=== PATIENT | female | born 1955 | race Caucasian/White ===

== ENCOUNTER 2020-05-13 18:01 | Emergency (ER) | payer MEDICARE, MEDICAID, SELFPAY ==
[2020-05-13 19:38] VITALS: BP 178/83; PULSE 97; RESP 18; TEMP 37.2; O2SAT 97; BMI 23.0
--- NOTE | 2020-05-13 20:42 | ED_ITS ---
HPI - General Adult General Chief complaint: General Medical Stated complaint: coughing Time Seen by Provider: 05/13/20 20:33 Source: patient Mode of arrival: ambulatory Limitations: no limitations History of Present Illness HPI narrative: patient comes to emergency room complaining of 2 days of nausea, vomiting, chills and cough and diffuse body pain. Patient states she has been able to eat because she is nauseous. Related Data Previous Rx's Medication Instructions Recorded azithromycin See Rx Instructions .ROUTE 05/13/20 .COMPLEX #6 tab benzonatate [Tessalon Perles] 100 mg PO TID PRN #14 cap 05/13/20 prednisone 50 mg PO DAILY #5 tab 05/13/20 Allergies Allergy/AdvReac Type Severity Reaction Status Date / Time No Known Allergies Allergy Unverified 03/22/20 17:10 [No Known Allergies*] none Allergy Unknown Uncoded 03/05/20 00:00 Review of Systems Review of Systems: Constitutional : No Weight loss, Complaining of chills, fatigue, generalized malaise ENT/Mouth : No Hearing loss, No Ear Pain, No Nasal Congestion, No Sinus Pain, No Hoarseness, No sore throat, No Rhinorrhea, No Swallowing Difficulty Eyes: No Eye Pain, No Swelling, No Redness, No Foreign Body, No Discharge, No Vision Changes Cardiovascular : No Chest Pain, No SOB, No Dyspnea on Exertion, No Orthopnea, No Edema, No Palpitations Respiratory : patient reports productive cough, no hemoptysis, no significant shortness of breath Gastrointestinal : No Nausea, No Vomiting, No Diarrhea, No Constipation, No abdominal Pain, No Hematochezia, No Melena Genitourinary : no irregular bleeding, No Dysuria, No Urinary Frequency, No Frederick turia, No Urinary Incontinence, No Urgency, No Flank Pain, No Urinary Flow Changes, No Hesitancy Musculoskeletal : No joint pain, No Myalgias, No Joint Swelling Skin : No Skin Lesions, No rash Neuro : No Weakness, No Numbness, No Paresthesias, No Loss of Consciousness, No Dizziness, No Headache Psych : No Anxiety/Panic, No Depression, No SI/HI/AH/VH, No Social Issues, Heme/Lymph: No Bruising, No Bleeding,No Lymphadenopathy Endocrine : No Polyuria, No Polydipsia, No Temperature Intolerance [facility] Past Medical History Medical History (Updated 05/13/20 @ 23:26 by Jacqueline Craft MD) Asthma COPD (chronic obstructive pulmonary disease) HTN (hypertension) Low calcium levels Surgical History Hx laparoscopic cholecystectomy Hx of tonsillectomy Hx of tubal ligation Family History Family History (Updated 05/10/20 @ 08:54 by Carley Medina LPN) Father Diabetes Hypertension Heart disease Mother Heart disease Diabetes Arthritis Social History Social History Alcohol intake: never Smoking Status: Current some day smoker Use of substances other than those prescribed or required for medical reasons: No Advance Directives: No Advance Directives Information Provided: Yes Physical Exam Vital Signs: Vital Signs: Last Vital Signs Temp 98.9 F 05/13/20 19:38 Pulse 97 05/13/20 19:38 Resp 18 05/13/20 19:38 BP 178/83 H 05/13/20 19:38 Pulse Ox 97 05/13/20 19:38 Body Mass Index 23.0 Course Course Course Narrative: I discussed the labs with the patient, she tested negative for COVID, chest x-ray within normal limits. UA negative. Patient's white blood cell count is likely secondary to a viral infection. Sepsis is not suspected. Patient will be sent home, due to the patient's age and comorbidit ies we will treat with antibiotics. Medical Decision Making Lab Data Result diagrams: 05/13/20 20:58 05/13/20 20:58 Labs: Lab Results 05/13/20 05/13/20 05/13/20 Range/Units 20:58 20:58 20:58 WBC 15.2 H (4.8-10.8) X10*3/uL RBC 4.54 (4.20-5.50) X10*6/uL Hgb 13.9 (12.0-16.0) g/dl Hct 41.8 (37-47) % MCV 92.1 (80-98) fL MCH 30.6 (27.0-33.0) pg MCHC 33.3 (31.0-35.0) g/dl RDW 12.0 (11.0-16.0) % Plt Count 263 (160-400) X10*3/uL MPV 9.8 (9.4-12.3) fL Immature Gran % (Auto) 0.3 (0.0-0.4) % Neut % (Auto) 74.8 H (45-73) % Lymph % (Auto) 16.0 L (20-40) % [place] % (Auto) 8.1 (2-11) % Eos % (Auto) 0.6 (0-4) % Baso % (Auto) 0.2 (0-2) % Lymph # (Auto) 2.4 (1.2-4.9) X10*3/uL [place] # (Auto) 1.2 (0.1-1.2) X10*3/uL Eos # (Auto) 0.1 (0.0-0.4) X10*3/uL Baso # (Auto) 0.0 (0.0-0.2) X10*3/uL Abs Immat Gran (auto) 0.05 H (0.00-0.03) X10*3/uL Absolute Neuts (auto) 11.4 H (2.0-8.3) X10*3/uL Absolute Nucleated RBC 0.000 (0.0-0.012) X10*3/uL Nucleated RBC % (auto) 0.0 (0.0-0.2) /100WBC Sodium 141 (135-145) mmol/L Potassium 4.0 (3.3-5.1) mmol/l Chloride 102 (96-108) mmol/L Carbon Dioxide 30 H (22-29) mmol/L Anion Gap 13 (12-20) BUN 13 (9-16) mg/dL Creatinine 0.80 (0.5-1.4) mg/dL Estim Creat Clear Calc 52.2 Estimated GFR > 60 Random Glucose 93 (60-115) mg/dL Lactic Acid 1.4 (0.5-2.0) mmol/L Calcium 9.2 (8.4-10.2) mg/dL Urine Color Urine Appearance Urine pH (5.0-8.0) Ur Specific [place] (1.005-1.025) Urine Protein (NEG-TRACE) MG/DL Urine Glucose (UA) (NEG) MG/DL Urine Ketones (NEG) MG/DL Urine Blood (NEG) Urine Nitrite (NEG) Ur Leukocyte Esterase (NEG) Urine RBC (0) /HPF Urine WBC (0-4) /HPF Ur Squamous Epith Cells /LPF Urine Bacteria /LPF Coronavirus (PCR) (Negative) 05/13/20 05/13/20 Range/Units 21:48 22:36 WBC (4.8-10.8) X10*3/uL RBC (4.20-5.50) X10*6/uL Hgb (12.0-16.0) g/dl Hct (37-47) % MCV (80-98) fL MCH (27.0-33.0) pg MCHC (31.0-35.0) g/dl RDW (11.0-16.0) % Plt Count (160-400) X10*3/uL MPV (9.4-12.3) fL Immature Gran % (Auto) (0.0-0.4) % Neut % (Auto) (45-73) % Lymph % (Auto) (20-40) % [place] % (Auto) (2-11) % Eos % (Auto) (0-4) % Baso % (Auto) (0-2) % Lymph # (Auto) (1.2-4.9) X10*3/uL [place] # (Auto) (0.1-1.2) X10*3/uL Eos # (Auto) (0.0-0.4) X10*3/uL Baso # (Auto) (0.0-0.2) X10*3/uL Abs Immat Gran (auto) (0.00-0.03) X10*3/uL Absolute Neuts (auto) (2.0-8.3) X10*3/uL Absolute Nucleated RBC (0.0-0.012) X10*3/uL Nucleated RBC % (auto) (0.0-0.2) /100WBC Sodium (135-145) mmol/L Potassium (3.3-5.1) mmol/l Chloride (96-108) mmol/L Carbon Dioxide (22-29) mmol/L Anion Gap (12-20) BUN (9-16) mg/dL Creatinine (0.5-1.4) mg/dL Estim Creat Clear Calc Estimated GFR Random Glucose (60-115) mg/dL Lactic Acid (0.5-2.0) mmol/L Calcium (8.4-10.2) mg/dL Urine Color YELLOW Urine Appearance CLEAR Urine pH 7.0 (5.0-8.0) Ur Specific [place] 1.015 (1.005-1.025) Urine Protein NEG (NEG-TRACE) MG/DL Urine Glucose (UA) NEG (NEG) MG/DL Urine Ketones NEG (NEG) MG/DL Urine Blood TRACE (NEG) Urine Nitrite NEG (NEG) Ur Leukocyte Esterase TRACE H (NEG) Urine RBC 0 (0) /HPF Urine WBC 0-2 (0-4) /HPF Ur Squamous Epith Cells NONE /LPF Urine Bacteria 1+ /LPF Coronavirus (PCR) NEGATIVE (Negative) Discharge Plan Discharge Clinical Impression: Bronchitis Patient Disposition: Home, Self-Care Instructions: Acute Bronchitis (ED) Additional Instructions: Please follow-up with your primary care physician tomorrow. If you have any worsening or new symptoms, please return to the emergency room or call 911 Prescriptions: New azithromycin 250 mg tablet See Rx Instructions .ROUTE .COMPLEX Qty: 6 RF: 0 prednisone 50 mg tablet 50 mg PO DAILY Qty: 5 RF: 0 benzonatate [Tessalon Perles] 100 mg capsule 100 mg PO TID PRN (Reason: cough) Qty: 14 RF: 0
--- NOTE | 2020-05-13 20:57 | XR_ITS ---
EXAMINATION: XR CHEST CLINICAL INFORMATION: Cough COMPARISON: 08/15/2019 TECHNIQUE: Frontal view of the chest was obtained. FINDINGS: No significant abnormality is noted involving the heart, lungs, mediastinum, bony thorax or soft tissues. XR/XR chest 1V IMPRESSION: Unremarkable examination.
[2020-05-13] MEDS: 0.9 % Sodium Chloride 1,000 ML 999 ML IVCONT (21:07)
[2020-05-13 21:08] LABS: MANUAL DIFF FLAG NO
[2020-05-13 21:10] LABS: Basophils Percent Auto 0.2 % (0-2); Eosinophils Absolute Auto 0.1 X10*3/uL (0.0-0.4); Eosinophils Percent Auto 0.6 % (0-4); Hematocrit 41.8 % (37-47); Hemoglobin 13.9 g/dl (12.0-16.0); Imm Gran Abs Auto 0.05 X10*3/uL (0.00-0.03); Imm Gran Pct Auto 0.3 % (0.0-0.4); Lymphocytes Absolute Auto 2.4 X10*3/uL (1.2-4.9); Mean Corpuscular HGB Conc 33.3 g/dl (31.0-35.0); Mean Corpuscular Hemoglobin 30.6 pg (27.0-33.0); Mean Corpuscular Volume 92.1 fL (80-98); Mean Platelet Volume 9.8 fL (9.4-12.3); Monocytes Absolute Auto 1.2 X10*3/uL (0.1-1.2); Monocytes Percent Auto 8.1 % (2-11); Neutrophils Absolute Auto 11.4 X10*3/uL (2.0-8.3); Neutrophils Percent Auto 74.8 % (45-73); Platelet Count 263 X10*3/uL (160-400); Red Blood Count 4.54 X10*6/uL (4.20-5.50); White Blood Count 15.2 X10*3/uL (4.8-10.8)
[2020-05-13 21:28] LABS: Lactic Acid 1.4 mmol/L (0.5-2.0)
[2020-05-13 21:33] LABS: Anion Gap 13 (12-20); Blood Urea Nitrogen 13 mg/dL (9-16); Calcium 9.2 mg/dL (8.4-10.2); Carbon Dioxide 30 mmol/L (22-29); Chloride 102 mmol/L (96-108); Creatinine Clr Calc Pharmacy 52.2; Estimated Glomerular Filt Rate > 60; Glucose Random 93 mg/dL (60-115); Sodium 141 mmol/L (135-145)
[2020-05-13 22:42] LABS: Glucose Urine UA NEG (NEG); Leukocyte Esterase Urine TRACE (NEG); Nitrite Urine NEG (NEG); Specific Gravity - Urine 1.015 (1.005-1.025); Urine Blood TRACE (NEG); Urine Ketones NEG (NEG); Urine Protein NEG (NEG-TRACE)
[2020-05-13 22:43] LABS: Appearance Urine CLEAR; Color Urine YELLOW
[2020-05-13 22:49] LABS: Bacteria Urine 1+ /LPF; RBC Urine 0 /HPF (0); WBC Urine 0-2 /HPF (0-4)
[2020-05-13 22:58] LABS: SARS COV2 PCR INHOUSE NEGATIVE (Negative)
[2020-05-13 23:31] VITALS: BP 162/99; PULSE 103; RESP 16; TEMP 36.9; O2SAT 99
== END 2020-05-13 23:42 | disposition home or self-care (01) ==
PROVIDERS: Emergency Provider Emergency Medicine; PCP Internal Medicine
DX: J40 Bronchitis, not specified as acute or chronic (principal); R05 Cough; Z79.899 Other long term (current) drug therapy; F17.200 Nicotine dependence, unspecified, uncomplicated; Z71.6 Tobacco abuse counseling; Z20.828 Contact with and (suspected) exposure to other viral communicable diseases
CPT/HCPCS: 36415; 71045; 80048; 81001; 83605; 85025; 87040; 87086; 96360; 99284; U0003

== ENCOUNTER 2020-06-11 11:19 | Emergency (ER) | payer MEDICARE, MEDICAID, SELFPAY ==
[2020-06-11 11:40] VITALS: BP 129/79; PULSE 113; RESP 16; TEMP 36; O2SAT 95; BMI 20.7
--- NOTE | 2020-06-11 11:48 | XR_ITS ---
EXAMINATION: XR CHEST CLINICAL INFORMATION: Productive cough. COMPARISON: Chest 05/13/2020 TECHNIQUE: Frontal view of the chest was obtained. FINDINGS: The lungs are well-expanded with patchy density suspected in right lung base. Rest of lungs are clear. Heart size and pulmonary vascularity is normal. No gross bony abnormality seen. XR/XR chest 1V IMPRESSION: Patchy density right lung base likely infiltrate.
--- NOTE | 2020-06-11 12:26 | ED_ITS ---
HPI - URI/Sore Throat General Chief Complaint: Upper Respiratory Symptoms Stated Complaint: respiratory problems Time Seen by Provider: 06/11/20 11:36 Source: patient Mode of arrival: ambulatory Limitations: no limitations History of Present Illness HPI Narrative: 65-year-old female presenting to the ED with complaints of body aches, sore throat, nasal congestion, productive cough with white-colored sputum and chest tightness along with wheezing despite using her albuterol inhaler and nebulizer she reports mild symptomatic relief. Denies recent travel or sick contacts. Denies any fevers, chest pain or palpitations or any other symptom complaints or concerns at this time. Reports she was seen here approximately 1 month ago was diagnosed with bronchitis and was sent home with antibiotics and symptomatic treatment which made her symptoms resolve. Related Data Previous Rx's Medication Instructions Recorded azithromycin See Rx Instructions .ROUTE 05/13/20 .COMPLEX #6 tab benzonatate [Tessalon Perles] 100 mg PO TID PRN #14 cap 05/13/20 prednisone 50 mg PO DAILY #5 tab 05/13/20 acetaminophen [Tylenol Extra 1,000 mg PO QID PRN #10 tab 06/11/20 Strength] albuterol sulfate 0.63 mg INHALATION QID PRN #90 ml 06/11/20 albuterol sulfate 1 inh INHALATION QID PRN #8.5 g 06/11/20 doxycycline monohydrate 100 mg PO BID 10 Days #20 cap 06/11/20 ibuprofen 800 mg PO Q8H PRN #14 tab 06/11/20 prednisone 40 mg PO DAILY 5 Days #10 tab 06/11/20 Allergies Allergy/AdvReac Type Severity Reaction Status Date / Time No Known Allergies Allergy Unverified 03/22/20 17:10 [No Known Allergies*] none Allergy Unknown Uncoded 03/05/20 00:00 Review of Systems Review of Systems: Constitutional : denies med noncompliance, no history of PE or DVT, denies recent travel, No Fever, No Chills ENT/Mouth : No Hoarseness, + sore throat, + Rhinorrhea Eyes: No Redness, No Discharge, No Vision Changes Cardiovascular : No Chest Pain, No SOB, No Dyspnea on Exertion, No Edema, no pleurisy, Respiratory : +Cough/Sputum/wheezing, no stridor, no hemoptysis, Gastrointestinal : No Nausea, No Vomiting, No Diarrhea, No abdominal Pain Genitourinary : No Dysuria, No Hematuria Musculoskeletal : No joint pain, No Myalgias Extremities: no extremity swelling /pain Skin : No rash, no itching, no swelling Neuro : No Weakness, No Numbness, No Headache Psych : No anxiety, depression Heme/Lymph: No Bruising, No Bleeding Endocrine : No Polyuria, No Polydipsia Yes all other systems are reviewed and are negative [facility] Past Medical History Attestation statement: The following information was validated with the patient. Medical History Arthritis Asthma COPD (chronic obstructive pulmonary disease) HTN (hypertension) Low calcium levels Surgical History Hx laparoscopic cholecystectomy Hx of tonsillectomy Hx of tubal ligation Family History Family History Father Diabetes Hypertension Heart disease Mother Heart disease Diabetes Arthritis Social History Social History Alcohol intake: never Smoking Status: Current some day smoker Advance Directives: No Advance Directives Information Provided: No Physical Exam Vital Signs: Vital Signs: Last Vital Signs Temp 96.8 F 06/11/20 11:40 Pulse 113 H 06/11/20 11:40 Resp 16 06/11/20 11:40 BP 129/79 06/11/20 11:40 Pulse Ox 95 06/11/20 11:40 Body Mass Index 20.7 vital signs have been reviewed as normal and appeared to be correct. Blood pressure normal. Heart rate normal. Respiration rate normal. Temperature normal. Oxygen saturation normal. Appearance: Alert. Oriented X3. No acute distress. Head: Normal external exam. Normocephalic. Atraumatic. Eyes: PERRLA. EOMI. Conjunctiva and sclera normal. Eyelids normal. ENT: EAC normal. TM's Normal. Pharynx normal. Uvula midline. Moist mucous membranes. Neck: Normal inspection. Neck supple. FROM. No adenopathy.No meningeal signs. CVS: Normal heart rate and rhythm. Heart sound normal. No murmurs noted. Pulses normal throughout. Respiratory: No respiratory distress. Painless inspiration. Breath sounds lynne l. No wheezes/rales/rhonchi noted. Chest nontender. No accessory muscle usage noted or decreased air movement noted. Back: Full range of motion noted. Skin: Skin warm and dry. Normal skin color. Normal skin turgor. No rashes/lesions/lacerations noted. Extremities: No lower extremity edema. Extremities exhibit normal range of motion. Extremities nontender. Neuro: Oriented X 3. No motor deficit. No sensory deficit. Reflexes normal. Course Course Course Narrative: 65-year-old female presenting to the ED with URI symptoms with cough with wheezing and sputum production. Finished a course of a Z-Feliz last month and felt better. Reports she was not exposed to COVID although would like to be tested. Patient's oxygen saturations 95% on room air. Chest x-ray revealed patchy infiltrate right lower lobe therefore placed on doxycycline and symptomatic treatment along with instructions return if any new or worsening symptoms to self isolate for at least 10 days or until symptoms are improving. Patient understands agrees with this plan. MDM - URI/Sore Throat Medical Records Attestation: I reviewed the patient's medical records. Lab Data Labs: Lab Results 06/11/20 Range/Units 12:02 Coronavirus (PCR) NEGATIVE (Negative) Influenza Type A (PCR) NEGATIVE (Negative) Influenza Type B (PCR) NEGATIVE (Negative) RSV RNA Qual (PCR) NEGATIVE (Negative) Imaging Data Chest x-ray: Attestation: I personally reviewed and interpreted this imaging study as follows: Radiologist's impression: IMPRESSION: Patchy density right lung base likely infiltrate. Discharge Plan Discharge Clinical Impression: Pneumonia Patient Disposition: Home, Self-Care Instructions: Community Acquired Pneumonia (ED), COVID-19 (Coronavirus Disease 2019) (ED) Additional Instructions: Based on your symptoms and history we have sent a COVID-19. Although your RESULT IS PENDING at this time. RESULTS should return within 72 hours. At this time you will be contacted with either NEGATIVE OR POSITIVE results. -Please wait until we contact you for your results. At this time you will be okay for discharge. Please plan for self quarantine for up to 14 days. Do not expose yourself to others. You may not go to work. If testing does come back negative you may return to activities as long as you are no longer having any symptoms for at least 3 days. Please continue to follow cold instructions and wash your hands frequently. You may take Tylenol as directed on the bottle for pain or fever. Patient seen in the emergency department on 06/11/2020 and should be excused from work until negative test results AND until 72 hours without any symptoms AND at least 10 days have passed since symptoms first appeared or since last exposure to COVID-19 positive patient CDC Guidelines for home isolation: - Stay away from others - WEAR A MASK if you are sick AND STAY HOME - Cover your mouth and nose with a tissue when you cough or sneeze. Dispose of tissues in a lined trash can and wash your hands immediately with soap and water for at least 20 seconds. If soap and water are not available, clean hands with alcohol-based hand child development teacher that contains at least 60% alcohol. - Clean your hands often with soap and water for at least 20 seconds - Avoid touching your eyes, nose and mouth with unwashed hands - Do not share dishes, drinking glasses, cups, eating utensils, towels, or bedding with other people in your home. After using these items, wash them thor oughly with soap and water or put in the maintenance mechanic. - Clean high-touch surfaces in your isolation area ( sick room and bathroom) every day; let a caregiver clean and disinfect high-touch surfaces in other areas of the home. Clean the area or item with soap and water or another detergent if it is dirty. Then, use a household disinfectant. - Limit contact with pets and animals: If you must care for a pet, wash your hands before and after interacting with them). Prescriptions: New ibuprofen 800 mg tablet 800 mg PO Q8H PRN (Reason: pain) Qty: 14 RF: 0 prednisone 20 mg tablet 40 mg PO DAILY 5 Days Qty: 10 RF: 0 doxycycline monohydrate 100 mg capsule 100 mg PO BID 10 Days Qty: 20 RF: 0 acetaminophen [Tylenol Extra Strength] 500 mg tablet 1,000 mg PO QID PRN (Reason: fever or pain) Qty: 10 RF: 0 albuterol sulfate 90 mcg/actuation HFA aerosol inhaler 1 inh inhalation QID PRN (Reason: shortness of breath or wheezing) Qty: 8.5 RF: 0 albuterol sulfate 0.63 mg/3 mL solution for nebulization 0.63 mg inhalation QID PRN (Reason: shortness of breath or wheezing) Qty: 90 RF: 0 No Action azithromycin 250 mg tablet See Rx Instructions .ROUTE .COMPLEX Qty: 6 RF: 0 prednisone 50 mg tablet 50 mg PO DAILY Qty: 5 RF: 0 benzonatate [Tessalon Perles] 100 mg capsule 100 mg PO TID PRN (Reason: cough) Qty: 14 RF: 0 Referrals: Katya Titus MD [Primary Care Provider] - 2 days Stand Alone Forms: Work/School Release Print Language: Samoan
[2020-06-11 12:53] LABS: Influenza A PCR NEGATIVE (Negative); Influenza B PCR NEGATIVE (Negative); Resp Syncy Virus RNA Qual PCR NEGATIVE (Negative); SARS COV2 PCR INHOUSE NEGATIVE (Negative)
== END 2020-06-11 13:25 | disposition home or self-care (01) ==
PROVIDERS: Physician Assistant Medical; Emergency Provider Emergency Medicine; PCP Internal Medicine
DX: J18.9 Pneumonia, unspecified organism (principal); Z20.828 Contact with and (suspected) exposure to other viral communicable diseases; J45.909 Unspecified asthma, uncomplicated; I10 Essential (primary) hypertension; F17.200 Nicotine dependence, unspecified, uncomplicated
CPT/HCPCS: 0241U; 71045; 99283

== ENCOUNTER 2020-07-19 08:38 | Outpatient (REF) | payer MEDICARE, MEDICAID, SELFPAY ==
[2020-07-19 14:13] LABS: Albumin Level 4.5 g/dL (3.5-5.0); Calcium 9.3 mg/dL (8.4-10.2); Phosphorus 4.3 mg/dL (2.7-4.5)
[2020-07-19 14:37] LABS: Free T4 (Free Thyroxine) 1.01 ng/dL (0.71-1.85); Thyroid Stimulating Hormone 0.93 uIU/mL (0.32-4.0); Vitamin D 25-OH Total 14.2 ng/mL (>30)
[2020-07-20 13:23] LABS: Prot Elec - Albumin 4.2 g/dL (3.8-4.8); Prot Elec - Alpha1 0.3 g/dL (0.2-0.3); Prot Elec - Alpha2 0.9 g/dL (0.5-0.9); Prot Elec - Beta 1 0.4 g/dL (0.4-0.6); Prot Elec - Beta 2 0.3 g/dL (0.2-0.5); Prot Elec - Gamma 0.9 g/dL (0.8-1.7)
[2020-07-21 10:33] LABS: Calcium, Ionized 4.9 mg/dL (4.8-5.6)
[2020-07-21 10:58] LABS: Creatinine, 24Hr Urine 1.2 G/Day (1.0-2.0); Total Volume 24 Hour Urine 550 mL
[2020-07-23 19:42] LABS: Alkaline Phosphatase Bone 13.9 mcg/L (5.6-29.0)
[2020-07-23 22:03] LABS: Calcium, 24 Hr Urine 84 mg/24 h; Calcium/Creatinine Ratio 83 mg/g creat (30-275); Creatinine 24Hr Urine 1.02 g/24 h (0.50-2.15)
[2020-07-24 18:17] LABS: PTHI 51 pg/mL (14-64)
[2020-07-25 13:06] LABS: Calcium (PTHI) 10.4 mg/dL (8.6-10.4)
== END 2020-07-19 08:39 | disposition home or self-care (01) ==
LOC: CF 08:38
PROVIDERS: PCP Internal Medicine; Referring Provider Internal Medicine; Visit Provider Internal Medicine
DX: M81.0 Age-related osteoporosis without current pathological fracture (principal); E55.9 Vitamin D deficiency, unspecified
CPT/HCPCS: 36415; 82040; 82306; 82310; 82330; 82340; 82570; 83970; 84075; 84100; 84155; 84165; 84439; 84443; Q3014

== ENCOUNTER 2020-07-21 09:55 | Outpatient (REF) | payer MEDICARE, MEDICAID, SELFPAY ==
[2020-07-26 17:47] LABS: N-Telopeptide 90 (see note); NTXCreaRU 117 mg/dL (20-275)
== END 2020-07-21 09:56 | disposition home or self-care (01) ==
LOC: HO.LAB 09:55
PROVIDERS: Visit Provider Internal Medicine
DX: M81.0 Age-related osteoporosis without current pathological fracture (principal)
CPT/HCPCS: 82523

== ENCOUNTER → 2020-07-26 12:38 | Outpatient (BNVA) | payer MEDICARE, MEDICAID, SELFPAY | PROVIDERS: PCP Internal Medicine; Visit Provider Internal Medicine | DX: M81.0 Age-related osteoporosis without current pathological fracture (principal); E55.9 Vitamin D deficiency, unspecified; E21.3 Hyperparathyroidism, unspecified; R77.8 Other specified abnormalities of plasma proteins | CPT/HCPCS: Q3014 ==

== ENCOUNTER 2020-07-30 10:16 | Outpatient (REF) | payer MEDICARE, MEDICAID, SELFPAY ==
[2020-07-30 12:37] LABS: Albumin Level 4.1 g/dL (3.5-5.0); Phosphorus 4.1 mg/dL (2.7-4.5)
[2020-07-30 12:41] LABS: Vitamin D 25-OH Total 12.1 ng/mL (>30)
[2020-08-01 11:32] LABS: Calcium (PTHI) 8.9 mg/dL (8.6-10.4); PTHI 53 pg/mL (14-64)
== END 2020-07-30 10:17 | disposition home or self-care (01) ==
LOC: HO.10HDL 10:16
PROVIDERS: Visit Provider Internal Medicine
DX: E21.3 Hyperparathyroidism, unspecified (principal); E55.9 Vitamin D deficiency, unspecified
CPT/HCPCS: 36415; 82040; 82306; 82310; 83970; 84100

== ENCOUNTER 2020-07-31 12:35 | Outpatient (REF) | payer MEDICARE, MEDICAID, SELFPAY ==
[2020-07-31 14:35] LABS: Total Volume 24 Hour Urine 1050 mL
[2020-07-31 15:02] LABS: Creatinine, mg/dL 93.72
[2020-08-01 17:27] LABS: Calcium, 24 Hr Urine 111 mg/24 h; Calcium/Creatinine Ratio 108 mg/g creat (30-275); Creatinine 24Hr Urine 1.03 g/24 h (0.50-2.15)
== END 2020-07-31 12:36 | disposition home or self-care (01) ==
LOC: HO.10HDLNP 12:35
PROVIDERS: Visit Provider Internal Medicine
DX: E21.3 Hyperparathyroidism, unspecified (principal)
CPT/HCPCS: 82340; 82570

== ENCOUNTER → 2020-08-08 10:00 | Outpatient (BNV) | payer MEDICARE, OTHER, MEDICAID, SELFPAY | PROVIDERS: PCP Internal Medicine; Referring Provider Internal Medicine; Visit Provider Internal Medicine | DX: R77.8 Other specified abnormalities of plasma proteins (principal) | CPT/HCPCS: 99202; 99203; 99213; 99441 ==

== ENCOUNTER 2020-08-23 13:01 | Outpatient (REF) | payer MEDICARE, MEDICAID, SELFPAY ==
--- NOTE | ~2020-08-23 | MM_ITS ---
EXAMINATION: MM SCREENING DIGITAL BREAST TOMOSYNTHESIS, BILATERAL CLINICAL INFORMATION: Screening. Asymptomatic. The lifetime risk of breast cancer based on the Tyrer-Cuzick Model is 3%. COMPARISON: Mammography: 08/18/2019, 06/16/2018, 05/22/2017 TECHNIQUE: Digital breast tomosynthesis is performed in both the craniocaudal and mediolateral oblique views along with computer-aided detection (CAD). Synthesized 2D images are generated from the tomosynthesis. FINDINGS: The breasts are heterogeneously dense, which may obscure small masses (ACR BI-RADS breast composition Category c). There are no significant masses, abnormal calcifications, or other abnormalities. The axilla and skin contours are unremarkable. No significant changes. MM/MM tomosynthesis screening BI IMPRESSION: No mammographic evidence of malignancy. ASSESSMENT: BI-RADS 1: Negative RECOMMENDATION: Routine annual mammography screening. This patient's information was entered into a reminder system with a target due date for their next mammogram.
== END 2020-08-23 13:02 | disposition home or self-care (01) ==
LOC: HO.MAMMO 13:01
PROVIDERS: PCP Internal Medicine; Visit Provider Internal Medicine
DX: Z12.31 Encounter for screening mammogram for malignant neoplasm of breast (principal)
CPT/HCPCS: 77063; 77067

== ENCOUNTER → 2020-09-13 10:38 | Outpatient (BNVA) | payer MEDICARE, MEDICAID, SELFPAY | PROVIDERS: PCP Internal Medicine; Visit Provider Internal Medicine | DX: J44.9 Chronic obstructive pulmonary disease, unspecified (principal); F17.200 Nicotine dependence, unspecified, uncomplicated; Z71.6 Tobacco abuse counseling; Z79.51 Long term (current) use of inhaled steroids | CPT/HCPCS: 99212 ==

== ENCOUNTER → 2020-09-20 11:34 | Outpatient (BNVA) | payer MEDICARE, MEDICAID, SELFPAY | PROVIDERS: PCP Internal Medicine; Visit Provider Internal Medicine ==

== ENCOUNTER → 2020-10-11 10:26 | Outpatient (BNVA) | payer MEDICARE, MEDICAID, SELFPAY | PROVIDERS: PCP Internal Medicine; Referring Provider Internal Medicine; Visit Provider Nurse Practitioner | DX: R15.2 Fecal urgency (principal); K58.2 Mixed irritable bowel syndrome; K21.9 Gastro-esophageal reflux disease without esophagitis | CPT/HCPCS: Q3014 ==

== ENCOUNTER → 2020-10-18 13:51 | Outpatient (BNVA) | payer MEDICARE, MEDICAID, SELFPAY | PROVIDERS: PCP Internal Medicine; Visit Provider Internal Medicine | DX: Z13.89 Encounter for screening for other disorder (principal) | CPT/HCPCS: Q3014 ==

== ENCOUNTER 2020-10-19 10:10 | Outpatient (REF) | payer MEDICARE, MEDICAID, SELFPAY ==
[2020-10-19 14:35] LABS: Albumin Level 3.7 g/dL (3.5-5.0); Alkaline Phosphatase 210 U/L (39-117); Anion Gap 13 (12-20); Bilirubin Total 1.6 mg/dL (0.0-1.0); Blood Urea Nitrogen 16 mg/dL (9-16); Carbon Dioxide 29 mmol/L (22-29); Chloride 104 mmol/L (96-108); Estimated Glomerular Filt Rate 60; Glucose Random 164 mg/dL (60-115); Phosphorus 3.1 mg/dL (2.7-4.5); Potassium 3.8 mmol/L (3.3-5.1); Sodium 142 mmol/L (135-145); Total Protein 6.8 g/dL (6.5-8.0)
[2020-10-19 14:40] LABS: Vitamin D 25-OH Total 26.7 ng/mL (>30)
[2020-10-19 14:46] LABS: Alanine Aminotransferase 992 U/L (0-31); Aspartate Amino Transferase 508 U/L (5-31)
[2020-10-23 06:56] LABS: Calcium (PTHI) 9.5 mg/dL (8.6-10.4); PTHI 57 pg/mL (14-64)
== END 2020-10-19 10:11 | disposition home or self-care (01) ==
LOC: HO.10HDL 10:10
PROVIDERS: Visit Provider Internal Medicine
DX: E21.3 Hyperparathyroidism, unspecified (principal); E55.9 Vitamin D deficiency, unspecified
CPT/HCPCS: 36415; 80053; 82306; 83970; 84100

== ENCOUNTER 2020-10-23 13:00 | Outpatient (REF) | payer MEDICARE, MEDICAID, SELFPAY ==
[2020-10-23 14:58] LABS: Creatinine, mg/dL 94.04
[2020-10-23 17:24] LABS: Total Volume 24 Hour Urine 1100 mL
[2020-10-24 18:32] LABS: Calcium, 24 Hr Urine 15 mg/24 h; Calcium/Creatinine Ratio 16 mg/g creat (30-275); Creatinine 24Hr Urine 0.97 g/24 h (0.50-2.15)
== END 2020-10-23 13:01 | disposition home or self-care (01) ==
LOC: HO.10HDLNP 13:00
PROVIDERS: Visit Provider Internal Medicine
DX: E21.3 Hyperparathyroidism, unspecified (principal)
CPT/HCPCS: 82340; 82570

== ENCOUNTER 2020-10-24 10:48 | Inpatient (IN) | payer MEDICARE, MEDICAID, SELFPAY ==
--- NOTE | ~2020-10-24 | US_ITS ---
EXAMINATION: US ABDOMEN COMPLETE CLINICAL INFORMATION: Elevated LFTs. Left upper quadrant pain.. COMPARISON: CT abdomen and pelvis with contrast 10/07/2012 TECHNIQUE: Real-time imaging of the abdominal viscera. FINDINGS: PANCREAS: The visualized pancreas is normal in size and contour and echogenicity. There is no pancreatic ductal distention or retroperitoneal effusion. Pancreatic tail is obscured by bowel gas and not completely imaged. There is a probable peripancreatic lymph node between the liver and pancreatic head measuring approximately 0.7 x 1.3 x 1.5 cm. In retrospect, similar findings suggested in this area at least 1.1 cm in size on CT 2013. ABDOMINAL AORTA: The proximal mid abdominal aorta are unremarkable. Distal aorta are partially obscured by bowel gas. INFERIOR VENA CAVA: Visualized portions are normal. LIVER: The liver is normal in size and smooth in contour and uniform in echogenicity. There is no hepatic parenchymal lesion or intrahepatic ductal dilatation. There may be mild underlying hepatic steatosis. Doppler shows portal flow towards the liver. GALLBLADDER: Surgically absent. COMMON BILE DUCT: Normal in caliber measuring 0.5 cm in diameter. RIGHT KIDNEY: Normal. No hydronephrosis. No renal calculi or focal parenchymal lesions. The kidney measures 10.8 cm in maximum dimension. LEFT KIDNEY: Normal. No hydronephrosis. No renal calculi. The kidney measures 10.4 cm in maximum dimension. There is a cyst lower pole measuring 1.7 x 1.5 cm. Prior measurement 1.[address] 2013. SPLEEN: Normal. The spleen measures 10.7 cm in maximum dimension. FREE FLUID: None. US/US abdomen complete IMPRESSION: 1. Prior cholecystectomy. No ductal dilatation. 2. Liver normal in size and homogeneous. Possible mild steatosis. No focal lesion. 3. Visualized pancreas unremarkable. Spleen normal in size. No ascites.
--- NOTE | ~2020-10-24 | MR_ITS ---
EXAMINATION: MR ABDOMEN WITHOUT CONTRAST CLINICAL INFORMATION: Transaminitis. Assess for obstruction. COMPARISON: Abdominal ultrasound 10/24/2020, CT abdomen and pelvis with contrast 10/07/2012. TECHNIQUE: MR abdomen is performed without gadolinium contrast. Imaging performed in coronal and axial planes. Additional MRCP sequence also performed along with maximum intensity projection MIP images generated on the MR workstation and uploaded to PACS. FINDINGS: LUNG BASES: The visualized lung bases are unremarkable. LIVER, GALLBLADDER, AND BILIARY TREE: The liver is normal in size measuring 16.2 cm in length. The liver surface is smooth. The parenchyma is homogeneous in signal. There is no hepatic steatosis, no signal loss on out of phase imaging. No focal hepatic parenchymal lesion other than a tiny cyst inferior right lobe 0.3 cm on this noncontrast exam. There is been prior cholecystectomy. There is no intrahepatic or extrahepatic ductal dilatation. Common duct measures 5 to 6 mm in caliber. There is no stricture or intraluminal filling defect. PANCREAS: Normal in size and contour and signal. No pancreatic ductal distention or divisum. No peripancreatic inflammatory changes. Peripancreatic node noted on prior study is not seen with certainty, possibly due to the mild respiratory motion artifact. SPLEEN: Unremarkable. ADRENAL GLANDS: Unremarkable. KIDNEYS AND URETERS: The kidneys are normal in size and shape. No hydronephrosis. No perinephric stranding. There is a 1.6 cm cyst lower pole left kidney. GASTROINTESTINAL TRACT: No bowel obstruction or focal inflammatory changes. There is some signal in the subphrenic space is likely related to the respiratory motion artifact. No ascites seen on multiplanar imaging or recent ultrasound. ABDOMINAL WALL: No significant hernia is appreciated. There is borderline fat-containing umbilical hernia under 2 cm. LYMPH NODES: No lymphadenopathy. VASCULAR: Unremarkable. OSSEOUS STRUCTURES: Marrow signal normal. MR/MR MRCP IMPRESSION: 1. Prior cholecystectomy. No biliary ductal dilatation. No choledocholithiasis. 2. No pancreatic ductal distention or divisum. 3. Liver and spleen normal in size. Tiny cyst lower right hepatic lobe 0.3 cm. 4. Small cyst lower pole left kidney 1.6 cm. No hydronephrosis.
[2020-10-24 11:26] VITALS: BP 126/70; PULSE 86; RESP 18; TEMP 36.7; O2SAT 97; BMI 22.4
[2020-10-24 12:11] LABS: MANUAL DIFF FLAG NO
[2020-10-24 12:15] LABS: Basophils Percent Auto 0.5 % (0-2); Eosinophils Absolute Auto 0.2 X10*3/uL (0.0-0.4); Hematocrit 40.3 % (37-47); Hemoglobin 12.9 g/dl (12.0-16.0); Imm Gran Abs Auto 0.02 X10*3/uL (0.00-0.03); Imm Gran Pct Auto 0.3 % (0.0-0.4); Lymphocytes Absolute Auto 1.8 X10*3/uL (1.2-4.9); Mean Corpuscular Hemoglobin 30.9 pg (27.0-33.0); Mean Corpuscular Volume 96.6 fL (80-98); Monocytes Absolute Auto 0.7 X10*3/uL (0.1-1.2); Monocytes Percent Auto 10.7 % (2-11); Neutrophils Absolute Auto 3.4 X10*3/uL (2.0-8.3); Neutrophils Percent Auto 55.5 % (45-73); Platelet Count 192 X10*3/uL (160-400); Red Blood Count 4.17 X10*6/uL (4.20-5.50); Red Cell Distribution Width 12.5 % (11.0-16.0); White Blood Count 6.1 X10*3/uL (4.8-10.8)
[2020-10-24 12:38] LABS: Anion Gap 13 (12-20); Blood Urea Nitrogen 18 mg/dL (9-16); Calcium 9.2 mg/dL (8.4-10.2); Carbon Dioxide 27 mmol/L (22-29); Chloride 107 mmol/L (96-108); Creatinine Clr Calc Pharmacy 38.3; Estimated Glomerular Filt Rate 50; Glucose Random 96 mg/dL (60-115); Potassium 4.1 mmol/L (3.3-5.1); Sodium 143 mmol/L (135-145)
[2020-10-24 12:40] LABS: Alanine Aminotransferase 819 U/L (0-31); Albumin Level 3.7 g/dL (3.5-5.0); Alkaline Phosphatase 209 U/L (39-117); Aspartate Amino Transferase 373 U/L (5-31); Bilirubin Direct 1.1 mg/dL (0.0-0.5); Bilirubin Total 1.9 mg/dL (0.0-1.0); Total Protein 6.6 g/dL (6.5-8.0)
--- NOTE | 2020-10-24 12:40 | ED.RECABL ---
HPI - Recheck/Abnormal Lab/Rx General Chief Complaint: Recheck/Abnormal Lab/Rx Stated Complaint: abnormal labs Time Seen by Provider: 10/24/20 12:33 Source: patient Mode of arrival: ambulatory Limitations: no limitations History of Present Illness HPI narrative: 65-year-old female came in from her PCP office for evaluation of abnormal elevation of LFTs. Patient declined history of alcohol abuse, no recent sickness or fever or chills. Patient is only taking medication for high blood pressure do not remember the name now, declined using any herbal therapy, and definitely declined any history of alcohol abuse. Related Data Home Medications Medication Instructions Recorded Confirmed amlodipine 5 mg tablet 5 mg PO DAILY 07/19/20 10/24/20 loratadine 10 mg tablet 10 mg PO DAILY PRN 07/19/20 10/24/20 losartan 50 mg tablet 50 mg PO DAILY 07/19/20 10/24/20 montelukast 10 mg tablet 10 mg PO BEDTIME 07/19/20 10/24/20 ipratropium bromide 17 2 puff INHALATION TID 09/13/20 10/24/20 mcg/actuation HFA aerosol inhaler albuterol sulfate 2 inh INHALATION QID PRN 10/24/20 10/24/20 Previous Rx's Medication Instructions Recorded acetaminophen [Tylenol Extra 1,000 mg PO QID PRN #10 tab 06/11/20 Strength] cholecalciferol (vitamin D3) 50 50 mcg PO DAILY 30 Days #30 cap 07/30/20 mcg (2,000 unit) capsule Advair Diskus 250 mcg-50 mcg/dose 1 inh INHALATION BID 30 Days #60 09/19/20 powder for inhalation ea NS omeprazole 40 mg capsule,delayed 40 mg PO BID 30 Days #60 cap 10/19/20 release Allergies Allergy/AdvReac Type Severity Reaction Status Date / Time No Known Allergies Allergy Verified 10/24/20 11:31 [No Known Allergies*] Review of Systems Review of Systems: All other systems are reviewed and are negative Constitutional: Reports as per HPI and Reports no additional constitutional complaints Eyes: Reports as per HPI and Reports no additional eye complaints Reports system reviewed and no additional complaints, except as documented Cardiovascular: Reports as per HPI and Reports no additional cardiovascular complaints Respiratory: Reports as per HPI and Reports no additional respiratory complaints Gastrointestinal: Reports as per HPI and Reports no additional gastrointestinal complaints Genitourinary: Reports no additional female genitourinary complaints Musculoskeletal: Reports no additional musculoskeletal complaints Skin/Breast: Reports system reviewed and no additional complaints, except as docu Psychiatric: Reports no additional psychiatric complaints Endocrine: Reports no additional endocrine complaints Hematologic/Lymphatic: Reports no additional hematologic/lymphatic complaints Allergic/Immunologic: Reports no additional allergic/immunologic complaints Reports system reviewed and no additional complaints, except as documented and Reports Abnormal speech present [facility] Past Medical History Medical History Abnormal LFTs Abnormal SPEP Allergic rhinitis Arthritis Asthma COPD (chronic obstructive pulmonary disease) COPD (chronic obstructive pulmonary disease) HTN (hypertension) Hyperparathyroidism Low calcium levels Osteoporosis Smoker Vitamin D deficiency Surgical History Hx laparoscopic cholecystectomy Hx of tonsillectomy Hx of tubal ligation Family History Family History Father Diabetes Hypertension Heart disease Mother Heart disease Diabetes Arthritis Social History Social History Alcohol intake: former Smoking Status: Current every day smoker Tobacco Type: Cigarette Cigarettes Per Day: 5 Use of substances other than those prescribed or required for medical reasons: No Advance Directives: Yes Advance Directives Information Provided: Yes Advance Directives on File: No Physical Exam Vital Signs: Vital Signs: Last Vital Signs Temp 97.6 F 10/24/20 15:09 Pulse 66 10/24/20 15:09 Resp 18 10/24/20 15:09 BP 152/71 H 10/24/20 15:09 Pulse Ox 99 10/24/20 15:09 Body Mass Index 22.4 Vital signs have been reviewed as appeared to be correct. Blood pressure normal. Heart rate normal. Respiration rate normal. Temperature normal. Oxygen saturation normal. Appearance: Alert. Oriented X3. No acute distress. Head: Normal external exam. Normocephalic. Atraumatic. No Hernández signs noted. No raccoon eyes noted Eyes: PERRLA. EOMI. Conjunctiva and sclera normal. Eyelids normal. ENT: TM's Normal. Pharynx normal. Uvula midline. Moist mucous membranes. No trismus noted. No drooling noted. No muffled voice noted. Neck: Normal inspection. Neck supple. FROM. No adenopathy. Thyroid Normal. No meningeal signs. No neck mass noted. CVS: Normal heart rate and rhythm. Heart sound normal. No murmurs noted. Pulses normal throughout. Respiratory: No respiratory distress. Painless inspiration. Breath sounds normal. No wheezes/rales/rhonchi noted. Chest nontender. No accessory muscle usage noted or decreased air movement noted. Abdomen: Soft and nontender. Bowel sounds normal in all 4 quadrants. No distention noted. No organomegaly noted. No visible injury noted. Back: No CVA tenderness. Full range of motion noted. Skin: Skin warm and dry. Normal skin color. Normal skin turgor. No rashes/lesions/lacerations noted. Extremities: No lower extremity edema. Extremities exhibit normal range of motion. Extremities nontender. Neuro: Oriented X 3. No motor deficit. No sensory deficit. Reflexes normal. Course Course Course Narrative: Assessment and plan. This is a 65 years old female came in for evaluation for acute transaminitis unclear etiology. Ultrasound unremarkable for significant cause of her transaminitis. Will admit inpatient to get further workup and evaluation by GI. MDM - Recheck/Abnormal Lab/Rx Lab Data Attestation: I reviewed the patient's lab results. Result diagrams: 10/24/20 11:59 10/24/20 11:59 Labs: Lab Results 10/24/20 10/24/20 10/24/20 Range/Units 11:59 11:59 11:59 WBC 6.1 (4.8-10.8) X10*3/uL RBC 4.17 L (4.20-5.50) X10*6/uL Hgb 12.9 (12.0-16.0) g/dl Hct 40.3 (37-47) % MCV 96.6 (80-98) fL MCH 30.9 (27.0-33.0) pg MCHC 32.0 (31.0-35.0) g/dl RDW 12.5 (11.0-16.0) % Plt Count 192 (160-400) X10*3/uL MPV 11.0 (9.4-12.3) fL Immature Gran % (Auto) 0.3 (0.0-0.4) % Neut % (Auto) 55.5 (45-73) % Lymph % (Auto) 29.0 (20-40) % [place] % (Auto) 10.7 (2-11) % Eos % (Auto) 4.0 (0-4) % Baso % (Auto) 0.5 (0-2) % Lymph # (Auto) 1.8 (1.2-4.9) X10*3/uL [place] # (Auto) 0.7 (0.1-1.2) X10*3/uL Eos # (Auto) 0.2 (0.0-0.4) X10*3/uL Baso # (Auto) 0.0 (0.0-0.2) X10*3/uL Abs Immat Gran (auto) 0.02 (0.00-0.03) X10*3/uL Absolute Neuts (auto) 3.4 (2.0-8.3) X10*3/uL Absolute Nucleated RBC 0.000 (0.0-0.012) X10*3/uL Nucleated RBC % (auto) 0.0 (0.0-0.2) /100WBC Hold Blue Top SEE NOTE Sodium 143 (135-145) mmol/L Potassium 4.1 (3.3-5.1) mmol/L Chloride 107 (96-108) mmol/L Carbon Dioxide 27 (22-29) mmol/L Anion Gap 13 (12-20) BUN 18 H (9-16) mg/dL Creatinine 1.09 (0.5-1.4) mg/dL Estim Creat Clear Calc 38.3 Estimated GFR 50 Random Glucose 96 D (60-115) mg/dL Calcium 9.2 (8.4-10.2) mg/dL Total Bilirubin (0.0-1.0) mg/dL Direct Bilirubin (0.0-0.5) mg/dL AST (5-31) U/L ALT (0-31) U/L Alkaline Phosphatase (39-117) U/L Ammonia (13-55) umol/L Total Protein (6.5-8.0) g/dL Albumin (3.5-5.0) g/dL 10/24/20 10/24/20 Range/Units 11:59 14:21 WBC (4.8-10.8) X10*3/uL RBC (4.20-5.50) X10*6/uL Hgb (12.0-16.0) g/dl Hct (37-47) % MCV (80-98) fL MCH (27.0-33.0) pg MCHC (31.0-35.0) g/dl RDW (11.0-16.0) % Plt Count (160-400) X10*3/uL MPV (9.4-12.3) fL Immature Gran % (Auto) (0.0-0.4) % Neut % (Auto) (45-73) % Lymph % (Auto) (20-40) % [place] % (Auto) (2-11) % Eos % (Auto) (0-4) % Baso % (Auto) (0-2) % Lymph # (Auto) (1.2-4.9) X10*3/uL [place] # (Auto) (0.1-1.2) X10*3/uL Eos # (Auto) (0.0-0.4) X10*3/uL Baso # (Auto) (0.0-0.2) X10*3/uL Abs Immat Gran (auto) (0.00-0.03) X10*3/uL Absolute Neuts (auto) (2.0-8.3) X10*3/uL Absolute Nucleated RBC (0.0-0.012) X10*3/uL Nucleated RBC % (auto) (0.0-0.2) /100WBC Hold Blue Top Sodium (135-145) mmol/L Potassium (3.3-5.1) mmol/L Chloride (96-108) mmol/L Carbon Dioxide (22-29) mmol/L Anion Gap (12-20) BUN (9-16) mg/dL Creatinine (0.5-1.4) mg/dL Estim Creat Clear Calc Estimated GFR Random Glucose (60-115) mg/dL Calcium (8.4-10.2) mg/dL Total Bilirubin 1.9 H (0.0-1.0) mg/dL Direct Bilirubin 1.1 H (0.0-0.5) mg/dL AST 373 H (5-31) U/L ALT 819 H (0-31) U/L Alkaline Phosphatase 209 H (39-117) U/L Ammonia 42 (13-55) umol/L Total Protein 6.6 (6.5-8.0) g/dL Albumin 3.7 (3.5-5.0) g/dL Imaging Data US - abdomen: Radiologist's impression: 1. Prior cholecystectomy. No ductal dilatation. 2. Liver normal in size and homogeneous. Possible mild steatosis. No focal lesion. 3. Visualized pancreas unremarkable. Spleen normal in size. No ascites. Discharge Plan Discharge Clinical Impression: Transaminitis Patient Disposition: Admitted As Inpatient
[2020-10-24 14:46] LABS: Ammonia 42 umol/L (13-55)
[2020-10-24 15:09] VITALS: BP 152/71; PULSE 66; RESP 18; TEMP 36.4; O2SAT 99
[2020-10-24] MEDS: Dextrose 5 % and 0.9 % NaCl 1,000 ML 100 ML IVCONT (16:27)
[2020-10-24 16:40] VITALS: BP 133/78; PULSE 74; RESP 18; TEMP 36.4; O2SAT 97
[2020-10-24] MEDS: Omeprazole 40 MG CAPSULE.DR PO (16:47)
[2020-10-24 16:56] LABS: Acetaminophen LAB < 1 mcg/mL (<30)
--- NOTE | 2020-10-24 17:00 | HP_ITS ---
DATE OF SERVICE: 10/24/2020 CHIEF COMPLAINT: Elevated LFTs. HISTORY OF PRESENTING ILLNESS: This is a 65-year-old female patient with past medical history significant for asthma/COPD, history of hypertension, history of hyperparathyroidism, history of osteoporosis and current smoker, who was referred to [facility] by her claim investigator due to elevated LFTs. According to the patient, 4 to 5 days ago, she had some right upper quadrant abdominal pain that improved by itself without any associated nausea, vomiting, fever, chills, or rigors. She denies any recent history of travel. She denies any outside food. No other family member with similar symptoms. The patient denies use of Tylenol or Motrin. She denies alcohol use. In the emergency room, labs showed normal electrolytes. Her total bilirubin on October 19, was 1.6, that jumped up to 1.9 today, although her AST, ALT and alkaline phosphatase are trending down as compared to 10/19 study. Prior to that, she had a normal total bilirubin in 2019. An abdominal ultrasound obtained in the ER, revealed normal-appearing liver with possible mild steatosis. No focal lesion noticed. The patient is status post cholecystectomy. No ductal dilatation was noted. Pancreas appears unremarkable with a normal spleen. No ascites noted. At present, the patient denies any symptoms of abdominal pain. No nausea. No vomiting. She has chronic history of GERD and being followed by Gastroenterology, taking Prilosec with good relief in symptoms. PAST MEDICAL HISTORY: Significant for, 1. Abnormal SPEP study. 2. History of allergic rhinitis. 3. History of arthritis. 4. History of asthma. 5. History of COPD. 6. History of hypertension. 7. History of hypothyroidism. 8. History of low calcium levels. 9. History of osteoporosis. 10. History of vitamin D deficiency. SOCIAL HISTORY: The patient lives with boyfriend and family. She denies alcohol abuse. She denies illicit drug use. FAMILY HISTORY: The patient's father was an alcoholic. Mother had lung disease, diabetes, and heart problems. Both parents are . There is no history of liver disease other than in father who was an alcoholic. ALLERGIES: THE PATIENT HAS NO KNOWN DRUG ALLERGIES. MEDICATIONS: The patient's medications at home are Tylenol 1000 mg q.i.d. p.r.n., Advair 1 inhaler b.i.d., albuterol 2 inhaler q.i.d. as needed, amlodipine 5 mg daily, vitamin D3 50 mcg daily, ipratropium 2 puffs inhaler t.i.d., loratadine 10 mg daily as needed, losartan 50 mg daily, Singulair 10 mg at bedtime, and omeprazole 40 mg p.o. b.i.d. REVIEW OF SYSTEMS: CLOSING COORDINATOR: The patient denies headache, lightheadedness, or dizziness. CVS: No chest pain or palpitation. RESPIRATORY: No cough or sputum production. : No urinary symptoms of urgency and frequency. Rest of all other systems are reviewed and are negative. PHYSICAL EXAMINATION: GENERAL: Well developed female, sitting comfortably in bed, in no acute distress. HEENT: Pupils equal, round, and reactive to light and accommodation. Icteric sclerae. NECK: Supple. No JVD. LUNGS: Clear to auscultation bilaterally with no wheezing, no rhonchi, and no use of accessory muscles. HEART: Regular rate and rhythm. ABDOMEN: Soft and nontender. Bowel sounds are audible. No right upper quadrant tenderness to palpation. No abdominal distention. EXTREMITIES: Without clubbing, cyanosis, or edema. NEUROLOGIC: The patient's speech is clear. Good strength, bilateral upper and lower extremities. PSYCHIATRIC: Appropriate affect. LABORATORY DATA: AST 373, trending down from 508, 4 days ago; ALT 819; total bilirubin 1.9; alkaline phosphatase 209. Ammonia level of 42. Serology, we will obtain wiseman PCR. Hepatitis A, B, C serologies pending. Imaging studies, as mentioned earlier. IMPRESSION: A 65-year-old female patient, who was sent to [facility] for evaluation of elevated LFTs, is being admitted for continued monitoring, treatment and further evaluation. PROBLEM LIST: 1. Transaminitis. As per the patient, she had abdominal pain 4 to 5 days ago that has since resolved. The patient denies use of any new medication. Denies use of alcohol or illicit drug use. Question infective hepatitis, follow hepatitis serologies. The patient is on multiple medications, some of them can cause hepatitis including Norvasc and losartan. We will hold losartan for time being. As per the patient, she has been on these medications chronically and denies any new medication. We will also check a Tylenol level. We will treat the patient with IV fluid. Ultrasound suggestive of mild steatosis. We will obtain a GI evaluation for further input. retained stone or sludge in cbd is also possible will consider mrcp. 2. History of hypertension. We will continue Norvasc. Follow blood pressure closely. Losartan is on hold as above. 3. History of asthma/COPD, currently no acute exacerbation. We will continue home medication. 4. History of GERD. We will continue the patient on Prilosec 40 mg b.i.d. 5. DVT prophylaxis. The patient will be placed on compression boots. 6. History of tobacco use disorder. The patient smoked 5 cigarettes a day. Strongly recommend to abstain from smoking. MD GLADYS Ding/STAN / [id number] MTDD
[2020-10-24 17:44] LABS: COVID-19 Test Negative (Negative)
[2020-10-24 18:24] VITALS: BP 147/75; PULSE 78; RESP 16; TEMP 36.8; O2SAT 97
[2020-10-24 19:42] VITALS: BP 142/75; PULSE 70; RESP 16; TEMP 36.9; O2SAT 97
[2020-10-24] MEDS: Montelukast Sodium 10 MG TABLET PO (20:07)
[2020-10-25] VITALS (7 sets, daily range): BP systolic 120–164; BP diastolic 57–80; PULSE 61–78; RESP 15–17; TEMP 36.3–36.9; O2SAT 96–98
[2020-10-25] MEDS: Dextrose 5 % and 0.9 % NaCl 1,000 ML 100 ML IVCONT (02:36)
[2020-10-25 05:21] LABS: HBc Num1 0.21 S/CO (0.00-0.79); Hepatitis B Core Antibody Nonreactive (Nonreactive); ~HepC Num1 0.08 S/CO (0.00-0.79); ~Hepatitis B Surface Antibody NONREACTIVE (Nonreactive); ~Hepatitis C Antibody Nonreactive (Nonreactive)
[2020-10-25 05:26] LABS: HBc Num1 0.16 S/CO (0.00-0.79); Hepatitis B Core Antibody Nonreactive (Nonreactive); ~Hepatitis B Surface Antibody NONREACTIVE (Nonreactive); ~Hepatitis C Antibody Nonreactive (Nonreactive)
[2020-10-25 05:38] LABS: HBsAGNum1 0.18 S/CO (0.00-0.99); Hepatitis B Surface Antigen Negative (Negative)
[2020-10-25 05:39] LABS: HBsAGNum1 0.18 S/CO (0.00-0.99); Hepatitis B Surface Antigen Negative (Negative)
[2020-10-25] MEDS: Fluticasone/Vilanterol 100/25 BLST.W.DEV 1 PUFF INHALE (07:37)
--- NOTE | 2020-10-25 09:21 | P.CNGI_ITS ---
History of Present Illness Data of Consult Service Date: 10/25/20 Requesting physician: Tonia Davies Primary Care Provider: Katya Burton MD HPI Reason for consult: abn LFT 65-year-old female w/ hx of cholecystectomy, asthma/COPD, hypertension, hyperparathyroidism, osteoporosis and smoking who I am seeing for assessment for abn LFT. She had LFT checked by her lithoplate maker and abn LFT were noted, having been normal before so she was advised to come to the ED. She denies any sx, no abdominal pain, jaundice, dark urine. nausea, vomiting or fevers, chills. Seh does recall several days of ruq pain going into her back about 1 week ago, but pain was also in lower abdomen, this is gone now. her appetite has been good, and no weight loss, stools are normal, without blood. She denies use of herbs, OTC meds, tylenol, or sick contacts, no respiratory sx. No ABX in last 3 months specifically no augmentin. Deneis alcohol intake and no illicit drug use. An abdominal ultrasound obtained in the ER, revealed normal-appearing liver with possible mild steatosis and no CBD dialtion or stones. MRCP done and personally reviewed, without any ductal dilation or filling defects, no pancreas mass. LAbs with neg acetaminophen, Hep serologies thus far neg. Review of Systems Review of Systems: All other systems are reviewed and are negative Constitutional: Reports as per HPI and Reports no additional constitutional complaints Eyes: Reports as per HPI and Reports no additional eye complaints Reports system reviewed and no additional complaints, except as documented Cardiovascular: Reports as per HPI and Reports no additional cardiovascular complaints Respiratory: Reports as per HPI and Reports no additional respiratory complaints Gastrointestinal: Reports as per HPI and Reports no additional gastrointestinal complaints Genitourinary: Reports no additional female genitourinary complaints Musculoskeletal: Reports no additional musculoskeletal complaints Skin/Breast: Reports system reviewed and no additional complaints, except as docu Psychiatric: Reports no additional psychiatric complaints Endocrine: Reports no additional endocrine complaints Hematologic/Lymphatic: Reports no additional hematologic/lymphatic complaints Allergic/Immunologic: Reports no additional allergic/immunologic complaints Reports system reviewed and no additional complaints, except as documented and Reports Abnormal speech present PMFSH Past Medical History Medical History Abnormal LFTs Abnormal SPEP Allergic rhinitis Arthritis Asthma COPD (chronic obstructive pulmonary disease) COPD (chronic obstructive pulmonary disease) HTN (hypertension) Hyperparathyroidism Low calcium levels Osteoporosis Smoker Vitamin D deficiency Family History Family History Father Diabetes Hypertension Heart disease Mother Heart disease Diabetes Arthritis Surgical History Surgical History Hx laparoscopic cholecystectomy Hx of tonsillectomy Hx of tubal ligation Social History Social History Household Members: Family Housing: Apartment Do you presently have visiting nurse or other home services: No Alcohol intake: former Smoking Status: Current every day smoker Tobacco Type: Cigarette Packs Per Day: 0 Cigarettes Per Day: 0 Years Smoked: 19 Smoked in Last 30 Days: Yes Patient Interested in Nicotine Replacement: No Patient Given Instructions on How to Stop Smoking: Yes Date Education Initiated: 10/24/20 Second Hand Smoke Exposure: Yes Use of substances other than those prescribed or required for medical reasons: No Currently Displaying Signs/Symptoms of Drug Intoxication Withdrawal: No Have you been hit, kicked, punched, or otherwise hurt by someone within the past year? If so, by whom?: No Do you feel safe in your current relationship?: Yes Is there a partner from a previous relationship who is making you feel unsafe now?: No Are you made to feel afraid or neglected: No Advance Directives: Yes Advance Directives Information Provided: Yes Advance Directives on File: No Advance Directives Date on File: 10/24/20 Do you have thoughts of harming others: None Do you have a plan to hurt others: No Plan Recently lost weight without trying: No service: No Current occupational status: unemployed Meds Allergies Allergy/AdvReac Type Severity Reaction Status Date / Time No Known Allergies Allergy Verified 10/24/20 11:31 [No Known Allergies*] Active Medications: Current Medications Generic Name Dose Route Start Last Admin Trade Name Freq PRN Reason Stop Dose Admin Albuterol Sulfate 2 puff 10/24/20 16:12 Albuterol Sulfate 90 Mcg 8 Gm Inhaler INHALE QID PRN shortness of breath or wheezing Amlodipine Besylate 5 mg 10/25/20 09:00 Amlodipine Besylate 5 Mg Tablet PO DAILY YARA Protocol Fluticasone/Vilanterol 1 puff 10/25/20 08:00 10/25/20 07:37 Fluticasone/Vilanterol 100/25 Blst.W.Dev INHALE 1 puff RDAILY [facility] Administration Dextrose/Sodium Chloride 1,000 mls @ 100 mls/hr 10/24/20 16:15 10/25/20 02:36 D5ns IVCONT 100 mls/hr .Q10H YARA Administration Montelukast Sodium 10 mg 10/24/20 21:00 10/24/20 20:07 Montelukast Sodium 10 Mg Tablet PO 10 mg BEDTIME [facility] Administration Omeprazole 40 mg 10/24/20 16:30 10/25/20 06:37 Omeprazole 40 Mg Capsule. PO Not Given BID@0630,0350 [facility] Pharmacy Consult 1 each 10/24/20 14:45 Consult Rx Perform Med Rec MISCELLANE ONCE PRN Consult order Sodium Chloride 3 ml 10/25/20 00:00 10/24/20 23:56 0.9 % Sodium Chloride Flush 3 Ml Syringe IVFLUSH Not Given QSHIFT [facility] Tiotropium [place] 1 puff 10/25/20 08:00 10/25/20 07:37 Tiotropium [place] 18 Mcg Cap.W.Dev INHALE 1 puff RDAILY [facility] Administration Vitamin D 50 mcg 10/25/20 09:00 Cholecalciferol (Vitamin D3) 25 Mcg Tablet PO DAILY [facility] Home Medications Medication Instructions Recorded Confirmed Last Taken Type amlodipine 5 mg tablet 5 mg PO DAILY 07/19/20 10/24/20 10/24/20 History loratadine 10 mg tablet 10 mg PO DAILY PRN 07/19/20 10/24/20 Unknown History losartan 50 mg tablet 50 mg PO DAILY 07/19/20 10/24/20 10/24/20 History montelukast 10 mg tablet 10 mg PO BEDTIME 07/19/20 10/24/20 10/23/20 History ipratropium bromide 17 2 puff INHALATION TID 09/13/20 10/24/20 10/24/20 History mcg/actuation HFA aerosol inhaler albuterol sulfate 2 inh INHALATION QID PRN 10/24/20 10/24/20 10/24/20 History Physical Exam Vital Signs: Vital Signs: Last Vital Signs Temp 98.4 F 10/25/20 07:54 Pulse 75 10/25/20 07:54 Resp 15 10/25/20 07:54 BP 150/77 H 10/25/20 07:54 Pulse Ox 97 10/25/20 07:54 Body Mass Index 22.4 EXAM: GENERAL: The patient is well developed and nontoxic VITAL SIGNS:see workflow HEENT: mildly nicteric sclerae, PERRLA, EOMI. Oropharynx clear. Moist mucous membranes. Conjunctivae appear well perfused. No thyroid mass. CHEST: Chest wall is nontender. HEART: Regular rate and rhythm without murmurs. LUNGS: Clear to auscultation bilaterally. ABDOMEN: Soft, positive bowel sounds, nontender, no organomegaly.no flank tenderness SKIN: No rash, no excessive bruising, petechiae, or purpura. NEUROLOGIC: Cranial nerves II-XII intact without motor/sensory deficit. PSYCH: normal, and appropriate Results Labs CBC & Chem 7: 10/25/20 09:10 10/25/20 09:10 Labs: Short CBC 10/24/20 Range/Units 11:59 WBC 6.1 (4.8-10.8) X10*3/uL Hgb 12.9 (12.0-16.0) g/dl Hct 40.3 (37-47) % Plt Count 192 (160-400) X10*3/uL BMP 10/24/20 11:59 Sodium 143 Potassium 4.1 Chloride 107 Carbon Dioxide 27 BUN 18 H Creatinine 1.09 Calcium 9.2 Liver Function 10/24/20 Range/Units 11:59 Total Bilirubin 1.9 H (0.0-1.0) mg/dL Direct Bilirubin 1.1 H (0.0-0.5) mg/dL AST 373 H (5-31) U/L ALT 819 H (0-31) U/L Alkaline Phosphatase 209 H (39-117) U/L Albumin 3.7 (3.5-5.0) g/dL Assessment and Plan (1) Acute hepatitis: Status: Acute (2) Abnormal LFTs: Status: Acute (3) Transaminitis: Status: Acute 1/ Abn LFT, fairly asymptomatic at this time, did have vague episode of abdominal pain last week, now resolved. DDX: interstitial liver disease e.g AIH, infectious hepatitis, infiltrative liver disease, DILI (albeit per her no new meds for months). given her epsiode of opain retained stone or sludge in cbd is still possible but she is now pain free, SOD type 2 is also possible. PLAN: 1/ Since she is fairly asymptomatic she can go home and I sherice ordered further lab work which shoudl come back in time for o/p f/u. Ultimately she may need liver bx if elevations persist. 2/ If rolando has further recurrences of RUq pain then SOD type 2 is possible and ERCP with sphincterotomy may be indicated 3/ She has been advised to come back if any worsening symptoms such as increased jaundice, fever etc.
[2020-10-25 09:29] LABS: Hemoglobin 13.2 g/dl (12.0-16.0); Mean Corpuscular HGB Conc 32.2 g/dl (31.0-35.0); Mean Corpuscular Volume 96.2 fL (80-98); Mean Platelet Volume 11.3 fL (9.4-12.3); Platelet Count 193 X10*3/uL (160-400); Red Blood Count 4.26 X10*6/uL (4.20-5.50); Red Cell Distribution Width 12.3 % (11.0-16.0); White Blood Count 5.9 X10*3/uL (4.8-10.8)
[2020-10-25 09:36] LABS: INTERNATIONAL NORM RATIO 1.1 (0.9-1.1); Prothrombin Time 13.1 SEC (10.8-13.0)
[2020-10-25 10:01] LABS: Alanine Aminotransferase 826 U/L (0-31); Albumin Level 3.7 g/dL (3.5-5.0); Alkaline Phosphatase 205 U/L (39-117); Anion Gap 11 (12-20); Aspartate Amino Transferase 391 U/L (5-31); Bilirubin Direct 1.5 mg/dL (0.0-0.5); Bilirubin Total 2.5 mg/dL (0.0-1.0); Blood Urea Nitrogen 13 mg/dL (9-16); Carbon Dioxide 31 mmol/L (22-29); Chloride 106 mmol/L (96-108); Creatinine Clr Calc Pharmacy 52.2; Estimated Glomerular Filt Rate > 60; Glucose Random 83 mg/dL (60-115); Potassium 4.2 mmol/L (3.3-5.1); Sodium 144 mmol/L (135-145); Total Protein 6.9 g/dL (6.5-8.0)
[2020-10-25] MEDS: amLODIPine Besylate 5 MG TABLET PO (10:42)
[2020-10-25] MEDS: Cholecalciferol (Vitamin D3) 25 MCG TABLET 50 MCG PO (10:42)
[2020-10-25] MEDS: Omeprazole 40 MG CAPSULE.DR PO (10:42)
--- NOTE | 2020-10-25 11:14 | HO.PM.IMPN ---
Subjective Subjective Date of Service: 10/25/20 Interval History: seen and examined no complaints, feeling okay reports abdominal pain last week, but doing okay at this time ROS General - no fevers or chills Cardiovascular - no chest pain Respiratory - no shortness of breath or cough Abdominal- no abdominal pain, nausea, vomiting, diarrhea Physical Exam Vital Signs: Vital Signs: Last Vital Signs Temp 98.4 F 10/25/20 07:54 Pulse 75 10/25/20 07:54 Resp 15 10/25/20 07:54 BP 150/77 H 10/25/20 07:54 Pulse Ox 97 10/25/20 07:54 Body Mass Index 22.4 Const: Other: General - no acute distress, appears comfortable Cardiovascular - regular rate and rhythm, S1-S2 Lungs - normal respiratory effort, clear to auscultation bilaterally, no wheezing Abdomen - soft, nontender, no rebound or guarding Extremities - no edema bilaterally Neuro - awake and alert, no focal deficits Objective Data Current Medications Generic Name Dose Route Start Last Admin Trade Name Freq PRN Reason Stop Dose Admin Albuterol Sulfate 2 puff 10/24/20 16:12 Albuterol Sulfate 90 Mcg 8 Gm Inhaler INHALE QID PRN shortness of breath or wheezing Amlodipine Besylate 5 mg 10/25/20 09:00 10/25/20 10:42 Amlodipine Besylate 5 Mg Tablet PO 5 mg DAILY YARA Administration Protocol Fluticasone/Vilanterol 1 puff 10/25/20 08:00 10/25/20 07:37 Fluticasone/Vilanterol 100/25 Blst.W.Dev INHALE 1 puff RDAILY [facility]ARA Administration Dextrose/Sodium Chloride 1,000 mls @ 100 mls/hr 10/24/20 16:15 10/25/20 02:36 D5ns IVCONT 100 mls/hr .Q10H YARA Administration Montelukast Sodium 10 mg 10/24/20 21:00 10/24/20 20:07 Montelukast Sodium 10 Mg Tablet PO 10 mg BEDTIME YARA Administration Omeprazole 40 mg 10/24/20 16:30 10/25/20 10:42 Omeprazole 40 Mg Capsule.Dr PO 40 mg BID@0630,1630 YARA Administration Pharmacy Consult 1 each 10/24/20 14:45 Consult Rx Perform Med Rec MISCELLANE ONCE PRN Consult order Sodium Chloride 3 ml 10/25/20 00:00 10/25/20 10:58 0.9 % Sodium Chloride Flush 3 Ml Syringe IVFLUSH Not Given QSHIFT YARA Tiotropium [place] 1 puff 10/25/20 08:00 10/25/20 07:37 Tiotropium [place] 18 Mcg Cap.W.Dev INHALE 1 puff RDAILY YARA Administration Vitamin D 50 mcg 10/25/20 09:00 10/25/20 10:42 Cholecalciferol (Vitamin D3) 25 Mcg Tablet PO 50 mcg DAILY YARA Administration Labs CBC & Chem 7: 10/25/20 09:10 10/25/20 09:10 Assessment and Plan (1) Acute hepatitis: Status: Acute Assessment and Plan: This is a 65 yo F admitted for elevated LFTs. 1. Acute hepatitis MRCP without any obstruction ? related to meds Hepatitis panel negative (Hep A pending) GI conult today 2. HTN continue norvasc losartan on hold 3. Asthma/COPD not in flare continue baseline meds 4. GERD PPI Full Code DVT pptx, Mechanical
--- NOTE | 2020-10-25 12:21 | MHC.CM.PN ---
CM MET WITH PT WHO REPORTS SHE LIVES ALONE BUT HER SON HAS BEEN STAYING WITH HER. SHE DENIES THE USE OF ANY DME OR IN HOME SERVICES.. PT CONFIRMS HER PCP IS GERTRUDE SERRANO. SHE DOES NOT HAVE A HCP AND DID NOT WANT TO COMPLETE ONE TODAY BUT TOOK A BLANK ONE TO COMPLETE AT A LATER TIME. IMM DELIVERED CURRENT DC PLAN IS HOME WITH NO SERVICES PT WILL SELF ARRANGE TRANSPORTATION
--- NOTE | 2020-10-25 13:09 | MHC.CM.PN ---
Pt being discharged home today with no services. Family to transport
--- NOTE | 2020-10-25 13:38 | PM.DS ---
DS: Providers Provider Date of Service: 10/25/20 Date of admission: 10/24/20 16:12 Primary care physician: Katya Burton MD Consults: 10/24/20 16:23 Consult to Gastroenterology Routine Consulting Provider: Josesito Roman Reason for consultation: transaminitis Has provider been notified: No DS: Diagnosis Discharge Diagnosis (1) Acute hepatitis: Status: Acute DS: Medications Discharge Medications Home Medications: Home Medications Medication Instructions Recorded Confirmed amlodipine 5 mg tablet 5 mg PO DAILY 07/19/20 10/24/20 loratadine 10 mg tablet 10 mg PO DAILY PRN 07/19/20 10/24/20 losartan 50 mg tablet 50 mg PO DAILY 07/19/20 10/24/20 montelukast 10 mg tablet 10 mg PO BEDTIME 07/19/20 10/24/20 ipratropium bromide 17 2 puff INHALATION TID 09/13/20 10/24/20 mcg/actuation HFA aerosol inhaler albuterol sulfate 2 inh INHALATION QID PRN 10/24/20 10/24/20 Previous Rx's Medication Instructions Recorded acetaminophen [Tylenol Extra 1,000 mg PO QID PRN #10 tab 06/11/20 Strength] cholecalciferol (vitamin D3) 50 50 mcg PO DAILY 30 Days #30 cap 07/30/20 mcg (2,000 unit) capsule Advair Diskus 250 mcg-50 mcg/dose 1 inh INHALATION BID 30 Days #60 09/19/20 powder for inhalation ea NS omeprazole 40 mg capsule,delayed 40 mg PO BID 30 Days #60 cap 10/19/20 release DS: Summary Hospital Course Hospital Course: Patient was sent in by the Endocrinology Clinic for abnormal LFTs. She underwent workup for these including an MRCP which was negative for any stones. She was evaluated by Gastroenterology who ordered some further workup for her abnormal LFTs and deemed her safe for outpatient further liver workup. Patient had no abdominal pain and was tolerating a diet. Losartan was held for the possible culprit. Her hepatitis serologies are negative, with the exception of hepatitis-A which is pending. She will have her LFTs repeated next week and will be followed up in the Gastroenterology Clinic with Dr. Roman. Time Spent with Patient Time attestation: Total time spent providing and/or coordinating discharge services: Discharge coordination time: Greater than 30 minutes Physical Exam Vital Signs: Vital Signs: Last Vital Signs Temp 97.4 F 10/25/20 11:50 Pulse 78 10/25/20 11:50 Resp 17 10/25/20 11:50 BP 120/57 L 10/25/20 11:50 Pulse Ox 98 10/25/20 11:50 Body Mass Index 22.4 Const: Other: General - no acute distress, appears comfortable Cardiovascular - regular rate and rhythm, S1-S2 Lungs - normal respiratory effort, clear to auscultation bilaterally, no wheezing Abdomen - soft, nontender, no rebound or guarding Extremities - no edema bilaterally Neuro - awake and alert, no focal deficits DS: Data Data Completed and Pending Labs on day of discharge: Laboratory Results - last 24 hr 10/24/20 10/24/20 10/24/20 11:59 14:21 14:21 WBC RBC Hgb Hct MCV MCH MCHC RDW Plt Count MPV Absolute Nucleated RBC Nucleated RBC % (auto) PT INR Sodium Potassium Chloride Carbon Dioxide Anion Gap BUN Creatinine Estim Creat Clear Calc Estimated GFR Random Glucose Calcium Total Bilirubin Direct Bilirubin AST ALT Alkaline Phosphatase Ammonia Total Creatine Kinase Total Protein Albumin Acetaminophen < 1 COVID-19 ([facility]) COVID-19 Clin Com Hep Bs Antigen Negative Negative Hep Bs Antibody NONREACTIVE NONREACTIVE Hep B Core Total Ab Nonreactive Nonreactive Hepatitis C Ab (EIA) Nonreactive Nonreactive 10/24/20 10/24/20 10/25/20 14:21 17:22 09:10 WBC 5.9 RBC 4.26 Hgb 13.2 Hct 41.0 MCV 96.2 MCH 31.0 MCHC 32.2 RDW 12.3 Plt Count 193 MPV 11.3 Absolute Nucleated RBC 0.000 Nucleated RBC % (auto) 0.0 PT INR Sodium Potassium Chloride Carbon Dioxide Anion Gap BUN Creatinine Estim Creat Clear Calc Estimated GFR Random Glucose Calcium Total Bilirubin Direct Bilirubin AST ALT Alkaline Phosphatase Ammonia 42 Total Creatine Kinase Total Protein Albumin Acetaminophen COVID-19 ([facility]) Negative COVID-19 Clin Com See Note Hep Bs Antigen Hep Bs Antibody Hep B Core Total Ab Hepatitis C Ab (EIA) 10/25/20 10/25/20 09:10 09:10 WBC RBC Hgb Hct MCV MCH MCHC RDW Plt Count MPV Absolute Nucleated RBC Nucleated RBC % (auto) PT 13.1 H INR 1.1 Sodium 144 Potassium 4.2 Chloride 106 Carbon Dioxide 31 H Anion Gap 11 L BUN 13 Creatinine 0.80 Estim Creat Clear Calc 52.2 Estimated GFR > 60 Random Glucose 83 Calcium 9.0 Total Bilirubin 2.5 H Direct Bilirubin 1.5 H AST 391 H ALT 826 H Alkaline Phosphatase 205 H Ammonia Total Creatine Kinase 71 Total Protein 6.9 Albumin 3.7 Acetaminophen COVID-19 ([facility]) COVID-19 Clin Com Hep Bs Antigen Hep Bs Antibody Hep B Core Total Ab Hepatitis C Ab (EIA) Discharge Plan Discharge Patient Disposition: Home, Self-Care Discharge Diagnosis: Acute Hepatitis Referrals: Katya Titus MD [Primary Care Provider] - 1 Week Josesito Roman MD [Physician] - 1 Week (call office for appt) Discharge Medications: Continued cholecalciferol (vitamin D3) 50 mcg (2,000 unit) capsule 50 mcg PO DAILY 30 Days Qty: 30 RF: 11 fluticasone propion-salmeterol [Advair Diskus] 250-50 mcg/dose blister with device 1 inh inhalation BID 30 Days Qty: 60 RF: 3 omeprazole 40 mg capsule,delayed release(DR/EC) 40 mg PO BID 30 Days Qty: 60 RF: 2 acetaminophen [Tylenol Extra Strength] 500 mg tablet 1,000 mg PO QID PRN (Reason: fever or pain) Qty: 10 RF: 0 albuterol sulfate 90 mcg/actuation HFA aerosol inhaler 2 inh inhalation QID PRN (Reason: shortness of breath or wheezing) RF: 0 amlodipine 5 mg tablet 5 mg PO DAILY RF: 0 montelukast 10 mg tablet 10 mg PO BEDTIME RF: 0 loratadine 10 mg tablet 10 mg PO DAILY PRN (Reason: Allergic Symptoms) RF: 0 Atrovent HFA 17 mcg/actuation HFA aerosol inhaler 2 puff inhalation TID RF: 0 Held losartan 50 mg tablet 50 mg PO DAILY RF: 0 Hold Instructions: Resume on 11/08/20. hold until seen by GI doctor Discharge Orders: Discharge Order (Routine); Ordered 10/25/20 Ordered By: Luis E Demarco Diet: advance to usual diet Activity on Discharge: As tolerated Stand Alone Forms: Patient Portal Discharge page Other Ambulatory Orders: Liver Panel (Routine) Timeframe: 20201030 Facility: [facility] - Location: Laboratory Ordered By: Luis E Demarco Care Plan Goals: To stay healthy and out of the hospital. Health Concerns: Abnormal liver tests Plan of Treatment: Do not take tylenol. Hold your losartan. Repeat blood work early next week. Call GI office for follow up Assessment: 65 yo F admitted for abnormal LFTs. Evaluated by GI and plan for outpatient liver work up. Ruled out for stone with negative MRCP.
[2020-10-25 13:44] LABS: Iron 196 mcg/dL (30-160); Percent Iron Saturation 73 % (15-50); Total Iron Binding Capacity 267 mcg/dL (228-428); Unsaturated Iron Binding 71 ug/dL
[2020-10-25 14:51] LABS: Ferritin 5227 ng/mL (10-250)
[2020-10-26 05:02] LABS: Hepatitis A Antibody IgM 0.22 Index (0-0.79); ~Hepatitis A Antibody IgM Nonreactive (Nonreactive)
[2020-10-26 05:16] LABS: Cytomegalovirus Ab IgG >10.00 U/mL; Cytomegalovirus Ab IgM <30.00 AU/mL
[2020-10-26 05:42] LABS: Herpes Simplex Type 2 IgG 7.37 index
[2020-10-26 12:33] LABS: Myeloperoxidase Antibody <1.0 AI; Proteinase 3 PR3 Antibodies <1.0 AI
[2020-10-26 13:22] LABS: Transglutaminase Ab IgG 1 U/mL
[2020-10-26 13:46] LABS: Immunoglobulin G 1356 mg/dL (600-1540)
[2020-10-26 22:42] LABS: ANA Pattern 2 Nuclear, Speckled; Anti Nuclear Antibody Pattern Nuclear, Centromere; Anti Nuclear Antibody Screen POSITIVE (NEGATIVE)
[2020-10-27 14:37] LABS: Alpha 1 Anti-trypsin 201 mg/dL (83-199); Ceruloplasmin 30 mg/dL (18-53)
[2020-10-27 16:11] LABS: Copper, plasma 103 mcg/dL (70-175)
[2020-10-28 11:12] LABS: EBV Source Whole Blood
[2020-10-29 11:16] LABS: Mitochondrial Antibodies NEGATIVE (NEGATIVE)
[2020-10-29 14:07] LABS: Aldolase 18.9 U/L (<=8.1)
[2020-10-29 14:38] LABS: EBV DNA PCR DETECTED
[2020-10-30 12:27] LABS: Liver Kidney Microsomal Ab <=20.0 U (<=20.0)
[2020-10-31 10:27] LABS: Soluble Liver Ag Autoantibody <20.1 U (0.0-20.0)
[2020-11-01 22:42] LABS: Smooth Muscle Antibody 33 U (<20)
[2020-11-04 10:42] LABS: A1A Clinical Indication NG; A1A Referring Physician NG
== END 2020-10-25 15:10 | disposition home or self-care (01) | DRG 443 ==
LOC: HO.ED 14:48 → HO.EDOVER 16:23 → HO.S3 16:24
PROVIDERS: Internal Medicine Gastroenterology; Admitting Provider Hospitalist; Emergency Provider Emergency Medicine; PCP Internal Medicine; Visit Provider Family Medicine
DX: B17.9 Acute viral hepatitis, unspecified (principal); K21.9 Gastro-esophageal reflux disease without esophagitis; R74.01 Elevation of levels of liver transaminase levels; I10 Essential (primary) hypertension; J44.9 Chronic obstructive pulmonary disease, unspecified; F17.210 Nicotine dependence, cigarettes, uncomplicated; Z71.6 Tobacco abuse counseling; Z20.822 Contact with and (suspected) exposure to COVID-19; Z79.899 Other long term (current) drug therapy
CPT/HCPCS: 36415; 74181; 76700; 80048; 80076; 80143; 82085; 82103; 82104; 82140; 82340; 82390; 82525; 82550; 82570; 82728; 82784; 83516; 83520; 83540; 85025; 85027; 85610; 86021; 86038; 86039; 86255; 86256; 86376; 86644; 86645; 86695; 86696; 86704; 86706; 86709; 86803; 87340; 87635; 87798; 99285

== ENCOUNTER 2020-10-30 10:02 | Outpatient (REF) | payer MEDICARE, MEDICAID, SELFPAY ==
[2020-10-30 11:22] LABS: Alanine Aminotransferase 749 U/L (0-31); Albumin Level 3.7 g/dL (3.5-5.0); Alkaline Phosphatase 230 U/L (39-117); Aspartate Amino Transferase 355 U/L (5-31); Bilirubin Direct 1.4 mg/dL (0.0-0.5); Bilirubin Total 2.2 mg/dL (0.0-1.0); Total Protein 6.9 g/dL (6.5-8.0)
== END 2020-10-30 10:03 | disposition home or self-care (01) ==
LOC: HO.LAB 10:02
PROVIDERS: Absent Provider Internal Medicine Gastroenterology; PCP Internal Medicine; Visit Provider Family Medicine
DX: B17.9 Acute viral hepatitis, unspecified (principal)
CPT/HCPCS: 36415; 80076

== ENCOUNTER → 2020-11-02 08:48 | Outpatient (BNVA) | payer MEDICARE, MEDICAID, SELFPAY | PROVIDERS: PCP Internal Medicine; Referring Provider Internal Medicine; Visit Provider Internal Medicine Gastroenterology | DX: E83.119 Hemochromatosis, unspecified (principal); R94.5 Abnormal results of liver function studies | CPT/HCPCS: 99212 ==

== ENCOUNTER → 2020-11-21 12:46 | Outpatient (BNVA) | payer MEDICARE, MEDICAID, SELFPAY | PROVIDERS: Visit Provider Internal Medicine | DX: Z13.89 Encounter for screening for other disorder (principal) | CPT/HCPCS: Q3014 ==

== ENCOUNTER 2020-12-04 09:43 | Outpatient (REF) | payer MEDICARE, MEDICAID, SELFPAY ==
[2020-12-04 10:50] LABS: MANUAL DIFF FLAG NO
[2020-12-04 11:00] LABS: Basophils Percent Auto 0.6 % (0-2); Eosinophils Absolute Auto 0.2 X10*3/uL (0.0-0.4); Eosinophils Percent Auto 3.2 % (0-4); Hematocrit 40.6 % (37-47); Hemoglobin 13.1 g/dl (12.0-16.0); Imm Gran Abs Auto 0.01 X10*3/uL (0.00-0.03); Imm Gran Pct Auto 0.2 % (0.0-0.4); Lymphocytes Absolute Auto 1.2 X10*3/uL (1.2-4.9); Lymphocytes Percent Auto 26.6 % (20-40); Mean Corpuscular HGB Conc 32.3 g/dl (31.0-35.0); Mean Corpuscular Hemoglobin 32.7 pg (27.0-33.0); Mean Corpuscular Volume 101.2 fL (80-98); Mean Platelet Volume 11.5 fL (9.4-12.3); Monocytes Absolute Auto 0.5 X10*3/uL (0.1-1.2); Monocytes Percent Auto 10.2 % (2-11); Neutrophils Absolute Auto 2.7 X10*3/uL (2.0-8.3); Neutrophils Percent Auto 59.2 % (45-73); Platelet Count 186 X10*3/uL (160-400); Red Blood Count 4.01 X10*6/uL (4.20-5.50); Red Cell Distribution Width 13.2 % (11.0-16.0); White Blood Count 4.6 X10*3/uL (4.8-10.8)
[2020-12-04 11:03] LABS: INTERNATIONAL NORM RATIO 1.3 (0.9-1.1); Prothrombin Time 15.8 SEC (10.8-13.0)
[2020-12-04 11:21] LABS: Alanine Aminotransferase 650 U/L (0-31); Albumin Level 3.1 g/dL (3.5-5.0); Alkaline Phosphatase 245 U/L (39-117); Aspartate Amino Transferase 648 U/L (5-31); Bilirubin Total 3.7 mg/dL (0.0-1.0); Blood Urea Nitrogen 9 mg/dL (9-16); Calcium 9.2 mg/dL (8.4-10.2); Estimated Glomerular Filt Rate > 60; Glucose Random 160 mg/dL (60-115); Total Protein 6.6 g/dL (6.5-8.0)
[2020-12-04 11:42] LABS: Anion Gap 9 (12-20); Carbon Dioxide 31 mmol/L (22-29); Chloride 105 mmol/L (96-108); Potassium 3.8 mmol/L (3.3-5.1); Sodium 141 mmol/L (135-145)
[2020-12-04 11:43] LABS: Ferritin 1471 ng/mL (10-250)
[2020-12-06 18:42] LABS: Soluble Transferrin Receptor 1.03 mg/L (0.76-1.76)
== END 2020-12-04 09:44 | disposition home or self-care (01) ==
LOC: HO.LAB 09:43
PROVIDERS: PCP Internal Medicine; Visit Provider Internal Medicine Gastroenterology
DX: E83.119 Hemochromatosis, unspecified (principal); R94.5 Abnormal results of liver function studies; K75.81 Nonalcoholic steatohepatitis (NASH)
CPT/HCPCS: 36415; 80053; 81256; 82728; 84238; 85025; 85610

== ENCOUNTER → 2020-12-07 09:37 | Outpatient (BNVA) | payer MEDICARE, MEDICAID, SELFPAY | PROVIDERS: Visit Provider Internal Medicine Gastroenterology | CPT/HCPCS: Q3014 ==

== ENCOUNTER 2020-12-11 07:18 | Outpatient (REF) | payer MEDICARE, MEDICAID, SELFPAY ==
[2020-12-11 07:54] LABS: MANUAL DIFF FLAG NO
[2020-12-11 08:21] LABS: Basophils Absolute Auto 0.1 X10*3/uL (0.0-0.2); Basophils Percent Auto 0.9 % (0-2); Eosinophils Absolute Auto 0.2 X10*3/uL (0.0-0.4); Eosinophils Percent Auto 3.8 % (0-4); Hemoglobin 13.8 g/dl (12.0-16.0); Imm Gran Abs Auto 0.01 X10*3/uL (0.00-0.03); Imm Gran Pct Auto 0.2 % (0.0-0.4); Lymphocytes Percent Auto 35.5 % (20-40); Mean Corpuscular HGB Conc 32.9 g/dl (31.0-35.0); Mean Corpuscular Hemoglobin 32.9 pg (27.0-33.0); Mean Corpuscular Volume 100.2 fL (80-98); Mean Platelet Volume 11.3 fL (9.4-12.3); Monocytes Absolute Auto 0.6 X10*3/uL (0.1-1.2); Monocytes Percent Auto 10.6 % (2-11); Neutrophils Absolute Auto 2.7 X10*3/uL (2.0-8.3); Platelet Count 190 X10*3/uL (160-400); Red Blood Count 4.19 X10*6/uL (4.20-5.50); Red Cell Distribution Width 13.4 % (11.0-16.0); White Blood Count 5.5 X10*3/uL (4.8-10.8)
[2020-12-11 08:36] LABS: Anion Gap 10 (12-20); Blood Urea Nitrogen 11 mg/dL (9-16); Calcium 9.4 mg/dL (8.4-10.2); Carbon Dioxide 28 mmol/L (22-29); Chloride 106 mmol/L (96-108); Estimated Glomerular Filt Rate > 60; Glucose Random 78 mg/dL (60-115); Potassium 3.8 mmol/L (3.3-5.1); Sodium 140 mmol/L (135-145)
[2020-12-11 08:56] LABS: Alanine Aminotransferase 696 U/L (0-31); Albumin Level 3.3 g/dL (3.5-5.0); Alkaline Phosphatase 257 U/L (39-117); Anion Gap 12 (12-20); Aspartate Amino Transferase 767 U/L (5-31); Bilirubin Total 7.8 mg/dL (0.0-1.0); Blood Urea Nitrogen 11 mg/dL (9-16); Carbon Dioxide 26 mmol/L (22-29); Chloride 107 mmol/L (96-108); Estimated Glomerular Filt Rate > 60; Glucose Random 78 mg/dL (60-115); Potassium 3.9 mmol/L (3.3-5.1); Sodium 141 mmol/L (135-145); Total Protein 7.1 g/dL (6.5-8.0)
[2020-12-11 09:03] LABS: Free T4 (Free Thyroxine) 1.26 ng/dL (0.71-1.85); Thyroid Stimulating Hormone 1.45 uIU/mL (0.32-4.0)
[2020-12-11 09:04] LABS: Vitamin D 25-OH Total 20.1 ng/mL (>30)
[2020-12-11 09:11] LABS: Folate 15.2 ng/mL (> or = 4.0); Vitamin B12 1265 pg/mL (200-900)
[2020-12-11 09:35] LABS: Ferritin 2229 ng/mL (10-250)
[2020-12-11 09:40] LABS: Osmolality, Serum 300 mosm/kg (281-305)
[2020-12-12 18:31] LABS: Triiodothyronine T3 Total 117 ng/dL (76-181)
[2020-12-13 06:37] LABS: Sex Hormone Binding Globulin 110 nmol/L (14-73)
[2020-12-14 05:21] LABS: Immunoglobulin G 2361 mg/dL (600-1540)
[2020-12-14 13:27] LABS: ANA Pattern 2 Nuclear, Centromere; Anti Nuclear Antibody Pattern Nuclear, Speckled; Anti Nuclear Antibody Screen POSITIVE (NEGATIVE); Anti Nuclear Antibody Titer 1:40 titer
[2020-12-14 13:52] LABS: Vitamin B6 12.2 ng/mL (2.1-21.7)
[2020-12-14 15:57] LABS: IGF-1 (Somatomedin C) 46 ng/mL (41-279); IGF-1 Z Score (Female) -1.8 SD (-2.0 - +2.0)
[2020-12-14 17:57] LABS: Vitamin C 0.2 mg/dL (0.3-2.7)
[2020-12-14 18:21] LABS: Adrenocorticotropic Hormone 15 pg/mL (6-50)
[2020-12-15 01:16] LABS: Estradiol Ultra Sensitive 7 pg/mL
[2020-12-15 05:42] LABS: Follicle Stimulating Hormone 55.3 mIU/mL; Lutenizing Hormone 33.4 mIU/mL; Prolactin Undiluted 9.6 ng/mL
[2020-12-16 00:12] LABS: Estradiol Free 0.21 pg/mL; Estradiol, Ultrasensitive 10 pg/mL
[2020-12-16 02:36] LABS: Vitamin A 6 mcg/dL (38-98)
[2020-12-17 15:27] LABS: Vitamin B5 (Pantothenic Acid) 54 ng/mL (<275)
[2020-12-17 22:22] LABS: Smooth Muscle Antibody 45 U (<20)
[2020-12-20 08:06] LABS: Vit B3 - Nicotinic Acid <20
[2020-12-20 08:07] LABS: Nicotinamide 27
== END 2020-12-11 07:19 | disposition home or self-care (01) ==
LOC: HO.LAB 07:18
PROVIDERS: Absent Provider Internal Medicine; PCP Internal Medicine; Visit Provider Internal Medicine Gastroenterology
DX: E83.119 Hemochromatosis, unspecified (principal); R94.5 Abnormal results of liver function studies; K75.81 Nonalcoholic steatohepatitis (NASH)
CPT/HCPCS: 36415; 80048; 80053; 82024; 82180; 82306; 82533; 82607; 82670; 82681; 82728; 82746; 82784; 83001; 83002; 83930; 84146; 84207; 84270; 84305; 84439; 84443; 84480; 84590; 84591; 85025; 86038; 86039; 86255

== ENCOUNTER 2020-12-26 09:57 | Outpatient (REF) | payer MEDICARE, MEDICAID, SELFPAY ==
[2020-12-26 11:22] LABS: Iron 163 mcg/dL (30-160); Total Iron Binding Capacity < 180 mcg/dL (228-428); Unsaturated Iron Binding < 17 ug/dL
== END 2020-12-26 09:58 | disposition home or self-care (01) ==
LOC: HO.LAB 09:57
PROVIDERS: PCP Internal Medicine; Visit Provider Internal Medicine Gastroenterology
DX: R94.5 Abnormal results of liver function studies (principal)
CPT/HCPCS: 36415; 83540

== ENCOUNTER 2020-12-31 07:21 | Day surgery (SDC) | payer MEDICARE, MEDICAID, SELFPAY ==
--- NOTE | ~2020-12-31 | US_ITS ---
EXAMINATION: ULTRASOUND-GUIDED PARACENTESIS AND LIVER BIOPSY CLINICAL INFORMATION: Elevated liver function tests COMPARISON: Previous ultrasound MRCP October 2020 TECHNIQUE: Paracentesis and liver biopsy procedure and risks and benefits including bleeding and infection were discussed with the patient and informed consent was obtained. Initially, the right lower quadrant was prepped and draped in the usual sterile fashion. The soft tissues were anesthetized with 1%lidocaine plain. Using ultrasound guidance and a 5-Burkinan rapid centesis catheter, access to the ascitic fluid was obtained. 1.2 L of dark clear yellow fluid was removed; diagnostic specimen was sent. Subsequently, the right upper quadrant was prepped and draped in the usual sterile fashion. The skin and soft tissues were anesthetized with 1% lidocaine plain. Using ultrasound guidance and a coaxial system, access to the right lobe of the liver was obtained. Five 20-gauge FNA specimens were obtained. There was no complication. Patient received Versed 1 mg and fentanyl 50 mcg intravenously during the procedure. Total sedation time was 15 minutes. FINDINGS: There is a small amount of ascites. US/US paracentesis abd w/image IMPRESSION: Ultrasound-guided paracentesis and liver biopsy.
--- NOTE | ~2020-12-31 | US_ITS ---
EXAMINATION: ULTRASOUND-GUIDED PARACENTESIS AND LIVER BIOPSY CLINICAL INFORMATION: Elevated liver function tests COMPARISON: Previous ultrasound MRCP October 2020 TECHNIQUE: Paracentesis and liver biopsy procedure and risks and benefits including bleeding and infection were discussed with the patient and informed consent was obtained. Initially, the right lower quadrant was prepped and draped in the usual sterile fashion. The soft tissues were anesthetized with 1%lidocaine plain. Using ultrasound guidance and a 5-Wallisian rapid centesis catheter, access to the ascitic fluid was obtained. 1.2 L of dark clear yellow fluid was removed; diagnostic specimen was sent. Subsequently, the right upper quadrant was prepped and draped in the usual sterile fashion. The skin and soft tissues were anesthetized with 1% lidocaine plain. Using ultrasound guidance and a coaxial system, access to the right lobe of the liver was obtained. Five 20-gauge FNA specimens were obtained. There was no complication. Patient received Versed 1 mg and fentanyl 50 mcg intravenously during the procedure. Total sedation time was 15 minutes. FINDINGS: There is a small amount of ascites. US/US biopsy liver IMPRESSION: Ultrasound-guided paracentesis and liver biopsy.
[2020-12-31 07:37] VITALS: BMI 20.7
[2020-12-31 07:57] LABS: MANUAL DIFF FLAG NO
[2020-12-31 08:00] LABS: Basophils Percent Auto 0.7 % (0-2); Eosinophils Absolute Auto 0.1 X10*3/uL (0.0-0.4); Eosinophils Percent Auto 2.8 % (0-4); Hematocrit 37.8 % (37-47); Hemoglobin 12.6 g/dl (12.0-16.0); Imm Gran Abs Auto 0.01 X10*3/uL (0.00-0.03); Imm Gran Pct Auto 0.2 % (0.0-0.4); Lymphocytes Absolute Auto 1.5 X10*3/uL (1.2-4.9); Lymphocytes Percent Auto 33.6 % (20-40); Mean Corpuscular HGB Conc 33.3 g/dl (31.0-35.0); Mean Corpuscular Volume 101.9 fL (80-98); Monocytes Absolute Auto 0.6 X10*3/uL (0.1-1.2); Monocytes Percent Auto 13.6 % (2-11); Neutrophils Absolute Auto 2.1 X10*3/uL (2.0-8.3); Neutrophils Percent Auto 49.1 % (45-73); Platelet Count 154 X10*3/uL (160-400); Red Blood Count 3.71 X10*6/uL (4.20-5.50); Red Cell Distribution Width 14.3 % (11.0-16.0); White Blood Count 4.3 X10*3/uL (4.8-10.8)
[2020-12-31 08:12] LABS: INTERNATIONAL NORM RATIO 1.3 (0.9-1.1)
[2020-12-31 08:14] LABS: Partial Thromboplastin Time 37.8 SEC (24.1-38.0)
[2020-12-31] MEDS: ALPRAZolam 0.5 MG TABLET PO (09:26)
[2020-12-31 10:25] VITALS: BP 115/58; PULSE 83; RESP 18; TEMP 36.7; O2SAT 94
[2020-12-31 10:40] VITALS: BP 105/56; PULSE 81; RESP 16; O2SAT 94
--- NOTE | 2020-12-31 10:42 | HO.RADPN ---
RADIOLOGY Narrative Narrative: rlq paracentesis performed. 1.1 L drak clear yellow fluid removed. Next US guided core biopsy from right lobe of liver. No complication
[2020-12-31 10:55] VITALS: BP 106/65; PULSE 90; RESP 16; O2SAT 97
[2020-12-31 11:11] VITALS: BP 135/80; PULSE 92; RESP 16; O2SAT 97
[2020-12-31 11:29] LABS: MN% 96.2 %; PMN% 3.8 %; WBC Peritoneal Fluid 0.759 X10*3/uL
[2020-12-31 11:32] LABS: RBC Peritoneal Fluid < 0.002 X10*6/uL
[2020-12-31 11:37] VITALS: BP 125/70; PULSE 91; RESP 16; O2SAT 97
[2020-12-31 12:19] VITALS: BP 102/65; PULSE 76; RESP 17; O2SAT 95
[2020-12-31 12:32] LABS: BF Shift QC OK YES; Basophils Peritoneal Fl 0 %; Eosinophils Peritoneal Fl 0 %; Lymphocyte Peritoneal Fl 82 %; Man Diluent Bkgrd OK YES; Monocytes Peritoneal Fl 0 %; Neutrophils Peritoneal Fluid 0 %; Other Peritioneal Fl 18 %
[2021-01-01 07:21] LABS: Albumin Peritoneal Fluid 1.1; Total Protein Peritoneal Fluid 2.3
[2021-01-01 07:22] LABS: Glucose Peritoneal Fluid 86; LDH Peritoneal Fluid 72
== END 2020-12-31 12:34 | disposition home or self-care (01) ==
PROVIDERS: Internal Medicine Gastroenterology; Radiology Diagnostic Radiology; PCP Internal Medicine; Visit Provider Radiology Diagnostic Radiology
DX: R94.5 Abnormal results of liver function studies (principal); R74.01 Elevation of levels of liver transaminase levels; R79.89 Other specified abnormal findings of blood chemistry; R79.0 Abnormal level of blood mineral; R18.8 Other ascites; J44.9 Chronic obstructive pulmonary disease, unspecified; I10 Essential (primary) hypertension; M81.0 Age-related osteoporosis without current pathological fracture; F17.210 Nicotine dependence, cigarettes, uncomplicated; Z90.49 Acquired absence of other specified parts of digestive tract
CPT/HCPCS: 36415; 47000; 49083; 76942; 82042; 82945; 83540; 83615; 84157; 85025; 85610; 85730; 87070; 87073; 87205; 88307; 88313; 88342; 89051; 99152; C1729; J2250; J3010

== ENCOUNTER 2021-01-03 10:35 | Inpatient (IN) | payer MEDICARE, MEDICAID, SELFPAY ==
--- NOTE | ~2021-01-03 | US_ITS ---
EXAMINATION: ABDOMINAL DOPPLER EXAM CLINICAL INFORMATION: Recurrent ascites. Evaluate for portal vein thrombus. COMPARISON: Previous abdominal ultrasound 01/03/2021 and MRI of the abdomen October 2020 TECHNIQUE: Grayscale color and Doppler imaging of the liver vasculature FINDINGS: The extrahepatic portal vein, main and right and left portal veins are patent with appropriate hepatopedal flow. The splenic vein is patent. The main, right and left hepatic artery is patent with normal peak systolic velocity measuring 81 cm/s. The right, left and middle hepatic veins are patent with normal waveform. The IVC is patent. There is ascites. The spleen is enlarged.. US/US duplex arterial venous comp IMPRESSION: Normal abdominal Doppler exam. No evidence of portal vein thrombus.
--- NOTE | ~2021-01-03 | US_ITS ---
EXAMINATION: PARACENTESIS CLINICAL INFORMATION: Abdominal distention. Hepatitis. COMPARISON: Previous exams most recent 12/31/2020 TECHNIQUE: Procedure risks and benefits including bleeding, infection and low blood pressure were discussed with the patient and informed consent was obtained. The right lower quadrant was prepped and draped in the usual sterile fashion. The skin and soft tissues were anesthetized with 1% lidocaine plain. Using ultrasound guidance and a 5 Gren[place] rapid catheter, access to the ascitic fluid was obtained. 1.6 L of dark yellow clear fluid was removed. Specimen was sent for cell count and differential. FINDINGS: There is a moderate amount of ascites. US/US paracentesis abd w/image IMPRESSION: Ultrasound-guided paracentesis.
--- NOTE | ~2021-01-03 | US_ITS ---
EXAMINATION: US ABDOMEN LIMITED CLINICAL INFORMATION: Check for ascites. COMPARISON: Previous exam 12/31/2020 TECHNIQUE: Real-time imaging of the 4 quadrants FINDINGS: There is a moderate amount of ascites. US/US abdomen limited IMPRESSION: Moderate amount of ascites.
--- NOTE | ~2021-01-03 | XR_ITS ---
EXAMINATION: XR CHEST CLINICAL INFORMATION: Shortness of breath. Fluid overload. COMPARISON: Previous chest x-ray June 2020 TECHNIQUE: Frontal view of the chest was obtained. FINDINGS: The cardiac and mediastinal contours are normal. The lungs are clear. There is no pleural effusion or pneumothorax. Bony structures are unremarkable. XR/XR chest 1V IMPRESSION: Normal chest..
[2021-01-03 11:33] VITALS: BP 169/113; PULSE 98; RESP 20; TEMP 36.6; O2SAT 98; BMI 20.7
[2021-01-03 13:01] LABS: MANUAL DIFF FLAG NO
[2021-01-03 13:10] LABS: Basophils Percent Auto 0.2 % (0-2); Eosinophils Absolute Auto 0.1 X10*3/uL (0.0-0.4); Hematocrit 40.6 % (37-47); Hemoglobin 13.4 g/dl (12.0-16.0); Imm Gran Abs Auto 0.01 X10*3/uL (0.00-0.03); Imm Gran Pct Auto 0.2 % (0.0-0.4); Lymphocytes Absolute Auto 1.2 X10*3/uL (1.2-4.9); Lymphocytes Percent Auto 26.1 % (20-40); Mean Corpuscular Hemoglobin 34.3 pg (27.0-33.0); Mean Corpuscular Volume 103.8 fL (80-98); Mean Platelet Volume 11.3 fL (9.4-12.3); Monocytes Absolute Auto 0.4 X10*3/uL (0.1-1.2); Monocytes Percent Auto 9.6 % (2-11); Neutrophils Absolute Auto 2.8 X10*3/uL (2.0-8.3); Neutrophils Percent Auto 61.9 % (45-73); Platelet Count 148 X10*3/uL (160-400); Red Blood Count 3.91 X10*6/uL (4.20-5.50); Red Cell Distribution Width 14.2 % (11.0-16.0); White Blood Count 4.6 X10*3/uL (4.8-10.8)
[2021-01-03 13:25] LABS: Anion Gap 10 (12-20); Blood Urea Nitrogen 14 mg/dL (9-16); Calcium 8.4 mg/dL (8.4-10.2); Carbon Dioxide 27 mmol/L (22-29); Chloride 106 mmol/L (96-108); Creatinine Clr Calc Pharmacy 54.2; Estimated Glomerular Filt Rate > 60; Glucose Random 138 mg/dL (60-115); Potassium 3.9 mmol/L (3.3-5.1); Sodium 139 mmol/L (135-145)
[2021-01-03 13:31] LABS: B Type Natriuretic Peptide 26 pg/mL (<100)
[2021-01-03 15:04] LABS: Alanine Aminotransferase 334 U/L (0-31); Albumin Level 2.7 g/dL (3.5-5.0); Alkaline Phosphatase 317 U/L (39-117); Aspartate Amino Transferase 556 U/L (5-31); Bilirubin Direct 5.4 mg/dL (0.0-0.5); Bilirubin Total 7.4 mg/dL (0.0-1.0); Lipase 57 U/L (8-78); Total Protein 6.7 g/dL (6.5-8.0)
[2021-01-03 15:25] LABS: INTERNATIONAL NORM RATIO 1.3 (0.9-1.1); Prothrombin Time 15.7 SEC (10.8-13.0)
[2021-01-03 15:27] LABS: Partial Thromboplastin Time 37.9 SEC (24.1-38.0)
[2021-01-03 15:29] LABS: Ammonia 29 umol/L (13-55)
--- NOTE | 2021-01-03 16:23 | PM.GICN ---
History of Present Illness Data of Consult Service Date: 01/03/21 Requesting physician: David Cortez Primary Care Provider: Katya Burton MD HPI Reason for consult: Abn LFT, ascites 65-year-old female w/ hx of cholecystectomy, asthma/COPD, hypertension, hyperparathyroidism, osteoporosis and smoking who I am seeing for abn LFT and ascites, abdominal pain. She had liver biopsy earlier this week after refusing tohave it done for some time. At that time she was also noted to have swollen abdomen with evidence of ascites. This was tapped with no evidence of sbp. Over last few days fluid reaccumulated with abdominal distention and ankle swelling and she feels v uncomfortable with diffuse sharp pains and nausea. she has no fever or joint pains. No chest pain or SOB. She denied use of herbs, OTC meds, tylenol, or sick contacts Prior to this encounter she had been worked up by me for progressively worsening LFT, The presumptive diagnosis had been autoimmune hepatitis. Prior work up: MRCP done and personally reviewed, without any ductal dilation or filling defects, no pancreas mass. Index Labs with neg acetaminophen, Hep serologies, ferritin 5000, and iron sat 72%, auto antibodies with raised ZITA, raised SMA, neg SLA, neg ANCA< neg celiac, normal IgG level, HFE negative Before meeting her today in the ED I personally talked with the pathologist and the features are most consistent with autoimmune hepatitis, possible overlap with PBC but slides being sent to a pathologist specializing in liver disease. Iron stain was negative. Review of Systems Review of Systems: Constitutional : No Weight loss, No Fever, No Chills ENT/Mouth : No sore throat, No Rhinorrhea Eyes: No Swelling, No Redness Cardiovascular : No Chest Pain, No SOB, + Edema Respiratory : No Cough, No Sputum, No Wheezing Gastrointestinal : see HPI Genitourinary : NO Dysuria, No Urinary Frequency, No Hematuria, No Urgency Musculoskeletal : No joint pain, No Myalgias, No Joint Swelling Skin : No Skin Lesions, No rash Neuro : No Weakness, No Numbness, No Dizziness, No Headache Psych : No Anxiety/Panic, No Depression Heme/Lymph: No Bruising, No Lymphadenopathy Endocrine : No Polyuria, No Polydipsia All other systems reviewed and are negative. [facility] Past Medical History Medical History (Updated 01/03/21 @ 16:52 by Josesito Roman MD) Abnormal LFTs Abnormal SPEP Allergic rhinitis Arthritis Asthma COPD (chronic obstructive pulmonary disease) COPD (chronic obstructive pulmonary disease) HTN (hypertension) Hyperparathyroidism Low calcium levels Osteoporosis Smoker Vitamin D deficiency Family History Family History Father Hypertension Heart disease Diabetes Mother Heart disease Arthritis Diabetes Surgical History Surgical History (Updated 12/07/20 @ 09:39 by BONNIE Alarcon) H/O colonoscopy Hx laparoscopic cholecystectomy Hx of tonsillectomy Hx of tubal ligation Social History Social History Household Members: Family Housing: Apartment Do you presently have visiting nurse or other home services: No Alcohol intake: former Cigarette Packs Per Day: 0 Cigarettes Per Day: 5 Years Smoked: 19 Second Hand Smoke Exposure: Yes Advance Directives: Yes Advance Directives Information Provided: No Advance Directives on File: No Advance Directives Date on File: 10/24/20 service: No Current occupational status: unemployed Meds Allergies Allergy/AdvReac Type Severity Reaction Status Date / Time No Known Allergies Allergy Verified 12/31/20 07:55 [No Known Allergies*] Home Medications Medication Instructions Recorded Confirmed Last Taken Type amlodipine 5 mg tablet 5 mg PO DAILY 07/19/20 11/21/20 10/24/20 History loratadine 10 mg tablet 10 mg PO DAILY PRN 07/19/20 11/21/20 Unknown History montelukast 10 mg tablet 10 mg PO BEDTIME 07/19/20 11/21/20 10/23/20 History ipratropium bromide 17 2 puff INHALATION TID 09/13/20 11/21/20 10/24/20 History mcg/actuation HFA aerosol inhaler albuterol sulfate 2 inh INHALATION QID PRN 10/24/20 11/21/20 10/24/20 History Physical Exam Vital Signs: Vital Signs: Last Vital Signs Temp 97.9 F 01/03/21 11:33 Pulse 98 01/03/21 11:33 Resp 20 01/03/21 11:33 BP 169/113 H 01/03/21 11:33 Pulse Ox 98 01/03/21 11:33 Body Mass Index 20.7 EXAM: GENERAL: The patient is relaxed, jaundice noted VITAL SIGNS:see workflow HEENT: icteric sclerae, PERRLA, EOMI. Oropharynx clear. Moist mucous membranes. Conjunctivae appear well perfused. No thyroid mass. CHEST: Chest wall is nontender. HEART: Regular rate and rhythm without murmurs. LUNGS: Clear to auscultation bilaterally. ABDOMEN: Soft, distended with dullness and +shifting dullness, positive bowel sounds, nontender, no organomegaly.no flank tenderness SKIN: No rash, no excessive bruising, petechiae, or purpura. JAundiced NEUROLOGIC: Cranial nerves II-XII intact without motor/sensory deficit. Psych--normal affect Results Labs CBC & Chem 7: 01/03/21 12:40 01/03/21 12:40 Labs: Short CBC 01/03/21 Range/Units 12:40 WBC 4.6 L (4.8-10.8) X10*3/uL Hgb 13.4 (12.0-16.0) g/dl Hct 40.6 (37-47) % Plt Count 148 L (160-400) X10*3/uL BMP 01/03/21 12:40 Sodium 139 Potassium 3.9 Chloride 106 Carbon Dioxide 27 BUN 14 Creatinine 0.77 Calcium 8.4 D Liver Function 01/03/21 Range/Units 12:40 Total Bilirubin 7.4 H (0.0-1.0) mg/dL Direct Bilirubin 5.4 H (0.0-0.5) mg/dL AST 556 H (5-31) U/L ALT 334 H (0-31) U/L Alkaline Phosphatase 317 H D (39-117) U/L Albumin 2.7 L (3.5-5.0) g/dL ascitic fluid SAAG 1.6 consistent with portal hypertension and transudate, neg for SBP by cell count Assessment and Plan (1) Autoimmune hepatitis: Status: Acute (2) Ascites: Status: Acute 1/ Autoimmune hepatitis -possible overlap syndrome with PBC-personally discussed with pathology and slides being sent out to liver pathologist. AMA neg, ZITA pos and SMA pos, IGG >2000 2/ Ascites-related to 1/ above, need to exclude portal vein clot. PLAN 1/ Recommend therapeutic tap, commence lasix 20 mg and aldactone 50 mg, low salt diet 2/ Doppler to r/o portal vein thrombus 3/commence prednisone 30 mg daily with imuran 50 mg. I have ordered TPMT level. 4/ if overlap with PBC confirmed will commence ursodiol as o/p 5/ will need Vit D supplement 1000 units daily and a multivitamin 6/ alcohol avoidance, smoking cessation and NRT Procedures Date of Service Date of Service: 01/03/21
--- NOTE | 2021-01-03 16:32 | ED_ITS ---
HPI - Abdominal Pain General Chief Complaint: Abdominal Pain Stated Complaint: SWELLING ALL OVER Time Seen by Provider: 01/03/21 14:19 Source: patient History of Present Illness HPI narrative: 65-year-old female with a past medical history of arthritis, asthma, COPD, HTN, hyperparathyroid, vitamin-D deficiency, cholecystectomy, abnormal LFTs s/p liver biopsy on 12/31/20, presenting to the ED complaining of abdominal distension and discomfort with LE edema, and mild exertional SOB x few days. Admits swelling has been persistent since before paracentesis. Denies fever, chills, nausea/ vomiting, chest pain, cough Related Data Home Medications Medication Instructions Recorded Confirmed amlodipine 5 mg tablet 5 mg PO DAILY 07/19/20 11/21/20 loratadine 10 mg tablet 10 mg PO DAILY PRN 07/19/20 11/21/20 montelukast 10 mg tablet 10 mg PO BEDTIME 07/19/20 11/21/20 ipratropium bromide 17 2 puff INHALATION TID 09/13/20 11/21/20 mcg/actuation HFA aerosol inhaler albuterol sulfate 2 inh INHALATION QID PRN 10/24/20 11/21/20 Previous Rx's Medication Instructions Recorded cholecalciferol (vitamin D3) 50 50 mcg PO DAILY 30 Days #30 cap 07/30/20 mcg (2,000 unit) capsule Advair Diskus 250 mcg-50 mcg/dose 1 inh INHALATION BID 30 Days #60 09/19/20 powder for inhalation ea NS omeprazole 40 mg capsule,delayed 40 mg PO BID 30 Days #60 cap 10/19/20 release calcium citrate 250 mg PO BID 30 Days #60 tab 11/21/20 vitamin A palmitate 10,000 unit 10,000 unit PO DAILY 30 Days #30 12/17/20 capsule cap Allergies Allergy/AdvReac Type Severity Reaction Status Date / Time No Known Allergies Allergy Verified 12/31/20 07:55 [No Known Allergies*] Review of Systems Review of Systems Constitutional: No Fever, No Chills, No Fatigue, No Malaise Cardiovascular: No Chest Pain, +Edema, No Palpitations, + exertional SOB Respiratory: No Cough, No Dyspnea Gastrointestinal: No Nausea, No Vomiting, No Diarrhea, + Abdominal pain, + abd ominal distension Genitourinary: No Hematuria, No Flank Pain Musculoskeletal: No joint pain, No Myalgias Skin: No Skin Lesions, No rash Neuro: No Weakness, No Numbness, No Headache Yes all other systems are reviewed and are negative Physical Exam Vital Signs: Vital Signs: Last Vital Signs Temp 97.9 F 01/03/21 11:33 Pulse 98 01/03/21 11:33 Resp 20 01/03/21 11:33 BP 169/113 H 01/03/21 11:33 Pulse Ox 98 01/03/21 11:33 Body Mass Index 20.7 Const: Other: + jaundice General: cooperative, healthy appearing and no acute distress Orientation/consciousness: patient oriented x3 Limitations: no limitations HENMT: Head: Yes normal to inspection Ears: hearing grossly normal bilaterally General nose exam: Normal external nose present Face and sinus: Yes normal facial exam Eyes: General: appearance normal, both eyes and all related structures EOM: EOMs intact bilaterally Neck: Neck: Yes normal visual inspection and Yes no meningeal signs Resp: Effort & Inspection: normal respiratory effort Auscultation: clear to auscultation bilaterally and no wheezes Cardio: Rate: regular rate Heart sounds: S1 normal heart sound present and S2 normal heart sound present GI: Inspection: Yes normal to inspection Palpation (GI): Soft to palpation, nontender, no guarding, not rigid and Ascites present Skin: Rashes: no rashes Wounds: no wounds Neuro: General: patient oriented x3 and no meningeal signs Gait exam (Neuro): Normal gait present Extrem: Other: + bilateral lower extremity pitting edema General: Yes normal to inspection and Yes edema Course Course Course Narrative: - No leukocytosis, H/H stable, LFTs /Bilirubins acute on ch ronically elevated - Dr. Roman evaluated patient in the ED, recommended admission, ultrasound-guided paracentesis, steroid use, and Doppler to rule out venous vein thrombosis > case discussed with hospitalist and patient admitted to their service, plan to obtain Doppler after paracentesis for better visualization MDM - Abdominal Pain MDM Narrative Medical decision making narrative: 65-year-old female with a past medical history of arthritis, asthma, COPD, HTN, hyperparathyroid, vitamin-D deficiency, cholecystectomy, abnormal LFTs s/p liver biopsy on 12/31/20, presenting to the ED complaining of abdominal distension and discomfort with LE edema, and mild exertional SOB x few days. On exam hypertensive, jaundice, abdominal distension noted on exam, abdomen is soft and nontender, bilateral lower extremity edema noted. Low concern for SBP. Concern for ascites needing drainage. R/o CHF/ fluid overload. Low concern for DVT/PE plan: EKG, labs, CXR, paracentesis, consult Dr. Roman Lab Data Result diagrams: 01/03/21 12:40 01/03/21 12:40 Labs: Lab Results 01/03/21 01/03/21 01/03/21 Range/Units 12:40 12:40 12:40 WBC 4.6 L (4.8-10.8) X10*3/uL RBC 3.91 L (4.20-5.50) X10*6/uL Hgb 13.4 (12.0-16.0) g/dl Hct 40.6 (37-47) % MCV 103.8 H (80-98) fL MCH 34.3 H (27.0-33.0) pg MCHC 33.0 (31.0-35.0) g/dl RDW 14.2 (11.0-16.0) % Plt Count 148 L (160-400) X10*3/uL MPV 11.3 (9.4-12.3) fL Immature Gran % (Auto) 0.2 (0.0-0.4) % Neut % (Auto) 61.9 (45-73) % Lymph % (Auto) 26.1 (20-40) % [place] % (Auto) 9.6 (2-11) % Eos % (Auto) 2.0 (0-4) % Baso % (Auto) 0.2 (0-2) % Lymph # (Auto) 1.2 (1.2-4.9) X10*3/uL [place] # (Auto) 0.4 (0.1-1.2) X10*3/uL Eos # (Auto) 0.1 (0.0-0.4) X10*3/uL Baso # (Auto) 0.0 (0.0-0.2) X10*3/uL Abs Immat Gran (auto) 0.01 (0.00-0.03) X10*3/uL Absolute Neuts (auto) 2.8 (2.0-8.3) X10*3/uL Absolute Nucleated RBC 0.000 (0.0-0.012) X10*3/uL Nucleated RBC % (auto) 0.0 (0.0-0.2) /100WBC PT (10.8-13.0) SEC INR (0.9-1.1) APTT (24.1-38.0) SEC Sodium 139 (135-145) mmol/L Potassium 3.9 (3.3-5.1) mmol/L Chloride 106 (96-108) mmol/L Carbon Dioxide 27 (22-29) mmol/L Anion Gap 10 L (12-20) BUN 14 (9-16) mg/dL Creatinine 0.77 (0.5-1.4) mg/dL Estim Creat Clear Calc 54.2 Estimated GFR > 60 Random Glucose 138 H D (60-115) mg/dL Calcium 8.4 D (8.4-10.2) mg/dL Magnesium 2.0 (1.6-2.6) mg/dL Total Bilirubin 7.4 H (0.0-1.0) mg/dL Direct Bilirubin 5.4 H (0.0-0.5) mg/dL AST 556 H (5-31) U/L ALT 334 H (0-31) U/L Alkaline Phosphatase 317 H D (39-117) U/L Ammonia (13-55) umol/L B-Natriuretic Peptide 26 (<100) pg/mL Total Protein 6.7 (6.5-8.0) g/dL Albumin 2.7 L (3.5-5.0) g/dL Lipase 57 (8-78) U/L 01/03/21 01/03/21 Range/Units 15:12 15:12 WBC (4.8-10.8) X10*3/uL RBC (4.20-5.50) X10*6/uL Hgb (12.0-16.0) g/dl Hct (37-47) % MCV (80-98) fL MCH (27.0-33.0) pg MCHC (31.0-35.0) g/dl RDW (11.0-16.0) % Plt Count (160-400) X10*3/uL MPV (9.4-12.3) fL Immature Gran % (Auto) (0.0-0.4) % Neut % (Auto) (45-73) % Lymph % (Auto) (20-40) % [place] % (Auto) (2-11) % Eos % (Auto) (0-4) % Baso % (Auto) (0-2) % Lymph # (Auto) (1.2-4.9) X10*3/uL [place] # (Auto) (0.1-1.2) X10*3/uL Eos # (Auto) (0.0-0.4) X10*3/uL Baso # (Auto) (0.0-0.2) X10*3/uL Abs Immat Gran (auto) (0.00-0.03) X10*3/uL Absolute Neuts (auto) (2.0-8.3) X10*3/uL Absolute Nucleated RBC (0.0-0.012) X10*3/uL Nucleated RBC % (auto) (0.0-0.2) /100WBC PT 15.7 H (10.8-13.0) SEC INR 1.3 H (0.9-1.1) APTT 37.9 (24.1-38.0) SEC Sodium (135-145) mmol/L Potassium (3.3-5.1) mmol/L Chloride (96-108) mmol/L Carbon Dioxide (22-29) mmol/L Anion Gap (12-20) BUN (9-16) mg/dL Creatinine (0.5-1.4) mg/dL Estim Creat Clear Calc Estimated GFR Random Glucose (60-115) mg/dL Calcium (8.4-10.2) mg/dL Magnesium (1.6-2.6) mg/dL Total Bilirubin (0.0-1.0) mg/dL Direct Bilirubin (0.0-0.5) mg/dL AST (5-31) U/L ALT (0-31) U/L Alkaline Phosphatase (39-117) U/L Ammonia 29 (13-55) umol/L B-Natriuretic Peptide (<100) pg/mL Total Protein (6.5-8.0) g/dL Albumin (3.5-5.0) g/dL Lipase (8-78) U/L Discharge Plan Discharge Clinical Impression: Ascites, Abnormal LFTs Patient Disposition: Admitted As Inpatient Prescriptions: No Action cholecalciferol (vitamin D3) 50 mcg (2,000 unit) capsule 50 mcg PO DAILY 30 Days Qty: 30 RF: 11 fluticasone propion-salmeterol [Advair Diskus] 250-50 mcg/dose blister with device 1 inh inhalation BID 30 Days Qty: 60 RF: 3 omeprazole 40 mg capsule,delayed release(DR/EC) 40 mg PO BID 30 Days Qty: 60 RF: 2 vitamin A palmitate 10,000 unit capsule 10,000 unit PO DAILY 30 Days Qty: 30 RF: 3 albuterol sulfate 90 mcg/actuation HFA aerosol inhaler 2 inh inhalation QID PRN (Reason: shortness of breath or wheezing) RF: 0 amlodipine 5 mg tablet 5 mg PO DAILY RF: 0 montelukast 10 mg tablet 10 mg PO BEDTIME RF: 0 loratadine 10 mg tablet 10 mg PO DAILY PRN (Reason: Allergic Symptoms) RF: 0 Atrovent HFA 17 mcg/actuation HFA aerosol inhaler 2 puff inhalation QID RF: 0 calcium citrate 250 mg calcium tablet 250 mg PO BID 30 Days Qty: 60 RF: 11 PMFSH Past Medical History Attestation statement: The following information was validated with the patient. Medical History (Updated 01/03/21 @ 17:02 by NAYA Hill) Abnormal LFTs Abnormal SPEP Allergic rhinitis Arthritis Asthma COPD (chronic obstructive pulmonary disease) COPD (chronic obstructive pulmonary disease) HTN (hypertension) Hyperparathyroidism Low calcium levels Osteoporosis Smoker Vitamin D deficiency Surgical History (Updated 12/07/20 @ 09:39 by BONNIE Alarcon) H/O colonoscopy Hx laparoscopic cholecystectomy Hx of tonsillectomy Hx of tubal ligation Family History Family History Father Hypertension Heart disease Diabetes Mother Heart disease Arthritis Diabetes Social History Social History Household Members: Family Housing: Apartment Do you presently have visiting nurse or other home services: No Alcohol intake: former Cigarette Packs Per Day: 0 Cigarettes Per Day: 5 Years Smoked: 19 Second Hand Smoke Exposure: Yes Advance Directives: Yes Advance Directives Information Provided: No Advance Directives on File: No Advance Directives Date on File: 10/24/20 service: No Current occupational status: unemployed
--- NOTE | 2021-01-03 16:50 | ECG_ITS ---
Test Reason : ABDOMINAL PAIN Blood Pressure : / mmHG Vent. Rate : 089 BPM Atrial Rate : 089 BPM P-R Int : 124 ms QRS Dur : 088 ms QT Int : 390 ms P-R-T Axes : 070 061 042 degrees QTc Int : 474 ms Normal sinus rhythm Normal ECG When compared with ECG of 01-JUN-2015 12:35, QT has lengthened Referred By: Shellie Mcgregor Electronically Signed By:JACOB SEAMAN MD
--- NOTE | 2021-01-03 17:16 | PHA.MEDREC ---
Pharmacy Consult ? Medication Reconciliation Pharmacy has completed the medication reconciliation.
--- NOTE | 2021-01-03 17:21 | P.HPHOSP_ITS ---
History of Present Illness Date of Service: 01/03/21 Chief Complaint: nausea, weight loss, abdominal pain, edema a 65 years old lady with PMH COPD, HTN, hyperparathyroidism, osteoporosis among others who presented to the hospital complaining of abdominal pain increasing edema for the last 2 days. The patient has been following with GI clinic for evaluation of never abnormality. She had liver biopsy earlier this week and was noted at that point to have ascites which was tested negative for SBP on Thursday. Over the last few days she started to feel more pain and increase in of swelling in her abdomen associated with nausea and feeling fall with decreased oral intake as she lost weight over the last few months. She denies any fever, chills, joint pain, change in bowel habit or urinary symptoms. Patient was evaluated in the emergency as gastroenterology evaluated recommended admission for treatment of autoimmune hepatitis based on her blood work. Review of Systems Review of Systems: No fever, chills but reports weight loss No chest pain, palpitation No shortness of breath or coughing generalized abdominal pain and increase ascites associated with nausea No urinary symptoms No any rash or wounds PMFSH Medical History Abnormal LFTs Abnormal SPEP Allergic rhinitis Arthritis Asthma COPD (chronic obstructive pulmonary disease) COPD (chronic obstructive pulmonary disease) HTN (hypertension) Hyperparathyroidism Low calcium levels Osteoporosis Smoker Vitamin D deficiency Family History Father Hypertension Heart disease Diabetes Mother Heart disease Arthritis Diabetes Surgical History H/O colonoscopy Hx laparoscopic cholecystectomy Hx of tonsillectomy Hx of tubal ligation Social History Household Members: Family Housing: Apartment Do you presently have visiting nurse or other home services: No Alcohol intake: former Cigarette Packs Per Day: 0 Cigarettes Per Day: 5 Years Smoked: 19 Second Hand Smoke Exposure: Yes Advance Directives: Yes Advance Directives Information Provided: No Advance Directives on File: No Advance Directives Date on File: 10/24/20 service: No Current occupational status: unemployed Meds Allergies Allergy/AdvReac Type Severity Reaction Status Date / Time No Known Allergies Allergy Verified 12/31/20 07:55 [No Known Allergies*] Active Medications: Current Medications Generic Name Dose Route Start Last Admin Trade Name Chip PRN Reason Stop Dose Admin Pharmacy Consult 1 each 01/03/21 16:37 Consult Rx Perform Med Rec MISCELLANE ONCE PRN Consult order Home Medications Medication Instructions Recorded Confirmed Last Taken Type amlodipine 5 mg tablet 5 mg PO DAILY 07/19/20 01/03/21 01/02/21 History loratadine 10 mg tablet 10 mg PO DAILY PRN 07/19/20 11/21/20 Unknown History montelukast 10 mg tablet 10 mg PO BEDTIME 07/19/20 01/03/21 01/02/21 History ipratropium bromide 17 2 puff INHALATION QID 09/13/20 01/03/21 01/02/21 History mcg/actuation HFA aerosol inhaler albuterol sulfate 2 inh INHALATION QID PRN 10/24/20 01/03/21 01/02/21 History Physical Exam Vital Signs and Narrative: Vital Signs: Last Vital Signs Temp 97.9 F 01/03/21 11:33 Pulse 98 01/03/21 11:33 Resp 20 01/03/21 11:33 BP 169/113 H 01/03/21 11:33 Pulse Ox 98 01/03/21 11:33 Body Mass Index 20.7 Const: Other: Constitutional : Alert, oriented, in mild distress from pain Neck : Normal inspection, Supple Cardiovascular : RRR, S1 S2, trace bilateral lower extremity edema Respiratory : fair bilateral air entry, no crackles, wheezes or rhonchi Gastrointestinal: soft, lax, distended, significant ascites with no tenderness Skin : Warm/Dry, No rash Neurological : Alert & oriented x3, No focal deficit Results Labs CBC and Chem 7: 01/03/21 12:40 01/03/21 12:40 Labs: Laboratory Results - last 24 hr 01/03/21 01/03/21 01/03/21 12:40 12:40 12:40 MCV 103.8 H MCH 34.3 H MCHC 33.0 RDW 14.2 Plt Count 148 L MPV 11.3 Immature Gran % (Auto) 0.2 Neut % (Auto) 61.9 Lymph % (Auto) 26.1 [place] % (Auto) 9.6 Eos % (Auto) 2.0 Baso % (Auto) 0.2 Lymph # (Auto) 1.2 [place] # (Auto) 0.4 Eos # (Auto) 0.1 Baso # (Auto) 0.0 Abs Immat Gran (auto) 0.01 Absolute Neuts (auto) 2.8 Absolute Nucleated RBC 0.000 Nucleated RBC % (auto) 0.0 PT INR APTT Anion Gap 10 L Estim Creat Clear Calc 54.2 Estimated GFR > 60 Random Glucose 138 H D Calcium 8.4 D Magnesium 2.0 Total Bilirubin 7.4 H Direct Bilirubin 5.4 H AST 556 H ALT 334 H Alkaline Phosphatase 317 H D Ammonia B-Natriuretic Peptide 26 Total Protein 6.7 Albumin 2.7 L Lipase 57 01/03/21 01/03/21 15:12 15:12 MCV MCH MCHC RDW Plt Count MPV Immature Gran % (Auto) Neut % (Auto) Lymph % (Auto) [place] % (Auto) Eos % (Auto) Baso % (Auto) Lymph # (Auto) [place] # (Auto) Eos # (Auto) Baso # (Auto) Abs Immat Gran (auto) Absolute Neuts (auto) Absolute Nucleated RBC Nucleated RBC % (auto) PT 15.7 H INR 1.3 H APTT 37.9 Anion Gap Estim Creat Clear Calc Estimated GFR Random Glucose Calcium Magnesium Total Bilirubin Direct Bilirubin AST ALT Alkaline Phosphatase Ammonia 29 B-Natriuretic Peptide Total Protein Albumin Lipase Imaging Radiologist's Impressions: Impressions Chest X-Ray 01/03/21 16:41 IMPRESSION: Normal chest.. Assessment and Plan (1) Ascites: Status: Acute (2) Autoimmune hepatitis: Status: Acute (3) Transaminitis: Status: Acute a 65 years old lady with PMH COPD, HTN, hyperparathyroidism, osteoporosis among others who presented to the hospital complaining of abdominal pain increasing edema for the last 2 days. Autoimmune hepatitis concern for overlap with PBC Has AMA neg, ZITA pos and SMA pos, IGG >2000 Pending biopsy result Start treatment with prednisone and Imuran Monitor liver function and clinical response advised to avoid usage of alcohol Ascites Could be secondary to hepatitis or vein thrombosis to do a Doppler to rule out portal vein thrombosis Start Lasix and spironolactone Monitor intake and output Mild malnutrition Add Ensure to diet smoking Advised to quit smoking, to use NRT COPD Continue home inhalers Singular GERD Omeprazole DVT PPX Heparin Quality Stroke Does the patient have a stroke diagnosis?: No VTE Prior VTE?: No VTE Risk Level:: Medical - moderate - high VTE Device Contraindication: Treatment Not Indicated VTE Drug Contraindication: N/A - Med Ordered
[2021-01-03 17:42] LABS: COVID-19 Test Negative (Negative)
[2021-01-03] MEDS: Furosemide 20 MG TABLET PO (18:48)
[2021-01-03] MEDS: predniSONE 10 MG TABLET 30 MG PO (18:48)
[2021-01-03 20:00] VITALS: BP 144/83; PULSE 89; RESP 16; TEMP 36.7; O2SAT 96
[2021-01-03] MEDS: Heparin Sodium,Porcine 5,000 UNIT/ML VIAL 5000 UNIT SUBCUT (21:09)
[2021-01-03] MEDS: Omeprazole 40 MG CAPSULE.DR PO (21:09)
[2021-01-03] MEDS: Montelukast Sodium 10 MG TABLET PO (21:09)
[2021-01-03] MEDS: 0.9 % Sodium Chloride Flush 3 ML SYRINGE IVFLUSH (21:13)
[2021-01-03 23:12] VITALS: BP 134/80; PULSE 83; RESP 16; TEMP 36.5; O2SAT 96
[2021-01-04] VITALS (8 sets, daily range): BP systolic 126–153; BP diastolic 65–82; PULSE 72–101; RESP 14–18; TEMP 35.9–36.1; O2SAT 95–99; BMI 20.7
[2021-01-04 06:10] LABS: Hematocrit 36.8 % (37-47); Hemoglobin 12.3 g/dl (12.0-16.0); Mean Corpuscular HGB Conc 33.4 g/dl (31.0-35.0); Mean Corpuscular Hemoglobin 34.1 pg (27.0-33.0); Mean Corpuscular Volume 101.9 fL (80-98); Mean Platelet Volume 11.1 fL (9.4-12.3); Platelet Count 143 X10*3/uL (160-400); Red Blood Count 3.61 X10*6/uL (4.20-5.50); White Blood Count 2.7 X10*3/uL (4.8-10.8)
[2021-01-04 06:37] LABS: Anion Gap 11 (12-20); Blood Urea Nitrogen 15 mg/dL (9-16); Calcium 8.3 mg/dL (8.4-10.2); Carbon Dioxide 27 mmol/L (22-29); Chloride 106 mmol/L (96-108); Creatinine Clr Calc Pharmacy 55.7; Estimated Glomerular Filt Rate > 60; Glucose Random 128 mg/dL (60-115); Potassium 4.5 mmol/L (3.3-5.1); Sodium 139 mmol/L (135-145)
[2021-01-04 07:16] LABS: Alanine Aminotransferase 270 U/L (0-31); Albumin Level 2.4 g/dL (3.5-5.0); Alkaline Phosphatase 280 U/L (39-117); Aspartate Amino Transferase 395 U/L (5-31); Bilirubin Direct 3.7 mg/dL (0.0-0.5); Bilirubin Total 5.1 mg/dL (0.0-1.0); Total Protein 6.1 g/dL (6.5-8.0)
[2021-01-04] MEDS: Ipratropium Bromide 1 PUFF/17 MCG INHALER 2 PUFF INHALE ×2 (07:57→11:54)
[2021-01-04] MEDS: 0.9 % Sodium Chloride Flush 3 ML SYRINGE IVFLUSH (08:05)
--- NOTE | 2021-01-04 09:30 | HO.RADPN ---
RADIOLOGY Narrative Narrative: rlq paracentesis performed using 5 fr angiocath. 1.6 L dark clear yellow fluid removed. specimen sent for cell count and diff as ordered
[2021-01-04] MEDS: Lidocaine HCl 1 % MPF 5 ML VIAL SUBCUT (10:38)
[2021-01-04] MEDS: Multivitamin TABLET 1 TAB PO (10:47)
[2021-01-04] MEDS: predniSONE 10 MG TABLET 30 MG PO (10:47)
[2021-01-04] MEDS: azaTHIOprine 50 MG TABLET PO (10:47)
[2021-01-04] MEDS: Cholecalciferol (Vitamin D3) 25 MCG TABLET PO (10:48)
[2021-01-04] MEDS: Furosemide 20 MG TABLET PO (10:48)
[2021-01-04] MEDS: Spironolactone 25 MG TABLET 50 MG PO (10:48)
[2021-01-04] MEDS: Omeprazole 40 MG CAPSULE.DR PO (10:48)
[2021-01-04 10:56] LABS: MN% 88.6 %; PMN% 11.4 %; WBC Peritoneal Fluid 0.458 X10*3/uL
[2021-01-04 10:58] LABS: RBC Peritoneal Fluid < 0.002 X10*6/uL
[2021-01-04 11:09] LABS: BF Shift QC OK YES; Lymphocyte Peritoneal Fl 40 %; Monocytes Peritoneal Fl 4 %; Neutrophils Peritoneal Fluid 3 %; Other Peritioneal Fl 53 %
--- NOTE | 2021-01-04 11:13 | PM.DS ---
DS: Providers Provider Date of Service: 01/04/21 Date of admission: 01/03/21 17:21 Primary care physician: Katya Burton MD DS: Diagnosis Discharge Diagnosis (1) Ascites: Status: Acute (2) Autoimmune hepatitis: Status: Acute (3) Transaminitis: Status: Acute DS: Medications Discharge Medications Home Medications: Home Medications Medication Instructions Recorded Confirmed amlodipine 5 mg tablet 5 mg PO DAILY 07/19/20 01/03/21 loratadine 10 mg tablet 10 mg PO DAILY PRN 07/19/20 11/21/20 montelukast 10 mg tablet 10 mg PO BEDTIME 07/19/20 01/03/21 ipratropium bromide 17 2 puff INHALATION QID 09/13/20 01/03/21 mcg/actuation HFA aerosol inhaler albuterol sulfate 2 inh INHALATION QID PRN 10/24/20 01/03/21 Previous Rx's Medication Instructions Recorded cholecalciferol (vitamin D3) 50 50 mcg PO DAILY 30 Days #30 cap 07/30/20 mcg (2,000 unit) capsule Advair Diskus 250 mcg-50 mcg/dose 1 inh INHALATION BID 30 Days #60 09/19/20 powder for inhalation ea NS omeprazole 40 mg capsule,delayed 40 mg PO BID 30 Days #60 cap 10/19/20 release calcium citrate 250 mg PO BID 30 Days #60 tab 11/21/20 vitamin A palmitate 10,000 unit 10,000 unit PO DAILY 30 Days #30 12/17/20 capsule cap azathioprine 50 mg PO DAILY 30 Days #30 tab 01/04/21 furosemide 20 mg PO DAILY 30 Days #30 tab 01/04/21 multivitamin with folic acid 1 tab PO DAILY 30 Days #30 tab 01/04/21 [Tab-A-Glynn] prednisone See Taper PO DAILY #150 tab 01/04/21 spironolactone 50 mg PO DAILY 30 Days #60 tab 01/04/21 DS: Summary Hospital Course Hospital Course: admission note HPI a 65 years old lady with PMH COPD, HTN, hyperparathyroidism, osteoporosis among others who presented to the hospital complaining of abdominal pain increasing edema for the last 2 days. The patient has been following with GI clinic for evaluation of never abnormality. She had liver biopsy earlier this week and was noted at that point to have ascites which was tested negative for SBP on Thursday. Over the last few days she started to feel more pain and increase in of swelling in her abdomen associated with nausea and feeling fall with decreased oral intake as she lost weight over the last few months. She denies any fever, chills, joint pain, change in bowel habit or urinary symptoms. Patient was evaluated in the emergency as gastroenterology evaluated recommended admission for treatment of autoimmune hepatitis based on her blood work. Hospital course The patient was admitted for evaluation of worsening ascites, abdominal pain and nausea. Have findings suggestive of autoimmune hepatitis based on elevated transaminitis and previous blood work. Liver biopsy still pending but prelim report suggestive of autoimmune hepatitis. She was started on prednisone and Imuran who with good response as her symptoms improved overnight and transaminitis little better this morning. Paracentesis was done Removing 1.5 L of fluids. fluid analysis negative for any infection. She was started on spironolactone and furosemide and evaluated by Gastroenterology who Follow her in the clinic. an ultrasound was done ruling out portal vein thrombosis. To be discharged on oral medications of Imuran and prednisone tapering does on weekly basis starting at 30 mg daily. Start Lasix and spironolactone next Lyme to follow-up with GI as outpatient. Time Spent with Patient Time attestation: Total time spent providing and/or coordinating discharge services: Discharge coordination time: Greater than 30 minutes Quality: Stroke Does the patient have a stroke diagnosis?: No Physical Exam Vital Signs: Vital Signs: Last Vital Signs Temp 96.9 F 01/04/21 10:21 Pulse 90 01/04/21 11:00 Resp 18 01/04/21 11:00 BP 129/82 01/04/21 11:00 Pulse Ox 99 01/04/21 11:00 Body Mass Index 20.7 Const: Other: Constitutional : Alert, oriented, Not in distress Neck : Normal inspection, Supple Cardiovascular : RRR, S1 S2, no lower extremity edema Respiratory : fair bilateral air entry, no crackles, wheezes or rhonchi Gastrointestinal: soft, lax, mildly distended, small amount of ascites with no tenderness Skin : Warm/Dry, No rash Neurological : Alert & oriented x3, No focal deficit DS: Data Data Completed and Pending Labs on day of discharge: Laboratory Results - last 24 hr 01/03/21 01/03/21 01/03/21 12:40 12:40 12:40 WBC 4.6 L RBC 3.91 L Hgb 13.4 Hct 40.6 MCV 103.8 H MCH 34.3 H MCHC 33.0 RDW 14.2 Plt Count 148 L MPV 11.3 Immature Gran % (Auto) 0.2 Neut % (Auto) 61.9 Lymph % (Auto) 26.1 [place] % (Auto) 9.6 Eos % (Auto) 2.0 Baso % (Auto) 0.2 Lymph # (Auto) 1.2 [place] # (Auto) 0.4 Eos # (Auto) 0.1 Baso # (Auto) 0.0 Abs Immat Gran (auto) 0.01 Absolute Neuts (auto) 2.8 Absolute Nucleated RBC 0.000 Nucleated RBC % (auto) 0.0 PT INR APTT Sodium 139 Potassium 3.9 Chloride 106 Carbon Dioxide 27 Anion Gap 10 L BUN 14 Creatinine 0.77 Estim Creat Clear Calc 54.2 Estimated GFR > 60 Random Glucose 138 H D Calcium 8.4 D Magnesium 2.0 Total Bilirubin 7.4 H Direct Bilirubin 5.4 H AST 556 H ALT 334 H Alkaline Phosphatase 317 H D Ammonia B-Natriuretic Peptide 26 Total Protein 6.7 Albumin 2.7 L Lipase 57 Peritoneal WBC Peritoneal RBC Periton Neutrophils Periton Lymphocytes Peritoneal Monocytes Peritoneal Other Cells COVID-19 ([facility]) COVID-19 [place] Com 01/03/21 01/03/21 01/03/21 15:12 15:12 16:58 WBC RBC Hgb Hct MCV MCH MCHC RDW Plt Count MPV Immature Gran % (Auto) Neut % (Auto) Lymph % (Auto) [place] % (Auto) Eos % (Auto) Baso % (Auto) Lymph # (Auto) [place] # (Auto) Eos # (Auto) Baso # (Auto) Abs Immat Gran (auto) Absolute Neuts (auto) Absolute Nucleated RBC Nucleated RBC % (auto) PT 15.7 H INR 1.3 H APTT 37.9 Sodium Potassium Chloride Carbon Dioxide Anion Gap BUN Creatinine Estim Creat Clear Calc Estimated GFR Random Glucose Calcium Magnesium Total Bilirubin Direct Bilirubin AST ALT Alkaline Phosphatase Ammonia 29 B-Natriuretic Peptide Total Protein Albumin Lipase Peritoneal WBC Peritoneal RBC Periton Neutrophils Periton Lymphocytes Peritoneal Monocytes Peritoneal Other Cells COVID-19 ([facility]) Negative COVID-19 Clin Com See Note 01/04/21 01/04/21 01/04/21 05:34 05:34 05:34 WBC 2.7 L RBC 3.61 L Hgb 12.3 Hct 36.8 L MCV 101.9 H MCH 34.1 H MCHC 33.4 RDW 14.0 Plt Count 143 L MPV 11.1 Immature Gran % (Auto) Neut % (Auto) Lymph % (Auto) [place] % (Auto) Eos % (Auto) Baso % (Auto) Lymph # (Auto) [place] # (Auto) Eos # (Auto) Baso # (Auto) Abs Immat Gran (auto) Absolute Neuts (auto) Absolute Nucleated RBC 0.000 Nucleated RBC % (auto) 0.0 PT INR APTT Sodium 139 Potassium 4.5 Chloride 106 Carbon Dioxide 27 Anion Gap 11 L BUN 15 Creatinine 0.75 Estim Creat Clear Calc 55.7 Estimated GFR > 60 Random Glucose 128 H Calcium 8.3 L Magnesium Total Bilirubin 5.1 H Direct Bilirubin 3.7 H AST 395 H ALT 270 H Alkaline Phosphatase 280 H Ammonia B-Natriuretic Peptide Total Protein 6.1 L Albumin 2.4 L Lipase Peritoneal WBC Peritoneal RBC Periton Neutrophils Periton Lymphocytes Peritoneal Monocytes Peritoneal Other Cells COVID-19 ([facility]) COVID-19 [place] Com 01/04/21 09:30 WBC RBC Hgb Hct MCV MCH MCHC RDW Plt Count MPV Immature Gran % (Auto) Neut % (Auto) Lymph % (Auto) [place] % (Auto) Eos % (Auto) Baso % (Auto) Lymph # (Auto) [place] # (Auto) Eos # (Auto) Baso # (Auto) Abs Immat Gran (auto) Absolute Neuts (auto) Absolute Nucleated RBC Nucleated RBC % (auto) PT INR APTT Sodium Potassium Chloride Carbon Dioxide Anion Gap BUN Creatinine Estim Creat Clear Calc Estimated GFR Random Glucose Calcium Magnesium Total Bilirubin Direct Bilirubin AST ALT Alkaline Phosphatase Ammonia B-Natriuretic Peptide Total Protein Albumin Lipase Peritoneal WBC 0.458 Peritoneal RBC < 0.002 Periton Neutrophils 3 Periton Lymphocytes 40 Peritoneal Monocytes 4 Peritoneal Other Cells 53 COVID-19 ([facility]) COVID-19 Clin Com Discharge Plan Discharge Patient Disposition: Home, Self-Care Discharge Diagnosis: Autoimmune hepatitis Referrals: Katya Titus MD [Primary Care Provider] - 1 Week Discharge Medications: New azathioprine 50 mg Tablet 50 mg PO DAILY 30 Days Qty: 30 RF: 1 spironolactone 25 mg Tablet 50 mg PO DAILY 30 Days Qty: 60 RF: 1 furosemide 20 mg Tablet 20 mg PO DAILY 30 Days Qty: 30 RF: 1 multivitamin with folic acid [Tab-A-Glynn] 400 mcg Tablet 1 tab PO DAILY 30 Days Qty: 30 RF: 0 prednisone 5 mg tablet See Taper mg PO DAILY Qty: 150 RF: 0 Continued cholecalciferol (vitamin D3) 50 mcg (2,000 unit) capsule 50 mcg PO DAILY 30 Days Qty: 30 RF: 11 fluticasone propion-salmeterol [Advair Diskus] 250-50 mcg/dose blister with device 1 inh inhalation BID 30 Days Qty: 60 RF: 3 omeprazole 40 mg capsule,delayed release(DR/EC) 40 mg PO BID 30 Days Qty: 60 RF: 2 vitamin A palmitate 10,000 unit capsule 10,000 unit PO DAILY 30 Days Qty: 30 RF: 3 albuterol sulfate 90 mcg/actuation HFA aerosol inhaler 2 inh inhalation QID PRN (Reason: shortness of breath or wheezing) RF: 0 amlodipine 5 mg tablet 5 mg PO DAILY RF: 0 montelukast 10 mg tablet 10 mg PO BEDTIME RF: 0 loratadine 10 mg tablet 10 mg PO DAILY PRN (Reason: Allergic Symptoms) RF: 0 Atrovent HFA 17 mcg/actuation HFA aerosol inhaler 2 puff inhalation QID RF: 0 calcium citrate 250 mg calcium tablet 250 mg PO BID 30 Days Qty: 60 RF: 11 Discharge Orders: Discharge Order (Routine); Ordered 01/04/21 Ordered By: Husam Huynh Diet: advance to usual diet and low salt diet Activity on Discharge: As tolerated Stand Alone Forms: Patient Portal Discharge page Care Plan Goals: Read below Health Concerns: Read below Plan of Treatment: you were admitted to the hospital for evaluation of abdominal distension and increase edema. Found to elevated liver enzymes and fluid in your abdomen. Fluids were drained and did not show any signs of infection. You were treated with steroids, Imuran and addition of diuretics of spironolactone and Lasix. Assessment: Start spironolactone and Lasix as prescribed To do tapering dose of prednisone starting 30 mg daily for a week then decrease by 5 mg each week Monitor your weight at home Increase your protein intake To follow-up with Dr. Roman as outpatient.
--- NOTE | 2021-01-04 12:29 | MHC.CM.PN ---
NURSE OPTICAL TECHNICIAN NOTE ELECTRONIC MEDICAL RECORD REVIEWED ALONG WITH CASE DISCUSSED WITH STAFF NURSE , AND HOSPITALIST , MET WITH PATIENT SHE REPORTED SHE LIVES WITH HER DAUGHTER ,SON AND HER BOYFRIEND IN [place], EDUCATED ABOUT THE IMPORTANCE OF HAVING A HEALTH CARE PROXY DECLINED TO COMPLETE ONE ON THIS HOSPITLIZATION reported she will discuss this with her family , she is active,independent in all adls and mobility with out the use of any device,SHE DOES THE COOKING, CLEANING, LAUNDRY she has nebulizer at home BUT DOES NOT REMBER THE NAME OF THE COMPANY , SHE IS ALSO FOLLOWED BY DR RODRIGUEZ HERE AT THE [facility] FOR HER COPD PATIENT WILL BE DISCHARGED HOME WITH FAMILY TODAY WITH NO SERVICES FAMILY TO PROVIDE TRANSPORTATION PCP GERTRUDE CARRERA INSTRUCTED HER TO CALL FOR POST HOSPITAL DISCHARGE FOLLOW UP GI, PHYSICIAN FOLLOW UP PER DISCHARGE INSTRUCTIONS
== END 2021-01-04 12:30 | disposition home or self-care (01) | DRG 442 ==
LOC: HO.ED 17:02 → HO.EDOVER 17:29 → HO.S3 19:47
PROVIDERS: Internal Medicine Gastroenterology; Physician Assistant; Radiology Diagnostic Radiology; Admitting Provider Student in an Organized Health Care Education/Training Program; Emergency Provider Internal Medicine; PCP Internal Medicine; Visit Provider Student in an Organized Health Care Education/Training Program
PROC: 0W9G30Z Drainage of Peritoneal Cavity with Drainage Device, Percutaneous Approach (ICD-10-PCS; principal; 2021-01-04 09:00)
DX: K75.4 Autoimmune hepatitis (principal); R18.8 Other ascites; F17.290 Nicotine dependence, other tobacco product, uncomplicated; M81.0 Age-related osteoporosis without current pathological fracture; Z71.6 Tobacco abuse counseling; Z20.822 Contact with and (suspected) exposure to COVID-19; Z79.899 Other long term (current) drug therapy
CPT/HCPCS: 36415; 47000; 49083; 71045; 76705; 76942; 80048; 80076; 82042; 82140; 82945; 83540; 83615; 83690; 83735; 83880; 84157; 85025; 85027; 85610; 85730; 87070; 87073; 87205; 87635; 88307; 88313; 88342; 89051; 93005; 93975; 99152; 99285; C1729; J2250; J3010

== ENCOUNTER → 2021-01-17 10:40 | Outpatient (BNVA) | payer MEDICARE, MEDICAID, SELFPAY | PROVIDERS: PCP Internal Medicine; Visit Provider Internal Medicine | DX: J45.909 Unspecified asthma, uncomplicated (principal); J44.9 Chronic obstructive pulmonary disease, unspecified; R60.9 Edema, unspecified; K75.4 Autoimmune hepatitis; I10 Essential (primary) hypertension; Z79.52 Long term (current) use of systemic steroids; Z79.899 Other long term (current) drug therapy | CPT/HCPCS: 99212 ==

== ENCOUNTER 2021-02-06 10:25 | Outpatient (REF) | payer MEDICARE, MEDICAID, SELFPAY ==
[2021-02-06 11:39] LABS: MANUAL DIFF FLAG NO
[2021-02-06 11:44] LABS: Basophils Percent Auto 0.3 % (0-2); Eosinophils Absolute Auto 0.2 X10*3/uL (0.0-0.4); Eosinophils Percent Auto 2.3 % (0-4); Hematocrit 42.4 % (37-47); Hemoglobin 14.4 g/dl (12.0-16.0); Imm Gran Abs Auto 0.05 X10*3/uL (0.00-0.03); Imm Gran Pct Auto 0.6 % (0.0-0.4); Lymphocytes Absolute Auto 1.5 X10*3/uL (1.2-4.9); Lymphocytes Percent Auto 17.6 % (20-40); Mean Corpuscular Hemoglobin 35.1 pg (27.0-33.0); Mean Corpuscular Volume 103.4 fL (80-98); Mean Platelet Volume 10.5 fL (9.4-12.3); Monocytes Absolute Auto 0.7 X10*3/uL (0.1-1.2); Monocytes Percent Auto 7.6 % (2-11); Neutrophils Absolute Auto 6.2 X10*3/uL (2.0-8.3); Neutrophils Percent Auto 71.6 % (45-73); Platelet Count 175 X10*3/uL (160-400); Red Cell Distribution Width 13.5 % (11.0-16.0); White Blood Count 8.7 X10*3/uL (4.8-10.8)
[2021-02-06 11:48] LABS: INTERNATIONAL NORM RATIO 1.2 (0.9-1.1); Prothrombin Time 13.1 SEC (9.9-13.0)
[2021-02-06 12:10] LABS: Alanine Aminotransferase 37 U/L (0-31); Albumin Level 3.6 g/dL (3.5-5.0); Alkaline Phosphatase 131 U/L (39-117); Anion Gap 14 (12-20); Aspartate Amino Transferase 35 U/L (5-31); Blood Urea Nitrogen 15 mg/dL (9-16); Calcium 9.2 mg/dL (8.4-10.2); Carbon Dioxide 29 mmol/L (22-29); Chloride 100 mmol/L (96-108); Estimated Glomerular Filt Rate 59; Glucose Random 138 mg/dL (60-115); Potassium 3.9 mmol/L (3.3-5.1); Sodium 139 mmol/L (135-145); Total Protein 6.8 g/dL (6.5-8.0)
[2021-02-06 12:24] LABS: Vitamin D 25-OH Total 31.9 ng/mL (>30)
[2021-02-06 12:52] LABS: Erythrocyte Sedimentation Rate 11 MM/HR (0-20)
[2021-02-07 13:41] LABS: Immunoglobulin G 1428 mg/dL (600-1540)
[2021-02-08 17:51] LABS: Calcium (PTHI) 9.2 mg/dL (8.6-10.4); PTHI 51 pg/mL (14-64)
== END 2021-02-06 10:26 | disposition home or self-care (01) ==
LOC: HO.LAB 10:25
PROVIDERS: Absent Provider Internal Medicine; PCP Internal Medicine; Visit Provider Internal Medicine Gastroenterology
DX: B17.9 Acute viral hepatitis, unspecified (principal); M81.0 Age-related osteoporosis without current pathological fracture; K52.839 Microscopic colitis, unspecified; E55.9 Vitamin D deficiency, unspecified
CPT/HCPCS: 36415; 80053; 82306; 82784; 83970; 84100; 85025; 85610; 85652; 86140

== ENCOUNTER → 2021-02-20 10:45 | Outpatient (BNVA) | payer MEDICARE, MEDICAID, SELFPAY | PROVIDERS: PCP Internal Medicine; Visit Provider Internal Medicine | CPT/HCPCS: Q3014 ==

== ENCOUNTER 2021-02-27 12:29 | Outpatient (REF) | payer MEDICARE, MEDICAID, SELFPAY ==
[2021-02-27 13:19] LABS: MANUAL DIFF FLAG NO
[2021-02-27 13:24] LABS: Basophils Percent Auto 0.6 % (0-2); Eosinophils Absolute Auto 0.2 X10*3/uL (0.0-0.4); Eosinophils Percent Auto 2.3 % (0-4); Hematocrit 40.4 % (37-47); Hemoglobin 13.8 g/dl (12.0-16.0); Imm Gran Abs Auto 0.04 X10*3/uL (0.00-0.03); Imm Gran Pct Auto 0.6 % (0.0-0.4); Lymphocytes Absolute Auto 1.5 X10*3/uL (1.2-4.9); Lymphocytes Percent Auto 23.1 % (20-40); Mean Corpuscular HGB Conc 34.2 g/dl (31.0-35.0); Mean Corpuscular Hemoglobin 34.8 pg (27.0-33.0); Mean Platelet Volume 10.6 fL (9.4-12.3); Monocytes Absolute Auto 0.7 X10*3/uL (0.1-1.2); Neutrophils Absolute Auto 4.2 X10*3/uL (2.0-8.3); Neutrophils Percent Auto 63.4 % (45-73); Platelet Count 234 X10*3/uL (160-400); Red Blood Count 3.96 X10*6/uL (4.20-5.50); Red Cell Distribution Width 12.7 % (11.0-16.0); White Blood Count 6.6 X10*3/uL (4.8-10.8)
[2021-02-27 13:32] LABS: INTERNATIONAL NORM RATIO 1.2 (0.9-1.1); Prothrombin Time 14.1 SEC (9.9-13.0)
[2021-02-27 14:06] LABS: Alanine Aminotransferase 43 U/L (0-31); Albumin Level 3.6 g/dL (3.5-5.0); Alkaline Phosphatase 143 U/L (39-117); Anion Gap 14 (12-20); Aspartate Amino Transferase 65 U/L (5-31); Bilirubin Total 1.2 mg/dL (0.0-1.0); Blood Urea Nitrogen 9 mg/dL (9-16); Calcium 9.1 mg/dL (8.4-10.2); Carbon Dioxide 25 mmol/L (22-29); Chloride 107 mmol/L (96-108); Estimated Glomerular Filt Rate > 60; Glucose Random 91 mg/dL (60-115); Potassium 4.8 mmol/L (3.3-5.1); Sodium 141 mmol/L (135-145)
[2021-02-28 08:18] LABS: Lipase 40 U/L (8-78)
[2021-02-28 13:46] LABS: Immunoglobulin G 1435 mg/dL (600-1540)
== END 2021-02-27 12:30 | disposition home or self-care (01) ==
LOC: HO.LAB 12:29
PROVIDERS: Internal Medicine Gastroenterology; PCP Internal Medicine; Visit Provider Internal Medicine Gastroenterology
DX: B17.9 Acute viral hepatitis, unspecified (principal); K75.81 Nonalcoholic steatohepatitis (NASH); K52.839 Microscopic colitis, unspecified; R10.9 Unspecified abdominal pain
CPT/HCPCS: 36415; 80053; 82784; 83690; 85025; 85610

== ENCOUNTER 2021-04-01 13:07 | Outpatient (REF) | payer MEDICARE, MEDICAID, SELFPAY ==
[2021-04-01 15:44] LABS: MANUAL DIFF FLAG NO
[2021-04-01 15:59] LABS: Basophils Percent Auto 0.8 % (0-2); Eosinophils Absolute Auto 0.3 X10*3/uL (0.0-0.4); Eosinophils Percent Auto 4.8 % (0-4); Hematocrit 42.5 % (37-47); Hemoglobin 13.9 g/dl (12.0-16.0); Imm Gran Abs Auto 0.01 X10*3/uL (0.00-0.03); Imm Gran Pct Auto 0.2 % (0.0-0.4); Lymphocytes Absolute Auto 1.5 X10*3/uL (1.2-4.9); Lymphocytes Percent Auto 28.4 % (20-40); Mean Corpuscular HGB Conc 32.7 g/dl (31.0-35.0); Mean Corpuscular Hemoglobin 33.1 pg (27.0-33.0); Mean Corpuscular Volume 101.2 fL (80-98); Monocytes Absolute Auto 0.6 X10*3/uL (0.1-1.2); Monocytes Percent Auto 10.5 % (2-11); Neutrophils Absolute Auto 2.9 X10*3/uL (2.0-8.3); Neutrophils Percent Auto 55.3 % (45-73); Platelet Count 158 X10*3/uL (160-400); Red Cell Distribution Width 11.8 % (11.0-16.0); White Blood Count 5.2 X10*3/uL (4.8-10.8)
[2021-04-01 16:13] LABS: Alanine Aminotransferase 46 U/L (0-31); Albumin Level 3.8 g/dL (3.5-5.0); Alkaline Phosphatase 122 U/L (39-117); Anion Gap 12 (12-20); Aspartate Amino Transferase 50 U/L (5-31); Blood Urea Nitrogen 9 mg/dL (9-16); Calcium 9.5 mg/dL (8.4-10.2); Carbon Dioxide 27 mmol/L (22-29); Chloride 106 mmol/L (96-108); Estimated Glomerular Filt Rate > 60; Glucose Random 63 mg/dL (60-115); Potassium 3.9 mmol/L (3.3-5.1); Sodium 141 mmol/L (135-145); Total Protein 7.2 g/dL (6.5-8.0)
[2021-04-01 16:24] LABS: INTERNATIONAL NORM RATIO 1.1 (0.9-1.1); Prothrombin Time 12.6 SEC (9.9-13.0)
[2021-04-05 20:01] LABS: Vitamin A 21 mcg/dL (38-98)
== END 2021-04-01 13:08 | disposition home or self-care (01) ==
LOC: HO.LAB 13:07
PROVIDERS: PCP Internal Medicine; Visit Provider Internal Medicine Gastroenterology
DX: B17.9 Acute viral hepatitis, unspecified (principal); R94.5 Abnormal results of liver function studies; K75.81 Nonalcoholic steatohepatitis (NASH)
CPT/HCPCS: 36415; 80053; 84590; 85025; 85610

== ENCOUNTER → 2021-04-02 10:06 | Outpatient (BNVA) | payer MEDICARE, MEDICAID, SELFPAY | PROVIDERS: PCP Internal Medicine; Referring Provider Internal Medicine; Visit Provider Internal Medicine Gastroenterology | DX: B17.9 Acute viral hepatitis, unspecified (principal) | CPT/HCPCS: Q3014 ==

== ENCOUNTER 2021-05-20 08:54 | Day surgery (SDC) | payer MEDICARE, MEDICAID, SELFPAY ==
[2021-05-14 09:31] VITALS: BMI 20.2
--- NOTE | 2021-05-20 09:07 | P.HPSUR_ITS ---
Pre-Procedural Eval Section A Date of Service: 05/20/21 Section B Chief Complaint: acute hepatitis Details of Present Illness: variceal screening Relevant Family History (Specify if Yes): No Relevant Social History: Tobacco Use Present Medications: see Short Stay Collaborative assessment Medical History: Significant History (autoimmune hepatitis, COPD, GERD, IBS, osteoporosis, Vit D deficiency, ) History of Previous Operations: Relevant previous surgery/procedure and date(s) (cholecystectomy) Allergies: Allergies Allergy/AdvReac Type Severity Reaction Status Date / Time No Known Allergies Allergy Verified 04/02/21 10:17 [No Known Allergies*] Review of Systems Sugical H&P ROS: Negative: Constitution, Cardiovascular, Respiratory, Neurological, Psychiatric, Hem-Onc, Allergic/Immunologic, Gastrointestinal, Genitourinary, Musculoskeletal, Integumentary, Endocrine and Eyes/Ears/Nose/Throat Exam Surgical H&P Exam: Normal: HEENT, Normal: Heart, Normal: Lungs, Normal: Extremi ties, Normal: Abdomen, Normal: Skin and Normal: Neurological Plan Diagnosis/Plan: Unchanged I have reviewed the history and physical and performed a pertinent physical examination on my patient. No changes have occurred unless specified.
[2021-05-20 09:44] VITALS: BP 155/84; PULSE 80; RESP 20; TEMP 36.4; O2SAT 98
[2021-05-20] MEDS: Lactated Ringers 1,000 ML 50 ML IVCONT (09:53)
--- NOTE | 2021-05-20 10:00 | HO.ANESPROP2 ---
[facility] Active Problems Active Problems: All Active Problems (Updated 05/14/21 @ 09:26 by Olga Schneider RN) GERD (gastroesophageal reflux disease) (Acute) Irritable bowel syndrome with both constipation and diarrhea (Acute) Fecal urgency (Acute) Acute hepatitis (Acute) Hemochromatosis (Acute) Abdominal pain (Acute) Smoker (Acute) Allergic rhinitis (Acute) COPD (chronic obstructive pulmonary disease) (Acute) Hyperparathyroidism (Acute) Abnormal SPEP (Chronic) Vitamin D deficiency (Acute) Osteoporosis (Acute) Past Medical History Medical History Abnormal LFTs Abnormal SPEP Allergic rhinitis Arthritis Asthma Autoimmune hepatitis COPD (chronic obstructive pulmonary disease) HTN (hypertension) Hyperparathyroidism Low calcium levels Osteoporosis Smoker Transaminitis Vitamin D deficiency Family History Family History Father Diabetes Heart disease Hypertension Mother Diabetes Arthritis Heart disease Paternal Uncle Cancer Sister Lung cancer Family history of problems with anesthesia: No Surgical History Surgical History H/O colonoscopy History of ERCP History of liver biopsy Hx laparoscopic cholecystectomy Hx of tonsillectomy Hx of tubal ligation History of Problems with Anesthesia: No Social History Social History Household Members: Family Housing: Apartment Do you presently have visiting nurse or other home services: No Alcohol intake: former Patient Tobacco Use Status: Current everyday Tobacco user Tobacco use type: Cigarette Cigarette Packs Per Day: 0 Cigarettes Per Day: 3 Years Smoked: 47 Second Hand Smoke Exposure: Yes Advance Directives: Yes Advance Directives Information Provided: Yes Advance Directives on File: Yes Advance Directives Date on File: 10/24/20 service: No Current occupational status: unemployed Meds Allergies Allergy/AdvReac Type Severity Reaction Status Date / Time No Known Allergies Allergy Verified 05/20/21 09:44 [No Known Allergies*] Active Medications: Current Medications Lactated Ringer's (Lr) 1,000 mls @ 50 mls/hr IVCONT .Q20H YARA Last Admin: 05/20/21 09:53 Dose: 50 mls/hr Documented by: Home Medications Medication Instructions Recorded Confirmed Last Taken Type amlodipine 5 mg tablet 5 mg PO DAILY 07/19/20 05/14/21 05/20/21 08:00 History loratadine 10 mg tablet 10 mg PO DAILY PRN 07/19/20 05/14/21 Unknown History montelukast 10 mg tablet 10 mg PO BEDTIME 07/19/20 05/14/21 01/02/21 History ipratropium bromide 17 2 puff INHALATION QID 09/13/20 05/14/21 05/20/21 08:00 History mcg/actuation HFA aerosol inhaler (Atrovent HFA) albuterol sulfate 90 mcg/actuation 2 inh INHALATION QID PRN 10/24/20 05/14/21 05/20/21 08:00 History aerosol inhaler spironolactone 50 mg tablet 50 mg PO DAILY tab 02/20/21 05/14/21 Unknown History (Aldactone) Exam Exam Date and Time: May 20, 2021 1000 Height,Weight and Vital Signs: Height 5 ft 1 in Weight 48.534 kg Last Vital Signs Temp 97.6 F 05/20/21 09:44 Pulse 80 05/20/21 09:44 Resp 20 05/20/21 09:44 BP 155/84 H 05/20/21 09:44 Pulse Ox 98 05/20/21 09:44 Airway Mallampati Class: I TM Dist: >3cm Neck ROM: Full Denture: Upper and Lower Heart: rrr Lungs: cta Assessment and Plan Assessment Anesthesia Assessment: Anesthesia Plan Discussed and Chart Reviewed Final Anesthetic Review Family History of Problems with Anesthesia: No History of Problems with Anesthesia: No NPO: Yes (Suo water with med) ASA Class: III Final Preanesthetic Review: No Changes in Pt Med Stat, Meds/Allgs Chart Reviewed and Consent Obtained/Reviewed Patient Risk: Intermediate Procedure Risk: Intermediate Anesthetic Plan Anesthetic Plan: MAC: Disposition: Standard PACU
--- NOTE | 2021-05-20 10:00 | PM.OP ---
Brief Operative Note Date of Service: 05/20/21 Pre-op diagnosis: variceal screening Post-op diagnosis: same Procedure: see op note Surgeon: Josesito Roman MD Anesthesia: MAC Was an Special Education Bus Driver used for this Procedure?: No Estimated blood loss (mL): 0 Condition: stable Disposition: PACU
--- NOTE | 2021-05-20 10:00 | W.PM.OPN ---
Operative Note Operative Note Date of Service: 05/20/21 Narrative: Procedure Description: EGD FLEXIBLE TRANSORAL UPPER GASTROINTESTINAL ENDOSCOPY UPPER ENDOSCOPY Consent: Indications for the procedure and potential complications of bleeding, perforation, reaction to medications and missed diagnosis were discussed with the patient and informed consent was obtained. Instrument: Olympus GIF H 190 J mid size upper endoscope Monitoring: Vital signs and clinical assessment, continuous EKG monitoring, Pulse oximetry, Carbon Dioxide monitoring and blood pressure monitoring were done throughout the procedure. Procedure: The patient was placed in the left lateral decubitis position and pre-procedure medications were administered and a bite block was placed. The endoscope was inserted into the mouth and advanced under direct vision to the third part of duodenum. A careful inspection was made as the upper endoscope was withdrawn including a retroflexed examination of the proximal stomach; Findings and interventions are described below. Findings: Larynx:normal Esophagus: GE junction at 38 cm, diaphragm hiatus at 38 cm, mild esophagitis with x 2 grade I small varices without any high risk features Stomach: Patchy gastric erythema. Grade 2 flap valve on retroflexed examination of the cardia. LES was lax. There was a polpy in the fundus removed with forceps measured about 8-10 mm, slightly lipemic appearing and irregular. Duodenum: Normal bulb and descending duodenum, Intervention: Biopsies as noted above Impression/Findings: esophagitis mild gastritis esophageal varices polyp-stomach PLAN: repeat EGD for variceal screening in 1 yr or earlier if indicated await bx results for polyp
[2021-05-20 10:37] VITALS: BP 92/56; PULSE 73; RESP 16; TEMP 36.1; O2SAT 99
[2021-05-20 10:54] VITALS: BP 113/76; PULSE 77; RESP 16; TEMP 36.1; O2SAT 96
== END 2021-05-20 11:55 | disposition home or self-care (01) ==
PROVIDERS: PCP Internal Medicine; Visit Provider Internal Medicine Gastroenterology
PROC: 0DJ08ZZ Inspection of Upper Intestinal Tract, Via Natural or Artificial Opening Endoscopic (ICD-10-PCS; CPT 43235; principal; 2021-05-20 10:20)
DX: B17.9 Acute viral hepatitis, unspecified (principal); K20.80 Other esophagitis without bleeding; I85.00 Esophageal varices without bleeding; K29.60 Other gastritis without bleeding; K31.7 Polyp of stomach and duodenum; K75.4 Autoimmune hepatitis; K44.9 Diaphragmatic hernia without obstruction or gangrene; I10 Essential (primary) hypertension; E21.3 Hyperparathyroidism, unspecified; M81.0 Age-related osteoporosis without current pathological fracture; J44.9 Chronic obstructive pulmonary disease, unspecified; Z79.51 Long term (current) use of inhaled steroids; F17.210 Nicotine dependence, cigarettes, uncomplicated; Z79.899 Other long term (current) drug therapy; Z90.49 Acquired absence of other specified parts of digestive tract; E55.9 Vitamin D deficiency, unspecified; R74.01 Elevation of levels of liver transaminase levels
CPT/HCPCS: 43239; 88305; 88342

== ENCOUNTER 2021-06-10 10:19 | Outpatient (REF) | payer MEDICARE, MEDICAID, SELFPAY ==
[2021-06-10 10:35] LABS: MANUAL DIFF FLAG NO
[2021-06-10 10:55] LABS: Basophils Percent Auto 0.3 % (0-2); Eosinophils Absolute Auto 0.1 X10*3/uL (0.0-0.4); Eosinophils Percent Auto 2.2 % (0-4); Hematocrit 39.9 % (37.0-47.0); Hemoglobin 13.1 g/dl (12.0-16.0); Imm Gran Abs Auto 0.01 X10*3/uL (0.00-0.03); Imm Gran Pct Auto 0.3 % (0.0-0.4); Lymphocytes Absolute Auto 1.3 X10*3/uL (1.2-4.9); Lymphocytes Percent Auto 36.1 % (20-40); Mean Corpuscular HGB Conc 32.8 g/dl (31.0-35.0); Mean Corpuscular Hemoglobin 32.7 pg (27.0-33.0); Mean Corpuscular Volume 99.5 fL (80.0-98.0); Mean Platelet Volume 10.1 fL (9.4-12.3); Monocytes Absolute Auto 0.4 X10*3/uL (0.1-1.2); Monocytes Percent Auto 10.5 % (2-11); Neutrophils Absolute Auto 1.8 x10*3/uL (2.0-8.3); Neutrophils Percent Auto 50.6 % (45-73); Platelet Count 132 X10*3/uL (160-400); Red Blood Count 4.01 X10*6/uL (4.20-5.50); Red Cell Distribution Width 12.6 % (11.0-16.0); White Blood Count 3.6 X10*3/uL (4.8-10.8)
[2021-06-10 11:13] LABS: INTERNATIONAL NORM RATIO 1.1 (0.9-1.1); Prothrombin Time 12.2 SEC (9.9-13.0)
[2021-06-10 11:26] LABS: Alanine Aminotransferase 31 U/L (0-31); Albumin Level 3.7 g/dL (3.5-5.0); Alkaline Phosphatase 117 U/L (39-117); Anion Gap 10 (12-20); Aspartate Amino Transferase 33 U/L (5-31); Bilirubin Total 1.1 mg/dL (0.0-1.0); Blood Urea Nitrogen 12 mg/dL (9-16); Calcium 9.4 mg/dL (8.4-10.2); Carbon Dioxide 31 mmol/L (22-29); Chloride 106 mmol/L (96-108); Estimated Glomerular Filt Rate > 60; Glucose Random 120 mg/dL (60-115); Potassium 4.1 mmol/L (3.3-5.1); Sodium 143 mmol/L (135-145); Total Protein 6.9 g/dL (6.5-8.0)
[2021-06-15 18:26] LABS: 6-MMPN 780 (<5700); 6-TGN 300 (235-400)
== END 2021-06-10 10:20 | disposition home or self-care (01) ==
LOC: HO.LAB 10:19
PROVIDERS: Visit Provider Internal Medicine Gastroenterology
DX: B17.9 Acute viral hepatitis, unspecified (principal); K75.81 Nonalcoholic steatohepatitis (NASH)
CPT/HCPCS: 36415; 80053; 80299; 85025; 85610

== ENCOUNTER → 2021-06-11 08:43 | Outpatient (BNVA) | payer MEDICARE, MEDICAID, SELFPAY | PROVIDERS: PCP Internal Medicine; Referring Provider Internal Medicine; Visit Provider Internal Medicine Gastroenterology | DX: K75.4 Autoimmune hepatitis (principal) | CPT/HCPCS: 99212 ==

== ENCOUNTER 2021-07-04 10:07 | Outpatient (REF) | payer MEDICARE, MEDICAID, SELFPAY ==
--- NOTE | ~2021-07-04 | US_ITS ---
EXAMINATION: US ABDOMEN LIMITED WITH LIVER ELASTOGRAPHY CLINICAL INFORMATION: Autoimmune hepatitis. COMPARISON: Abdominal ultrasound dated 01/03/2021. Abdominal MRI dated 10/25/2020. TECHNIQUE: Real-time imaging of the abdominal viscera. Noninvasive ultrasound liver fibrosis assessment is performed using Avery ElastPQ point quantification shear wave elastography (pSWE) with a C5-2 MHz transducer. Multiple elastography samples are obtained. FINDINGS: PANCREAS: Visualized portions unremarkable. LIVER: Mildly heterogeneous with nodular contour but no focal abnormality. Possible focal fatty sparing in the caudate lobe and left lobe. Question of lymph node adjacent to the pancreatic head measuring up to 2.9 cm. The right lobe measures 13.6 cm in length. The left lobe measures 11.1 cm in length. Portal flow is hepatopedal. Shear wave liver elastography median stiffness is 2.29 m/s (reference: normal median stiffness is 1.3 m/s or less). IQR/median stiffness to assess sampling precision is 0.06 (reference: good quality data set is IQR/median stiffness of 0.15 or less). GALLBLADDER: Status post cholecystectomy. COMMON BILE DUCT: 0.5 cm. Unremarkable. RIGHT KIDNEY: 9.6 cm. Unremarkable. FREE FLUID: None. US/US abdomen joaquin w elastography IMPRESSION: 1. Hepatic cirrhosis without focal abnormality. Focal fatty sparing in the caudate lobe versus enlarged raul hepatis lymph node with similar appearance. No significant pancreatic abnormality was seen on the previous MRI. 2. Liver elastography: cACLD rule them. REFERENCE: Society of Radiologists in Ultrasound Liver Stiffness Thresholds (2020): LIVER STIFFNESS THRESHOLDS: *Liver Stiffness equal or less than 1.3 m/s: High probability of being normal. *Liver Stiffness less than 1.7 m/s: In the absence of other known clinical signs, rules out compensated advanced chronic liver disease. *Liver Stiffness 1.7-2.1 m/s: Suggestive of compensated advanced chronic liver disease but need further test for confirmation. *Liver Stiffness over 2.1 m/s: Rules in compensated advanced chronic liver disease. *Liver Stiffness over 2.4 m/s: Suggestive of clinically significant portal hypertension. QUALITY OF DATA SET: *IQR/Median value equal or less than 0.15 implies a quality data set. *IQR/Median value over 0.15 implies a poor quality data set. SIGNIFICANT CHANGE FROM PRIOR EXAM: Significant change if liver stiffness measurement is 10% or greater from prior exam. OTHER CONSIDERATIONS: The stage of liver fibrosis may be overestimated in the setting of acute hepatitis, liver inflammation, elevated liver function tests, hepatic vascular congestion, obstructive cholestasis, non-fasting state, and infiltrative diseases such as amyloidosis and lymphoma. In some patients with NAFLD, the liver stiffness thresholds for compensated advanced chronic liver disease may be lower. In causes other than viral hepatitis and NAFLD, liver stiffness thresholds are not well established.
== END 2021-07-04 10:08 | disposition home or self-care (01) ==
LOC: HO.US 10:07
PROVIDERS: PCP Internal Medicine; Visit Provider Internal Medicine Gastroenterology
DX: K75.4 Autoimmune hepatitis (principal)
CPT/HCPCS: 76705; 76981

== ENCOUNTER 2021-08-27 13:04 | Outpatient (REF) | payer MEDICARE, MEDICAID, SELFPAY ==
[2021-08-27 14:13] LABS: Albumin Level 4.1 g/dL (3.5-5.0); Calcium 10.2 mg/dL (8.4-10.2); Phosphorus 4.2 mg/dL (2.7-4.5)
[2021-08-27 14:40] LABS: Vitamin D 25-OH Total 36.6 ng/mL (>30)
[2021-08-28 13:01] LABS: Calcium (PTHI) 9.9 mg/dL (8.6-10.4); PTHI 35 pg/mL (14-64)
== END 2021-08-27 13:05 | disposition home or self-care (01) ==
LOC: HO.LAB 13:04
PROVIDERS: Visit Provider Internal Medicine
DX: M81.0 Age-related osteoporosis without current pathological fracture (principal); E55.9 Vitamin D deficiency, unspecified
CPT/HCPCS: 36415; 82040; 82306; 82310; 83970; 84100

== ENCOUNTER → 2021-08-28 14:13 | Outpatient (BNVA) | payer MEDICARE, MEDICAID, SELFPAY | PROVIDERS: PCP Internal Medicine; Visit Provider Internal Medicine | DX: M81.0 Age-related osteoporosis without current pathological fracture (principal); E55.9 Vitamin D deficiency, unspecified; E21.3 Hyperparathyroidism, unspecified; R77.8 Other specified abnormalities of plasma proteins | CPT/HCPCS: 99212 ==

== ENCOUNTER 2021-09-02 10:24 | Outpatient (REF) | payer MEDICARE, MEDICAID, SELFPAY ==
--- NOTE | ~2021-09-02 | MM_ITS ---
EXAMINATION: MM SCREENING DIGITAL BREAST TOMOSYNTHESIS, BILATERAL CLINICAL INFORMATION: Screening. Asymptomatic. The lifetime risk of breast cancer based on the Tyrer-Cuzick Model is 3%. COMPARISON: Mammography: 08/23/2020, 08/18/2019, 06/16/2018 TECHNIQUE: Digital breast tomosynthesis is performed in both the craniocaudal and mediolateral oblique views along with computer-aided detection (CAD). Synthesized 2D images are generated from the tomosynthesis. FINDINGS: The breasts are heterogeneously dense, which may obscure small masses (ACR BI-RADS breast composition Category c). Parenchymal pattern is similar to prior exams and there is no developing density or interval mass or architectural abnormality. There are some scattered calcifications in each breast. Right breast calcifications are stable. The axilla and skin contours are unremarkable. There are questionable increased punctate calcifications anterior to mid 3:00 left breast. Patient will be recalled for additional imaging to further characterize with magnification views. MM/MM tomosynthesis screening BI IMPRESSION: 1. Left: Question of increased punctate calcifications anterior to mid 3:00. 2. Right: No mammographic evidence of malignancy. ASSESSMENT: BI-RADS 0: Incomplete - Need Additional Imaging Evaluation RECOMMENDATION: 1. Additional views of the left breast (magnification CC, magnification ML). 2. Radiology department staff will contact the patient for additional imaging. This patient's information was entered into a reminder system with a target due date for their next mammogram.
== END 2021-09-02 10:25 | disposition home or self-care (01) ==
LOC: HO.MAMMO 10:24
PROVIDERS: Visit Provider Internal Medicine
DX: Z12.31 Encounter for screening mammogram for malignant neoplasm of breast (principal)
CPT/HCPCS: 77063; 77067

== ENCOUNTER 2021-09-10 08:50 | Outpatient (REF) | payer MEDICARE, MEDICAID, SELFPAY ==
--- NOTE | ~2021-09-10 | MM_ITS ---
EXAMINATION: MM DIAGNOSTIC DIGITAL BREAST TOMOSYNTHESIS, LEFT CLINICAL INFORMATION: Recall from screening for question of increased punctate calcifications 3:00 left breast. COMPARISON: Mammography: 09/02/2021, 08/23/2020, 08/18/2019 TECHNIQUE: Digital breast tomosynthesis is performed. 2D images are generated from the tomosynthesis. The following views are obtained: Magnification CC, magnification ML FINDINGS: The breasts are heterogeneously dense, which may obscure small masses (ACR BI-RADS breast composition Category c). Additional magnification views show scattered punctate and coarse calcifications similar to prior studies. There are no appreciable increased calcifications. No significant changes. Results are discussed with the patient at time of visit. MM/MM tomosynthesis added views L IMPRESSION: No significant changes from prior studies. No increased calcifications. ASSESSMENT: BI-RADS 2: Benign RECOMMENDATION: Routine annual mammography screening. This patient's information was entered into a reminder system with a target due date for their next mammogram.
== END 2021-09-10 08:51 | disposition home or self-care (01) ==
LOC: HO.MAMMO 08:50
PROVIDERS: Visit Provider Internal Medicine
DX: R92.1 Mammographic calcification found on diagnostic imaging of breast (principal)
CPT/HCPCS: 77061; 77065

== ENCOUNTER 2021-09-24 09:16 | Outpatient (REF) | payer MEDICARE, MEDICAID, SELFPAY ==
--- NOTE | ~2021-09-24 | MM_ITS ---
EXAMINATION: BONE DENSITOMETRY CLINICAL INDICATION: Age-related osteoporosis without current pathological fracture. COMPARISON: Previous BD dated 08/18/2019 and baseline BD dated 12/27/2010. This is the patient's baseline examination for the left forearm radius 33%. TECHNIQUE: Using a REHAPP DXA System (software version: 13.1) manufactured by [employer], dual-energy x-ray absorptiometry was performed of the lumbar spine, left hip, and left forearm radius 33%. The images are of good technical quality. Summary results are attached. FINDINGS: AP SPINE L1-L4: Current: BMD 1.078 g/cm2, Z-score 1.2, T-score -0.9, normal, 3.1% decrease from previous, 8.8% decrease from baseline (<5% change is not significant). Prior: BMD 1.112 g/cm2. Baseline: BMD 1.182 g/cm2. LEFT FEMUR, NECK: Current: BMD 0.606 g/cm2, Z-score -1.2, T-score -3.1, osteoporosis. Prior: BMD 0.666 g/cm2. Baseline: BMD 0.832 g/cm2. LEFT FEMUR, TOTAL: Current: BMD 0.670 g/cm2, Z-score -1.0, T-score -2.7, osteoporosis, 11.7% decrease from previous, 26.9% decrease from baseline (<5% change is not significant). Prior: BMD 0.759 g/cm2. Baseline: BMD 0.917 g/cm2. LEFT FOREARM RADIUS 33%: BMD 0.601 g/cm2, Z-score -1.6, T-score -3.1, osteoporosis. IDENTIFIED RISK FACTORS: Rheumatoid arthritis, osteoporosis, tobacco use (current smoker), recurrent falls, low calcium intake. Early menopause, secondary osteoporosis. HISTORY OF FRACTURE: None listed. MEDICATIONS: Calcium supplements or multivitamin, vitamin D. MM/XR DEXA appendicular skeleton IMPRESSION: 1. DIAGNOSIS: Osteoporosis based on the lowest T-score value of -3.1 in the femoral neck and forearm radius 33% applying World Health Organization criteria. 2. 10-YEAR FRACTURE RISK PREDICTION, FRAX: Major osteoporotic fracture (clinical spine, forearm, hip or shoulder) 15.3%. Hip fracture 7.8%. 3. Treatment Recommendations: NOF guidelines recommend consideration for treatment in postmenopausal women and men age 50 and older presenting with the following: -A hip or vertebral (clinical or morphometric) fracture. -T-score less than or equal to -2.5 at the femoral neck or spine after appropriate evaluation to exclude secondary causes. -Low bone mass at the hip or spine and a 10-year fracture probability by FRAX of greater than or equal to 3% for hip fracture or greater than or equal to 20% for major osteoporotic fracture based on the [place] adapted WHO algorithm. 4. Other Recommendations: All treatment decisions require clinical judgment and consideration of individual patient factors, including patient preferences, comorbidities, previous drug use, risk factors not captured in the FRAX model (e.g. frailty, falls, vitamin D deficiency, increased bone turnover, interval significant decline in bone density) and possible under or overestimation of fracture risk by FRAX. Additional medical evaluation for secondary cause of low bone mineral density may be appropriate. FUTURE SCAN RECOMMENDATION: People with diagnosed cases of osteoporosis or at high risk for fracture should have regular bone mineral density tests. For patients eligible for Medicare, routine testing is allowed once every 2 years. The testing frequency can be increased to one year for patients who have rapidly progressing disease, those who are receiving or discontinuing medical therapy to restore bone mass, or have additional risk factors.
== END 2021-09-24 09:17 | disposition home or self-care (01) ==
LOC: HO.MAMMO 09:16
PROVIDERS: Visit Provider Internal Medicine
DX: M81.0 Age-related osteoporosis without current pathological fracture (principal); F17.200 Nicotine dependence, unspecified, uncomplicated; Z78.0 Asymptomatic menopausal state
CPT/HCPCS: 77081

== ENCOUNTER → 2021-10-02 10:32 | Outpatient (BNVA) | payer MEDICARE, MEDICAID, SELFPAY | PROVIDERS: PCP Internal Medicine; Visit Provider Internal Medicine | DX: M81.0 Age-related osteoporosis without current pathological fracture (principal); E55.9 Vitamin D deficiency, unspecified; E21.3 Hyperparathyroidism, unspecified; R77.8 Other specified abnormalities of plasma proteins | CPT/HCPCS: 99212 ==

== ENCOUNTER → 2021-10-24 08:49 | Outpatient (BNVA) | payer MEDICARE, MEDICAID, SELFPAY | PROVIDERS: PCP Internal Medicine; Visit Provider Internal Medicine Endocrinology, Diabetes & Metabolism | DX: M81.0 Age-related osteoporosis without current pathological fracture (principal) | CPT/HCPCS: 96372 ==

== ENCOUNTER → 2021-12-06 10:51 | Outpatient (BNVA) | payer MEDICARE, MEDICAID, SELFPAY | PROVIDERS: PCP Internal Medicine; Referring Provider Internal Medicine; Visit Provider Internal Medicine Gastroenterology | DX: K75.4 Autoimmune hepatitis (principal) | CPT/HCPCS: 99212 ==

== ENCOUNTER → 2021-12-13 11:03 | Outpatient (BNVA) | payer MEDICARE, MEDICAID, SELFPAY | PROVIDERS: PCP Internal Medicine; Referring Provider Internal Medicine Gastroenterology; Visit Provider Surgery | DX: K75.4 Autoimmune hepatitis (principal); M79.89 Other specified soft tissue disorders; M25.512 Pain in left shoulder; E83.119 Hemochromatosis, unspecified; J44.9 Chronic obstructive pulmonary disease, unspecified; R77.8 Other specified abnormalities of plasma proteins; F17.210 Nicotine dependence, cigarettes, uncomplicated; Z79.899 Other long term (current) drug therapy | CPT/HCPCS: 99202 ==

== ENCOUNTER 2022-01-20 14:29 | Outpatient (REF) | payer MEDICARE, MEDICAID, SELFPAY ==
--- NOTE | ~2022-01-20 | XR_ITS ---
EXAMINATION: XR SHOULDER, RIGHT XR SHOULDER, LEFT CLINICAL INFORMATION: Pain. COMPARISON: None TECHNIQUE: 3 views of each shoulder. FINDINGS: LEFT SHOULDER: There is no evidence of acute fracture or dislocation of the left shoulder. There is minimal spurring at the glenohumeral joint without joint space narrowing. No evidence of calcific tendinitis. No significant acromioclavicular joint degenerative changes seen. No widening of the coracoclavicular space is seen. RIGHT SHOULDER: There is no evidence of acute fracture or dislocation of the right shoulder. Glenohumeral joint appears unremarkable. No significant acromioclavicular joint degenerative change. No widening of the coracoclavicular space is seen. XR/XR shoulder LT min 2V IMPRESSION: No significant bony abnormality of the right or left shoulder.
--- NOTE | ~2022-01-20 | XR_ITS ---
EXAMINATION: XR SHOULDER, RIGHT XR SHOULDER, LEFT CLINICAL INFORMATION: Pain. COMPARISON: None TECHNIQUE: 3 views of each shoulder. FINDINGS: LEFT SHOULDER: There is no evidence of acute fracture or dislocation of the left shoulder. There is minimal spurring at the glenohumeral joint without joint space narrowing. No evidence of calcific tendinitis. No significant acromioclavicular joint degenerative changes seen. No widening of the coracoclavicular space is seen. RIGHT SHOULDER: There is no evidence of acute fracture or dislocation of the right shoulder. Glenohumeral joint appears unremarkable. No significant acromioclavicular joint degenerative change. No widening of the coracoclavicular space is seen. XR/XR shoulder RT min 2V IMPRESSION: No significant bony abnormality of the right or left shoulder.
== END 2022-01-20 14:30 | disposition home or self-care (01) ==
LOC: HO.HOSX 14:29
PROVIDERS: Visit Provider Physician Assistant
DX: M75.101 Unspecified rotator cuff tear or rupture of right shoulder, not specified as traumatic (principal); M75.102 Unspecified rotator cuff tear or rupture of left shoulder, not specified as traumatic
CPT/HCPCS: 73030; 99202

== ENCOUNTER 2022-03-04 08:52 | Outpatient (REF) | payer MEDICARE, MEDICAID, SELFPAY ==
--- NOTE | ~2022-03-04 | US_ITS ---
EXAMINATION: US ABDOMEN LIMITED WITH LIVER ELASTOGRAPHY CLINICAL INFORMATION: Autoimmune hepatitis COMPARISON: Previous ultrasound most recent June TECHNIQUE: Real-time imaging of the abdominal viscera. Noninvasive ultrasound liver fibrosis assessment is performed using [employer] Elast[employer] point quantification shear wave elastography (2D-SWE) with a C5-2 MHz transducer. Multiple elastography samples are obtained. FINDINGS: PANCREAS: Not well visualized due to bowel gas. There is a lymph node adjacent to the head of the pancreas/periportal region and measures 3.2 x 1.5 x 1.9 cm. This is slightly increased from 1.5 x 2.9 x 1.2 cm on previous exam. LIVER: Normal. The liver demonstrates normal size, contour and echogenicity. No focal lesion or intrahepatic biliary duct dilatation. The right lobe measures 13.6 cm in length. The left lobe measures 11.3 cm in length. Portal flow is normal/hepatopedal Shear wave liver elastography median stiffness is 1.27 m/s (reference: normal median stiffness is 1.3 m/s or less). IQR/median stiffness to assess sampling precision is 0.06 (reference: good quality data set is IQR/median stiffness of 0.15 or less). GALLBLADDER: Post cholecystectomy. COMMON BILE DUCT: Normal in caliber measuring 0.6 cm in diameter. RIGHT KIDNEY: Linear echogenic density in the lower pole more suggestive of a vascular reflector than a stone. No hydronephrosis. No focal parenchymal lesions. The kidney measures 11.5 cm in maximum dimension. FREE FLUID: None. US/US abdomen joaquin w elastography IMPRESSION: 1. Impression: Normal-appearing liver. Prominent lymph node in the periportal region/head of the pancreas slightly increased from previous exam. 2. Liver elastography: Adequate liver sampling. High probability of being normal. REFERENCE: Society of Radiologists in Ultrasound Liver Stiffness Thresholds (2020): LIVER STIFFNESS THRESHOLDS: *Liver Stiffness equal or less than 1.3 m/s: High probability of being normal. *Liver Stiffness less than 1.7 m/s: In the absence of other known clinical signs, rules out compensated advanced chronic liver disease. *Liver Stiffness 1.7-2.1 m/s: Suggestive of compensated advanced chronic liver disease but need further test for confirmation. *Liver Stiffness over 2.1 m/s: Rules in compensated advanced chronic liver disease. *Liver Stiffness over 2.4 m/s: Suggestive of clinically significant portal hypertension. QUALITY OF DATA SET: *IQR/Median value equal or less than 0.15 implies a quality data set. *IQR/Median value over 0.15 implies a poor quality data set. SIGNIFICANT CHANGE FROM PRIOR EXAM: Significant change if liver stiffness measurement is 10% or greater from prior exam. OTHER CONSIDERATIONS: The stage of liver fibrosis may be overestimated in the setting of acute hepatitis, liver inflammation, elevated liver function tests, hepatic vascular congestion, obstructive cholestasis, non-fasting state, and infiltrative diseases such as amyloidosis and lymphoma. In some patients with NAFLD, the liver stiffness thresholds for compensated advanced chronic liver disease may be lower. In causes other than viral hepatitis and NAFLD, liver stiffness thresholds are not well established.
== END 2022-03-04 08:53 | disposition home or self-care (01) ==
LOC: HO.US 08:52
PROVIDERS: Visit Provider Internal Medicine Gastroenterology
DX: K75.4 Autoimmune hepatitis (principal)
CPT/HCPCS: 76705; 76981

== ENCOUNTER 2022-04-25 11:44 | Outpatient (REF) | payer MEDICARE, MEDICAID, SELFPAY ==
[2022-04-25 13:56] LABS: Alanine Aminotransferase 42 U/L (0-31); Albumin Level 4.3 g/dL (3.5-5.0); Alkaline Phosphatase 92 U/L (39-117); Anion Gap 14 (12-20); Aspartate Amino Transferase 28 U/L (5-31); Bilirubin Total 0.7 mg/dL (0.0-1.0); Blood Urea Nitrogen 17 mg/dL (9-16); Calcium 9.6 mg/dL (8.4-10.2); Carbon Dioxide 29 mmol/L (22-29); Chloride 104 mmol/L (96-108); Estimated Glomerular Filt Rate > 60; Glucose Random 65 mg/dL (60-115); Phosphorus 3.6 mg/dL (2.7-4.5); Potassium 4.2 mmol/L (3.3-5.1); Sodium 143 mmol/L (135-145); Total Protein 7.5 g/dL (6.5-8.0)
[2022-04-25 14:16] LABS: Vitamin D 25-OH Total 36.3 ng/mL (>30)
[2022-04-27 13:07] LABS: Calcium (PTHI) 9.6 mg/dL (8.6-10.4); PTHI 74 pg/mL (16-77)
[2022-05-01 06:04] LABS: N-Telopeptide 37 (see note); NTXCreaRU 156 mg/dL (20-275)
== END 2022-04-25 11:45 | disposition home or self-care (01) ==
LOC: HO.10HDL 11:44
PROVIDERS: Visit Provider Internal Medicine
DX: E55.9 Vitamin D deficiency, unspecified (principal); M81.0 Age-related osteoporosis without current pathological fracture
CPT/HCPCS: 36415; 80053; 82306; 82523; 83970; 84100

== ENCOUNTER → 2022-04-28 10:24 | Outpatient (BNVA) | payer MEDICARE, MEDICAID, SELFPAY | PROVIDERS: PCP Internal Medicine; Visit Provider Internal Medicine | DX: M81.0 Age-related osteoporosis without current pathological fracture (principal); E55.9 Vitamin D deficiency, unspecified; E21.3 Hyperparathyroidism, unspecified; R77.8 Other specified abnormalities of plasma proteins | CPT/HCPCS: 96372; 99212 ==

== ENCOUNTER 2022-06-01 20:53 | Emergency (ER) | payer MEDICARE, MEDICAID, SELFPAY ==
--- NOTE | ~2022-06-01 | XR_ITS ---
EXAMINATION: XR CHEST CLINICAL INFORMATION: Cough, flu positive COMPARISON: 01/03/2021 TECHNIQUE: 2 views of the chest were obtained. FINDINGS: Lungs are clear. No focal consolidation or mass. Normal pulmonary vascularity. No pleural effusion or pneumothorax. Normal heart size. Regional skeleton intact. XR/XR chest 2V IMPRESSION: No acute pulmonary disease.
[2022-06-01 21:42] VITALS: BP 119/73; PULSE 105; RESP 20; TEMP 37.6; O2SAT 93; BMI 23.4
[2022-06-01 22:43] LABS: Influenza A PCR POSITIVE (Negative); Influenza B PCR NEGATIVE (Negative); Resp Syncy Virus RNA Qual PCR NEGATIVE (Negative); SARS COV2 PCR INHOUSE NEGATIVE (Negative)
--- NOTE | 2022-06-01 23:16 | ED_ITS ---
HPI - Fever General Chief Complaint: Fever Stated Complaint: Cough/Fever/Headache Time Seen by Provider: 06/01/22 23:15 Source: patient Mode of arrival: ambulatory Limitations: no limitations History of Present Illness HPI Narrative: 67-year-old female presents with 2 days of fatigue, fever, coughing, diarrhea, and back and rib pain. MD elicited complaint: fever and malaise Onset (ago): day(s) (2) Relieving factors: nothing Associated symptoms: chills, myalgias, headache, nasal congestion, cough, nausea , diarrhea and back/flank pain Treatments prior to arrival fever: none Related Data Home Medications Medication Instructions Recorded Confirmed amlodipine 5 mg tablet 5 mg PO DAILY 07/19/20 04/28/22 loratadine 10 mg tablet 10 mg PO DAILY PRN Allergic 07/19/20 04/28/22 Symptoms montelukast 10 mg tablet 10 mg PO BEDTIME 07/19/20 04/28/22 ipratropium bromide 17 2 puff inhalation QID 09/13/20 04/28/22 mcg/actuation HFA aerosol inhaler (Atrovent HFA) albuterol sulfate 90 mcg/actuation 2 inh inhalation QID PRN shortness 10/24/20 04/28/22 aerosol inhaler of breath or wheezing multivitamin with folic acid 400 1 tab PO DAILY 06/11/21 04/28/22 mcg tablet (Daily-Glynn (with folic acid)) Previous Rx's Medication Instructions Recorded calcium citrate 250 mg PO BID 30 days #60 tabs 11/21/20 furosemide 20 mg tablet 20 mg PO DAILY 30 days #30 tabs 01/04/21 Advair Diskus 250 mcg-50 mcg/dose 1 ea PO BID #60 ea 01/08/21 powder for inhalation (fluticasone propion-salmeterol) capsaicin 0.1 % topical cream 1 appl topical BID #60 grams 06/11/21 cholecalciferol (vitamin D3) 50 50 mcg PO DAILY 30 days #30 caps 09/16/21 mcg (2,000 unit) capsule omeprazole 40 mg capsule,delayed 40 mg PO BID 30 days #60 caps 09/25/21 release denosumab 60 mg/mL subcutaneous 60 mg subcut [id number] 1 day #1 mL 10/03/21 syringe (Prolia) vitamin A 10,000 unit capsule 1 cap PO DAILY #30 caps 03/06/22 spironolactone 50 mg tablet 100 mg PO DAILY #180 tabs 03/07/22 mercaptopurine 50 mg tablet 50 mg PO DAILY #90 tabs 04/11/22 Allergies Allergy/AdvReac Type Severity Reaction Status Date / Time Iodinated Contrast Media Allergy Mild Unknown Verified 04/28/22 10:33 Review of Systems Review of Systems: Constitutional: positive Fever, positive Chills, positive fatigue, positive Malaise ENT/Mouth: positive sore throat, positive runny nose Eyes: No Discharge Cardiovascular: No Chest Pain, No SOB Respiratory: Positive Cough, No Sputum, No Wheezing, No Smoke Exposure, No Dyspnea Gastrointestinal: Positive Nausea, No Vomiting, positive Diarrhea Genitourinary: no irregular bleeding, No Dysuria, No Urinary Frequency, No Hematuria, No Urinary Incontinence, No Urgency, No Flank Pain, Musculoskeletal: positive Myalgia Skin: No rash Neuro: Positive Headache Yes all other systems are reviewed and are negative PMFSH Past Medical History Attestation statement: The following information was validated with the patient. Source: old records reviewed Medical History Abnormal LFTs Abnormal SPEP Allergic rhinitis Arthritis Asthma Autoimmune hepatitis COPD (chronic obstructive pulmonary disease) HTN (hypertension) Hyperparathyroidism Low calcium levels Osteoporosis Smoker Transaminitis Vitamin D deficiency Surgical History H/O colonoscopy History of ERCP History of esophagogastroduodenoscopy (EGD) History of liver biopsy Hx laparoscopic cholecystectomy Hx of tonsillectomy Hx of tubal ligation Family History Family History Father Diabetes Heart disease Hypertension Mother Diabetes Arthritis Heart disease Paternal Uncle Cancer Sister Lung cancer Social History Social History Household Members: Family Housing: Apartment Do you presently have visiting nurse or other home services: No Alcohol intake: former Patient Tobacco Use Status: Current everyday Tobacco user Tobacco use type: Cigarette Cigarette Packs Per Day: 0 Cigarettes Per Day: 3 Years Smoked: 47 Second Hand Smoke Exposure: Yes Advance Directives: Yes Advance Directives on File: Yes Advance Directives Date on File: 10/24/20 service: No Current occupational status: unemployed Physical Exam Vital Signs: Vital Signs: Last Vital Signs Temp 99.7 F 06/01/22 21:42 Pulse 105 H 06/01/22 21:42 Resp 20 06/01/22 21:42 BP 119/73 06/01/22 21:42 Pulse Ox 93 06/01/22 21:42 O2 Del Method 06/01/22 21:42 BMI result Body Mass Index 23.4 Appearance: Alert. Oriented X3. No acute distress. Eyes: Pupils equal, round and reactive to light. ENT: Pharynx normal. Neck: Normal inspection. Neck supple. CVS: Tachycardic heart rate and rhythm. Pulses normal. Respiratory: No respiratory distress. Breath sounds normal. Abdomen: Soft and nontender. Skin: Skin warm and dry. Normal skin color. Normal skin turgor. Extremities: No lower extremity edema. Gait well-balanced well coordinated. Neuro: No motor deficit. No sensory deficit. Cranial nerves 2-12 intact. Course Course Course Narrative: 67-year-old female presents with upper respiratory symptoms and intermittent fevers. Patient tested positive for influenza A while in the emergency department waiting room. Patient is mildly tachycardic at 105, with a temperature of 99.7 degrees. Patient states that she did not take any medications to help alleviate her symptoms. I did order Tylenol. She is complaining of chest wall pain that worsens when she is coughing. Patient does have reproducible chest pain to palpation. Lung sounds are clear to auscultation all lobes. Will order chest x-ray. Chest x-ray negative for acute findings requiring emergent intervention. I did discuss in detail supportive measures with this patient. patient agrees to discharge home. She does understand the symptoms worsen she should return for further evaluation. Medications Administered Discontinued Medications Generic Name Dose Route Start Last Admin Trade Name Freq PRN Reason Stop Dose Admin Acetaminophen 650 mg 06/01/22 23:15 06/02/22 00:03 Acetaminophen 325 Mg Tablet PO 06/01/22 23:16 650 mg ONCE ONE Administration MDM - Fever Differential Diagnosis Differential diagnosis: Likely viral infection and influenza Medical Records Attestation: I reviewed the patient's medical records. Lab Data Attestation: I reviewed the patient's lab results. Labs: Lab Results 06/01/22 Range/Units 21:53 Influenza Type A (PCR) POSITIVE A (Negative) Influenza Type B (PCR) NEGATIVE (Negative) RSV RNA Qual (PCR) NEGATIVE (Negative) SARS-CoV-2 RNA (RT-PCR) NEGATIVE (Negative) Imaging Data Chest x-ray: Attestation: I personally reviewed and interpreted this imaging study as follows: Radiologist's impression: EXAMINATION: XR CHEST CLINICAL INFORMATION: Cough, flu positive COMPARISON: 01/03/2021 TECHNIQUE: 2 views of the chest were obtained. FINDINGS: Lungs are clear. No focal consolidation or mass. Normal pulmonary vascularity. No pleural effusion or pneumothorax.? Normal heart size. Regional skeleton intact. XR/XR chest 2V IMPRESSION: No acute pulmonary disease. Discharge Plan Discharge Clinical Impression: Influenza Patient Disposition: Home, Self-Care Instructions: Influenza (ED) Additional Instructions: You were evaluated for fevers, cough, diarrhea, rib pain and fatigue. You tested positive for influenza A. Drink plenty of fluids. Alternate Tylenol 650 mg every 6 hours as needed and Motrin 600 mg every 6 hours as needed for pain and fever management. Her last dose of Tylenol was given at midnight, your next dose of Tylenol is at 06:00. Consider taking Motrin at 03:00, so you can have pain and fever management every 3 hours. Write down what time you take these medications to prevent accidental overdose. Your chest x-ray was negative for acute findings. If symptoms worsen please return to the emergency department for immediate evaluation. Thank you for choosing this emergency department for evaluation. Please follow-up with primary care physician as needed. Return to the emergency department for any new, concerning, or worsening symptoms. Prescriptions: No Action fluticasone propion-salmeterol [Advair Diskus] 250-50 mcg/dose blister with device 1 ea PO BID Qty: 60 3RF cholecalciferol (vitamin D3) 50 mcg (2,000 unit) capsule 50 mcg PO DAILY 30 Days Qty: 30 11RF omeprazole 40 mg capsule,delayed release(DR/EC) 40 mg PO BID 30 Days Qty: 60 3RF Prolia 60 mg/mL syringe 60 mg subcut [id number] 1 Days Qty: 1 2RF vitamin A 10,000 unit capsule 1 cap PO DAILY Qty: 30 0RF spironolactone 50 mg tablet 100 mg PO DAILY Qty: 180 0RF mercaptopurine 50 mg tablet 50 mg PO DAILY Qty: 90 0RF furosemide 20 mg Tablet 20 mg PO DAILY 30 Days Qty: 30 1RF Protocol: Hold for SBP< HOLD for SBP < : 90 albuterol sulfate 90 mcg/actuation HFA aerosol inhaler 2 inh inhalation QID PRN (Reason: shortness of breath or wheezing) amlodipine 5 mg tablet 5 mg PO DAILY montelukast 10 mg tablet 10 mg PO BEDTIME loratadine 10 mg tablet 10 mg PO DAILY PRN (Reason: Allergic Symptoms) Atrovent HFA 17 mcg/actuation HFA aerosol inhaler 2 puff inhalation QID calcium citrate 250 mg calcium tablet 250 mg PO BID 30 Days Qty: 60 11RF multivitamin with folic acid [Daily-Glynn (with folic acid)] 400 mcg tablet 1 tab PO DAILY capsaicin 0.1 % cream 1 appl topical BID Qty: 60 1RF Rx Instructions: do not wash area for at least 30 min after application Interventions: ED Discharge Assessment Last Done: 06/02/22 00:12 Discharge Date/Time: 06/02/22 00:13
[2022-06-02] MEDS: Acetaminophen 325 MG TABLET 650 MG PO (00:03)
== END 2022-06-02 00:13 | disposition home or self-care (01) ==
PROVIDERS: Emergency Provider Emergency Medicine Emergency Medical Services; PCP Internal Medicine
DX: R50.9 Fever, unspecified (principal); M54.50 Low back pain, unspecified; M79.10 Myalgia, unspecified site; R51.9 Headache, unspecified; Z20.822 Contact with and (suspected) exposure to COVID-19
CPT/HCPCS: 0241U; 71046; 99283

== ENCOUNTER → 2022-06-23 08:49 | Outpatient (BNVA) | payer MEDICARE, MEDICAID, SELFPAY | PROVIDERS: PCP Internal Medicine; Visit Provider Internal Medicine Gastroenterology | DX: K75.4 Autoimmune hepatitis (principal) | CPT/HCPCS: 99212 ==

== ENCOUNTER 2022-07-04 10:51 | Outpatient (REF) | payer MEDICARE, MEDICAID, SELFPAY ==
--- NOTE | ~2022-07-04 | MR_ITS ---
EXAMINATION: MRI ABDOMEN WITH AND WITHOUT CONTRAST CLINICAL INFORMATION: K74.60 - Unspecified cirrhosis of liver COMPARISON: Prior studies including the 10/25/2020 MRI TECHNIQUE: Multiple routine MRI sequences through the abdomen were obtained on a high-field 1.5Tesla MRI. Pre-and postcontrast images with 5.5 mL of Gadavist intravenous contrast were obtained. This included a dynamic contrast-enhanced technique. FINDINGS: Lung bases: The visualized lung bases are unremarkable. Liver: Liver demonstrates slight heterogeneous signal. Mild underlying fibrotic change suspected. I do not appreciate any suspicious hepatic lesions. Specifically no arterial phase enhancing lesion nor suspicious washout of contrast on later phases. No biliary ductal dilatation. No significant fatty infiltration. Gallbladder: Surgically absent Pancreas: Pancreas is homogeneous in signal. No pancreatic ductal dilatation or obstruction. No peripancreatic inflammatory changes or fluid. Spleen: Unremarkable Adrenals: Unremarkable Kidneys: Kidneys are normal in size, shape, and signal. Tiny T2 bright cysts in the left kidney. No suspicious renal mass lesion seen. No hydronephrosis or perinephric edema. Other: No bulky retroperitoneal or mesenteric adenopathy MR/MR abdomen wo/w con IMPRESSION: Mild underlying fibrotic changes to the liver suspected. I do not appreciate any suspicious hepatic lesions however.
== END 2022-07-04 10:52 | disposition home or self-care (01) ==
LOC: HO.MRI 10:51
PROVIDERS: Visit Provider Internal Medicine Gastroenterology
DX: K74.60 Unspecified cirrhosis of liver (principal)
CPT/HCPCS: 74183; A9585

== ENCOUNTER 2022-09-19 10:53 | Outpatient (REF) | payer OTHER, SELFPAY ==
--- NOTE | ~2022-09-19 | MM_ITS ---
EXAMINATION: MM SCREENING DIGITAL BREAST TOMOSYNTHESIS, BILATERAL CLINICAL INFORMATION: Screening. Asymptomatic. The lifetime risk of breast cancer based on the Tyrer-Cuzick Model is 3%. COMPARISON: Mammography: 09/10/2021, 09/02/2021, 08/23/2020, 08/18/2019 TECHNIQUE: Digital breast tomosynthesis is performed in both the craniocaudal and mediolateral oblique views along with computer-aided detection (CAD). Synthesized 2D images are generated from the tomosynthesis. FINDINGS: The breasts are heterogeneously dense, which may obscure small masses (ACR BI-RADS breast composition Category c). There are no significant masses, abnormal calcifications, or other abnormalities. There are scattered bilateral calcifications similar to prior exam. No developing density or architectural abnormality. The axilla and skin contours are unremarkable. No significant changes. MM/MM tomosynthesis screening BI IMPRESSION: No mammographic evidence of malignancy. ASSESSMENT: BI-RADS 2: Benign RECOMMENDATION: Routine annual mammography screening. This patient's information was entered into a reminder system with a target due date for their next mammogram.
== END 2022-09-19 10:54 | disposition home or self-care (01) ==
LOC: HO.MAMMO 10:53
PROVIDERS: PCP Internal Medicine; Visit Provider Internal Medicine
DX: Z12.31 Encounter for screening mammogram for malignant neoplasm of breast (principal)
CPT/HCPCS: 77063; 77067

== ENCOUNTER → 2022-10-06 08:56 | Outpatient (BNVA) | payer OTHER, SELFPAY | PROVIDERS: PCP Internal Medicine; Visit Provider Internal Medicine Gastroenterology | DX: K75.4 Autoimmune hepatitis (principal) | CPT/HCPCS: 99212 ==

== ENCOUNTER 2022-10-17 13:09 | Outpatient (REF) | payer OTHER, SELFPAY ==
[2022-10-17 13:32] LABS: MANUAL DIFF FLAG NO
[2022-10-17 13:54] LABS: Basophils Percent Auto 0.3 % (0-2); Eosinophils Absolute Auto 0.1 X10*3/uL (0.0-0.4); Eosinophils Percent Auto 2.1 % (0-4); Hematocrit 39.4 % (37.0-47.0); Hemoglobin 13.4 g/dl (12.0-16.0); Imm Gran Abs Auto 0.02 X10*3/uL (0.00-0.03); Imm Gran Pct Auto 0.3 % (0.0-0.4); Lymphocytes Percent Auto 32.1 % (20-40); Mean Corpuscular Hemoglobin 31.9 pg (27.0-33.0); Mean Corpuscular Volume 93.8 fL (80.0-98.0); Mean Platelet Volume 10.2 fL (9.4-12.3); Monocytes Absolute Auto 0.6 X10*3/uL (0.1-1.2); Monocytes Percent Auto 8.9 % (2-11); Neutrophils Absolute Auto 3.5 x10*3/uL (2.0-8.3); Neutrophils Percent Auto 56.3 % (45-73); Platelet Count 166 X10*3/uL (160-400); Red Cell Distribution Width 12.7 % (11.0-16.0); White Blood Count 6.2 X10*3/uL (4.8-10.8)
[2022-10-17 14:36] LABS: Alanine Aminotransferase 28 U/L (0-31); Albumin Level 4.2 g/dL (3.5-5.0); Alkaline Phosphatase 92 U/L (39-117); Anion Gap 11 (12-20); Aspartate Amino Transferase 21 U/L (5-31); Bilirubin Total 0.8 mg/dL (0.0-1.0); Blood Urea Nitrogen 14 mg/dL (9-16); C Reactive Protein 0.34 mg/dL (< or = 0.50); Calcium 9.4 mg/dL (8.4-10.2); Carbon Dioxide 28 mmol/L (22-29); Chloride 107 mmol/L (96-108); Estimated Glomerular Filt Rate > 60; Glucose Random 95 mg/dL (60-115); Sodium 142 mmol/L (135-145); Total Protein 7.2 g/dL (6.5-8.0)
[2022-10-17 15:05] LABS: Ferritin 441 ng/mL (10-250); Folate 16.6 ng/mL (> or = 4.0); Vitamin B12 413 pg/mL (200-900); Vitamin D 25-OH Total 28.6 ng/mL (>30)
[2022-10-20 12:43] LABS: Immunoglobulin G 1477 mg/dL (600-1540)
[2022-10-21 15:18] LABS: Zinc 69 mcg/dL (60-130)
[2022-10-23 17:23] LABS: Vitamin C 0.5 mg/dL (0.3-2.7)
[2022-10-23 19:58] LABS: Vitamin A 43 mcg/dL (38-98)
[2022-10-23 23:48] LABS: Nicotinamide <20 ng/mL; Vit B3 - Nicotinic Acid <20 ng/mL; Vitamin B5 (Pantothenic Acid) <40 ng/mL (<275)
[2022-10-24 17:08] LABS: Vitamin B1 8 nmol/L (8-30)
[2022-10-25 16:04] LABS: Vitamin B6 <2.0 ng/mL (2.1-21.7)
[2022-10-29 13:54] LABS: Vitamin K1 1170 pg/mL (130-1500)
== END 2022-10-17 13:10 | disposition home or self-care (01) ==
LOC: HO.LAB 13:09
PROVIDERS: Visit Provider Internal Medicine Gastroenterology
DX: K75.4 Autoimmune hepatitis (principal); K75.81 Nonalcoholic steatohepatitis (NASH); K52.839 Microscopic colitis, unspecified
CPT/HCPCS: 36415; 80053; 82180; 82306; 82607; 82728; 82746; 82784; 84207; 84425; 84446; 84590; 84591; 84597; 84630; 85025; 85610; 86140

== ENCOUNTER 2022-10-23 11:14 | Outpatient (REF) | payer OTHER, SELFPAY ==
[2022-10-23 14:02] LABS: Alanine Aminotransferase 25 U/L (0-31); Alkaline Phosphatase 92 U/L (39-117); Anion Gap 15 (12-20); Aspartate Amino Transferase 20 U/L (5-31); Bilirubin Total 0.6 mg/dL (0.0-1.0); Blood Urea Nitrogen 19 mg/dL (9-16); Calcium 9.3 mg/dL (8.4-10.2); Carbon Dioxide 26 mmol/L (22-29); Chloride 106 mmol/L (96-108); Estimated Glomerular Filt Rate > 60; Glucose Random 96 mg/dL (60-115); Phosphorus 3.6 mg/dL (2.7-4.5); Potassium 3.7 mmol/L (3.3-5.1); Sodium 143 mmol/L (135-145); Total Protein 6.8 g/dL (6.5-8.0)
[2022-10-23 14:18] LABS: Vitamin D 25-OH Total 35.1 ng/mL (>30)
[2022-10-27 15:29] LABS: Calcium (PTHI) 9.4 mg/dL (8.6-10.4); PTHI 28 pg/mL (16-77)
[2022-11-02 14:09] LABS: N-Telopeptide 33 (see note); NTXCreaRU 152 mg/dL (20-275)
== END 2022-10-23 11:15 | disposition home or self-care (01) ==
LOC: HO.10HDL 11:14
PROVIDERS: Visit Provider Internal Medicine
DX: M81.0 Age-related osteoporosis without current pathological fracture (principal); E55.9 Vitamin D deficiency, unspecified
CPT/HCPCS: 36415; 80053; 82306; 82523; 83970; 84100

== ENCOUNTER → 2022-10-29 13:29 | Outpatient (BNVA) | payer OTHER, SELFPAY | PROVIDERS: PCP Internal Medicine; Visit Provider Internal Medicine | DX: M81.0 Age-related osteoporosis without current pathological fracture (principal); E55.9 Vitamin D deficiency, unspecified; E21.3 Hyperparathyroidism, unspecified; R77.8 Other specified abnormalities of plasma proteins | CPT/HCPCS: 96372; 99212 ==

== ENCOUNTER 2022-12-28 09:37 | Emergency (ER) | payer OTHER, SELFPAY ==
--- NOTE | ~2022-12-28 | XR_ITS ---
EXAMINATION: XR CHEST CLINICAL INFORMATION: Cough. COMPARISON: Most recent chest radiograph dated 06/01/2022. TECHNIQUE: Frontal view of the chest was obtained. FINDINGS: The lungs are clear. The cardiomediastinal silhouette is normal in size. There is no pleural effusion or pneumothorax. No acute osseous abnormality. XR/XR chest 1V IMPRESSION: No acute cardiopulmonary findings.
[2022-12-28 09:46] VITALS: BP 135/64; PULSE 97; RESP 16; TEMP 36.7; O2SAT 97; BMI 22.5
--- NOTE | 2022-12-28 10:39 | ECG_ITS ---
Test Reason : CP Blood Pressure : / mmHG Vent. Rate : 078 BPM Atrial Rate : 078 BPM P-R Int : 142 ms QRS Dur : 088 ms QT Int : 378 ms P-R-T Axes : 073 059 063 degrees QTc Int : 430 ms Normal sinus rhythm Normal ECG When compared with ECG of 03-JAN-2021 17:03, No significant change was found Referred By: David Cortez Electronically Signed By:BABAR GUZMAN
--- NOTE | 2022-12-28 10:44 | ED.URI ---
HPI - URI/Sore Throat General Chief Complaint: Upper Respiratory Symptoms Stated Complaint: cough Time Seen by Provider: 12/28/22 10:29 Source: patient Mode of arrival: ambulatory Limitations: no limitations History of Present Illness HPI Narrative: 67-year-old female came in for evaluation of coughing for 3 days. Patient with current history of smoking and COPD/asthma came in for the past 3 days been having dry cough with chest tightness and wheezing. No sick contacts, no recent travel, no fever, no chills. Related Data Home Medications Medication Instructions Recorded Confirmed amlodipine 5 mg tablet 5 mg PO DAILY 07/19/20 10/29/22 loratadine 10 mg tablet 10 mg PO DAILY PRN Allergic 07/19/20 10/29/22 Symptoms montelukast 10 mg tablet 10 mg PO BEDTIME 07/19/20 10/29/22 ipratropium bromide 17 2 puff inhalation QID 09/13/20 10/29/22 mcg/actuation HFA aerosol inhaler (Atrovent HFA) albuterol sulfate 90 mcg/actuation 2 inh inhalation QID PRN shortness 10/24/20 10/29/22 aerosol inhaler of breath or wheezing multivitamin with folic acid 400 1 tab PO DAILY 06/11/21 10/29/22 mcg tablet (Daily-Glynn (with folic acid)) Previous Rx's Medication Instructions Recorded calcium citrate 250 mg PO BID 30 days #60 tabs 11/21/20 furosemide 20 mg tablet 20 mg PO DAILY 30 days #30 tabs 01/04/21 Advair Diskus 250 mcg-50 mcg/dose 1 ea PO BID #60 ea 01/08/21 powder for inhalation (fluticasone propion-salmeterol) capsaicin 0.1 % topical cream 1 appl topical BID #60 grams 06/11/21 cholecalciferol (vitamin D3) 50 50 mcg PO DAILY 30 days #30 caps 09/16/21 mcg (2,000 unit) capsule omeprazole 40 mg capsule,delayed 40 mg PO BID 30 days #60 caps 09/25/21 release vitamin A 3,000 mcg (10,000 unit) 1 cap PO DAILY #30 caps 03/06/22 capsule mercaptopurine 50 mg tablet 50 mg PO DAILY #90 tabs 09/11/22 denosumab 60 mg/mL subcutaneous 60 mg subcut [id number] 1 day #1 mL 10/15/22 syringe (Prolia) pyridoxine (vitamin B6) 100 mg 100 mg PO BID #60 tabs 10/29/22 tablet spironolactone 50 mg tablet 100 mg PO DAILY #180 tabs 12/12/22 albuterol sulfate 90 mcg/actuation 1 inh inhalation QID PRN shortness 12/28/22 aerosol inhaler of breath or wheezing #8.5 grams azithromycin 250 mg tablet See Rx Instructions PO .COMPLEX #6 12/28/22 (Zithromax Z-Feliz) tabs prednisone 20 mg tablet 20 mg PO BID #10 tabs 12/28/22 Allergies Allergy/AdvReac Type Severity Reaction Status Date / Time No Known Allergies Allergy Verified 10/29/22 13:42 Review of Systems Review of Systems: All other systems are reviewed and are negative Constitutional: Reports as per HPI and Reports no additional constitutional complaints Eyes: Reports as per HPI and Reports no additional eye complaints Reports system reviewed and no additional complaints, except as documented Cardiovascular: Reports as per HPI and Reports no additional cardiovascular complaints Respiratory: Reports as per HPI and Reports no additional respiratory complaints Gastrointestinal: Reports as per HPI and Reports no additional gastrointestinal complaints Genitourinary: Reports no additional female genitourinary complaints Musculoskeletal: Reports no additional musculoskeletal complaints Skin/Breast: Reports system reviewed and no additional complaints, except as docu Psychiatric: Reports no additional psychiatric complaints Endocrine: Reports no additional endocrine complaints Hematologic/Lymphatic: Reports no additional hematologic/lymphatic complaints Allergic/Immunologic: Reports no additional allergic/immunologic complaints Reports system reviewed and no additional complaints, except as documented and Reports Abnormal speech present FOR[facility] Past Medical History Medical History Abnormal LFTs Abnormal SPEP Allergic rhinitis Arthritis Asthma Autoimmune hepatitis COPD (chronic obstructive pulmonary disease) HTN (hypertension) Hyperparathyroidism Low calcium levels Osteoporosis Smoker Transaminitis Vitamin D deficiency Surgical History H/O colonoscopy History of ERCP History of esophagogastroduodenoscopy (EGD) History of liver biopsy Hx laparoscopic cholecystectomy Hx of tonsillectomy Hx of tubal ligation Family History Family History Father Diabetes Heart disease Hypertension Mother Diabetes Arthritis Heart disease Paternal Uncle Cancer Sister Lung cancer Social History Social History Household Members: Family Housing: Apartment Do you presently have visiting nurse or other home services: No Alcohol intake: former Patient Tobacco Use Status: Current everyday Tobacco user Tobacco use type: Cigarette Cigarette Packs Per Day: 0 Cigarettes Per Day: 3 Years Smoked: 47 Second Hand Smoke Exposure: Yes Advance Directives: Yes Advance Directives on File: Yes Advance Directives Date on File: 10/24/20 service: No Current occupational status: unemployed Physical Exam Vital Signs: Vital Signs: Last Vital Signs Temp 98.0 F 12/28/22 09:46 Pulse 97 12/28/22 09:46 Resp 16 12/28/22 09:46 BP 135/64 12/28/22 09:46 Pulse Ox 97 12/28/22 09:46 O2 Del Method Room Air 12/28/22 09:46 BMI result Body Mass Index 22.5 Vital signs have been reviewed as appeared to be correct. Blood pressure normal. Heart rate normal. Respiration rate normal. Temperature normal. Oxygen saturation normal. Appearance: Alert. Oriented X3. No acute distress. Head: Normal external exam. Normocephalic. Atraumatic. No Hernández signs noted. No raccoon eyes noted Eyes: PERRLA. EOMI. Conjunctiva and sclera normal. Eyelids normal. ENT: TM's Normal. Pharynx normal. Uvula midline. Moist mucous membranes. No trismus noted. No drooling noted. No muffled voice noted. Neck: Normal inspection. Neck supple. FROM. No adenopathy. Thyroid Normal. No meningeal signs. No neck mass noted. CVS: Normal heart rate and rhythm. Heart sound normal. No murmurs noted. Pulses normal throughout. Respiratory: No respiratory distress. Painless inspiration. Breath sounds normal. Mild diffuse expiratory wheezing with prolonged expiration, Chest nontender. No accessory muscle usage noted or decreased air movement noted. Abdomen: Soft and nontender. Bowel sounds normal in all 4 quadrants. No distention noted. No organomegaly noted. No visible injury noted. Back: No CVA tenderness. Full range of motion noted. Skin: Skin warm and dry. Normal skin color. Normal skin turgor. No rashes/lesions/lacerations noted. Extremities: No lower extremity edema. Extremities exhibit normal range of motion. Extremities nontender. Neuro: Oriented X 3. Cranial nerve exam: II-XII are grossly intact No motor deficit. No sensory deficit. Reflexes normal. Course Course Course Narrative: Coughing for 3 days acute bronchitis Start the patient on Z-Feliz, prednisone, albuterol. Medical Decision Making Differential Diagnosis Differential Diagnoses: The differential diagnosis associated with the presentation includes (ACS, CHF, asthma, COPD, pneumonia, electrolyte abnormalities, severe anemia.) Admission/Observation Consideration of admission/observation: Escalation of care including admission/observation considered Lab Data MDM Lab Attestation statement: I reviewed the patient's lab results. Independent Interpretation I performed an independent interpretation of an: Plain X-Ray (Chest: No acute intra thoracic pathology.) Radiology Impression Discussion of test interpretation with radiology: I have reviewed the radiologist's reading. Discharge Plan Discharge Clinical Impression: Bronchitis Patient Disposition: Home, Self-Care Instructions: Acute Bronchitis (ED) Prescriptions: New albuterol sulfate 90 mcg/actuation HFA aerosol inhaler 1 inh inhalation QID PRN (Reason: shortness of breath or wheezing) Qty: 8.5 0RF prednisone 20 mg tablet 20 mg PO BID Qty: 10 0RF azithromycin [Zithromax Z-Feliz] 250 mg tablet See Rx Instructions .ROUTE .COMPLEX Qty: 6 0RF Rx Instructions: For 250 mg dose pack: take 500 mg today (day 1), then 250 mg for 4 days (days 2-5) No Action fluticasone propion-salmeterol [Advair Diskus] 250-50 mcg/dose blister with device 1 ea PO BID Qty: 60 3RF cholecalciferol (vitamin D3) 50 mcg (2,000 unit) capsule 50 mcg PO DAILY 30 Days Qty: 30 11RF omeprazole 40 mg capsule,delayed release(DR/EC) 40 mg PO BID 30 Days Qty: 60 3RF vitamin A 10,000 unit capsule 1 cap PO DAILY Qty: 30 0RF mercaptopurine 50 mg tablet 50 mg PO DAILY Qty: 90 0RF pyridoxine (vitamin B6) 100 mg tablet 100 mg PO BID Qty: 60 2RF spironolactone 50 mg tablet 100 mg PO DAILY Qty: 180 0RF furosemide 20 mg Tablet 20 mg PO DAILY 30 Days Qty: 30 1RF Protocol: Hold for SBP< HOLD for SBP < : 90 albuterol sulfate 90 mcg/actuation HFA aerosol inhaler 2 inh inhalation QID PRN (Reason: shortness of breath or wheezing) amlodipine 5 mg tablet 5 mg PO DAILY montelukast 10 mg tablet 10 mg PO BEDTIME loratadine 10 mg tablet 10 mg PO DAILY PRN (Reason: Allergic Symptoms) Atrovent HFA 17 mcg/actuation HFA aerosol inhaler 2 puff inhalation QID calcium citrate 250 mg calcium tablet 250 mg PO BID 30 Days Qty: 60 11RF Prolia 60 mg/mL syringe 60 mg subcut [id number] 1 Days Qty: 1 2RF multivitamin with folic acid [Daily-Glynn (with folic acid)] 400 mcg tablet 1 tab PO DAILY capsaicin 0.1 % cream 1 appl topical BID Qty: 60 1RF Rx Instructions: do not wash area for at least 30 min after application Referrals: Katya Titus MD [Primary Care Provider] -
[2022-12-28] MEDS: Albuterol/Iprat 2.5/0.5MG 3 ML AMPUL.NEB INHALE (10:57)
[2022-12-28] MEDS: Albuterol Sulfate (0.083%) 2.5 MG/3 ML VIAL.NEB 5 MG INHALE (10:57)
[2022-12-28 11:01] VITALS: PULSE 78; RESP 16; O2SAT 97
[2022-12-28 11:01] LABS: Influenza A PCR NEGATIVE (Negative); Influenza B PCR NEGATIVE (Negative); Resp Syncy Virus RNA Qual PCR NEGATIVE (Negative); SARS COV2 PCR INHOUSE NEGATIVE (Negative)
[2022-12-28 11:13] VITALS: BP 144/78; PULSE 79; RESP 20; O2SAT 97
[2022-12-28 11:16] LABS: MANUAL DIFF FLAG NO
[2022-12-28 11:18] LABS: Basophils Percent Auto 0.5 % (0-2); Eosinophils Absolute Auto 0.1 X10*3/uL (0.0-0.4); Eosinophils Percent Auto 2.6 % (0-4); Hematocrit 38.5 % (37.0-47.0); Hemoglobin 13.2 g/dl (12.0-16.0); Imm Gran Abs Auto 0.01 X10*3/uL (0.00-0.03); Imm Gran Pct Auto 0.2 % (0.0-0.4); Lymphocytes Absolute Auto 1.5 X10*3/uL (1.2-4.9); Mean Corpuscular HGB Conc 34.3 g/dl (31.0-35.0); Mean Corpuscular Hemoglobin 32.4 pg (27.0-33.0); Mean Corpuscular Volume 94.4 fL (80.0-98.0); Mean Platelet Volume 9.9 fL (9.4-12.3); Monocytes Absolute Auto 0.5 X10*3/uL (0.1-1.2); Monocytes Percent Auto 12.6 % (2-11); Neutrophils Absolute Auto 2.1 x10*3/uL (2.0-8.3); Neutrophils Percent Auto 48.1 % (45-73); Platelet Count 144 X10*3/uL (160-400); Red Blood Count 4.08 X10*6/uL (4.20-5.50); White Blood Count 4.3 X10*3/uL (4.8-10.8)
[2022-12-28] MEDS: predniSONE 20 MG TABLET 40 MG PO (11:21)
[2022-12-28 11:30] LABS: Anion Gap 14 (12-20); Blood Urea Nitrogen 12 mg/dL (9-16); Calcium 9.4 mg/dL (8.4-10.2); Carbon Dioxide 23 mmol/L (22-29); Chloride 109 mmol/L (96-108); Creatinine Clr Calc Pharmacy 51.4; Estimated Glomerular Filt Rate > 60; Glucose Random 95 mg/dL (60-115); Lipase 23 U/L (8-78); Sodium 142 mmol/L (135-145)
[2022-12-28 11:40] LABS: Troponin-I High Sensitivity < 2.7 ng/L (<3.5-17.0)
== END 2022-12-28 13:51 | disposition home or self-care (01) ==
PROVIDERS: Emergency Provider Emergency Medicine; PCP Internal Medicine
DX: J40 Bronchitis, not specified as acute or chronic (principal); R05.9 Cough, unspecified; R07.89 Other chest pain; F17.210 Nicotine dependence, cigarettes, uncomplicated; Z20.822 Contact with and (suspected) exposure to COVID-19; Z20.828 Contact with and (suspected) exposure to other viral communicable diseases; Z79.899 Other long term (current) drug therapy; Z71.6 Tobacco abuse counseling
CPT/HCPCS: 0241U; 36415; 71045; 80048; 83690; 84484; 85025; 93005; 94640; 99284; 99285

== ENCOUNTER 2023-02-23 08:42 | Outpatient (AMB) | payer OTHER, MEDICAID, SELFPAY ==
--- NOTE | 2023-02-23 08:57 | MHC.OFFVIS ---
Intake Vital Signs 02/23/23 08:58 Height 5 ft 1 in Weight 119 lb 0.794 oz BMI 22.5 BP 147/87 H Blood Pressure Location Rt brachial Position Sitting Pulse 85 Intake Visit Reasons: 4 month follow up Intake Note: Vandana presents in the office as a 4 month follow up. 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 She denied any sx, no abdominal pain, jaundice, dark urine. nausea, vomiting or fevers, chills. She did recall several days of ruq pain going into her back, but pain was also in lower abdomen, which had gone. her appetite has been good, and no weight loss, stools are normal, without blood. She denied use of herbs, OTC meds, tylenol, or sick contacts, no respiratory sx. No ABX in last 3 months specifically no augmentin. Deneis alcohol intake and no illicit drug use. An abdominal ultrasound obtained in the ER, revealed normal-appearing liver with possible mild steatosis and no CBD dialtion or stones. MRCP done and personally reviewed, without any ductal dilation or filling defects, no pancreas mass. LAbs with neg acetaminophen, Hep serologies, ferritin 5000, and iron sat 72%, auto antibodies with raised ZITA, raised SMA, neg SLA, neg ANCA< neg celiac, normal IgG level Rept LABS: ferritin: 1471 TB: 3.7 AST- 648 ALT: 650 Alk p: 245 HFE gene status--negative TPMT--nml activity she eventually agreed to a liver bx: 12/24 Revealed Marked portal and lobular chronic inflammation with eosinophils and plasma cells., stage 3 fibrosis, no sign iron deposition She developed ascites and required ascitic tap with SAAG >1.1, no SBP doppler was neg for PVT she was put on aldactone, lasix and imuran 50 mg with steroid taper the imuran made her feel nauseated so changed to 6 MP LABS: 03/26 Hgb: 14 MCV: 101 pls 158 Na 141 creat 0.6 bili 1 AST 50 ALT 46 alk phos 122 alb 3.8 Rept labs 05/2021: bili- 1.1 ALT 31 AST 33 alk phos 117 Labs: 04/2022 LFT nml apart from mild ALT elevation LFT 10/2022-- LFT nml OTHER DATA: EGD: 05/2021----small varices, hyperplastic polyp removed fundus US 06/2021--cirrhosis, no mass lesions US: 02/2022- normal appearing liver, prominetn LN head of pancreas area. MRI 06/26-- no abn liver lesions, no pancreas lesions INTERIM: appetite is good, no abdominal pain weight is stable no more ascites denies nausea or vomiting no constipation or diarrhea no melena or rectal bleeding still compliant with 6MP still smoking 7 cig/day, no alcohol use EXAM: GENERAL: The patient is well developed and nontoxic. VITAL SIGNS:see workflow HEENT: Nonicteric sclerae, PERRLA, EOMI. Oropharynx clear. Moist mucous membranes. Conjunctivae appear well perfused. No thyroid mass. CHEST: Chest wall is nontender. HEART: Regular rate and rhythm without murmurs. LUNGS: Clear to auscultation bilaterally. ABDOMEN: Soft, positive bowel sounds, nontender,? pos hepatomegaly .no flank tenderness SKIN: No rash, no excessive bruising, petechiae, or purpura. NEUROLOGIC: Cranial nerves II-XII intact without motor/sensory deficit. psych--nml affect A/P: 1/ Abn LFT with elevated iron markers, pos ZITA and SMA--most consistent with type 1 Autoimmune hepatitis, ascites now resolved with diuretics and immune suppression, LFt have been good 2/ Gastric polyp, hyperplastic 3/ epigastric pain and fullness, satiety--resolved PLAN: 1/ cont with 6 MP--recheck labs next visit 2/ q 6 months imaging for HCC, repeat now 3/ EGD for variceal surveillance in 1 yr --due now 4/ cont with MV and supplements 5/ transplant--not needed right now, improved 6/ with chronic 6 MP will need regular mammograms, pap, skin exam and colonoscopy per schedule 7/ can recommence diuretics if ascites re accumulate but no evidence of active disease at this time ?? ? [facility] Medical History Abnormal LFTs Abnormal SPEP Allergic rhinitis Arthritis Asthma Autoimmune hepatitis COPD (chronic obstructive pulmonary disease) HTN (hypertension) Hyperparathyroidism Low calcium levels Osteoporosis Smoker Transaminitis Vitamin D deficiency Surgical History H/O colonoscopy History of ERCP History of esophagogastroduodenoscopy (EGD) History of liver biopsy Hx laparoscopic cholecystectomy Hx of tonsillectomy Hx of tubal ligation Family History Father Diabetes Heart disease Hypertension Mother Diabetes Arthritis Heart disease Paternal Uncle Cancer Sister Lung cancer Social History Household Members: Family Housing: Apartment Do you presently have visiting nurse or other home services: No Alcohol intake: former Patient Tobacco Use Status: Current everyday Tobacco user Tobacco use type: Cigarette Cigarette Packs Per Day: 0 Cigarettes Per Day: 3 Years Smoked: 47 Second Hand Smoke Exposure: Yes Advance Directives Date on File: 10/24/20 service: No Current occupational status: unemployed Physical Exam Vital Signs: Last Vital Signs Pulse 85 02/23/23 08:58 BP 147/87 H 02/23/23 08:58 BMI result Body Mass Index 22.5 Assessment & Plan Assessment & Plan (1) Autoimmune hepatitis: Code(s): K75.4 - Autoimmune hepatitis Orders: Orders US abdomen joaquin w elastography Today K74.60 - Unspecified cirrhosis of liver, K75.81 - Nonalcoholic steatohepatitis (ROSARIO) Coding Level of Care Code Est Pt Level 4 (01191) Diagnoses Autoimmune hepatitis K75.4
[2023-02-23 08:58] VITALS: BP 147/87; PULSE 85; BMI 22.5
== END 2023-02-23 09:13 | disposition home or self-care (01) ==
PROVIDERS: PCP Internal Medicine; Visit Provider Internal Medicine Gastroenterology
DX: K75.4 Autoimmune hepatitis (principal)
CPT/HCPCS: 99214

== ENCOUNTER → 2023-02-23 08:42 | Outpatient (BNVA) | payer OTHER, MEDICAID, SELFPAY | PROVIDERS: PCP Internal Medicine; Visit Provider Internal Medicine Gastroenterology | DX: K75.4 Autoimmune hepatitis (principal); K75.81 Nonalcoholic steatohepatitis (NASH); K74.60 Unspecified cirrhosis of liver; Z90.49 Acquired absence of other specified parts of digestive tract; Z98.890 Other specified postprocedural states | CPT/HCPCS: 99212 ==

== ENCOUNTER 2023-03-20 09:21 | Outpatient (REF) | payer OTHER, SELFPAY ==
--- NOTE | ~2023-03-20 | US_ITS ---
EXAMINATION: US ABDOMEN LIMITED WITH LIVER ELASTOGRAPHY CLINICAL INFORMATION: ROSARIO. COMPARISON: MRI abdomen .2 TECHNIQUE: Real-time imaging of the abdominal viscera. Noninvasive ultrasound liver fibrosis assessment is performed using Avery ElastPQ point quantification shear wave elastography (2D-SWE) with a C5-2 MHz transducer. Multiple elastography samples are obtained. FINDINGS: PANCREAS: There is a hypoechoic mass adjacent to the pancreatic head measuring 2.3 x 1.4 x 2.1 cm consistent with a lymph node which has been seen in the past and is unchanged. The visualized pancreatic head and body are normal in appearance. The remainder of the pancreas is obscured from visualization by the overlying bowel gas. LIVER: Liver echogenicity is increased. No focal liver mass is seen. No bile duct dilatation. The right lobe measures 12.5 cm in length. The left lobe measures 12.2 cm in length. Portal flow is hepatopedal. Shear wave liver elastography median stiffness is 2.23 m/s (reference; normal median stiffness is 1.3 m/s or less). On the 03/04/2022 study, this value was 1.27 m/s, although it has been significantly higher prior to that time. IQR/median stiffness to assess sampling precision is 0.12 (reference; good quality data set is IQR/median stiffness of 0.15 or less). GALLBLADDER: Normal. The gallbladder is physiologically distended without evidence of stones, sludge, polyps, wall thickening or pericholecystic fluid. COMMON BILE DUCT: Normal in caliber measuring 0.7 cm in diameter. RIGHT KIDNEY: Normal. No hydronephrosis. No renal calculi or focal parenchymal lesions. The kidney measures 10.3 cm in maximum dimension. FREE FLUID: None. US/US abdomen joaquin w elastography IMPRESSION: Liver is echogenic consistent with hepatic steatosis. Measurements are consistent with compensated advanced chronic liver disease. When compared with the most recent prior exam, there is a statistically significant increase in liver stiffness (increase at least 10%). REFERENCE: Society of Radiologists in Ultrasound Liver Stiffness Thresholds (2019): LIVER STIFFNESS THRESHOLDS: *Liver Stiffness equal or less than 1.3 m/s: High probability of being normal. *Liver Stiffness less than 1.7 m/s: In the absence of other known clinical signs, rules out compensated advanced chronic liver disease. *Liver Stiffness 1.7-2.1 m/s: Suggestive of compensated advanced chronic liver disease but need further test for confirmation. *Liver Stiffness over 2.1 m/s: Rules in compensated advanced chronic liver disease. *Liver Stiffness over 2.4 m/s: Suggestive of clinically significant portal hypertension. QUALITY OF DATA SET: *IQR/Median value equal or less than 0.15 implies a quality data set. *IQR/Median value over 0.15 implies a poor quality data set. SIGNIFICANT CHANGE FROM PRIOR EXAM: Significant change if liver stiffness measurement is 10% or greater from prior exam. OTHER CONSIDERATIONS: The stage of liver fibrosis may be overestimated in the setting of acute hepatitis, liver inflammation, elevated liver function tests, hepatic vascular congestion, obstructive cholestasis, non-fasting state, and infiltrative diseases such as amyloidosis and lymphoma. In some patients with NAFLD, the liver stiffness thresholds for compensated advanced chronic liver disease may be lower. In causes other than viral hepatitis and NAFLD, liver stiffness thresholds are not well established.
== END 2023-03-20 09:22 | disposition home or self-care (01) ==
LOC: HO.US 09:21
PROVIDERS: PCP Internal Medicine; Visit Provider Internal Medicine Gastroenterology
DX: K75.81 Nonalcoholic steatohepatitis (NASH) (principal); K74.60 Unspecified cirrhosis of liver
CPT/HCPCS: 76705; 76981

== ENCOUNTER 2023-04-29 19:17 | Emergency (ER) | payer OTHER, SELFPAY ==
--- NOTE | ~2023-04-29 | XR_ITS ---
EXAMINATION: XR CHEST CLINICAL INFORMATION: Cough COMPARISON: Chest radiograph from 12/28/2022 TECHNIQUE: 2 views of the chest were obtained. FINDINGS: Slight bronchial prominence which can be seen in setting of infectious/inflammatory etiology. No pneumothorax. Trachea is midline. Cardiac mediastinal silhouette is not enlarged. Aorta demonstrates atherosclerotic calcifications. No large pleural effusion. Osseous structures are intact. Soft tissues are unremarkable. XR/XR chest 2V IMPRESSION: Slight bronchial prominence which can be seen in setting of infectious/inflammatory etiology.
[2023-04-29 19:34] VITALS: BP 180/112; PULSE 93; RESP 18; TEMP 36.9; O2SAT 96; BMI 23.4
[2023-04-29 22:05] LABS: COVID-19 Test Negative (Negative); IDNOW Serial# BCCEAD1C
[2023-04-29 22:07] LABS: IDNOW Serial# 08D9AD1C; Influenza A Negative (Negative); Influenza B2 Negative (Negative)
[2023-04-29 23:44] VITALS: BP 188/112; PULSE 98; RESP 21; O2SAT 96
--- NOTE | 2023-04-29 23:48 | ED.URI ---
HPI - URI/Sore Throat General Chief Complaint: Upper Respiratory Symptoms Stated Complaint: coughing, asthma Time Seen by Provider: 04/29/23 23:10 Source: patient Mode of arrival: ambulatory Limitations: no limitations History of Present Illness HPI Narrative: 68-year-old female with a history of asthma presents to the ER with complaints of 2 days of sore throat, coughing, sneezing, wheezing, body aches. Patient denies shortness of breath or chest pain or fever. No leg swelling or leg pain. Using albuterol at home with continued symptoms Related Data Home Medications Medication Instructions Recorded Confirmed loratadine 10 mg tablet 10 mg PO DAILY PRN Allergic 07/19/20 01/20/23 Symptoms montelukast 10 mg tablet 10 mg PO BEDTIME 07/19/20 01/20/23 ipratropium bromide 17 2 puff inhalation QID 09/13/20 01/20/23 mcg/actuation HFA aerosol inhaler (Atrovent HFA) multivitamin with folic acid 400 1 tab PO DAILY 06/11/21 01/20/23 mcg tablet (Daily-Glynn (with folic acid)) amlodipine 10 mg tablet 0 mg PO 02/23/23 nicotine 7 mg/24 hr daily 1 patch transdermal DAILY 02/23/23 transdermal patch Previous Rx's Medication Instructions Recorded calcium citrate 250 mg PO BID 30 days #60 tabs 11/21/20 furosemide 20 mg tablet 20 mg PO DAILY 30 days #30 tabs 01/04/21 Advair Diskus 250 mcg-50 mcg/dose 1 ea PO BID #60 ea 01/08/21 powder for inhalation (fluticasone propion-salmeterol) capsaicin 0.1 % topical cream 1 appl topical BID #60 grams 06/11/21 cholecalciferol (vitamin D3) 50 50 mcg PO DAILY 30 days #30 caps 09/16/21 mcg (2,000 unit) capsule omeprazole 40 mg capsule,delayed 40 mg PO BID 30 days #60 caps 09/25/21 release vitamin A 3,000 mcg (10,000 unit) 1 cap PO DAILY #30 caps 03/06/22 capsule mercaptopurine 50 mg tablet 50 mg PO DAILY #90 tabs 09/11/22 denosumab 60 mg/mL subcutaneous 60 mg subcut [id number] 1 day #1 mL 04/12/23 syringe (Prolia) spironolactone 50 mg tablet 100 mg (2 x 50 mg) PO DAILY #180 12/12/22 tabs albuterol sulfate 2.5 mg/3 mL 2.5 mg (3 mL) inhalation Q4-6H PRN 12/28/22 (0.083 %) solution for nebulization shortness of breath or wheezing #90 mL albuterol sulfate 90 mcg/actuation 1 inh inhalation QID PRN shortness 12/28/22 aerosol inhaler of breath or wheezing #8.5 grams prednisone 20 mg tablet 20 mg PO BID #10 tabs 12/28/22 pyridoxine (vitamin B6) 100 mg 100 mg PO BID #60 tabs 03/24/23 tablet albuterol sulfate 2.5 mg/0.5 mL 5 mg inhalation Q6H PRN 04/30/23 solution for nebulization bronchospasm #30 ea benzonatate 200 mg capsule 200 mg PO TID PRN cough #20 caps 04/30/23 prednisone 20 mg tablet 40 mg (2 x 20 mg) PO DAILY #8 tabs 04/30/23 Allergies Allergy/AdvReac Type Severity Reaction Status Date / Time No Known Allergies Allergy Verified 04/29/23 19:34 Review of Systems Review of Systems: Yes all other systems are reviewed and are negative Constitutional: Constitutional: Reports no additional constitutional complaints, Reports body ache(s), Denies chills, Denies fever(s), Denies headache(s) and Denies weakness Eyes: Eyes: Reports no additional eye complaints and Denies change in vision ENT: Reports system reviewed and no additional complaints, except as documented, Denies dizziness, Denies headache(s), Denies nasal congestion, Denies nasal discharge, Denies neck pain and Reports sore throat Cardiovascular: Cardiovascular: Reports no additional cardiovascular complaints, Denies chest pain, Denies leg edema and Denies dyspnea Respiratory: Respiratory: Reports no additional respiratory complaints, Reports cough, Denies dyspnea and Reports wheezing Gastrointestinal: Gastrointestinal: Reports no additional gastrointestinal complaints, Denies abdominal pain, Denies diarrhea, Denies nausea and Denies vomiting Genitourinary: Genitourinary: Reports no additional female genitourinary complaints and Denies urinary incontinence Musculoskeletal: Musculoskeletal: Reports no additional musculoskeletal complaints, Denies back pain, Denies arthralgias, Denies joint swelling, Denies neck pain, Denies numbness and Denies tingling Integumentary/Breasts: Skin/Breast: Reports system reviewed and no additional complaints, except as docu and Denies rash Neurologic: Reports system reviewed and no additional complaints, except as documented, Denies Abnormal speech present, Denies dizziness, Denies headache(s), Denies numbness, Denies tingling and Denies weakness Allergic/Immunologic: Allergic/Immunologic: Reports wheezing PMFSH Past Medical History Attestation statement: The following information was validated with the patient. Source: old records reviewed and nursing notes reviewed Medical History Autoimmune hepatitis Transaminitis Abnormal LFTs Smoker Allergic rhinitis COPD (chronic obstructive pulmonary disease) Hyperparathyroidism Abnormal SPEP Vitamin D deficiency Osteoporosis Arthritis Low calcium levels HTN (hypertension) Asthma Surgical History History of esophagogastroduodenoscopy (EGD) History of liver biopsy History of ERCP H/O colonoscopy Hx laparoscopic cholecystectomy Hx of tubal ligation Hx of tonsillectomy Family History Family History Father Diabetes Heart disease Hypertension Mother Diabetes Arthritis Heart disease Paternal Uncle Cancer Sister Lung cancer Social History Social History Household Members: Family Housing: Apartment Do you presently have visiting nurse or other home services: No Alcohol intake: former Patient Tobacco Use Status: Current everyday Tobacco user Tobacco use type: Cigarette Cigarette Packs Per Day: 0 Cigarettes Per Day: 3 Years Smoked: 47 Second Hand Smoke Exposure: Yes Advance Directives: Yes Advance Directives on File: Yes Advance Directives Date on File: 10/24/20 service: No Current occupational status: unemployed Physical Exam Vital Signs: Vital Signs: Last Vital Signs Temp 98.5 F 04/29/23 19:34 Pulse 96 04/29/23 23:58 Resp 16 04/29/23 23:58 BP 188/112 H 04/29/23 23:44 Pulse Ox 96 04/29/23 23:44 O2 Del Method Room Air 04/29/23 23:44 BMI result Body Mass Index 23.4 Const: General: cooperative, healthy appearing, comfortable and no acute distress Orientation/consciousness: patient oriented x3 Limitations: no limitations HEENT: Head: Yes normal to inspection Ears: hearing grossly normal bilaterally and TM's normal bilaterally General nose exam: Normal external nose present Face and sinus: Yes normal facial exam Mouth: Normal oral and palatal mucosa present Throat: Yes posterior oropharynx normal, Yes tonsils normal and Yes uvula midline Eyes: General: appearance normal, both eyes and all related structures Pupils: Equal, round and reactive pupils present Neck: Neck: Yes normal visual inspection, Yes full ROM, Yes no lymphadenopathy and Yes no meningeal signs Chest: Chest palpation & inspection: normal inspection of the chest Resp: Effort & Inspection: normal respiratory effort Auscultation: wheezes Cardio: Rate: regular rate Rhythm: regular rhythm Peripheral pulses: Peripheral pulses 2+ throughout GI: Inspection: Yes normal to inspection Palpation (GI): Soft to palpation and nontender Auscultation: normal bowel sounds Back/Spine/Pelvis: Thoracic/Lumbar Spine: thoracic and lumbar spine normal to inspection Skin: General skin exam: no rashes or lesions noted Neuro: General: patient oriented x3, no meningeal signs, no focal motor deficits and normal sensation to monofilament Cranial nerves: Yes Equal, round and reactive pupils present Cognition (Neuro): normal cognition Speech: No Abnormal speech present Gait exam (Neuro): Normal gait present Motor exam (neuro): 5/5 motor strength present throughout Extrem: General: Yes normal to inspection, Yes no pedal edema and Yes no calf tenderness Course Course Course Narrative: Patient feeling improved after receiving a DuoNeb. Plan for discharge home with prednisone course and cough suppressant. Reviewed worrisome signs and symptoms of when to return to the emergency room. Comfortable plan for discharge home Medications Administered Discontinued Medications Generic Name Dose Route Start Last Admin Trade Name Freq PRN Reason Stop Dose Admin Albuterol/Ipratropium 3 ml 04/29/23 23:46 04/29/23 23:57 Albuterol/Iprat 2.5/0.5mg 3 Ml Ampul.Neb INHALE 04/29/23 23:47 3 ml ONCE ONE Administration Benzonatate 200 mg 04/29/23 23:46 04/30/23 00:28 Benzonatate 100 Mg Capsule PO 04/29/23 23:47 200 mg ONCE ONE Administration Prednisone 60 mg 04/29/23 23:46 04/30/23 00:28 Prednisone 20 Mg Tablet PO 04/29/23 23:47 60 mg ONCE ONE Administration Medical Decision Making Medical Decision Making [facility] Narrative: 68-year-old female with a history of asthma presents to the ER with complaints of 2 days of sore throat, coughing, sneezing, wheezing, body aches. Patient denies shortness of breath or chest pain or fever. No leg swelling or leg pain. Using albuterol at home with continued symptoms Mild wheezing on exam. Saturations are stable. Patient is hypertensive but asymptomatic. Patient has history of hypertension. She tells me that her primary care doctor has been trying to get better control over recently has been adjusting her medications. Will review viral testing and chest x-ray from triage Will give DuoNeb, prednisone, cough suppressant Differential Diagnosis Differential Diagnoses: The differential diagnosis associated with the presentation includes Viral syndrome, asthma exacerbation Low concern for PE with no risk factors, no hypoxia, no tachypnea, no clinical findings concerning for DVT low concern for pneumonia Admission/Observation Consideration of admission/observation: Escalation of care including admission/observation considered No hypoxia, not requiring supplemental oxygen necessitating admission Lab Data [facility] Lab Attestation statement: I reviewed the patient's lab results. Viral testing negative Labs: Lab Results 04/29/23 Range/Units 21:44 COVID-19 (GARRICK) Negative (Negative) COVID-19 Clin Com See Note Influenza Type A (MARISA) Negative (Negative) Influenza Type B (MARISA) Negative (Negative) Influenza A & B Note See Note Independent Interpretation I performed an independent interpretation of an: Plain X-Ray Interpretation: I independently reviewed the x-ray and agree with Radiology report Radiology Impression Discussion of test interpretation with radiology: I have reviewed the radiologist's reading. Radiologist Impression: [address] [address] XRay Report Signed Patient: Vandana Hull MR#: [id number] : 1955 Acct:[id number] Age/Sex: 68 / F ADM Date: 04/29/23 Loc: .ED Attending Dr: Ordering Physician: Generic ED Physician Date of Service: 04/29/23 Procedure(s): XR chest 2V Accession Number(s): [id number] cc: Katya Titus MD; Generic ED Physician~ EXAMINATION: XR CHEST CLINICAL INFORMATION: Cough COMPARISON: Chest radiograph from 12/28/2022 TECHNIQUE: 2 views of the chest were obtained. FINDINGS: Slight bronchial prominence which can be seen in setting of infectious/inflammatory etiology. No pneumothorax. Trachea is midline. Cardiac mediastinal silhouette is not enlarged. Aorta demonstrates atherosclerotic calcifications. No large pleural effusion. Osseous structures are intact. Soft tissues are unremarkable. XR/XR chest 2V IMPRESSION: Slight bronchial prominence which can be seen in setting of infectious/inflammatory etiology. Discharge Plan Discharge Clinical Impression: Upper respiratory infection Patient Disposition: Home, Self-Care Instructions: Upper Respiratory Infection (ED) Additional Instructions: Chest x-ray shows no acute finding Viral testing is negative Start your prednisone tomorrow Return for any worsening symptom Prescriptions: New albuterol sulfate 2.5 mg/0.5 mL solution for nebulization 5 mg inhalation Q6H PRN (Reason: bronchospasm) Qty: 30 0RF prednisone 20 mg tablet 40 mg PO DAILY Qty: 8 0RF benzonatate 200 mg capsule 200 mg PO TID PRN (Reason: cough) Qty: 20 0RF No Action fluticasone propion-salmeterol [Advair Diskus] 250-50 mcg/dose blister with device 1 ea PO BID Qty: 60 3RF cholecalciferol (vitamin D3) 50 mcg (2,000 unit) capsule 50 mcg PO DAILY 30 Days Qty: 30 11RF omeprazole 40 mg capsule,delayed release(DR/EC) 40 mg PO BID 30 Days Qty: 60 3RF vitamin A 10,000 unit capsule 1 cap PO DAILY Qty: 30 0RF mercaptopurine 50 mg tablet 50 mg PO DAILY Qty: 90 0RF spironolactone 50 mg tablet 100 mg PO DAILY Qty: 180 0RF pyridoxine (vitamin B6) 100 mg tablet 100 mg PO BID Qty: 60 2RF furosemide 20 mg Tablet 20 mg PO DAILY 30 Days Qty: 30 1RF Protocol: Hold for SBP< HOLD for SBP < : 90 albuterol sulfate 90 mcg/actuation HFA aerosol inhaler 1 inh inhalation QID PRN (Reason: shortness of breath or wheezing) Qty: 8.5 0RF prednisone 20 mg tablet 20 mg PO BID Qty: 10 0RF albuterol sulfate 2.5 mg /3 mL (0.083 %) solution for nebulization 2.5 mg inhalation Q4-6H PRN (Reason: shortness of breath or wheezing) Qty: 90 0RF montelukast 10 mg tablet 10 mg PO BEDTIME loratadine 10 mg tablet 10 mg PO DAILY PRN (Reason: Allergic Symptoms) Atrovent HFA 17 mcg/actuation HFA aerosol inhaler 2 puff inhalation QID calcium citrate 250 mg calcium tablet 250 mg PO BID 30 Days Qty: 60 11RF Prolia 60 mg/mL syringe 60 mg subcut [id number] 1 Days Qty: 1 2RF multivitamin with folic acid [Daily-Glynn (with folic acid)] 400 mcg tablet 1 tab PO DAILY capsaicin 0.1 % cream 1 appl topical BID Qty: 60 1RF Rx Instructions: do not wash area for at least 30 min after application nicotine 7 mg/24 hr patch 24 hour 1 patch transdermal DAILY amlodipine 10 mg tablet 0 mg PO
[2023-04-29] MEDS: Albuterol/Iprat 2.5/0.5MG 3 ML AMPUL.NEB INHALE (23:57)
[2023-04-29 23:58] VITALS: PULSE 96; RESP 16; O2SAT 96
[2023-04-30] MEDS: Benzonatate 100 MG CAPSULE 200 MG PO (00:28)
[2023-04-30] MEDS: predniSONE 20 MG TABLET 60 MG PO (00:28)
== END 2023-04-30 00:54 | disposition home or self-care (01) ==
PROVIDERS: Emergency Provider Internal Medicine; PCP Internal Medicine
DX: J06.9 Acute upper respiratory infection, unspecified (principal); I10 Essential (primary) hypertension; J45.909 Unspecified asthma, uncomplicated; F17.210 Nicotine dependence, cigarettes, uncomplicated; Z11.52 Encounter for screening for COVID-19
CPT/HCPCS: 71046; 87502; 87635; 94640; 99283; 99284

== ENCOUNTER 2023-05-20 19:17 | Emergency (ER) | payer OTHER, SELFPAY ==
--- NOTE | ~2023-05-20 | XR_ITS ---
EXAMINATION: XR CHEST 2 VIEWS CLINICAL INFORMATION: Cough. COMPARISON: Prior chest radiographs, most recently 04/29/2023. TECHNIQUE: Frontal and lateral views of the chest were obtained. FINDINGS: The heart, great vessels, pulmonary vasculature and mediastinum are normal. The lungs show no focal infiltrate, effusion or pneumothorax. At the medial right base on the frontal view, a 1.3 cm nodule is questioned, versus overlap of bronchovascular structures. There is no acute osseous abnormality. XR/XR chest 2V IMPRESSION: 1. Question 1.3 cm right base nodule versus overlap shadows of bronchovascular structures. Recommend further evaluation with apical lordotic and oblique chest radiographs. Should the density persist, CT evaluation may be considered. 2. No focal infiltrate or congestive heart failure is seen.
--- NOTE | 2023-05-20 19:19 | ED.SOB ---
HPI - SOB/Dyspnea General Chief Complaint: Dyspnea Stated Complaint: asthma Time Seen by Provider: 05/20/23 19:30 Source: patient, RN notes reviewed and old records reviewed Mode of arrival: ambulatory History of Present Illness HPI Narrative: 68-year-old female with past medical history of asthma, autoimmune hepatitis, GERD, IBS, hemochromatosis, COPD, hyperparathyroid, presenting to the ED complaining of dry cough, SOB, chest discomfort with coughing x4 days. Admits recently saw PCP & was diagnosed with bronchitis, finished course of Azithromycin and Prednisone with relief however then symptoms recurred. +sick contact. Denies fever, chills, pedal edema MD elicited complaint: shortness of breath, cough and asthma attack Related Data Home Medications Medication Instructions Recorded Confirmed loratadine 10 mg tablet 10 mg PO DAILY PRN Allergic 07/19/20 01/20/23 Symptoms montelukast 10 mg tablet 10 mg PO BEDTIME 07/19/20 01/20/23 ipratropium bromide 17 2 puff inhalation QID 09/13/20 01/20/23 mcg/actuation HFA aerosol inhaler (Atrovent HFA) multivitamin with folic acid 400 1 tab PO DAILY 06/11/21 01/20/23 mcg tablet (Daily-Glynn (with folic acid)) amlodipine 10 mg tablet 0 mg PO 02/23/23 nicotine 7 mg/24 hr daily 1 patch transdermal DAILY 02/23/23 transdermal patch Previous Rx's Medication Instructions Recorded calcium citrate 250 mg PO BID 30 days #60 tabs 11/21/20 furosemide 20 mg tablet 20 mg PO DAILY 30 days #30 tabs 01/04/21 Advair Diskus 250 mcg-50 mcg/dose 1 ea PO BID #60 ea 01/08/21 powder for inhalation (fluticasone propion-salmeterol) capsaicin 0.1 % topical cream 1 appl topical BID #60 grams 06/11/21 cholecalciferol (vitamin D3) 50 50 mcg PO DAILY 30 days #30 caps 09/16/21 mcg (2,000 unit) capsule omeprazole 40 mg capsule,delayed 40 mg PO BID 30 days #60 caps 09/25/21 release vitamin A 3,000 mcg (10,000 unit) 1 cap PO DAILY #30 caps 03/06/22 capsule mercaptopurine 50 mg tablet 50 mg PO DAILY #90 tabs 09/11/22 spironolactone 50 mg tablet 100 mg (2 x 50 mg) PO DAILY #180 12/12/22 tabs albuterol sulfate 2.5 mg/3 mL 2.5 mg (3 mL) inhalation Q4-6H PRN 12/28/22 (0.083 %) solution for nebulization shortness of breath or wheezing #90 mL albuterol sulfate 90 mcg/actuation 1 inh inhalation QID PRN shortness 12/28/22 aerosol inhaler of breath or wheezing #8.5 grams prednisone 20 mg tablet 20 mg PO BID #10 tabs 12/28/22 pyridoxine (vitamin B6) 100 mg 100 mg PO BID #60 tabs 03/24/23 tablet albuterol sulfate 2.5 mg/0.5 mL 5 mg inhalation Q6H PRN 04/30/23 solution for nebulization bronchospasm #30 ea benzonatate 200 mg capsule 200 mg PO TID PRN cough #20 caps 04/30/23 prednisone 20 mg tablet 40 mg (2 x 20 mg) PO DAILY #8 tabs 04/30/23 denosumab 60 mg/mL subcutaneous 60 mg subcut [id number] 1 day #1 mL 05/06/23 syringe (Prolia) albuterol sulfate 2.5 mg/0.5 mL 5 mg inhalation Q4H PRN shortness 05/20/23 solution for nebulization of breath or wheezing #30 ea albuterol sulfate 90 mcg/actuation 2 puff inhalation Q4-6H PRN 05/20/23 aerosol inhaler shortness of breath or wheezing #6.7 grams benzonatate 100 mg capsule 100 mg PO TID PRN cough #14 caps 05/20/23 prednisone 20 mg tablet 40 mg (2 x 20 mg) PO DAILY 5 days 05/20/23 #10 tabs Allergies Allergy/AdvReac Type Severity Reaction Status Date / Time No Known Allergies Allergy Verified 05/20/23 19:22 Review of Systems Review of Systems: Constitutional: No Fever, No Chills ENT/Mouth: No Ear Pain, No Nasal Congestion, No sore throat, No Rhinorrhea, No Swallowing Difficulty Cardiovascular: + Chest Pain w/cough, + SOB Respiratory: + Cough, No Sputum, No Wheezing Gastrointestinal: No Nausea, No Vomiting, No Diarrhea, No Constipation, No Abdominal pain Musculoskeletal: No joint pain, No Myalgias, No Joint Swelling Skin: No Skin Lesions, No rash Neuro: No Weakness, No Numbness, No Paresthesias Yes all other systems are reviewed and are negative Constitutional: Constitutional: Reports as per [facility] Past Medical History Attestation statement: The following information was validated with the patient. Source: old records reviewed Medical History Autoimmune hepatitis Transaminitis Abnormal LFTs Smoker Allergic rhinitis COPD (chronic obstructive pulmonary disease) Hyperparathyroidism Abnormal SPEP Vitamin D deficiency Osteoporosis Arthritis Low calcium levels HTN (hypertension) Asthma Surgical History History of esophagogastroduodenoscopy (EGD) History of liver biopsy History of ERCP H/O colonoscopy Hx laparoscopic cholecystectomy Hx of tubal ligation Hx of tonsillectomy Family History Family History Father Diabetes Heart disease Hypertension Mother Diabetes Arthritis Heart disease Paternal Uncle Cancer Sister Lung cancer Social History Social History Household Members: Family Housing: Apartment Do you presently have visiting nurse or other home services: No Alcohol intake: former Patient Tobacco Use Status: Current everyday Tobacco user Tobacco use type: Cigarette Cigarette Packs Per Day: 0 Cigarettes Per Day: 3 Years Smoked: 47 Second Hand Smoke Exposure: Yes Advance Directives: No Advance Directives Date on File: 10/24/20 service: No Current occupational status: unemployed Physical Exam Vital Signs: Vital Signs: Last Vital Signs Temp 99 F 05/20/23 19:20 Pulse 83 05/20/23 20:45 Resp 18 05/20/23 20:45 BP 164/88 H 05/20/23 19:20 Pulse Ox 98 05/20/23 20:20 O2 Del Method Room Air 05/20/23 20:20 BMI result Body Mass Index 22.9 Const: General: cooperative, healthy appearing, no acute distress and alert Orientation/consciousness: patient oriented x3 Limitations: no limitations HEENT: Head: Yes normal to inspection and Yes atraumatic Ears: hearing grossly normal bilaterally, external ears normal and TM's normal bilaterally General nose exam: Normal external nose present Face and sinus: Yes normal facial exam Mouth: Normal oral and palatal mucosa present Throat: Yes posterior oropharynx normal, Yes tonsils normal and Yes uvula midline Eyes: General: appearance normal, both eyes and all related structures EOM: EOMs intact bilaterally Neck: Neck: Yes normal visual inspection and Yes no meningeal signs Resp: Effort & Inspection: normal respiratory effort and no respiratory distress Auscultation: clear to auscultation bilaterally, no crackles and no wheezes Cardio: Rate: regular rate and tachycardic Heart sounds: S1 normal heart sound present and S2 normal heart sound present GI: Inspection: Yes normal to inspection Palpation (GI): Soft to palpation, nontender, no guarding and not rigid Skin: Rashes: no rashes Wounds: no wounds Neuro: General: patient oriented x3, tone normal and no meningeal signs Cranial nerves: Yes CN's II-XII intact bilaterally Gait exam (Neuro): Normal gait present Extrem: General: Yes normal to inspection, Yes no pedal edema and Yes no calf tenderness Course Course Course Narrative: -1949--patient maintain saturation of 95-96% on room air with ambulation -COVID negative -2058-- VS normalized. ED care transferred to [facility] pending CXR and anticipated d/c Medications Administered Discontinued Medications Generic Name Dose Route Start Last Admin Trade Name Freq PRN Reason Stop Dose Admin Albuterol/Ipratropium 3 ml 05/20/23 19:22 05/20/23 20:43 Albuterol/Iprat 2.5/0.5mg 3 Ml Ampul.Neb INHALE 05/20/23 19:23 3 ml ONCE ONE Administration Prednisone 40 mg 05/20/23 19:51 05/20/23 20:06 Prednisone 20 Mg Tablet PO 05/20/23 19:52 40 mg ONCE ONE Administration Medical Decision Making Medical Decision Making [facility] Narrative: 68-year-old female with past medical history of asthma, autoimmune hepatitis, GERD, IBS, hemochromatosis, COPD, hyperparathyroid, presenting to the ED complaining of dry cough, SOB, chest discomfort with coughing x4 days. On exam tachypneic, tachycardic likely from albuterol use PTS, satting 94% on room air, afebrile, no respiratory distress, talking in complete sentences, lungs CTA, no pedal edema. Concern for asthma/COPD exacerbation vs viral syndrome vs bronchitis vs pneumonia. Lower suspicion for ACS/PE or CHF. Low suspicion for severe sepsis at this time as likely viral etiology. Plan: COVID/influenza testing, CXR, DuoNeb, ambulate with pulse ox Please refer to course for remaining clinical decision making, interpretation of labs/imaging results, and discussions with consultants and/or family members. Differential Diagnosis Differential Diagnoses: The differential diagnosis associated with the presentation includes As above Admission/Observation Consideration of admission/observation: Escalation of care including admission/observation considered Lab Data MDM Lab Attestation statement: I reviewed the patient's lab results. Labs: Lab Results 05/20/23 Range/Units 19:39 COVID-19 (GARRICK) Negative (Negative) COVID-19 Clin Com See Note Influenza Type A (MARISA) Negative (Negative) Influenza Type B (MARISA) Negative (Negative) Influenza A & B Note See Note Independent Interpretation I performed an independent interpretation of an: Plain X-Ray Radiology Impression Discussion of test interpretation with radiology: I have reviewed the radiologist's reading. External Record Review External record reviewed: Inpatient record, Office record, Outpatient record, Prior outpatient labs, Prior outpatient radiology, Primary care record and Outside ED record Tests considered The following testing was considered but not selected: As above Prescription Management I considered prescription management with: Antibiotic Chronic Conditions Patient?s care impacted by: Hypertension and Other (Asthma/COPD) Discharge Plan Discharge Clinical Impression: Asthma with COPD with exacerbation Patient Disposition: Home, Self-Care Instructions: Asthma (DC), COPD (Chronic Obstructive Pulmonary Disease) (DC) Additional Instructions: You tested negative for COVID and flu Your x-rays unremarkable Prednisone as a steroid please take as prescribed Shantal Cooper are for cough, take as needed Continue to use your inhalers in the machine at home Follow up with her doctor If symptoms persist or worsen return to the ED Prescriptions: New prednisone 20 mg tablet 40 mg PO DAILY 5 Days Qty: 10 0RF benzonatate 100 mg capsule 100 mg PO TID PRN (Reason: cough) Qty: 14 0RF albuterol sulfate 90 mcg/actuation HFA aerosol inhaler 2 puff inhalation Q4-6H PRN (Reason: shortness of breath or wheezing) Qty: 6.7 0RF albuterol sulfate 2.5 mg/0.5 mL solution for nebulization 5 mg inhalation Q4H PRN (Reason: shortness of breath or wheezing) Qty: 30 0RF No Action fluticasone propion-salmeterol [Advair Diskus] 250-50 mcg/dose blister with device 1 ea PO BID Qty: 60 3RF cholecalciferol (vitamin D3) 50 mcg (2,000 unit) capsule 50 mcg PO DAILY 30 Days Qty: 30 11RF omeprazole 40 mg capsule,delayed release(DR/EC) 40 mg PO BID 30 Days Qty: 60 3RF vitamin A 10,000 unit capsule 1 cap PO DAILY Qty: 30 0RF mercaptopurine 50 mg tablet 50 mg PO DAILY Qty: 90 0RF spironolactone 50 mg tablet 100 mg PO DAILY Qty: 180 0RF pyridoxine (vitamin B6) 100 mg tablet 100 mg PO BID Qty: 60 2RF Prolia 60 mg/mL syringe 60 mg subcut [id number] 1 Days Qty: 1 2RF furosemide 20 mg Tablet 20 mg PO DAILY 30 Days Qty: 30 1RF Protocol: Hold for SBP< HOLD for SBP < : 90 albuterol sulfate 90 mcg/actuation HFA aerosol inhaler 1 inh inhalation QID PRN (Reason: shortness of breath or wheezing) Qty: 8.5 0RF prednisone 20 mg tablet 20 mg PO BID Qty: 10 0RF albuterol sulfate 2.5 mg /3 mL (0.083 %) solution for nebulization 2.5 mg inhalation Q4-6H PRN (Reason: shortness of breath or wheezing) Qty: 90 0RF albuterol sulfate 2.5 mg/0.5 mL solution for nebulization 5 mg inhalation Q6H PRN (Reason: bronchospasm) Qty: 30 0RF prednisone 20 mg tablet 40 mg PO DAILY Qty: 8 0RF benzonatate 200 mg capsule 200 mg PO TID PRN (Reason: cough) Qty: 20 0RF montelukast 10 mg tablet 10 mg PO BEDTIME loratadine 10 mg tablet 10 mg PO DAILY PRN (Reason: Allergic Symptoms) Atrovent HFA 17 mcg/actuation HFA aerosol inhaler 2 puff inhalation QID calcium citrate 250 mg calcium tablet 250 mg PO BID 30 Days Qty: 60 11RF multivitamin with folic acid [Daily-Glynn (with folic acid)] 400 mcg tablet 1 tab PO DAILY capsaicin 0.1 % cream 1 appl topical BID Qty: 60 1RF Rx Instructions: do not wash area for at least 30 min after application nicotine 7 mg/24 hr patch 24 hour 1 patch transdermal DAILY amlodipine 10 mg tablet 0 mg PO Referrals: Katya Titus MD [Primary Care Provider] - 3 days
[2023-05-20 19:20] VITALS: BP 164/88; PULSE 114; RESP 24; TEMP 37.2; O2SAT 94; BMI 22.9
--- NOTE | 2023-05-20 19:47 | PC.NURSE ---
nasal swabs obtained and sent to lab. ambulatory o2 remains 95-96% on RA. lung sounds cta. pt reports dry cough x 20 days; finished round of abx and prednisone sx slightly improved however dry cough persists.
[2023-05-20 19:59] LABS: COVID-19 Test Negative (Negative); IDNOW Serial# 08D9AD1C
[2023-05-20] MEDS: predniSONE 20 MG TABLET 40 MG PO (20:06)
[2023-05-20 20:16] LABS: IDNOW Serial# BCCEAD1C; Influenza A Negative (Negative); Influenza B2 Negative (Negative)
[2023-05-20 20:20] VITALS: PULSE 95; O2SAT 98
--- NOTE | 2023-05-20 20:20 | PC.NURSE ---
pt medicated per sep. resp called for neb tx.
[2023-05-20] MEDS: Albuterol/Iprat 2.5/0.5MG 3 ML AMPUL.NEB INHALE (20:43)
[2023-05-20 20:45] VITALS: PULSE 83; RESP 18; O2SAT 95
[2023-05-20 21:03] VITALS: BP 146/76; PULSE 89; RESP 20; O2SAT 97
== END 2023-05-20 21:44 | disposition home or self-care (01) ==
PROVIDERS: Physician Assistant; Emergency Provider Internal Medicine; PCP Internal Medicine
DX: J45.901 Unspecified asthma with (acute) exacerbation (principal); R06.02 Shortness of breath; R07.89 Other chest pain; R05.9 Cough, unspecified; F17.210 Nicotine dependence, cigarettes, uncomplicated; Z11.52 Encounter for screening for COVID-19; Z20.822 Contact with and (suspected) exposure to COVID-19; Z71.6 Tobacco abuse counseling; Z79.899 Other long term (current) drug therapy
CPT/HCPCS: 71046; 87502; 87635; 94640; 99284

== ENCOUNTER 2023-06-01 10:59 | Outpatient (AMB) | payer OTHER, SELFPAY ==
--- NOTE | 2023-06-01 11:47 | AM.OFFVISNUR ---
Intake Intake Visit Reasons: Prolia Allergies No Known Allergies Allergy (Verified 05/20/23 19:22) Office Meds Prolia 60 mg/mL subcutaneous syringe Performing Provider: Joao Guillermo MD Performing Location: [facility] Endocrinology Administered by: Kori Marcelo LPN on 06/01/23 11:47 Dose Route Admin Location Dispensed Lot Number Expiration Date NDC Dupligraph Operator 60 mg subcut Right Arm 1 mL [id number] 09/02/22 AMGEN Coding Assessment & Plan Assessment & Plan Orders: Orders AMB Denosumab Injection Patient Supplied Today M81.0 - Age-related osteoporosis without current pathological fracture
== END 2023-06-01 13:34 | disposition home or self-care (01) ==
LOC: HO.ENCR 10:59
PROVIDERS: PCP Internal Medicine; Visit Provider Internal Medicine Endocrinology, Diabetes & Metabolism
DX: M81.0 Age-related osteoporosis without current pathological fracture (principal)

== ENCOUNTER → 2023-06-01 10:59 | Outpatient (BNVA) | payer OTHER, SELFPAY | PROVIDERS: PCP Internal Medicine; Visit Provider Internal Medicine Endocrinology, Diabetes & Metabolism | DX: M81.0 Age-related osteoporosis without current pathological fracture (principal); Z79.620 Long term (current) use of immunosuppressive biologic | CPT/HCPCS: 96372; J0897 ==

== ENCOUNTER 2023-06-11 09:30 | Outpatient (REF) | payer OTHER, SELFPAY ==
[2023-06-11 09:58] LABS: MANUAL DIFF FLAG NO
[2023-06-11 10:30] LABS: Basophils Percent Auto 0.8 % (0-2); Eosinophils Absolute Auto 0.1 X10*3/uL (0.0-0.4); Eosinophils Percent Auto 1.8 % (0-4); Hematocrit 39.6 % (37.0-47.0); Hemoglobin 13.2 g/dl (12.0-16.0); Imm Gran Abs Auto 0.02 X10*3/uL (0.00-0.03); Imm Gran Pct Auto 0.5 % (0.0-0.4); Lymphocytes Percent Auto 25.2 % (20-40); Mean Corpuscular HGB Conc 33.3 g/dl (31.0-35.0); Mean Corpuscular Hemoglobin 32.6 pg (27.0-33.0); Mean Corpuscular Volume 97.8 fL (80.0-98.0); Mean Platelet Volume 9.9 fL (9.4-12.3); Monocytes Absolute Auto 0.4 X10*3/uL (0.1-1.2); Monocytes Percent Auto 9.4 % (2-11); Neutrophils Absolute Auto 2.4 x10*3/uL (2.0-8.3); Neutrophils Percent Auto 62.3 % (45-73); Platelet Count 180 X10*3/uL (160-400); Red Blood Count 4.05 X10*6/uL (4.20-5.50); Red Cell Distribution Width 13.4 % (11.0-16.0); White Blood Count 3.9 X10*3/uL (4.8-10.8)
[2023-06-11 10:51] LABS: Alanine Aminotransferase 24 U/L (0-31); Albumin Level 4.1 g/dL (3.5-5.0); Alkaline Phosphatase 90 U/L (39-117); Anion Gap 12 (12-20); Aspartate Amino Transferase 20 U/L (5-31); Bilirubin Total 0.6 mg/dL (0.0-1.0); Blood Urea Nitrogen 12 mg/dL (9-16); Calcium 9.7 mg/dL (8.4-10.2); Carbon Dioxide 30 mmol/L (22-29); Chloride 105 mmol/L (96-108); Estimated Glomerular Filt Rate > 60; Glucose Random 110 mg/dL (60-115); Potassium 3.9 mmol/L (3.3-5.1); Sodium 143 mmol/L (135-145); Total Protein 7.2 g/dL (6.5-8.0)
== END 2023-06-11 09:31 | disposition home or self-care (01) ==
LOC: HO.LAB 09:30
PROVIDERS: Absent Provider Internal Medicine Endocrinology, Diabetes & Metabolism; PCP Internal Medicine; Visit Provider Internal Medicine Gastroenterology
DX: K75.4 Autoimmune hepatitis (principal); K75.81 Nonalcoholic steatohepatitis (NASH)
CPT/HCPCS: 36415; 80053; 85025; 85610

== ENCOUNTER 2023-06-15 09:25 | Outpatient (AMB) | payer OTHER, SELFPAY ==
[2023-06-15 09:26] VITALS: BP 175/79; PULSE 86; BMI 21.7
--- NOTE | 2023-06-15 09:26 | A.OFFVIS_ITS ---
Intake Vital Signs 06/15/23 09:26 Height 5 ft 1 in Weight 114 lb 10.246 oz BMI 21.7 BP 175/79 H Blood Pressure Location Lt brachial Position Sitting Pulse 86 Intake Visit Reasons: 4 month follow up Intake Note: Vandana presents in the office as a 4 month follow up. CC: Sometimes she gets some pains in her stomach but she states she tried to ignore it but when she eats a lot she gets a ball feeling in her stomach. She lost 5lbs and has been since April with bronchitis and RSV. 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 She denied any sx, no abdominal pain, jaundice, dark urine. nausea, vomiting or fevers, chills. She did recall several days of ruq pain going into her back, but pain was also in lower abdomen, which had gone. her appetite has been good, and no weight loss, stools are normal, without blood. She denied use of herbs, OTC meds, tylenol, or sick contacts, no respiratory sx. No ABX in last 3 months specifically no augmentin. Deneis alcohol intake and no illicit drug use. An abdominal ultrasound obtained in the ER, revealed normal-appearing liver with possible mild steatosis and no CBD dialtion or stones. MRCP done and personally reviewed, without any ductal dilation or filling defects, no pancreas mass. LAbs with neg acetaminophen, Hep serologies, ferritin 5000, and iron sat 72%, auto antibodies with raised ZITA, raised SMA, neg SLA, neg ANCA< neg celiac, normal IgG level Rept LABS: ferritin: 1471 TB: 3.7 AST- 648 ALT: 650 Alk p: 245 HFE gene status--negative TPMT--nml activity she eventually agreed to a liver bx: 12/24 Revealed Marked portal and lobular chronic inflammation with eosinophils and plasma cells., stage 3 fibrosis, no sign iron deposition She developed ascites and required ascitic tap with SAAG >1.1, no SBP doppler was neg for PVT she was put on aldactone, lasix and imuran 50 mg with steroid taper the imuran made her feel nauseated so changed to 6 MP LABS: 03/26 Hgb: 14 MCV: 101 pls 158 Na 141 creat 0.6 bili 1 AST 50 ALT 46 alk phos 122 alb 3.8 Rept labs 05/2021: bili- 1.1 ALT 31 AST 33 alk phos 117 Labs: 04/2022 LFT nml apart from mild ALT elevation LFT 10/2022-- LFT nml LFT; 06/27-- nml, INR 1.0 OTHER DATA: EGD: 05/2021----small varices, hyperplastic polyp removed fundus US 06/2021--cirrhosis, no mass lesions US: 02/2022- normal appearing liver, prominetn LN head of pancreas area. MRI 06/26-- no abn liver lesions, no pancreas lesions US 03/2023--likely cirrhosis, stabel LN near pancreas INTERIM: appetite is good, no abdominal pain weight is stable no ascites, no memory issues denies nausea or vomiting no constipation or diarrhea no melena or rectal bleeding still compliant with 6MP no alcohol use EXAM: GENERAL: The patient is well developed and nontoxic. VITAL SIGNS:see workflow HEENT: Nonicteric sclerae, PERRLA, EOMI. Oropharynx clear. Moist mucous membranes. Conjunctivae appear well perfused. No thyroid mass. CHEST: Chest wall is nontender. HEART: Regular rate and rhythm without murmurs. LUNGS: Clear to auscultation bilaterally. ABDOMEN: Soft, positive bowel sounds, nontender,? pos hepatomegaly .no flank tenderness SKIN: No rash, no excessive bruising, petechiae, or purpura. NEUROLOGIC: Cranial nerves II-XII intact without motor/sensory deficit. psych--nml affect A/P: 1/ Abn LFT with elevated iron markers, p os ZITA and SMA--most consistent with type 1 Autoimmune hepatitis, ascites now resolved with diuretics and immune suppression, LFt have been normal 2/ Gastric polyp, hyperplastic 3/ epigastric pain and fullness, satiety --resolved PLAN: 1/ cont with 6 MP--recheck labs next vis it 2/ q 6 months imaging for HCC, repeat ap prox 08/2023 --get MRI 3/ EGD for variceal surveillance in 1 yr --due now, will add colonoscopy due to prior polyps 2018--suprep 4/ cont with MV and supplements 5/ transplant--not needed right now, imp roved 6/ with chronic 6 MP will need regular m ammograms, pap, skin exam and colonoscopy per schedule ?? ? PFSH Medical History Autoimmune hepatitis Transaminitis Abnormal LFTs Smoker Allergic rhinitis COPD (chronic obstructive pulmonary disease) Hyperparathyroidism Abnormal SPEP Vitamin D deficiency Osteoporosis Arthritis Low calcium levels HTN (hypertension) Asthma Surgical History History of esophagogastroduodenoscopy (EGD) History of liver biopsy History of ERCP H/O colonoscopy Hx laparoscopic cholecystectomy Hx of tubal ligation Hx of tonsillectomy Family History Father Diabetes Heart disease Hypertension Mother Diabetes Arthritis Heart disease Paternal Uncle Cancer Sister Lung cancer Social History Household Members: Family Housing: Apartment Do you presently have visiting nurse or other home services: No Alcohol intake: former Patient Tobacco Use Status: Current everyday Tobacco user Tobacco use type: Cigarette Cigarette Packs Per Day: 0 Cigarettes Per Day: 3 Years Smoked: 47 Second Hand Smoke Exposure: Yes Advance Directives Date on File: 10/24/20 service: No Current occupational status: unemployed Physical Exam Vital Signs: Last Vital Signs Pulse 86 06/15/23 09:26 BP 175/79 H 06/15/23 09:26 BMI result Body Mass Index 21.7 Assessment & Plan Assessment & Plan (1) Autoimmune hepatitis: Code(s): K75.4 - Autoimmune hepatitis Plan: PLAN: 1/ cont with 6 MP--recheck labs next visit 2/ q 6 months imaging for HCC, repeat approx 08/2023 --get MRI 3/ EGD for variceal surveillance in 1 yr --due now, will add colonoscopy due to prior polyps 2018--suprep 4/ cont with MV and supplements 5/ transplant--not needed right now, improved 6/ with chronic 6 MP will need regular mammograms, pap, skin exam and colonoscopy per schedule Orders: Orders MR abdomen wo/w con Today K75.4 - Autoimmune hepatitis Medications: New sodium,potassium,mag sulfates 17.5-3.13-1.6 gram (Suprep Bowel Prep Kit) DILUTE; drink 1/2 at 6-8 pm and half at 11 PM- 1AM 354 mL 0RF Coding Level of Care Code Est Pt Level 4 (21341) Diagnoses Autoimmune hepatitis K75.4
== END 2023-06-15 09:58 | disposition home or self-care (01) ==
LOC: HO.HGI 09:25
PROVIDERS: PCP Internal Medicine; Visit Provider Internal Medicine Gastroenterology
DX: K75.4 Autoimmune hepatitis (principal)
CPT/HCPCS: 99214

== ENCOUNTER → 2023-06-15 09:25 | Outpatient (BNVA) | payer OTHER, SELFPAY | PROVIDERS: PCP Internal Medicine; Visit Provider Internal Medicine Gastroenterology | DX: K75.4 Autoimmune hepatitis (principal) | CPT/HCPCS: 99212 ==

== ENCOUNTER 2023-06-25 09:52 | Outpatient (REF) | payer OTHER, SELFPAY ==
[2023-06-25 12:41] LABS: Anion Gap 12 (12-20); Blood Urea Nitrogen 12 mg/dL (9-16); Calcium 9.3 mg/dL (8.4-10.2); Carbon Dioxide 29 mmol/L (22-29); Chloride 107 mmol/L (96-108); Estimated Glomerular Filt Rate > 60; Glucose Random 99 mg/dL (60-115); Potassium 3.7 mmol/L (3.3-5.1); Sodium 144 mmol/L (135-145)
== END 2023-06-25 09:53 | disposition home or self-care (01) ==
LOC: HO.LAB 09:52
PROVIDERS: PCP Internal Medicine; Visit Provider Internal Medicine Endocrinology, Diabetes & Metabolism
DX: M81.0 Age-related osteoporosis without current pathological fracture (principal); J44.9 Chronic obstructive pulmonary disease, unspecified; J30.9 Allergic rhinitis, unspecified; R91.1 Solitary pulmonary nodule; F17.210 Nicotine dependence, cigarettes, uncomplicated; Z79.899 Other long term (current) drug therapy
CPT/HCPCS: 36415; 80048; 82040; 94010; 99212

== ENCOUNTER 2023-06-25 09:52 | Outpatient (AMB) | payer OTHER, SELFPAY ==
[2023-06-25 10:06] VITALS: BP 130/68; PULSE 85; O2SAT 96; BMI 22.5
--- NOTE | 2023-06-25 10:06 | MHC.OFFVIS ---
Intake Vital Signs 06/25/23 10:06 Height 5 ft 1 in Weight 119 lb BMI 22.5 BP 130/68 Blood Pressure Location Rt brachial Position Sitting Pulse 85 Pulse Source Pulse Oximeter Pulse Oximetry (%) 96 Oxygen Delivery Method Room Air Intake Visit Reasons: copd Intake Note: pt is here for over due follow up, she was very sick In April with RSV, and than bronchitis. This lasted weeks and than told asthma/copd from ER. Today feeling better, but we need to be back on board for these issues. Melter Operator Required: No Allergies No Known Allergies Allergy (Verified 06/25/23 10:16) Medication List - Last Reconciled 06/25/23 by Mic Cohen MD Advair Diskus 250-50 mcg/dose (fluticasone propion-salmeterol) 1 ea PO BID NS albuterol sulfate 90 mcg/actuation 2 puffs inhalation Q4-6H PRN albuterol sulfate 5 mg inhalation Q4H PRN amlodipine 0 mg PO calcium citrate 250 mg PO BID 30 days capsaicin 0.1% 1 appl topical BID cholecalciferol (vitamin D3) 50 mcg PO DAILY denosumab (Prolia) 60 mg subcut [id number] 1 day fluticasone propionate 50 mcg/actuation (Flonase Allergy Relief) 2 sprays intranasal DAILY PRN ipratropium bromide 17 mcg/actuation (Atrovent HFA) 2 puffs inhalation QID loratadine 10 mg PO DAILY PRN mercaptopurine 50 mg PO DAILY montelukast 10 mg PO BEDTIME multivitamin with folic acid 400 mcg (Daily-Glynn (with folic acid)) 1 tab PO DAILY nicotine 1 patch transdermal DAILY omeprazole 40 mg PO BID 30 days pyridoxine (vitamin B6) 100 mg PO BID sodium,potassium,mag sulfates 17.5-3.13-1.6 gram (Suprep Bowel Prep Kit) DILUTE; drink 1/2 at 6-8 pm and half at 11 PM- 1AM Do you need a note to return to daycare/school/sports/work: No HPI copd HPI Details This 68 years old female is a known case of chronic obstructive pulmonary disease, due to long-time smoking. She was last seen by me in 2020, since then has been followed up by her PCP. During the past few months she has been seen a few time in the emergency room with acute respiratory infections. Test for COVID was negative. She is still smoking about 3 cigarettes a day. She is using AdvairGreer, montelukast, albuterol HFA p.r.n.. She has mild intermittent nasal congestion for which she uses Flonase as well as loratadine. Today she presents with complaint of only occasional cough, she gets short of breath on walking up [place] or climbing 1 flight of stairs. As noted above she has cut down her smoking to 3 cigarettes a day. [facility] Medical History (Updated 06/25/23 @ 10:40 by Mic Cohen MD) Pulmonary nodule 1 cm or greater in diameter Autoimmune hepatitis Transaminitis Abnormal LFTs Smoker Allergic rhinitis COPD (chronic obstructive pulmonary disease) Hyperparathyroidism Abnormal SPEP Vitamin D deficiency Osteoporosis Arthritis Low calcium levels HTN (hypertension) Asthma Surgical History History of esophagogastroduodenoscopy (EGD) History of liver biopsy History of ERCP H/O colonoscopy Hx laparoscopic cholecystectomy Hx of tubal ligation Hx of tonsillectomy Family History Father Diabetes Heart disease Hypertension Mother Diabetes Arthritis Heart disease Paternal Uncle Cancer Sister Lung cancer Social History Household Members: Family Housing: Apartment Do you presently have visiting nurse or other home services: No Alcohol intake: former Patient Tobacco Use Status: Current everyday Tobacco user Tobacco use type: Cigarette Cigarette Packs Per Day: 0 Cigarettes Per Day: 3 Years Smoked: 47 Second Hand Smoke Exposure: Yes Advance Directives Date on File: 10/24/20 service: No Current occupational status: unemployed Review of Systems Const All systems reviewed & are unremarkable except as noted in HPI and below Reports fatigue ENT Reports nasal congestion (CONTROLLED) Card Denies chest pain, Denies irregular heart rhythm and Reports dyspnea on exertion Resp Reports as per HPI and Reports dyspnea on exertion GI Reports other (FLUID BUILDUP IN THE BELLY/ASCITES) Musc Reports no additional complaints Neuro Reports no additional complaints Psych Reports no additional complaints Endo Reports fatigue Physical Exam Vital Signs: Last Vital Signs Pulse 85 06/25/23 10:06 BP 130/68 06/25/23 10:06 Pulse Ox 96 06/25/23 10:06 Oxygen Delivery Method Room Air 06/25/23 10:06 BMI result Body Mass Index 22.5 Const General: comfortable, no acute distress, alert and awake Orientation/consciousness: patient oriented x3 HEENT Head: Yes normal to inspection General nose exam: No nasal polyps present and No nasal discharge present Face and sinus: Yes sinuses nontender Mouth: oropharynx normal Throat: Yes posterior oropharynx normal Eyes General: appearance normal, both eyes and all related structures Neck Neck: Yes normal visual inspection, Yes no lymphadenopathy, Yes trachea midline and Yes no JVD Thyroid: Thyroid normal Chest Chest palpation & inspection: normal inspection of the chest, normal palpation of entire chest wall and no tenderness Resp Other: Percussion note hyper-resonant, breath sounds are quite distant with prolonged expiratory phase. No wheezes rhonchi or crepitations are heard . Auscultation: no crackles and no wheezes Cardio Palpation: normal PMI Rate: regular rate Rhythm: regular rhythm Heart sounds: no gallops and no murmurs GI Palpation (GI): Soft to palpation, nontender, No hepatosplenomegaly present, no masses and Other GI palpation findings present (ABDOMEN IS PROTUBERANT, AND THERE SEEMS TO BE MODERATE AMOUNT OF ASCITES.) Auscultation: normal bowel sounds Back/Spine/Pelvis Thoracic/Lumbar Spine: thoracic and lumbar spine normal to inspection Skin General skin exam: no rashes or lesions noted Neuro General: patient oriented x3 and no focal motor deficits Cranial nerves: Yes CN's II-XII intact bilaterally Extrem General: Yes normal to inspection, Yes no calf tenderness and Yes edema (MARKED AMOUNT OF PITTING EDEMA OF BOTH LOWER EXTREMITIES IS NOTED.) Psych Appearance: grossly normal Speech and movement: Normal speech and movement present Office Procedures Spirometry Testing Spirometry Comments: Spirometry done in the office, Dr. Cohen has the results results scanned to her chart. 44001- Spirometry Results Reviewed Results Reviewed: SPIROMETRY FVC= 74 % FEV1= 58 % FEV1/FVC= 61 FEF 25-75 = 31 % C/W MODERATELY SEVERE OBSTRUCTIVE AIRWAY DISORDER. CHEST XRAY 05/20/23 1. Question 1.3 cm right base nodule versus overlap shadows of bronchovascular structures. Recommend further evaluation with apical lordotic and oblique chest radiographs. Should the density persist, CT evaluation may be considered. 2. No focal infiltrate or congestive heart failure is seen. Assessment & Plan Assessment & Plan (1) Smoker: Comment: LONG-TIME SMOKER, NOW DOWN TO 3 CIGARETTES A DAY. Code(s): F17.200 - Nicotine dependence, unspecified, uncomplicated Plan: COUNSELED TO QUIT COMPLETELY (2) Allergic rhinitis: Comment: SHE HAS CHRONIC MILD NASAL CONGESTION WHICH SHE REMAINS CONTROLLED. Code(s): J30.9 - Allergic rhinitis, unspecified Plan: ADVISED TO CONTINUE MONTELUKAST 10 MG DAILY LORATADINE 10 MG P.O. P.R.N. (3) COPD (chronic obstructive pulmonary disease): Comment: COPD MODERATELY SEVERE REMAINS STABLE. Code(s): J44.9 - Chronic obstructive pulmonary disease, unspecified Plan: ADVISED TO CONTINUE HER REGULAR MEDS FOLLOWS: WIXELA 250-50 1 INHALATION B.I.D., ATROVENT HFA 2 PUFFS T.I.D. PROAIR 2 PUFFS Q 6 HOURS P.R.N. SCRIPTS ARE RENEWED. (4) Pulmonary nodule 1 cm or greater in diameter: Comment: SHE IS A LIFETIME SMOKER. X-RAY CHEST IN MAY, SHOWS 1.3 CM NODULAR DENSITY RIGHT BASE Code(s): R91.1 - Solitary pulmonary nodule Plan: CT SCAN OF THE CHEST IS ORDERED Orders: Orders CT chest wo IV con Today F17.200 - Nicotine dependence, unspecified, uncomplicated, J44.9 - Chronic obstructive pulmonary disease, unspecified, R91.1 - Solitary pulmonary nodule AMB Spirometry Testing Today J44.9 - Chronic obstructive pulmonary disease, unspecified Medications: New fluticasone propion-salmeterol 250-50 mcg/dose (Wixela Inhub) 1 inh inhalation BID 30 days 60 ea 5RF COPD ipratropium bromide 17 mcg/actuation (Atrovent HFA) 2 puffs inhalation TID 30 days 12.9 grams 5RF COPD albuterol sulfate 90 mcg/actuation 2 puffs inhalation Q4-6H 30 days PRN 8.5 grams 5RF shortness of breath or wheezing Changed From fluticasone propionate 50 mcg/actuation (Flonase Allergy Relief) administer into each nostril 2 sprays intranasal DAILY 16 grams 0RF To fluticasone propionate 50 mcg/actuation (Flonase Allergy Relief) administer into each nostril 2 sprays intranasal DAILY PRN Coding Level of Care Code Est Pt Level 4 (64754) Diagnoses Smoker F17.200 Allergic rhinitis J30.9 COPD (chronic obstructive pulmonary disease) J44.9 Pulmonary nodule 1 cm or greater in diameter R91.1 CPT Codes Spirometry - CPT: 55919- Spirometry ([id number])
== END 2023-06-25 10:36 | disposition home or self-care (01) ==
PROVIDERS: PCP Internal Medicine; Visit Provider Internal Medicine
DX: F17.200 Nicotine dependence, unspecified, uncomplicated (principal); J30.9 Allergic rhinitis, unspecified; J44.9 Chronic obstructive pulmonary disease, unspecified; R91.1 Solitary pulmonary nodule
CPT/HCPCS: 94010; 99214

== ENCOUNTER 2023-07-20 11:18 | Outpatient (AMB) | payer OTHER, SELFPAY ==
--- NOTE | 2023-07-20 11:19 | A.OFFVIS_ITS ---
Intake Vital Signs 07/20/23 11:20 Height 5 ft 1 in Weight 120 lb 13.013 oz BMI 22.8 BP 120/62 Blood Pressure Location Rt brachial Position Sitting Pulse 80 Pulse Source Pulse Oximeter Intake Visit Reasons: F/U Osteoporosis with Prolia-confirmed Intake Note: Patient present today for Osteoporosis follow up visit. Last seen 10/29/[address] Daily. Sas Programmer Analyst Required: No Accompanied by: Self / Same As Patient Allergies No Known Allergies Allergy (Verified 07/20/23 11:27) Medication List - Last Reconciled 07/20/23 by Joao Guillermo MD Advair Diskus 250-50 mcg/dose (fluticasone propion-salmeterol) 1 ea PO BID NS albuterol sulfate 90 mcg/actuation 2 puffs inhalation Q4-6H PRN albuterol sulfate 5 mg inhalation Q4H PRN albuterol sulfate 90 mcg/actuation 2 puffs inhalation Q4-6H PRN 30 days amlodipine 0 mg PO calcium citrate 250 mg PO BID 30 days capsaicin 0.1% 1 appl topical BID cholecalciferol (vitamin D3) 50 mcg PO DAILY denosumab (Prolia) 60 mg subcut [id number] 1 day fluticasone propion-salmeterol 250-50 mcg/dose (Wixela Inhub) 1 inh inhalation BID 30 days fluticasone propionate 50 mcg/actuation (Flonase Allergy Relief) 2 sprays intranasal DAILY PRN ipratropium bromide 17 mcg/actuation (Atrovent HFA) 2 puffs inhalation QID ipratropium bromide 17 mcg/actuation (Atrovent HFA) 2 puffs inhalation TID 30 days loratadine 10 mg PO DAILY PRN mercaptopurine 50 mg PO DAILY montelukast 10 mg PO BEDTIME multivitamin with folic acid 400 mcg (Daily-Glynn (with folic acid)) 1 tab PO DAILY nicotine 1 patch transdermal DAILY omeprazole 40 mg PO BID 30 days pyridoxine (vitamin B6) 100 mg PO BID sodium,potassium,mag sulfates 17.5-3.13-1.6 gram (Suprep Bowel Prep Kit) DILUTE; drink 1/2 at 6-8 pm and half at 11 PM- 1AM HPI HPI Comments History of Present Illness Details 68 YO Female with PMHx COPD and Osteoporosis is seen in F/U for Osteoporosis. The patient last saw Dr. Daily on 10/29/2022 Of note, Patient is a very poor historian. She is not aware of much of her health history. First diagnosed with Osteoporosis in Aug 2019 with her first DEXA. She has never been treated in the past. After her initial visit we completed a full biochemical assessment for secondary causes of Osteoporosis. This revealed a possible M spike on her SPEP, and she was referred to Heme-Onc for this and per their records there was no concern for multiple myeloma. This also revealed low Vitamin D, elevated Calcium of 10.4, with an inappropriately normal PTH of 51. She repeated her labs which confirmed hypovitaminosis D, and Calcium WNL. Labs repeated again and were again WNL. She was started on high dose Vitamin D, now with Vitamin D is now WNL. 24 hour urine calcium reveals very low c alcium levels. She was started on Prolia and has received 2 doses thus far 10/24/2021 and 04/28/2022. She has tolerated these well. Has 0 servings of dietary calcium per day. Takes Calcium Citrate 250 mg PO BID. Did take Vitamin D 50,000 IU once a week for a few months, but this was stopped for unknown reasons. She has long standing hypovitaminosis D. She was evaluated for celiac disease in the past and this was negative. She remains on Vitamin D 2000 IU daily, and did complete a course of high dose supplementation. Uses Omeprazole daily. She does have COPD and uses short Prednisone courses approximately 2-5 times per year. Denies ever using antiepileptic or anticoagulant medication. Does no exercise. Fracture history: Denies Height loss: Denies. 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 Menses were regular. . She did not breastfeed. Menopause was age 44. She did not use HRT. Denies history of Kidney stones: Mother with a history of Osteoporosis. UTD on dental cleanings and sees dentist every 6 months. No planned upcoming dental work or extractions. DXA: 09/24/2021 FINDINGS: AP SPINE L1-L4: Current: BMD 1.078 g/cm2, Z-score 1.2, T-score -0.9, normal, 3.1% decrease from previous, 8.8% decrease from baseline (<5% change is not significant). Prior: BMD 1.112 g/cm2. Baseline: BMD 1.182 g/cm2. LEFT FEMUR, NECK: Current: BMD 0.606 g/cm2, Z-score -1.2, T-score -3.1, osteoporosis. Prior: BMD 0.666 g/cm2. Baseline: BMD 0.832 g/cm2. LEFT FEMUR, TOTAL: Current: BMD 0.670 g/cm2, Z-score -1.0, T-score -2.7, osteoporosis, 11.7% decrease from previous, 26.9% decr ease from baseline (<5% change is not significant). Prior: BMD 0.759 g/cm2. Baseline: BMD 0.917 g/cm2. Labs: Laboratory Tests 10/23/22 10/23/22 11:22 11:22 Sodium 143 Potassium 3.7 Creatinine 0.85 Estimated GFR > 60 25-OH Vitamin D To rigo 35.1 PTH Intact 28 Calcium (PTH Intac t) 9.4 received last Prolia dose in May 2023. No back pain or hip pain since last visit [facility] Medical History (Updated 06/25/23 @ 10:40 by Mic Cohen MD) Pulmonary nodule 1 cm or greater in diameter Autoimmune hepatitis Transaminitis Abnormal LFTs Smoker Allergic rhinitis COPD (chronic obstructive pulmonary disease) Hyperparathyroidism Abnormal SPEP Vitamin D deficiency Osteoporosis Arthritis Low calcium levels HTN (hypertension) Asthma Surgical History History of esophagogastroduodenoscopy (EGD) History of liver biopsy History of ERCP H/O colonoscopy Hx laparoscopic cholecystectomy Hx of tubal ligation Hx of tonsillectomy Family History Father Diabetes Heart disease Hypertension Mother Diabetes Arthritis Heart disease Paternal Uncle Cancer Sister Lung cancer Social History Household Members: Family Housing: Apartment Do you presently have visiting nurse or other home services: No Alcohol intake: former Patient Tobacco Use Status: Current everyday Tobacco user Tobacco use type: Cigarette Cigarette Packs Per Day: 0 Cigarettes Per Day: 3 Years Smoked: 47 Second Hand Smoke Exposure: Yes Advance Directives Date on File: 10/24/20 service: No Current occupational status: unemployed Physical Exam Vital Signs: Last Vital Signs Pulse 80 07/20/23 11:20 BP 120/62 07/20/23 11:20 BMI result Body Mass Index 22.8 Assessment & Plan Assessment & Plan (1) Osteoporosis: Code(s): M81.0 - Age-related osteoporosis without current pathological fracture Qualifiers: Osteoporosis type: unspecified Presence of current pathological fracture: unspecified Qualified Code(s): M81.0 - Age-related osteoporosis without current pathological fracture Plan: This is a 68-year-old female with a history of osteoporosis with negative secondary workup was currently receiving Prolia 4th dose received May 2023. Will repeat DEXA in 2 months and depending upon above may consider Prolia or transition to oral or intravenous bisphosphonate depending upon above Orders: Orders XR DEXA axial skeleton 3 Months M81.0 - Age-related osteoporosis without current pathological fracture Coding Level of Care Code Est Pt Level 3 (12629) Diagnoses Osteoporosis, unspecified osteoporosis type, unspecified pathological fracture presence M81.0 Osteoporosis type: unspecified Presence of current pathological fracture: unspecified
[2023-07-20 11:20] VITALS: BP 120/62; PULSE 80; BMI 22.8
== END 2023-07-20 11:46 | disposition home or self-care (01) ==
PROVIDERS: PCP Internal Medicine; Visit Provider Internal Medicine Endocrinology, Diabetes & Metabolism
DX: M81.0 Age-related osteoporosis without current pathological fracture (principal)
CPT/HCPCS: 99213

== ENCOUNTER → 2023-07-20 11:18 | Outpatient (BNVA) | payer OTHER, SELFPAY | PROVIDERS: Visit Provider Internal Medicine Endocrinology, Diabetes & Metabolism | DX: M81.0 Age-related osteoporosis without current pathological fracture (principal) | CPT/HCPCS: 99212 ==

== ENCOUNTER 2023-07-24 13:40 | Outpatient (REF) | payer OTHER, SELFPAY ==
--- NOTE | ~2023-07-24 | CT_ITS ---
EXAMINATION: CT CHEST WITHOUT CONTRAST CLINICAL INFORMATION: Nicotine dependence COMPARISON: None TECHNIQUE: Multidetector volumetric CT imaging of the chest was done. Axial MIP volume rendering provided. Sagittal and coronal reformatted images were obtained. This CT examination was performed using dose optimization techniques as appropriate, variously including the following: *Automated exposure control *Adjustment of mA and/or kV according to patient size (this includes techniques or standardized protocols for targeted exams where dose is matched to indication/reason for exam; i.e. extremities or head) *Use of iterative reconstruction technique DLP: 88 mGy-cm FINDINGS: TELECOMMUNICATIONS LINESWORKER: Unremarkable LUNGS: The lungs are clear with no evidence of inflammation or nodules. Central airways are patent MEDIASTINUM: Thyroid gland is unremarkable. There is no mediastinal or hilar lymphadenopathy seen. Aorta is not dilated. There is no pericardial effusion. CORONARY ARTERY CALCIFICATION: None visualized on this study. PLEURA: There is no pleural effusion. No pleural mass or thickening. AXILLA: No lymphadenopathy. UPPER ABDOMEN: Unremarkable. OSSEOUS STRUCTURES: Unremarkable. CT/CT chest wo IV con IMPRESSION: Unremarkable examination. Continued annual screening based on patient's history. Fleischner guidelines were followed.
== END 2023-07-24 13:41 | disposition home or self-care (01) ==
LOC: HO.CT 13:40
PROVIDERS: PCP Internal Medicine; Visit Provider Internal Medicine
DX: F17.200 Nicotine dependence, unspecified, uncomplicated (principal); J44.9 Chronic obstructive pulmonary disease, unspecified; R91.1 Solitary pulmonary nodule
CPT/HCPCS: 71250

== ENCOUNTER 2023-08-07 10:39 | Outpatient (REF) | payer OTHER, SELFPAY ==
[2023-08-07 12:56] LABS: HBS Num1 0.08 mIU/mL (0-7.99); HBc Num1 0.14 S/CO (0.00-0.79); HBsAGNum1 0.39 S/CO (0.00-0.99); Hepatitis A Antibody IgM 0.13 Index (0-0.79); Hepatitis B Core Antibody Nonreactive (Nonreactive); Hepatitis B Surface Antigen Negative (Negative); ~HepC Num1 0.09 S/CO (0.00-0.79); ~Hepatitis A Antibody IgM Nonreactive (Nonreactive); ~Hepatitis B Surface Antibody NONREACTIVE (Nonreactive); ~Hepatitis C Antibody Nonreactive (Nonreactive)
== END 2023-08-07 10:40 | disposition home or self-care (01) ==
LOC: HO.HHCL 10:39
PROVIDERS: Visit Provider Internal Medicine
DX: E83.119 Hemochromatosis, unspecified (principal); K75.4 Autoimmune hepatitis
CPT/HCPCS: 36415; 86704; 86706; 86709; 86803; 87340

== ENCOUNTER 2023-08-10 09:37 | Outpatient (REF) | payer OTHER, SELFPAY ==
--- NOTE | ~2023-08-10 | MR_ITS ---
EXAMINATION: MR ABDOMEN WITHOUT AND WITH CONTRAST CLINICAL INFORMATION: HCC screening COMPARISON: MR abdomen 07/04/2022 TECHNIQUE: MRI of the abdomen before and after the IV administration of 5.5 mL of Gadavist was obtained using routine sequences. FINDINGS: LUNG BASES: The visualized lung bases are unremarkable. KIDNEYS AND URETERS: Bosniak 1 left renal cysts, no imaging follow-up recommended. GALLBLADDER: Status post cholecystectomy. LIVER AND BILIARY TREE: Nodular hepatic contour compatible with cirrhosis. Loss of signal on opposed phase imaging compatible with hepatic steatosis. No suspicious liver lesion. No intra or extrahepatic biliary duct dilatation. PANCREAS: Unremarkable SPLEEN: Accessory splenule incidentally noted. ADRENAL GLANDS: Unremarkable GASTROINTESTINAL TRACT: Unremarkable. LYMPH NODES: No lymphadenopathy. VASCULAR: Portal vein is patent. Atherosclerosis of the abdominal aorta. ABDOMINAL WALL: Symmetric bilateral gynecomastia. OSSEOUS STRUCTURES: Unremarkable. MR/MR abdomen wo/w con IMPRESSION: 1. Cirrhotic and steatotic liver. No suspicious liver lesion. 2. Symmetric bilateral gynecomastia.
[2023-08-10] MEDS: gadobutroL 7.5 ML VIAL IVPUSH (10:21)
== END 2023-08-10 09:38 | disposition home or self-care (01) ==
LOC: HO.MRI 09:37
PROVIDERS: PCP Internal Medicine; Visit Provider Internal Medicine Gastroenterology
DX: K75.4 Autoimmune hepatitis (principal)
CPT/HCPCS: 74183; A9585

== ENCOUNTER 2023-09-17 09:38 | Outpatient (AMB) | payer OTHER, SELFPAY ==
[2023-09-17 09:45] VITALS: BP 135/71; PULSE 99; BMI 22.9
--- NOTE | 2023-09-17 09:45 | MHC.OFFVIS ---
Intake Vital Signs 09/17/23 09:45 Height 5 ft 1 in Weight 121 lb BMI 22.9 BP 135/71 Blood Pressure Location Rt brachial Position Sitting Pulse 99 Intake Visit Reasons: mass left arm Intake Note: This patient referred by PCP Dr. Mena for assessment of mass on the left arm. Present for yrs. Patient c/o; enlarging, itch, gets in the way when drawing blood. 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: No Accompanied by: Self / Same As Patient Allergies No Known Allergies Allergy (Verified 09/17/23 09:47) Medication List - Last Reconciled 09/17/23 by Ángel Molina MD Advair Diskus 250-50 mcg/dose (fluticasone propion-salmeterol) 1 ea PO BID NS albuterol sulfate 5 mg inhalation Q4H PRN albuterol sulfate 90 mcg/actuation 2 puffs inhalation Q4-6H PRN 30 days amlodipine 10 mg PO DAILY calcium citrate 250 mg PO BID 30 days capsaicin 0.1% 1 appl topical BID cholecalciferol (vitamin D3) 50 mcg PO DAILY denosumab (Prolia) 60 mg subcut [id number] 1 day fluticasone propion-salmeterol 250-50 mcg/dose (Wixela Inhub) 1 inh inhalation BID 30 days fluticasone propionate 50 mcg/actuation (Flonase Allergy Relief) 2 sprays intranasal DAILY PRN ipratropium bromide 17 mcg/actuation (Atrovent HFA) 2 puffs inhalation TID 30 days loratadine 10 mg PO DAILY PRN mercaptopurine 50 mg PO DAILY montelukast 10 mg PO BEDTIME multivitamin with folic acid 400 mcg (Daily-Glynn (with folic acid)) 1 tab PO DAILY omeprazole 40 mg PO BID 30 days pyridoxine (vitamin B6) 100 mg PO BID sodium,potassium,mag sulfates 17.5-3.13-1.6 gram (Suprep Bowel Prep Kit) DILUTE; drink 1/2 at 6-8 pm and half at 11 PM- 1AM HPI mass left arm HPI Details 68-year-old female here for a mass on her left arm. She says she is she has had this for about 20 years now. She says that this has been increasing in size. She denies any pain but describes discomfort especially in view of the large size. She denies any skin changes. She denies any problems with range of motion of her fingers or her wrist. She denies any previous trauma to the area. [facility] Medical History (Updated 09/17/23 @ 10:20 by Ángel Molina MD) Lipoma of left forearm Pulmonary nodule 1 cm or greater in diameter Autoimmune hepatitis Transaminitis Abnormal LFTs Smoker Allergic rhinitis COPD (chronic obstructive pulmonary disease) Hyperparathyroidism Abnormal SPEP Vitamin D deficiency Osteoporosis Arthritis Low calcium levels HTN (hypertension) Asthma Surgical History History of esophagogastroduodenoscopy (EGD) History of liver biopsy History of ERCP H/O colonoscopy Hx laparoscopic cholecystectomy Hx of tubal ligation Hx of tonsillectomy Family History Father Diabetes Heart disease Hypertension Mother Diabetes Arthritis Heart disease Paternal Uncle Cancer Sister Lung cancer Social History Household Members: Family Housing: Apartment Do you presently have visiting nurse or other home services: No Alcohol intake: former Patient Tobacco Use Status: Current everyday Tobacco user Tobacco use type: Cigarette Cigarette Packs Per Day: 0 Cigarettes Per Day: 3 Years Smoked: 47 Second Hand Smoke Exposure: Yes Advance Directives Date on File: 10/24/20 service: No Current occupational status: unemployed Review of Systems Const Denies chills and Denies fever(s) Card Denies chest pain, Denies dyspnea and Denies dyspnea on exertion Resp Denies cough, Denies dyspnea and Denies dyspnea on exertion GI Denies hematochezia and Denies change in bowel habits Denies hematuria Musc Denies back pain and Denies limited range of motion Neuro Denies focal weakness and Denies convulsions Psych Denies depression and Denies mood swings Physical Exam Vital Signs: Last Vital Signs Pulse 99 09/17/23 09:45 BP 135/71 09/17/23 09:45 BMI result Body Mass Index 22.9 Const General: comfortable and no acute distress Orientation/consciousness: patient oriented x3 Neck Neck: Yes no lymphadenopathy Resp Auscultation: clear to auscultation bilaterally Cardio Rhythm: regular rhythm GI Palpation (GI): Soft to palpation, nontender and no guarding Neuro General: patient oriented x3 Extrem Other: Large lipoma on the left forearm, on the volar aspect, about 7 cm in diameter, seems well-defined, soft Assessment & Plan Assessment & Plan (1) Lipoma of left forearm: Code(s): D17.22 - Benign lipomatous neoplasm of skin and subcutaneous tissue of left arm Plan: She has a very large lipoma on the left forearm. She wants this removed. I explained the technique of excision which will be done under anesthesia in view of the large size of the lipoma. I explained the risks including but not limited to bleeding, infections, postop pain, injury to muscle or tendons, as well as the benefits and alternatives. She understands and wants to proceed. Coding Level of Care Code New Pt Level 3 (20407) Diagnoses Lipoma of left forearm D17.22
== END 2023-09-17 10:21 | disposition home or self-care (01) ==
PROVIDERS: PCP Internal Medicine; Visit Provider Surgery
DX: D17.22 Benign lipomatous neoplasm of skin and subcutaneous tissue of left arm (principal)
CPT/HCPCS: 99203

== ENCOUNTER → 2023-09-17 09:38 | Outpatient (BNVA) | payer OTHER, SELFPAY | PROVIDERS: PCP Internal Medicine; Visit Provider Surgery | DX: D17.22 Benign lipomatous neoplasm of skin and subcutaneous tissue of left arm (principal); Z79.899 Other long term (current) drug therapy | CPT/HCPCS: 99202 ==

== ENCOUNTER 2023-09-25 10:57 | Outpatient (REF) | payer OTHER, SELFPAY ==
--- NOTE | ~2023-09-25 | MM_ITS ---
EXAMINATION: MM SCREENING DIGITAL BREAST TOMOSYNTHESIS, BILATERAL CLINICAL INFORMATION: Screening. Asymptomatic. COMPARISON: Mammography: This study is compared with prior exams dating back to 2019. TECHNIQUE: Digital breast tomosynthesis is performed in both the craniocaudal and mediolateral oblique views along with computer-aided detection (CAD). Synthesized 2D images are generated from the tomosynthesis. FINDINGS: The breasts are heterogeneously dense, which may obscure small masses (ACR BI-RADS breast composition Category c). There are no significant masses, abnormal calcifications, or other abnormalities. There are unchanged, bilateral, benign calcifications and bilateral areas of well-circumscribed, benign nodularity of the left breast consistent with cyst formation. MM/MM tomosynthesis screening BI IMPRESSION: No mammographic evidence of malignancy. ASSESSMENT: BI-RADS BI-RADS 2 - Benign Findings RECOMMENDATION: Routine annual mammography screening. 1 year F/U This examination should not preclude the clinical evaluation of a suspicious palpable abnormality. This patient's information was entered into a reminder system with a target due date for their next mammogram.
== END 2023-09-25 10:58 | disposition home or self-care (01) ==
LOC: HO.MAMMO 10:57
PROVIDERS: PCP Internal Medicine; Visit Provider Internal Medicine
DX: Z12.31 Encounter for screening mammogram for malignant neoplasm of breast (principal)
CPT/HCPCS: 77063; 77067

== ENCOUNTER → 2023-09-25 11:15 | Outpatient (BNV) | payer OTHER, SELFPAY | PROVIDERS: PCP Internal Medicine; Visit Provider Radiology Diagnostic Radiology | DX: Z12.31 Encounter for screening mammogram for malignant neoplasm of breast (principal) | CPT/HCPCS: 77063; 77067 ==

== ENCOUNTER 2023-09-30 10:52 | Outpatient (AMB) | payer OTHER, SELFPAY ==
--- NOTE | 2023-09-30 11:23 | MHC.OFFVIS ---
Intake Vital Signs 09/30/23 11:24 Height 5 ft 1 in Weight 122 lb 5.705 oz BMI 23.1 BP 122/68 Blood Pressure Location Lt brachial Position Sitting Pulse 90 Pulse Source Pulse Oximeter Pulse Oximetry (%) 98 Oxygen Delivery Method Room Air Intake Visit Reasons: copd Intake Note: pt is here for follow and states she is feeling good and breathing is well. Airplane Tube Builder Required: No Allergies No Known Allergies Allergy (Verified 09/30/23 11:41) Medication List - Last Reconciled 09/30/23 by Mic Cohen MD albuterol sulfate 5 mg inhalation Q4H PRN albuterol sulfate 90 mcg/actuation 2 puffs inhalation Q4-6H PRN 30 days amlodipine 10 mg PO DAILY calcium citrate 250 mg PO BID 30 days capsaicin 0.1% 1 appl topical BID cholecalciferol (vitamin D3) 50 mcg PO DAILY denosumab (Prolia) 60 mg subcut [id number] 1 day fluticasone propion-salmeterol 250-50 mcg/dose (Wixela Inhub) 1 inh inhalation BID 30 days fluticasone propionate 50 mcg/actuation (Flonase Allergy Relief) 2 sprays intranasal DAILY PRN ipratropium bromide 17 mcg/actuation (Atrovent HFA) 2 puffs inhalation TID 30 days loratadine 10 mg PO DAILY PRN mercaptopurine 50 mg PO DAILY montelukast 10 mg PO BEDTIME multivitamin with folic acid 400 mcg (Daily-Glynn (with folic acid)) 1 tab PO DAILY omeprazole 40 mg PO BID 30 days pyridoxine (vitamin B6) 100 mg PO BID sodium,potassium,mag sulfates 17.5-3.13-1.6 gram (Suprep Bowel Prep Kit) DILUTE; drink 1/2 at 6-8 pm and half at 11 PM- 1AM Do you need a note to return to daycare/school/sports/work: No HPI copd HPI Details THIS 68 YEARS OLD FEMALE IS HERE FOR HER FOLLOW-UP FOR COPD. CLAIMS TO BE DOING VERY WELL AND HAS NO COUGH OR WHEEZING. SHE IS USING HER INHALER WIXELA TWICE A DAY AND ALBUTEROL ONLY NEEDED. HER SMOKING IS DOWN TO 2-3 CIGARETTES A DAY. COUGH IS MUCH LESS. AND SHE HAS NO SIGNIFICANT SHORTNESS OF BREATH. [facility] Medical History Lipoma of left forearm Pulmonary nodule 1 cm or greater in diameter Autoimmune hepatitis Transaminitis Abnormal LFTs Smoker Allergic rhinitis COPD (chronic obstructive pulmonary disease) Hyperparathyroidism Abnormal SPEP Vitamin D deficiency Osteoporosis Arthritis Low calcium levels HTN (hypertension) Asthma Surgical History History of esophagogastroduodenoscopy (EGD) History of liver biopsy History of ERCP H/O colonoscopy Hx laparoscopic cholecystectomy Hx of tubal ligation Hx of tonsillectomy Family History Father Diabetes Heart disease Hypertension Mother Diabetes Arthritis Heart disease Paternal Uncle Cancer Sister Lung cancer Social History Household Members: Family Housing: Apartment Do you presently have visiting nurse or other home services: No Alcohol intake: former Patient Tobacco Use Status: Current everyday Tobacco user Tobacco use type: Cigarette Cigarette Packs Per Day: 0 Cigarettes Per Day: 3 Years Smoked: 47 Second Hand Smoke Exposure: Yes Advance Directives Date on File: 10/24/20 service: No Current occupational status: unemployed Review of Systems Const All systems reviewed & are unremarkable except as noted in HPI and below Reports fatigue ENT Reports nasal congestion (CONTROLLED) Card Denies chest pain, Denies irregular heart rhythm and Reports dyspnea on exertion Resp Reports as per HPI and Reports dyspnea on exertion GI Reports other (FLUID BUILDUP IN THE BELLY/ASCITES) Musc Reports no additional complaints Neuro Reports no additional complaints Psych Reports no additional complaints Endo Reports fatigue Physical Exam Vital Signs: Last Vital Signs Pulse 90 09/30/23 11:24 BP 122/68 09/30/23 11:24 Pulse Ox 98 09/30/23 11:24 Oxygen Delivery Method Room Air 09/30/23 11:24 BMI result Body Mass Index 23.1 Const General: comfortable, no acute distress, alert and awake Orientation/consciousness: patient oriented x3 HEENT Head: Yes normal to inspection General nose exam: No nasal polyps present and No nasal discharge present Face and sinus: Yes sinuses nontender Mouth: oropharynx normal Throat: Yes posterior oropharynx normal Eyes General: appearance normal, both eyes and all related structures Neck Neck: Yes normal visual inspection, Yes no lymphadenopathy, Yes trachea midline and Yes no JVD Thyroid: Thyroid normal Chest Chest palpation & inspection: normal inspection of the chest, normal palpation of entire chest wall and no tenderness Resp Other: Percussion note hyper-resonant, breath sounds are quite distant with prolonged expiratory phase. No wheezes rhonchi or crepitations are heard . Auscultation: no crackles and no wheezes Cardio Palpation: normal PMI Rate: regular rate Rhythm: regular rhythm Heart sounds: no gallops and no murmurs GI Palpation (GI): Soft to palpation, nontender, No hepatosplenomegaly present, no masses and Other GI palpation findings present (ABDOMEN IS PROTUBERANT, AND THERE SEEMS TO BE MODERATE AMOUNT OF ASCITES.) Auscultation: normal bowel sounds Back/Spine/Pelvis Thoracic/Lumbar Spine: thoracic and lumbar spine normal to inspection Skin General skin exam: no rashes or lesions noted Neuro General: patient oriented x3 and no focal motor deficits Cranial nerves: Yes CN's II-XII intact bilaterally Extrem General: Yes normal to inspection, Yes no calf tenderness and Yes edema (MARKED AMOUNT OF PITTING EDEMA OF BOTH LOWER EXTREMITIES IS NOTED.) Psych Appearance: grossly normal Speech and movement: Normal speech and movement present Results Reviewed Results Reviewed: CT SCAN OF THE CHEST WITH CONTRAST WAS UNREMARKABLE AND THERE WAS NO NODULE OR MASS DETECTED. Assessment & Plan Assessment & Plan (1) COPD (chronic obstructive pulmonary disease): Comment: COPD MODERATELY SEVERE REMAINS STABLE AND WELL CONTROLLED . Code(s): J44.9 - Chronic obstructive pulmonary disease, unspecified Plan: WIXELA 250-51 INHALATION B.I.D. ALBUTEROL HFA 2 PUFFS Q 4-6 HOURS P.R.N. (2) Allergic rhinitis: Comment: SHE HAS CHRONIC MILD NASAL CONGESTION WHICH SHE REMAINS CONTROLLED. Code(s): J30.9 - Allergic rhinitis, unspecified Plan: FLONASE-50 2 SPRAY EACH NOSTRIL DAILY (3) Smoker: Comment: LONG-TIME SMOKER, NOW DOWN TO 3 CIGARETTES A DAY. Code(s): F17.200 - Nicotine dependence, unspecified, uncomplicated Plan: ENCOURAGED TO QUIT COMPLETELY (4) Pulmonary nodule 1 cm or greater in diameter: Comment: SHE IS A LIFETIME SMOKER. X-RAY CHEST IN MAY, SHOWED 1.3 CM NODULAR DENSITY RIGHT BASE CURRENT CT SCAN WITH CONTRAST, IS UNREMARKABLE NOT SHOWING ANY NODULES OR MASS. Code(s): R91.1 - Solitary pulmonary nodule Plan: BECAUSE SHE IS A SMOKER SO SHE SHOULD PARTICIPATE IN ANNUAL LOW-DOSE CT SCAN PROGRAM. Coding Level of Care Code Est Pt Level 3 (01188) Diagnoses COPD (chronic obstructive pulmonary disease) J44.9 Allergic rhinitis J30.9 Smoker F17.200 Pulmonary nodule 1 cm or greater in diameter R91.1
[2023-09-30 11:24] VITALS: BP 122/68; PULSE 90; O2SAT 98; BMI 23.1
== END 2023-09-30 11:46 | disposition home or self-care (01) ==
PROVIDERS: PCP Internal Medicine; Visit Provider Internal Medicine
DX: J44.9 Chronic obstructive pulmonary disease, unspecified (principal); J30.9 Allergic rhinitis, unspecified; F17.200 Nicotine dependence, unspecified, uncomplicated; R91.1 Solitary pulmonary nodule
CPT/HCPCS: 99213

== ENCOUNTER → 2023-09-30 10:52 | Outpatient (BNVA) | payer OTHER, SELFPAY | PROVIDERS: PCP Internal Medicine; Visit Provider Internal Medicine | DX: J44.9 Chronic obstructive pulmonary disease, unspecified (principal); J30.9 Allergic rhinitis, unspecified; R91.1 Solitary pulmonary nodule; F17.210 Nicotine dependence, cigarettes, uncomplicated | CPT/HCPCS: 99212 ==

== ENCOUNTER 2023-10-07 09:49 | Outpatient (REF) | payer OTHER, SELFPAY ==
--- NOTE | ~2023-10-07 | MM_ITS ---
EXAMINATION: BONE DENSITOMETRY CLINICAL INDICATION: Osteoporosis. COMPARISON: Previous BD dated 09/24/2021 and baseline BD dated 12/27/2010. TECHNIQUE: Using a [employer] DXA System (software version: 13.1) manufactured by [employer], dual-energy x-ray absorptiometry was performed of the lumbar spine, left hip, and left forearm radius 33%. The images are of good technical quality. Summary results are attached. FINDINGS: LEFT FEMUR, NECK: Current: BMD 0.727 g/cm2, Z-score -0.4, T-score -2.2, osteopenia. Prior: BMD 0.606 g/cm2. Baseline: BMD 0.832 g/cm2. LEFT FEMUR, TOTAL: Current: BMD 0.832 g/cm2, Z-score 0.3, T-score -1.4, osteopenia, 24.2% increase from previous, 9.3% decrease from baseline (<5% change is not significant). Prior: BMD 0.670 g/cm2. Baseline: BMD 0.917 g/cm2. AP SPINE L1-L4: Current: BMD 1.106 g/cm2, Z-score 1.4, T-score -0.6, normal, 2.6% increase from previous, 6.4% decrease from baseline (<5% change is not significant). Prior: BMD 1.078 g/cm2. Baseline: BMD 1.182 g/cm2. LEFT FOREARM RADIUS 33%: BMD 0.655 g/cm2, Z-score -0.8, T-score -2.5, osteoporosis, 9.0% increase from baseline (<5% change is not significant). Baseline 09/24/2021: BMD 0.601 g/cm2. IDENTIFIED RISK FACTORS: Early menopause, tobacco use (current smoker), low calcium intake, recurrent falls, rheumatoid arthritis, osteoporosis, secondary osteoporosis. HISTORY OF FRACTURE: None listed. MEDICATIONS: Calcium, vitamin D, Prolia. MM/XR DEXA appendicular skeleton IMPRESSION: 1. DIAGNOSIS: Osteoporosis based on the lowest T-score value of -2.5 in the forearm radius 33% applying World Health Organization criteria. 2. 10-YEAR FRACTURE RISK PREDICTION, FRAX: According to the guidelines, FRAX calculation should only be performed on patients in the osteopenia bone density category. Therefore, FRAX was not performed on this patient. 3. Treatment Recommendations: NOF guidelines recommend consideration for treatment in postmenopausal women and men age 50 and older presenting with the following: -A hip or vertebral (clinical or morphometric) fracture. -T-score less than or equal to -2.5 at the femoral neck or spine after appropriate evaluation to exclude secondary causes. -Low bone mass at the hip or spine and a 10-year fracture probability by FRAX of greater than or equal to 3% for hip fracture or greater than or equal to 20% for major osteoporotic fracture based on the [place] adapted WHO algorithm. 4. Other Recommendations: All treatment decisions require clinical judgment and consideration of individual patient factors, including patient preferences, comorbidities, previous drug use, risk factors not captured in the FRAX model (e.g. frailty, falls, vitamin D deficiency, increased bone turnover, interval significant decline in bone density) and possible under or overestimation of fracture risk by FRAX. Additional medical evaluation for secondary cause of low bone mineral density may be appropriate. FUTURE SCAN RECOMMENDATION: People with diagnosed cases of osteoporosis or at high risk for fracture should have regular bone mineral density tests. For patients eligible for Medicare, routine testing is allowed once every 2 years. The testing frequency can be increased to one year for patients who have rapidly progressing disease, those who are receiving or discontinuing medical therapy to restore bone mass, or have additional risk factors.
== END 2023-10-07 09:50 | disposition home or self-care (01) ==
LOC: HO.MAMMO 09:49
PROVIDERS: PCP Internal Medicine; Visit Provider Internal Medicine Endocrinology, Diabetes & Metabolism
DX: Z13.820 Encounter for screening for osteoporosis (principal); M81.0 Age-related osteoporosis without current pathological fracture; Z78.0 Asymptomatic menopausal state
CPT/HCPCS: 77081

== ENCOUNTER 2023-10-26 09:19 | Outpatient (AMB) | payer OTHER, SELFPAY ==
--- NOTE | 2023-10-26 09:40 | A.OFFVIS_ITS ---
Vital Signs 10/26/23 09:41 Height 5 ft Weight 122 lb 7.342 oz BMI 23.9 BP 196/92 H Blood Pressure Location Lt brachial Position Sitting Pulse 99 Intake Visit Reasons: 4 month follow Intake Note: Vandana presents in the office as a 4 month follow up CC: she wants to know if the medication that you gave her - is there a side effect that she loses her hair? 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 She denied any sx, no abdominal pain, jaundice, dark urine. nausea, vomiting or fevers, chills. She did recall several days of ruq pain going into her back, but pain was also in lower abdomen, which had gone. her appetite has been good, and no weight loss, stools are normal, without blood. She denied use of herbs, OTC meds, tylenol, or sick contacts, no respiratory sx. No ABX in last 3 months specifically no augmentin. Deneis alcohol intake and no illicit drug use. An abdominal ultrasound obtained in the ER, revealed normal-appearing liver with possible mild steatosis and no CBD dialtion or stones. MRCP done and personally reviewed, without any ductal dilation or filling defects, no pancreas mass. LAbs with neg acetaminophen, Hep serologies, ferritin 5000, and iron sat 72%, auto antibodies with raised ZITA, raised SMA, neg SLA, neg ANCA< neg celiac, normal IgG level Rept LABS: ferritin: 1471 TB: 3.7 AST- 648 ALT: 650 Alk p: 245 HFE gene status--negative TPMT--nml activity she eventually agreed to a liver bx: 12/24 Revealed Marked portal and lobular chronic inflammation with eosinophils and plasma cells., stage 3 fibrosis, no sign iron deposition She developed ascites and required ascitic tap with SAAG >1.1, no SBP doppler was neg for PVT she was put on aldactone, lasix and imuran 50 mg with steroid taper the imuran made her feel nauseated so changed to 6 MP LABS: 03/26 Hgb: 14 MCV: 101 pls 158 Na 141 creat 0.6 bili 1 AST 50 ALT 46 alk phos 122 alb 3.8 Rept labs 05/2021: bili- 1.1 ALT 31 AST 33 alk phos 117 Labs: 04/2022 LFT nml apart from mild ALT elevation LFT 10/2022-- LFT nml LFT; 06/27-- nml, INR 1.0 OTHER DATA: EGD: 05/2021----small varices, hyperplastic polyp removed fundus US 06/2021--cirrhosis, no mass lesions US: 02/2022- normal appearing liver, prominetn LN head of pancreas area. MRI 06/26-- no abn liver lesions, no pancreas lesions US 03/2023--likely cirrhosis, stable LN near pancreas MRI 08/29: cirrhosis --no liver lesion INTERIM: She feels well she has noted more hair loss recently she is waiting for lipoma removal appetite is good, no abdominal pain weight is stable no ascites, no memory issues denies nausea or vomiting no constipation or diarrhea no melena or rectal bleeding still compliant with 6MP no alcohol use EXAM: GENERAL: The patient is well developed and nontoxic. VITAL SIGNS:see workflow HEENT: Nonicteric sclerae, PERRLA, EOMI. Oropharynx clear. Moist mucous membranes. Conjunctivae appear well perfused. No thyroid mass. CHEST: Chest wall is nontender. HEART: Regular rate and rhythm without murmurs. LUNGS: Clear to auscultation bilaterally. ABDOMEN: Soft, positive bowel sounds, nontender,? pos hepatomegaly .no flank tenderness SKIN: No rash, no excessive bruising, petechiae, or purpura. NEUROLOGIC: Cranial nerves II-XII intact without motor/sensory deficit. psych--nml affect A/P: 1/ Abn LFT with elevated iron markers, pos ZITA and SMA--most consistent with type 1 Autoimmune hepatitis, ascites now resolved with diuretics and immune suppression, LFt have been normal 2/ Gastric polyp, hyperplastic 3/ epigastric pain and fullness, satiety--resolved PLAN: 1/ cont with 6 MP--recheck labs 2/ q 6 months imaging for HCC, repeat next visit 3/ EGD for variceal surveillance in 1 yr --due now, will add colonoscopy due to prior polyps 2018--suprep 4/ cont with MV and supplements 5/ transplant--not needed right now, improved 6/ with chronic 6 MP will need regular mammograms, pap, skin exam and colonoscopy per schedule 7/ check nutrient levels due to c/o alopecia as well as TSH PFSH Medical History Lipoma of left forearm Pulmonary nodule 1 cm or greater in diameter Autoimmune hepatitis Transaminitis Abnormal LFTs Smoker Allergic rhinitis COPD (chronic obstructive pulmonary disease) Hyperparathyroidism Abnormal SPEP Vitamin D deficiency Osteoporosis Arthritis Low calcium levels HTN (hypertension) Asthma Surgical History History of esophagogastroduodenoscopy (EGD) History of liver biopsy History of ERCP H/O colonoscopy Hx laparoscopic cholecystectomy Hx of tubal ligation Hx of tonsillectomy Family History Father Diabetes Heart disease Hypertension Mother Diabetes Arthritis Heart disease Paternal Uncle Cancer Sister Lung cancer Social History Household Members: Family Housing: Apartment Do you presently have visiting nurse or other home services: No Alcohol intake: former Patient Tobacco Use Status: Current everyday Tobacco user Tobacco use type: Cigarette Cigarette Packs Per Day: 0 Cigarettes Per Day: 3 Years Smoked: 47 Second Hand Smoke Exposure: Yes Advance Directives Date on File: 10/24/20 service: No Current occupational status: unemployed Physical Exam Vital Signs: Last Vital Signs Pulse 99 10/26/23 09:41 BP 196/92 H 10/26/23 09:41 BMI result Body Mass Index 23.9 Assessment & Plan Assessment & Plan (1) Autoimmune hepatitis: Code(s): K75.4 - Autoimmune hepatitis Category: Medical Plan: see above (2) Malnutrition: Code(s): E46 - Unspecified protein-calorie malnutrition Category: Medical Plan: see above Orders: Orders Vitamin A Today E46 - Unspecified protein-calorie malnutrition, K75.4 - Autoimmune hepatitis Vitamin B3 (Niacin) Today E46 - Unspecified protein-calorie malnutrition, K75.4 - Autoimmune hepatitis Vitamin C Today E46 - Unspecified protein-calorie malnutrition, K75.4 - Autoimmune hepatitis Zinc Today E46 - Unspecified protein-calorie malnutrition, K75.4 - Autoimmune hepatitis Ferritin Today E46 - Unspecified protein-calorie malnutrition, K75.4 - Autoimmune hepatitis IRON PROFILE Today E46 - Unspecified protein-calorie malnutrition, K75.4 - Autoimmune hepatitis Complete Blood Count Auto Diff Today E46 - Unspecified protein-calorie ma lnutrition, K75.4 - Autoimmune hepatitis Comprehensive Met. Panel Today E46 - Unspecified protein-calorie malnutrition, K75.4 - Autoimmune hepatitis, K75.81 - Nonalcoholic steatohepatitis (ROSARIO) Vitamin B1 Today E46 - Unspecified protein-calorie malnutrition, K75.4 - Autoimmune hepatitis Vitamin B12 and Folate Today E46 - Unspecified protein-calorie malnutrition, K75.4 - Autoimmune hepatitis Vitamin B5 (Pantothenic Acid) Today E46 - Unspecified protein-calorie malnutrition, K75.4 - Autoimmune hepatitis Vitamin B6 Today E46 - Unspecified protein-calorie malnutrition, K75.4 - Autoimmune hepatitis Vitamin D 25-OH Total Today E46 - Unspecified protein-calorie malnutrition, K75.4 - Autoimmune hepatitis Vitamin E Today E46 - Unspecified protein-calorie malnutrition, K75.4 - Autoimmune hepatitis TSH reflex Free T4 Today E46 - Unspecified protein-calorie malnutrition, K75.4 - Autoimmune hepatitis
[2023-10-26 09:41] VITALS: BP 196/92; PULSE 99; BMI 23.9
== END 2023-10-26 10:00 | disposition home or self-care (01) ==
PROVIDERS: PCP Internal Medicine; Visit Provider Internal Medicine Gastroenterology
DX: K75.4 Autoimmune hepatitis (principal); E46 Unspecified protein-calorie malnutrition
CPT/HCPCS: 99214

== ENCOUNTER → 2023-10-26 09:19 | Outpatient (BNVA) | payer OTHER, SELFPAY | PROVIDERS: PCP Internal Medicine; Visit Provider Internal Medicine Gastroenterology | DX: K75.4 Autoimmune hepatitis (principal); E46 Unspecified protein-calorie malnutrition | CPT/HCPCS: 99212 ==

== ENCOUNTER 2023-11-03 05:56 | Day surgery (SDC) | payer OTHER, SELFPAY ==
[2023-10-30 13:17] VITALS: BMI 22.9
--- NOTE | 2023-10-30 14:51 | HO.ANESPROP2 ---
HPI - Anesthesia Eval Consult details Narrative: 68yo F for Excision Large Lipoma Left arm PMFSH Active Problems Active Problems: All Active Problems Malnutrition (Acute) Lipoma of left forearm (Acute) Pulmonary nodule 1 cm or greater in diameter (Acute) Painful arc syndrome of right shoulder (Acute) Painful arc syndrome of left shoulder (Acute) Autoimmune hepatitis (Acute) Left arm swelling (Acute) Shoulder pain, left (Acute) Type 1 autoimmune hepatitis (Acute) GERD (gastroesophageal reflux disease) (Acute) Irritable bowel syndrome with both constipation and diarrhea (Acute) Fecal urgency (Acute) Acute hepatitis (Acute) Hemochromatosis (Acute) Abdominal pain (Acute) Smoker (Acute) Allergic rhinitis (Acute) COPD (chronic obstructive pulmonary disease) (Acute) Hyperparathyroidism (Acute) Abnormal SPEP (Chronic) Vitamin D deficiency (Acute) Osteoporosis (Acute) Past Medical History Medical History Lipoma of left forearm Pulmonary nodule 1 cm or greater in diameter Autoimmune hepatitis Transaminitis Abnormal LFTs Smoker Allergic rhinitis COPD (chronic obstructive pulmonary disease) Hyperparathyroidism Abnormal SPEP Vitamin D deficiency Osteoporosis Arthritis Low calcium levels HTN (hypertension) Asthma Family History Family History Father Diabetes Heart disease Hypertension Mother Diabetes Arthritis Heart disease Paternal Uncle Cancer Sister Lung cancer Family history of problems with anesthesia: No Surgical History Surgical History History of esophagogastroduodenoscopy (EGD) History of liver biopsy History of ERCP H/O colonoscopy Hx laparoscopic cholecystectomy Hx of tubal ligation Hx of tonsillectomy History of Problems with Anesthesia: No Social History Social History Household Members: Family Housing: Apartment Do you presently have visiting nurse or other home services: No Alcohol intake: former Patient Tobacco Use Status: Current everyday Tobacco user Tobacco use type: Cigarette Cigarette Packs Per Day: 0 Cigarettes Per Day: 3 Years Smoked: 47 Second Hand Smoke Exposure: Yes Advance Directives Date on File: 10/24/20 service: No Current occupational status: unemployed Meds Allergies Allergy/AdvReac Type Severity Reaction Status Date / Time No Known Allergies Allergy Verified 11/03/23 06:32 Home Medications ?Medication ?Instructions ?Recorded ?Confirmed ?Last Taken ?Type loratadine 10 mg tablet 10 mg PO DAILY PRN Allergic 07/19/20 11/03/23 Unknown History Symptoms montelukast 10 mg tablet 10 mg PO BEDTIME 07/19/20 11/03/23 01/02/21 History multivitamin with folic acid 400 1 tab PO DAILY 06/11/21 11/03/23 Unknown History mcg tablet (Daily-Glynn (with folic acid)) amlodipine 10 mg tablet 10 mg PO DAILY 02/23/23 11/03/23 Unknown History fluticasone propionate 50 2 spray intranasal DAILY PRN 06/25/23 11/03/23 Unknown History mcg/actuation nasal Allergy Symptoms spray,suspension (Flonase Allergy Relief) Exam Height,Weight and Vital Signs: Height 5 ft 1 in Weight 54.885 kg Pertinent Lab Results Pertinent Lab Results: Laboratory Tests 06/11/23 06/25/23 07/28/23 09:54 10:52 10:21 WBC 5.5 Hgb 14.2 Hct 42.3 Plt Count 176 PT 12.0 INR 1.0 Sodium 144 Potassium 3.7 Chloride 107 Carbon Dioxide 29 BUN 12 Creatinine 0.81 Total Bilirubin 0.6 AST 20 ALT 24 Alkaline Phosphatase 90 Total Protein 7.2 Albumin 4.0 Narrative Narrative: EKG 12/2022 Vent. Rate : 078 BPM Atrial Rate : 078 BPM P-R Int : 142 ms QRS Dur : 088 ms QT Int : 378 ms P-R-T Axes : 073 059 063 degrees QTc Int : 430 ms Normal sinus rhythm Normal ECG When compared with ECG of 03-JAN-2021 17:03, No significant change was found Assessment and Plan Assessment Anesthesia Assessment: Chart Reviewed Final Anesthetic Review Family History of Problems with Anesthesia: No History of Problems with Anesthesia: No
[2023-11-03 06:13] VITALS: BMI 23.0
[2023-11-03] MEDS: Lactated Ringers 1,000 ML 100 ML IVCONT (06:26)
[2023-11-03 06:31] VITALS: BP 139/79; PULSE 88; RESP 18; TEMP 36.7; O2SAT 97
[2023-11-03] MEDS: Albuterol Sulfate (0.083%) 2.5 MG/3 ML VIAL.NEB INHALE (06:37)
--- NOTE | 2023-11-03 07:12 | HO.ANESPROP2 ---
[facility] Active Problems Active Problems: All Active Problems Malnutrition (Acute) Lipoma of left forearm (Acute) Pulmonary nodule 1 cm or greater in diameter (Acute) Painful arc syndrome of right shoulder (Acute) Painful arc syndrome of left shoulder (Acute) Autoimmune hepatitis (Acute) Left arm swelling (Acute) Shoulder pain, left (Acute) Type 1 autoimmune hepatitis (Acute) GERD (gastroesophageal reflux disease) (Acute) Irritable bowel syndrome with both constipation and diarrhea (Acute) Fecal urgency (Acute) Acute hepatitis (Acute) Hemochromatosis (Acute) Abdominal pain (Acute) Smoker (Acute) Allergic rhinitis (Acute) COPD (chronic obstructive pulmonary disease) (Acute) Hyperparathyroidism (Acute) Abnormal SPEP (Chronic) Vitamin D deficiency (Acute) Osteoporosis (Acute) Past Medical History Medical History Lipoma of left forearm Pulmonary nodule 1 cm or greater in diameter Autoimmune hepatitis Transaminitis Abnormal LFTs Smoker Allergic rhinitis COPD (chronic obstructive pulmonary disease) Hyperparathyroidism Abnormal SPEP Vitamin D deficiency Osteoporosis Arthritis Low calcium levels HTN (hypertension) Asthma Functional capacity: independent ambulation Patient : No Family History Family History Father Diabetes Heart disease Hypertension Mother Diabetes Arthritis Heart disease Paternal Uncle Cancer Sister Lung cancer Family history of problems with anesthesia: No Surgical History Surgical History History of esophagogastroduodenoscopy (EGD) History of liver biopsy History of ERCP H/O colonoscopy Hx laparoscopic cholecystectomy Hx of tubal ligation Hx of tonsillectomy History of Problems with Anesthesia: No Social History Social History Household Members: Family Housing: Apartment Do you presently have visiting nurse or other home services: No Alcohol intake: former Patient Tobacco Use Status: Current everyday Tobacco user Tobacco use type: Cigarette Cigarette Packs Per Day: 0 Cigarettes Per Day: 3 Years Smoked: 47 Smoked in Last 30 Days: Yes Patient Interested in Nicotine Replacement: No Second Hand Smoke Exposure: Yes Are you DNR?: No Advance Directives: No Advance Directives Information Provided: Yes Advance Directives Date on File: 10/24/20 Nutrition Risks: No Nutritional Risk service: No Current occupational status: unemployed Meds Allergies Allergy/AdvReac Type Severity Reaction Status Date / Time No Known Allergies Allergy Verified 11/03/23 06:32 Active Medications: Current Medications Albuterol Sulfate (Albuterol Sulfate (0.083%) 2.5 Mg/3 Ml Vial.Neb) 2.5 mg INHALE ONCE PRN PRN Reason: Shortness of Breath/Wheezing Last Admin: 11/03/23 06:37 Dose: 2.5 mg Lactated Ringer's (Lr) 1,000 mls @ 100 mls/hr IVCONT .Q10H YARA Last Admin: 11/03/23 06:26 Dose: 100 mls/hr Home Medications ?Medication ?Instructions ?Recorded ?Confirmed ?Last Taken ?Type loratadine 10 mg tablet 10 mg PO DAILY PRN Allergic 07/19/20 11/03/23 Unknown History Symptoms montelukast 10 mg tablet 10 mg PO BEDTIME 07/19/20 11/03/23 01/02/21 History multivitamin with folic acid 400 1 tab PO DAILY 06/11/21 11/03/23 Unknown History mcg tablet (Daily-Glynn (with folic acid)) amlodipine 10 mg tablet 10 mg PO DAILY 02/23/23 11/03/23 Unknown History fluticasone propionate 50 2 spray intranasal DAILY PRN 06/25/23 11/03/23 Unknown History mcg/actuation nasal Allergy Symptoms spray,suspension (Flonase Allergy Relief) Exam Height,Weight and Vital Signs: Height 5 ft 1 in Weight 55.338 kg Last Vital Signs Temp 98.1 F 11/03/23 06:31 Pulse 88 11/03/23 06:31 Resp 18 11/03/23 06:31 BP 139/79 11/03/23 06:31 Pulse Ox 97 11/03/23 06:31 O2 Del Method Room Air 11/03/23 06:31 Airway Mallampati Class: II TM Dist: >3cm Neck ROM: Full Denture: Upper and Lower Heart: RRR Lungs: CTA Assessment and Plan Assessment Anesthesia Assessment: Anesthesia Plan Discussed and Smoking Cess. Discussed Final Anesthetic Review Family History of Problems with Anesthesia: No History of Problems with Anesthesia: No ASA Class: III Final Preanesthetic Review: Meds/Allgs Chart Reviewed, Consent Obtained/Reviewed and Anes Risks/Benef Reviewed Patient Risk: Intermediate Procedure Risk: Low Anesthetic Plan Anesthetic Plan: GA Disposition: Standard PACU
--- NOTE | 2023-11-03 07:20 | P.HPSUR_ITS ---
Pre-Procedural Eval Section A - 24 Hr Update-Section A only Date of Service: 11/03/23 Section B - Complete if H&P > 30 days Chief Complaint: Benign lipomatous neoplasm of skin and subcutaneou Details of Present Illness: has large lipoma on the left forearm Relevant Social History: None Present Medications: see Short Stay Collaborative assessment Medical History: Significant History (autoimmune hepatitis, GERD, IBSCOPD, hemochromatosis, hyperparathyroidism) Allergies: Allergies Allergy/AdvReac Type Severity Reaction Status Date / Time No Known Allergies Allergy Verified 11/03/23 06:32 Review of Systems Sugical H&P ROS: Negative: Constitution, Cardiovascular, Respiratory, Neur ological, Psychiatric, Hem-Onc, Allergic/Immunologic, Gastrointestinal, Genitourinary, Musculoskeletal, Integumentary, Endocrine and Eyes/Ears/Nose/Throat Exam Surgical H&P Exam: Normal: HEENT, Normal: Heart, Normal: Lungs, Normal: Extremities, Normal: Abdomen, Normal: Skin and Normal: Neurological Exam Comment: large lipoma left forearm, welldefined Plan Diagnosis/Plan: Unchanged I have reviewed the history and physical and performed a pertinent physical examination on my patient. No changes have occurred unless specified. Time Spent With Patient Time: Total time managing care of this patient today ____ minutes.
--- NOTE | 2023-11-03 07:58 | W.PM.OPN ---
Operative Note Operative Note Date of Service: 11/03/23 Narrative: Preop diagnosis: Large lipoma, left forearm Postop diagnosis: Large, left forearm, submuscular in location Procedure: Excision of large lipoma, submuscular, 8 x 7 cm in size Surgeon: Ángel Molina MD assistant case manager: NAYA Lassiter The patient is a 68 year female with a large lipoma of the left forearm. She wanted to proceed with excision. She understood the technique of the planned procedure as well as the risks, benefits, and alternatives She was about to the operating room. She was placed supine with the left arm abducted under general anesthesia via laryngeal mask airway. The area of the left forearm with the lipomas prepped and draped. Lidocaine 1% was used for local anesthesia. I made an incision on the skin transversely overlying the lipoma using a blade 15. This was carried down through the full-thickness of the skin and subcutaneous fat. We had to open up the fascia as the lipoma felt to be under the muscle. We did muscle-splitting until I was able to visualize the large lipoma. We dissected this off of the surrounding muscle fibers as well as posteriorly using sharp dissection with the electrocautery as well as blunt dissection with the fingers until was able to deliver this. This measured 8 x 7 cm, and about 2 cm thick I irrigated the area of excision. I closed the fascia with interrupted Polysorb 3-0 sutures. Skin closure was achieved with simple interrupted nylon 3-0 sutures. The area was infiltrated with Marcaine 0.5% for postop LILLIE. Dressings were applied. The procedure was completed The patient tolerated the procedure well. There were no immediate complications. Initial and final counts of sponges and instruments were correct. Estimated blood loss was about 5 cc The patient was extubated without difficulty and transferred to the recovery room with stable vital signs.
[2023-11-03 08:12] VITALS: BP 145/77; PULSE 85; RESP 16; TEMP 36.4; O2SAT 97
[2023-11-03 08:17] VITALS: BP 131/77; PULSE 80; RESP 16; O2SAT 94
[2023-11-03 08:22] VITALS: BP 140/78; PULSE 79; RESP 17; O2SAT 93
[2023-11-03 08:27] VITALS: BP 137/78; PULSE 80; RESP 17; O2SAT 94
[2023-11-03 08:50] VITALS: BP 133/74; PULSE 70; RESP 18; TEMP 36.7; O2SAT 95
--- NOTE | 2023-11-03 10:57 | HO.POSTANES ---
Post Anesthesia Evaluation Post Anesthesia Evaluation Date of Service: 11/03/23 Vital Signs: Vital Signs Temp Pulse Resp BP Pulse Ox O2 Del Method 11/03/23 08:50 98.0 F 70 18 133/74 95 Room Air 11/03/23 08:27 80 17 137/78 94 Room Air 11/03/23 08:22 79 17 140/78 H 93 Room Air 11/03/23 08:17 80 16 131/77 94 Room Air 11/03/23 08:12 97.6 F 85 16 145/77 H 97 Room Air 11/03/23 06:31 98.1 F 88 18 139/79 97 Room Air Anesthesia: General LMA Mental Status: Awake Pain Control: Satisfactory Nausea/Vomiting: None Hydration: Adequate Anesthesia-Related Issues: No Anes. Related Issues
== END 2023-11-03 09:30 | disposition home or self-care (01) ==
PROVIDERS: Pathology Cytopathology; PCP Internal Medicine; Visit Provider Surgery
PROC: (CPT 25073; principal; 2023-11-03 07:30)
DX: D17.22 Benign lipomatous neoplasm of skin and subcutaneous tissue of left arm (principal); I10 Essential (primary) hypertension; J44.9 Chronic obstructive pulmonary disease, unspecified; R91.1 Solitary pulmonary nodule; K75.4 Autoimmune hepatitis; Z79.51 Long term (current) use of inhaled steroids; Z79.899 Other long term (current) drug therapy; Z98.890 Other specified postprocedural states; F17.210 Nicotine dependence, cigarettes, uncomplicated; Z56.0 Unemployment, unspecified
CPT/HCPCS: 25073; 88304; 88377; J0690; J1100; J2250; J2405; J2704; J2795; J3010

== ENCOUNTER → 2023-11-03 05:56 | Outpatient (BNV) | payer OTHER, SELFPAY | PROVIDERS: PCP Internal Medicine; Visit Provider Surgery | DX: D17.22 Benign lipomatous neoplasm of skin and subcutaneous tissue of left arm (principal) | CPT/HCPCS: 25073 ==

== ENCOUNTER 2023-11-16 10:07 | Outpatient (REF) | payer OTHER, SELFPAY ==
[2023-11-16 11:24] LABS: MANUAL DIFF FLAG NO
[2023-11-16 11:48] LABS: Basophils Percent Auto 0.5 % (0-2); Eosinophils Absolute Auto 0.1 X10*3/uL (0.0-0.4); Eosinophils Percent Auto 1.6 % (0-4); Hematocrit 41.6 % (37.0-47.0); Hemoglobin 14.1 g/dl (12.0-16.0); Imm Gran Abs Auto 0.01 X10*3/uL (0.00-0.03); Imm Gran Pct Auto 0.2 % (0.0-0.4); Lymphocytes Absolute Auto 1.4 X10*3/uL (1.2-4.9); Lymphocytes Percent Auto 24.5 % (20-40); Mean Corpuscular HGB Conc 33.9 g/dl (31.0-35.0); Mean Corpuscular Hemoglobin 31.9 pg (27.0-33.0); Mean Corpuscular Volume 94.1 fL (80.0-98.0); Mean Platelet Volume 10.1 fL (9.4-12.3); Monocytes Absolute Auto 0.5 X10*3/uL (0.1-1.2); Monocytes Percent Auto 8.9 % (2-11); Neutrophils Absolute Auto 3.5 x10*3/uL (2.0-8.3); Neutrophils Percent Auto 64.3 % (45-73); Platelet Count 190 X10*3/uL (160-400); Red Blood Count 4.42 X10*6/uL (4.20-5.50); Red Cell Distribution Width 12.6 % (11.0-16.0); White Blood Count 5.5 X10*3/uL (4.8-10.8)
[2023-11-16 12:28] LABS: Alanine Aminotransferase 19 U/L (0-31); Albumin Level 4.3 g/dL (3.5-5.0); Alkaline Phosphatase 86 U/L (39-117); Anion Gap 14 (12-20); Aspartate Amino Transferase 17 U/L (5-31); Bilirubin Total 0.5 mg/dL (0.0-1.0); Blood Urea Nitrogen 17 mg/dL (9-16); Calcium 10.1 mg/dL (8.4-10.2); Carbon Dioxide 28 mmol/L (22-29); Chloride 107 mmol/L (96-108); Estimated Glomerular Filt Rate > 60; Glucose Random 88 mg/dL (60-115); Iron 96 mcg/dL (30-160); Percent Iron Saturation 34 % (15-50); Potassium 3.9 mmol/L (3.3-5.1); Sodium 145 mmol/L (135-145); Total Iron Binding Capacity 286 mcg/dL (228-428); Total Protein 7.9 g/dL (6.5-8.0); Unsaturated Iron Binding 190 ug/dL
[2023-11-16 12:51] LABS: Ferritin 324 ng/mL (10-250); TSH reflex Free T4 1.01 uIU/mL (0.32-4.0)
[2023-11-16 13:05] LABS: Folate 9.9 ng/mL (> or = 4.0); Vitamin B12 377 pg/mL (200-900)
[2023-11-19 05:59] LABS: Zinc 62 mcg/dL (60-130)
[2023-11-19 16:53] LABS: Vitamin A 45 mcg/dL (38-98)
[2023-11-19 17:13] LABS: Alpha-Tocopherol 10.2 mg/L (5.7-19.9); Beta-Gamma Tocopherol 1.6 mg/L (<=4.3)
[2023-11-20 14:34] LABS: Vitamin C 0.1 mg/dL (0.3-2.7)
[2023-11-20 14:34] LABS: Vitamin B1 14 nmol/L (8-30)
[2023-11-22 15:13] LABS: Vitamin B6 4.3 ng/mL (2.1-21.7)
[2023-11-22 21:23] LABS: Nicotinamide 23 ng/mL; Vit B3 - Nicotinic Acid <20 ng/mL
[2023-11-22 21:38] LABS: Vitamin B5 (Pantothenic Acid) <40 ng/mL (<275)
== END 2023-11-16 10:08 | disposition home or self-care (01) ==
LOC: HO.LAB 10:07
PROVIDERS: Absent Provider Internal Medicine Gastroenterology; PCP Internal Medicine; Referring Provider Internal Medicine Endocrinology, Diabetes & Metabolism; Visit Provider Surgery
DX: K75.4 Autoimmune hepatitis (principal); E46 Unspecified protein-calorie malnutrition; M81.0 Age-related osteoporosis without current pathological fracture; M75.81 Other shoulder lesions, right shoulder
CPT/HCPCS: 36415; 80053; 82180; 82306; 82607; 82728; 82746; 83540; 84207; 84425; 84443; 84446; 84590; 84591; 84630; 85025; 99212

== ENCOUNTER 2023-11-16 10:07 | Outpatient (AMB) | payer OTHER, SELFPAY ==
--- NOTE | 2023-11-16 10:24 | A.OFFVIS_ITS ---
Vital Signs 11/16/23 10:32 Weight 123 lb BP 181/96 H Blood Pressure Location Rt brachial Position Sitting Pulse 103 H Intake Visit Reasons: S/P excision Large lipoma left arm Intake Note: This patient presents for a post-op assessment status post excision large lipoma, sub muscular. Pt c/o; reports numbness and tingling in her arm. Surgery date: 11/03/2023 Customer Account Administrator Required: Yes Customer Account Administrator Language: Weather Forcaster Name: Stu Accompanied by: Self / Same As Patient Allergies No Known Allergies Allergy (Verified 11/16/23 10:33) HPI HPI S/P excision Large lipoma left arm: Details: She underwent excision of a submuscular lipoma on the left forearm last 11/03/2023. This was done under anesthesia She describes some pain and tingling and numbness around the area. Otherwise she says she is doing well. [facility] Medical History Lipoma of left forearm Pulmonary nodule 1 cm or greater in diameter Autoimmune hepatitis Transaminitis Abnormal LFTs Smoker Allergic rhinitis COPD (chronic obstructive pulmonary disease) Hyperparathyroidism Abnormal SPEP Vitamin D deficiency Osteoporosis Arthritis Low calcium levels HTN (hypertension) Asthma Surgical History Status post excision of lipoma (~11/03/23) History of esophagogastroduodenoscopy (EGD) History of liver biopsy History of ERCP H/O colonoscopy Hx laparoscopic cholecystectomy Hx of tubal ligation Hx of tonsillectomy Family History Father Diabetes Heart disease Hypertension Mother Diabetes Arthritis Heart disease Paternal Uncle Cancer Sister Lung cancer Social History Household Members: Family Housing: Apartment Do you presently have visiting nurse or other home services: No Alcohol intake: former Patient Tobacco Use Status: Current everyday Tobacco user Tobacco use type: Cigarette Cigarette Packs Per Day: 0 Cigarettes Per Day: 3 Years Smoked: 47 Second Hand Smoke Exposure: Yes Advance Directives Date on File: 10/24/20 service: No Current occupational status: unemployed Review of Systems Const Denies chills and Denies fever(s) Card Denies chest pain, Denies dyspnea and Denies dyspnea on exertion Resp Denies cough, Denies dyspnea and Denies dyspnea on exertion GI Denies hematochezia and Denies change in bowel habits Denies hematuria Musc Denies back pain and Denies limited range of motion Neuro Denies focal weakness and Denies convulsions Psych Denies depression and Denies mood swings Physical Exam Vital Signs: Last Vital Signs Pulse 103 H 11/16/23 10:32 BP 181/96 H 11/16/23 10:32 Const General: comfortable and no acute distress Extrem Other: Excision site well healed, not infected, sutures intact, Assessment & Plan Assessment & Plan (1) Lipoma of left forearm: Code(s): D17.22 - Benign lipomatous neoplasm of skin and subcutaneous tissue of left arm Category: Medical Plan: Status post excision. The path report confirms a lipoma. I removed her sutures. I reinforced the incision with Steri-Strips She can follow up on a p.r.n. basis. Coding Level of Care Code Global (72564) Diagnoses Lipoma of left forearm D17.22
[2023-11-16 10:32] VITALS: BP 181/96; PULSE 103
== END 2023-11-16 10:52 | disposition home or self-care (01) ==
PROVIDERS: PCP Internal Medicine; Visit Provider Surgery
DX: D17.22 Benign lipomatous neoplasm of skin and subcutaneous tissue of left arm (principal)
CPT/HCPCS: 99024

== ENCOUNTER 2023-11-18 11:16 | Outpatient (AMB) | payer OTHER, SELFPAY ==
[2023-11-18 11:17] VITALS: BP 146/72; PULSE 90
--- NOTE | 2023-11-18 11:17 | A.OFFVIS_ITS ---
Vital Signs 11/18/23 11:17 Height 5 ft 1 in BP 146/72 H Blood Pressure Location Rt brachial Position Sitting Pulse 90 Pulse Source Pulse Oximeter Intake Visit Reasons: F/U Osteoporosis-CONFIRMED Intake Note: Patient present today for Osteoporosis follow up visit. Saw Cleaner Required: No Accompanied by: Self / Same As Patient Allergies No Known Allergies Allergy (Verified 11/18/23 11:20) Medication List - Last Reconciled 11/18/23 by Joao Guillermo MD albuterol sulfate 5 mg inhalation Q4H PRN albuterol sulfate 90 mcg/actuation 2 puffs inhalation Q4-6H PRN 30 days amlodipine 10 mg PO DAILY calcium citrate 250 mg PO BID 30 days capsaicin 0.1% 1 appl topical BID cholecalciferol (vitamin D3) 50 mcg PO DAILY denosumab (Prolia) 60 mg subcut [id number] 1 day fluticasone propion-salmeterol 250-50 mcg/dose (Wixela Inhub) 1 inh inhalation BID 30 days fluticasone propionate 50 mcg/actuation (Flonase Allergy Relief) 2 sprays intran fabio DAILY PRN ibuprofen 400 mg PO TID PRN ipratropium bromide 17 mcg/actuation (Atrovent HFA) 2 puffs inhalation TID 30 days loratadine 10 mg PO DAILY PRN mercaptopurine 50 mg PO DAILY montelukast 10 mg PO BEDTIME multivitamin with folic acid 400 mcg (Daily-Glynn (with folic acid)) 1 tab PO DAILY omeprazole 40 mg PO BID 30 days pyridoxine (vitamin B6) 100 mg PO BID sodium,potassium,mag sulfates 17.5-3.13-1.6 gram (Suprep Bowel Prep Kit) DILUTE; drink 1/2 at 6-8 pm and half at 11 PM- 1AM tramadol 50 mg PO Q6H PRN HPI Comments Details: 68 YO Female with PMHx COPD and Osteoporosis is seen in F/U for Osteoporosis. The patient last saw Dr. Daily on 10/29/2022 Of note, Patient is a very poor historian. She is not aware of much of her health history. First diagnosed with Osteoporosis in Aug 2019 with her first DEXA. She has never been treated in the past. After her initial visit we completed a full biochemical assessment for secondary causes of Osteoporosis. This revealed a possible M spike on her SPEP, and she was referred to Heme-Onc for this and per their records there was no concern for multiple myeloma. This also revealed low Vitamin D, elevated Calcium of 10.4, with an inappropriately normal PTH of 51. She repeated her labs which confirmed hypovitaminosis D, and Calcium WNL. Labs repeated again and were again WNL. She was started on high dose Vitamin D, now with Vitamin D is now WNL. 24 hour urine calcium reveals very low calcium levels. She was started on Prolia and has received 2 doses thus far 10/24/2021 and 04/28/2022. She has tolerated these well. Has 0 servings of dietary calcium per day. Takes Calcium Citrate 250 mg PO BID. Did take Vitamin D 50,000 IU once a week for a few months, but this was stopped for unknown reasons. She has long standing hypovitaminosis D. She was evaluated for celiac disease in the past and this was negative. She remains on Vitamin D 2000 IU daily, and did complete a course of high dose supplementation. Uses Omeprazole daily. She does have COPD and uses short Prednisone courses approximately 2-5 times per year. Denies ever using antiepileptic or anticoagulant medication. Does no exercise. Fracture history: Denies Height loss: Denies. 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 Menses were regular. . She did not breastfeed. Menopause was age 44. She did not use HRT. Denies history of Kidney stones: Mother with a history of Osteoporosis. UTD on dental cleanings and sees dentist every 6 months. No planned upcoming dental work or extractions. DXA: 09/24/2021 FINDINGS: AP SPINE L1-L4: Current: BMD 1.078 g/cm2, Z-score 1.2, T-score -0.9, normal, 3.1% decrease from previous, 8.8% decrease from baseline (<5% change is not significant). Prior: BMD 1.112 g/cm2. Baseline: BMD 1.182 g/cm2. LEFT FEMUR, NECK: Current: BMD 0.606 g/cm2, Z-score -1.2, T-score -3.1, osteoporosis. Prior: BMD 0.666 g/cm2. Baseline: BMD 0.832 g/cm2. LEFT FEMUR, TOTAL: Current: BMD 0.670 g/cm2, Z-score -1.0, T-score -2.7, osteoporosis, 11.7% decrease from previous, 26.9% decrease from baseline (<5% change is not significant). Prior: BMD 0.759 g/cm2. Baseline: BMD 0.917 g/cm2. Labs: Laboratory Tests 10/23/22 10/23/22 11:22 11:22 Sodium 143 Potassium 3.7 Creatinine 0.85 Estimated GFR > 60 25-OH Vitamin D Total 35.1 PTH Intact 28 Calcium (PTH Intact) 9.4 received last Prolia dose in May 2023. No back pain or hip pain since last visit [facility] Medical History Lipoma of left forearm Pulmonary nodule 1 cm or greater in diameter Autoimmune hepatitis Transaminitis Abnormal LFTs Smoker Allergic rhinitis COPD (chronic obstructive pulmonary disease) Hyperparathyroidism Abnormal SPEP Vitamin D deficiency Osteoporosis Arthritis Low calcium levels HTN (hypertension) Asthma Surgical History Status post excision of lipoma (~11/03/23) History of esophagogastroduodenoscopy (EGD) History of liver biopsy History of ERCP H/O colonoscopy Hx laparoscopic cholecystectomy Hx of tubal ligation Hx of tonsillectomy Family History Father Diabetes Heart disease Hypertension Mother Diabetes Arthritis Heart disease Paternal Uncle Cancer Sister Lung cancer Social History Household Members: Family Housing: Apartment Do you presently have visiting nurse or other home services: No Alcohol intake: former Patient Tobacco Use Status: Current everyday Tobacco user Tobacco use type: Cigarette Cigarette Packs Per Day: 0 Cigarettes Per Day: 3 Years Smoked: 47 Second Hand Smoke Exposure: Yes Advance Directives Date on File: 10/24/20 service: No Current occupational status: unemployed Assessment & Plan Assessment & Plan (1) Osteoporosis: Code(s): M81.0 - Age-related osteoporosis without current pathological fracture Category: Medical Qualifiers: Osteoporosis type: unspecified Presence of current pathological fracture: unspecified Qualified Code(s): M81.0 - Age-related osteoporosis without current pathological fracture Plan: This is a 68-year-old female with a history of osteoporosis with negative secondary workup was currently receiving Prolia 4th dose received May 2023. Last DEXA showed improvements in the hip and spine into the osteopenic range Will talk to patient either to receive another injection of Prolia will transition to oral or intravenous bisphosphonate. She will receive another injection Prolia today we turned about 5 months' time to make decision about whether to transition to oral or intravenous bisphosphonate Coding Level of Care Code Est Pt Level 3 (52371) Diagnoses Osteoporosis, unspecified osteoporosis type, unspecified pathological fracture presence M81.0 Osteoporosis type: unspecified Presence of current pathological fracture: unspecified
== END 2023-11-18 11:35 | disposition home or self-care (01) ==
PROVIDERS: PCP Internal Medicine; Visit Provider Internal Medicine Endocrinology, Diabetes & Metabolism
DX: M81.0 Age-related osteoporosis without current pathological fracture (principal)
CPT/HCPCS: 99213

== ENCOUNTER → 2023-11-18 11:16 | Outpatient (BNVA) | payer OTHER, SELFPAY | PROVIDERS: PCP Internal Medicine; Visit Provider Internal Medicine Endocrinology, Diabetes & Metabolism | DX: M81.0 Age-related osteoporosis without current pathological fracture (principal) | CPT/HCPCS: 96372; 99212; J0897 ==

== ENCOUNTER 2024-04-19 10:20 | Outpatient (AMB) | payer OTHER, SELFPAY ==
--- NOTE | 2024-04-19 10:22 | A.OFFVIS_ITS ---
Vital Signs 04/19/24 10:24 Height 5 ft 1 in Weight 122 lb 5.705 oz BMI 23.1 BP 134/70 Blood Pressure Location Rt brachial Position Sitting Pulse 86 Pulse Source Pulse Oximeter Intake Visit Reasons: Osteoporosis-conf Intake Note: Patient present today for osteoporosis follow up visit. Egg Setter Required: No Accompanied by: Self / Same As Patient Allergies No Known Allergies Allergy (Verified 04/19/24 10:28) Medication List - Last Reconciled 04/19/24 by Joao Guillermo MD albuterol sulfate 5 mg inhalation Q4H PRN albuterol sulfate 90 mcg/actuation 2 puffs inhalation Q4-6H PRN 30 days amlodipine 10 mg PO DAILY ascorbic acid (vitamin C) 1 g PO DAILY calcium citrate 250 mg PO BID 30 days capsaicin 0.1% 1 appl topical BID cholecalciferol (vitamin D3) 50 mcg PO DAILY denosumab (Prolia) 60 mg subcut [id number] 1 day fluticasone propion-salmeterol 250-50 mcg/dose (Wixela Inhub) 1 ea PO BID fluticasone propionate 50 mcg/actuation (Flonase Allergy Relief) 2 sprays intranasal DAILY PRN ibuprofen 400 mg PO TID PRN ipratropium bromide 17 mcg/actuation (Atrovent HFA) 2 puffs inhalation TID 30 days loratadine 10 mg PO DAILY PRN mercaptopurine 50 mg PO DAILY montelukast 10 mg PO BEDTIME multivitamin with folic acid 400 mcg (Daily-Glynn (with folic acid)) 1 tab PO DAILY omeprazole 40 mg PO BID pyridoxine (vitamin B6) 100 mg PO BID sodium,potassium,mag sulfates 17.5-3.13-1.6 gram (Suprep Bowel Prep Kit) DILUTE; drink 1/2 at 6-8 pm and half at 11 PM- 1AM tramadol 50 mg PO Q6H PRN HPI Comments Details: 69 YO Female with PMHx COPD and Osteoporosis is seen in F/U for Osteoporosis. Of note, Patient is a very poor historian. She is not aware of much of her health history. First diagnosed with Osteoporosis in Aug 2019 with her first DEXA. She has never been treated in the past. After her initial visit we completed a full biochemical assessment for secondary causes of Osteoporosis. This revealed a possible M spike on her SPEP, and she was referred to Heme-Onc for this and per their records there was no concern for multiple myeloma. This also revealed low Vitamin D, elevated Calcium of 10.4, with an inappropriately normal PTH of 51. She repeated her labs which confirmed hypovitaminosis D, and Calcium WNL. Labs repeated again and were again WNL. She was started on high dose Vitamin D, now with Vitamin D is now WNL. 24 hour urine calcium reveals very low calcium levels. She was started on Prolia and has received 2 doses thus far 10/24/2021 and 04/28/2022. She has tolerated these well. Has 0 servings of dietary calcium per day. Takes Calcium Citrate 250 mg PO BID. Did take Vitamin D 50,000 IU once a week for a few months, but this was stopped for unknown reasons. She has long standing hypovitaminosis D. She was evaluated for celiac disease in the past and this was negative. She remains on Vitamin D 2000 IU daily, and did complete a course of high dose supplementation. Uses Omeprazole daily. She does have COPD and uses short Prednisone courses approximately 2-5 times per year. Denies ever using antiepileptic or anticoagulant medication. Does no exercise. Fracture history: Denies Height loss: Denies. MEDICAL RECORD ASSISTANT history: Menarche at age 11. Menses were regular. . She did not breastfeed. Menopause was age 44. She did not use HRT. Denies history of Kidney stones: Mother with a history of Osteoporosis. UTD on dental cleanings and sees dentist every 6 months. No planned upcoming dental work or extractions. DXA: 09/24/2021 FINDINGS: AP SPINE L1-L4: Current: BMD 1.078 g/cm2, Z-score 1.2, T-score -0.9, normal, 3.1% decrease from previous, 8.8% decrease from baseline (<5% change is not significant). Prior: BMD 1.112 g/cm2. Baseline: BMD 1.182 g/cm2. LEFT FEMUR, NECK: Current: BMD 0.606 g/cm2, Z-score -1.2, T-score -3.1, osteoporosis. Prior: BMD 0.666 g/cm2. Baseline: BMD 0.832 g/cm2. LEFT FEMUR, TOTAL: Current: BMD 0.670 g/cm2, Z-score -1.0, T-score -2.7, osteoporosis, 11.7% decrease from previous, 26.9% decrease from baseline (<5% change is not significant). Prior: BMD 0.759 g/cm2. Baseline: BMD 0.917 g/cm2. Labs: Laboratory Tests 10/23/22 10/23/22 11:22 11:22 Sodium 143 Potassium 3.7 Creatinine 0.85 Estimated GFR > 60 25-OH Vitamin D Total 35.1 PTH Intact 28 Calcium (PTH Intact) 9.4 received last Prolia dose in November 2023. No back pain or hip pain since last visit [facility] Medical History Lipoma of left forearm Pulmonary nodule 1 cm or greater in diameter Autoimmune hepatitis Transaminitis Abnormal LFTs Smoker Allergic rhinitis COPD (chronic obstructive pulmonary disease) Hyperparathyroidism Abnormal SPEP Vitamin D deficiency Osteoporosis Arthritis Low calcium levels HTN (hypertension) Asthma Surgical History (Updated 03/08/24 @ 14:12 by Olga Schneider RN) Status post excision of lipoma (~11/03/23) History of esophagogastroduodenoscopy (EGD) History of liver biopsy History of ERCP H/O colonoscopy Hx laparoscopic cholecystectomy Hx of tubal ligation Hx of tonsillectomy Family History Father Diabetes Heart disease Hypertension Mother Diabetes Arthritis Heart disease Paternal Uncle Cancer Sister Lung cancer Social History Household Members: Family Housing: Apartment Do you presently have visiting nurse or other home services: No Alcohol intake: former Patient Tobacco Use Status: Current everyday Tobacco user Tobacco use type: Cigarette Cigarette Packs Per Day: 0 Cigarettes Per Day: 3 Years Smoked: 47 Second Hand Smoke Exposure: Yes Advance Directives Date on File: 10/24/20 service: No Current occupational status: unemployed Physical Exam Vital Signs: Last Vital Signs Pulse 86 04/19/24 10:24 BP 134/70 04/19/24 10:24 BMI result Body Mass Index 23.1 Assessment & Plan Assessment & Plan (1) Osteoporosis: Code(s): M81.0 - Age-related osteoporosis without current pathological fracture Category: Medical Qualifiers: Osteoporosis type: unspecified Presence of current pathological fracture: unspecified Qualified Code(s): M81.0 - Age-related osteoporosis without current pathological fracture Plan: This is a 68-year-old female with a history of osteoporosis with negative secondary workup was currently receiving Prolia 4th dose received May 2023. Last DEXA showed improvements in the hip and spine into the osteopenic range. She is due for another Prolia injection 05/2024 Will talk to patient about transition to oral or intravenous bisphosphonate. Patient's systolic the alendronate next month when the Prolia injections due. Went over administration of alendronate as well as side effects of alendronate with patient which include but are not limited to atypical femur fracture the hip and avascular necrosis of a drawer Orders: Orders Collagen Crosslinks NTX 4 Months M81.0 - Age-related osteoporosis without current pathological fracture Medications: New alendronate 70 mg PO QWEEK 5 tabs 5RF Refilled calcium citrate 250 mg PO BID 30 days 60 tabs 11RF M81.0 - Age-related osteoporosis without current pathological fracture Discontinued denosumab (Prolia) Discontinued Reason: Doctor's Order 60 mg subcut [id number] 1 day 1 mL 2RF Coding Level of Care Code Est Pt Level 3 (92990) Diagnoses Osteoporosis, unspecified osteoporosis type, unspecified pathological fracture presence M81.0 Osteoporosis type: unspecified Presence of current pathological fracture: unspecified
[2024-04-19 10:24] VITALS: BP 134/70; PULSE 86; BMI 23.1
== END 2024-04-19 10:41 | disposition home or self-care (01) ==
PROVIDERS: PCP Internal Medicine; Visit Provider Internal Medicine Endocrinology, Diabetes & Metabolism
DX: M81.0 Age-related osteoporosis without current pathological fracture (principal)
CPT/HCPCS: 99213

== ENCOUNTER → 2024-04-19 10:20 | Outpatient (BNVA) | payer OTHER, SELFPAY | PROVIDERS: PCP Internal Medicine; Visit Provider Internal Medicine Endocrinology, Diabetes & Metabolism | DX: M81.0 Age-related osteoporosis without current pathological fracture (principal); Z79.620 Long term (current) use of immunosuppressive biologic | CPT/HCPCS: 99212 ==

== ENCOUNTER 2024-05-07 09:19 | Emergency (ER) | payer OTHER, SELFPAY ==
--- NOTE | ~2024-05-07 | XR_ITS ---
EXAMINATION: XR CHEST CLINICAL INFORMATION: SOB COMPARISON: Chest CT on 05/20/23 TECHNIQUE: Frontal view of the chest was obtained. FINDINGS: No significant abnormality is noted involving the heart, lungs, mediastinum, bony thorax or soft tissues. XR/XR chest 1V IMPRESSION: Unremarkable examination. Electronically signed by: Kathryn Mcmillan MD 05/07/2024 11:39 AM EDT RP
[2024-05-07 09:24] VITALS: BP 136/97; PULSE 106; RESP 22; TEMP 36.6; O2SAT 96; BMI 23.0
--- NOTE | 2024-05-07 10:46 | ECG_ITS ---
Test Reason : SOB Blood Pressure : / mmHG Vent. Rate : 081 BPM Atrial Rate : 081 BPM P-R Int : 130 ms QRS Dur : 080 ms QT Int : 368 ms P-R-T Axes : 075 059 051 degrees QTc Int : 427 ms Normal sinus rhythm Normal ECG When compared with ECG of 28-DEC-2022 10:48, No significant change was found Referred By: Robbie Saavedra Electronically Signed By:BABAR GUZMAN
--- NOTE | 2024-05-07 10:48 | ED.SOB ---
HPI - SOB/Dyspnea General Chief Complaint: Dyspnea Stated Complaint: cough, asthma Time Seen by Provider: 05/07/24 10:41 Source: patient Mode of arrival: ambulatory Limitations: no limitations History of Present Illness ED Provider: Radha MARTIN HPI Narrative: 69 year old female hx of asthma, autoimmune hepatitis, GERD, IBS, hemochromatosis, COPD, hyperparathyroid, presents with a week of productive cough with white sputum she reports shortness of breath at rest and with exertion. She reports she has a history of asthma and COPD and she has been using her inhalers more frequently. She denies recent sick contacts, chest pain, nausea, vomiting, abdominal pain, fevers, chills, headache, vision changes, dizziness and weakness Related Data Home Medications ?Medication ?Instructions ?Recorded ?Confirmed loratadine 10 mg tablet 10 mg PO DAILY PRN Allergic 07/19/20 03/08/24 Symptoms montelukast 10 mg tablet 10 mg PO BEDTIME 07/19/20 03/08/24 multivitamin with folic acid 400 1 tab PO DAILY 06/11/21 03/08/24 mcg tablet (Daily-Glynn (with folic acid)) amlodipine 10 mg tablet 10 mg PO DAILY 02/23/23 03/08/24 fluticasone propionate 50 2 spray intranasal DAILY PRN 06/25/23 03/08/24 mcg/actuation nasal Allergy Symptoms spray,suspension (Flonase Allergy Relief) Previous Rx's ?Medication ?Instructions ?Recorded albuterol sulfate 2.5 mg/0.5 mL 5 mg inhalation Q4H PRN shortness 05/20/23 solution for nebulization of breath or wheezing #30 ea capsaicin 0.1 % topical cream 1 appl topical BID #60 grams 06/15/23 sodium,potassium,mag sulfates 17.5 See Rx Instructions PO .COMPLEX 06/15/23 gram-3.13 gram-1.6 gram oral soln #354 mL (Suprep Bowel Prep Kit) ipratropium bromide 17 2 puff inhalation TID COPD 30 days 06/25/23 mcg/actuation HFA aerosol inhaler #12.9 grams (Atrovent HFA) ibuprofen 400 mg tablet 400 mg PO TID PRN pain (scale 11/03/23 score 1-3) #15 tabs tramadol 50 mg tablet 50 mg PO Q6H PRN pain #6 tabs 04/30/24 ascorbic acid (vitamin C) 1,000 mg 1 g PO DAILY #90 caps 11/20/23 capsule cholecalciferol (vitamin D3) 50 50 mcg PO DAILY #30 caps 12/21/23 mcg (2,000 unit) capsule mercaptopurine 50 mg tablet 50 mg PO DAILY #90 tabs 04/09/24 albuterol sulfate 90 mcg/actuation 2 puff inhalation Q4-6H PRN 04/11/24 aerosol inhaler shortness of breath or wheezing 30 days #8.5 grams alendronate 70 mg tablet 70 mg PO QWEEK #5 tabs 04/19/24 calcium citrate 250 mg PO BID 30 days #60 tabs 04/19/24 fluticasone 250 mcg-salmeterol 50 1 ea PO BID #60 ea 04/19/24 mcg/dose blistr powdr for inhalation (Wixela Inhub) omeprazole 40 mg capsule,delayed 40 mg PO BID #60 caps 04/19/24 release pyridoxine (vitamin B6) 100 mg 100 mg PO BID #60 tabs 04/19/24 tablet albuterol sulfate 90 mcg/actuation 2 inh inhalation Q4-6H PRN 05/07/24 breath activated powder inhaler shortness of breath or wheezing #1 ea doxycycline hyclate 100 mg capsule 100 mg PO BID 10 days #20 caps 05/07/24 prednisone 20 mg tablet 40 mg (2 x 20 mg) PO DAILY 5 days 05/07/24 #10 tabs Allergies Allergy/AdvReac Type Severity Reaction Status Date / Time No Known Allergies Allergy Verified 05/07/24 09:28 Review of Systems Review of Systems: Yes all other systems are reviewed and are negative [facility] Past Medical History Attestation statement: The following information was validated with the patient. Source: old records reviewed and nursing notes reviewed Medical History Lipoma of left forearm Pulmonary nodule 1 cm or greater in diameter Autoimmune hepatitis Transaminitis Abnormal LFTs Smoker Allergic rhinitis COPD (chronic obstructive pulmonary disease) Hyperparathyroidism Abnormal SPEP Vitamin D deficiency Osteoporosis Arthritis Low calcium levels HTN (hypertension) Asthma Surgical History Status post excision of lipoma (~11/03/23) History of esophagogastroduodenoscopy (EGD) History of liver biopsy History of ERCP H/O colonoscopy Hx laparoscopic cholecystectomy Hx of tubal ligation Hx of tonsillectomy Family History Family History Father Diabetes Heart disease Hypertension Mother Diabetes Arthritis Heart disease Paternal Uncle Cancer Sister Lung cancer Social History Social History Household Members: Family Housing: Apartment Do you presently have visiting nurse or other home services: No Alcohol intake: never Patient Tobacco Use Status: Current everyday Tobacco user Tobacco use type: Cigarette Cigarette Packs Per Day: 0 Cigarettes Per Day: 3 Years Smoked: 47 Smoked in Last 30 Days: Yes Second Hand Smoke Exposure: Yes Use of substances other than those prescribed or required for medical reasons: No Advance Directives: No Advance Directives Information Provided: Yes Advance Directives Date on File: 10/24/20 service: No Current occupational status: unemployed Physical Exam Vital Signs: Vital Signs: Last Vital Signs Temp 98 F 05/07/24 09:24 Pulse 106 H 05/07/24 10:53 Resp 22 H 05/07/24 10:53 BP 136/97 H 05/07/24 09:24 Pulse Ox 96 05/07/24 09:24 O2 Del Method Room Air 05/07/24 09:24 BMI result Body Mass Index 23.0 vss Appearance: Alert.? Oriented X3.? No acute distress.? Head: Normocephalic, atraumatic, no step-offs or deformities Eyes: Pupils equal, round and reactive to light.? CVS: Normal heart rate and rhythm.? Pulses normal.? Respiratory: No respiratory distress.? Breath sounds + mild expiratory wheezing b/l.? Abdomen: Soft and nontender.? Skin: Skin warm and dry.? Normal skin color.? Normal skin turgor.? Extremities: No lower extremity edema.? No calf ttp. 5/5 strength to bilateral upper and lower extremities Back: No midline tenderness, no C-spine tenderness, full range of motion, no CVA tenderness bilaterally Neuro: Oriented X 3.? No motor deficit.? No sensory deficit. CN 2-12 intact Course Reevaluation(s) Reevaluation #1: CBC unremarkable. Chemistry no acute findings needing intervention. Negative troponin, EKG nonischemic. D-dimer negative . Chest x-ray pending. As long as this is normal patient to be discharged home with doxycycline and prednisone as well as albuterol Time: 11:42 Reevaluation #2: X-ray no acute findings Educated patient on diagnosis and treatment plan, answered all question, patient verbalizes understanding. At this time patient will be discharged home, advised to return with new or worsening symptoms. Educated on worrisome signs and symptoms and when to return. At this time I feel comfortable discharge home. Time: 11:45 Medications Administered Generic Name Dose Route Start Last Admin Trade Name Freq PRN Reason Stop Dose Admin Magnesium Sulfate 2 gm in 50 mls @ 25 mls/hr 05/07/24 10:55 05/07/24 11:03 Magnesium Sulfate/H2o IV 05/07/24 12:54 25 mls/hr ONCE ONE Administration Discontinued Medications Generic Name Dose Route Start Last Admin Trade Name Freq PRN Reason Stop Dose Admin Albuterol Sulfate 2.5 mg/ 0 mg 05/07/24 10:53 05/07/24 10:56 Albuterol/Ipratropium 3 ml INHALE 05/07/24 10:54 1 dose ONCE ONE Administration Methylprednisolone Sodium Succinate 125 mg 05/07/24 10:47 05/07/24 11:00 Methylprednisolone Sod Succ 125 Mg/2 Ml Vial IVPUSH 05/07/24 10:48 125 mg ONCE ONE Administration Medical Decision Making Medical Decision Making [facility] Narrative: 1050 69 yo f presents with productive cough, shortness breath times a week. Physical exam mild expiratory wheezing bilaterally. History and physical exam concerning for viral illness versus bronchitis versus pneumonia. Unlikely ACS, PE, dissection, acute respiratory distress, COPD exacerbation Plan labs, imaging, viral testing. Differential Diagnosis Differential Diagnoses: The differential diagnosis associated with the presentation includes (History and physical exam concerning for viral illness versus bronchitis versus pneumonia. Unlikely ACS, PE, dissection, acute respiratory distress, COPD exacerbation) Admission/Observation Consideration of admission/observation: Escalation of care including admission/observation considered Lab Data [facility] Lab Attestation statement: I reviewed the patient's lab results. 05/07/24 11:09 05/07/24 11:10 Labs: Lab Results 05/07/24 05/07/24 Range/Units 11:09 11:10 WBC 5.8 (4.8-10.8) X10*3/uL RBC 4.08 L (4.20-5.50) X10*6/uL Hgb 13.0 (12.0-16.0) g/dl Hct 37.4 (37.0-47.0) % MCV 91.7 (80.0-98.0) fL MCH 31.9 (27.0-33.0) pg MCHC 34.8 (31.0-35.0) g/dl RDW 12.8 (11.0-16.0) % Plt Count 201 (160-400) X10*3/uL MPV 9.8 (9.4-12.3) fL Immature Gran % (Auto) 0.2 (0.0-0.4) % Neut % (Auto) 62.4 (45-73) % Lymph % (Auto) 24.8 (20-40) % Pierce % (Auto) 10.5 (2-11) % Eos % (Auto) 1.6 (0-4) % Baso % (Auto) 0.5 (0-2) % Lymph # (Auto) 1.4 (1.2-4.9) X10*3/uL Pierce # (Auto) 0.6 (0.1-1.2) X10*3/uL Eos # (Auto) 0.1 (0.0-0.4) X10*3/uL Baso # (Auto) 0.0 (0.0-0.2) X10*3/uL Abs Immat Gran (auto) 0.01 (0.00-0.03) X10*3/uL Absolute Neuts (auto) 3.6 (2.0-8.3) x10*3/uL Absolute Nucleated RBC 0.000 (0.0-0.012) X10*3/uL Nucleated RBC % (auto) 0.0 (0.0-0.2) /100WBC D-Dimer High Sensitivty 206 NG/ML Sodium 143 (135-145) mmol/L Potassium 3.4 (3.3-5.1) mmol/L Chloride 106 (96-108) mmol/L Carbon Dioxide 26 (22-29) mmol/L Anion Gap 14 (12-20) BUN 11 (9-16) mg/dL Creatinine 0.67 (0.5-1.4) mg/dL Estim Creat Clear Calc 58.9 Estimated GFR > 60 Random Glucose 100 (60-115) mg/dL Calcium 10.2 (8.4-10.2) mg/dL Magnesium 1.9 (1.6-2.6) mg/dL Total Bilirubin 0.6 (0.0-1.0) mg/dL AST 24 (5-31) U/L ALT 25 (0-31) U/L Alkaline Phosphatase 73 (39-117) U/L Troponin I High Sens < 2.7 (<3.5-17.0) ng/L Total Protein 7.5 (6.5-8.0) g/dL Albumin 4.2 (3.5-5.0) g/dL COVID-19 ([facility]ICK) Negative (Negative) COVID-19 Clin Com See Note ABG Data Attestation ABG: I personally reviewed and interpreted this ABG as follows: Independent Interpretation I performed an independent interpretation of an: EKG (Vent. Rate : 081 BPM Atrial Rate : 081 BPM P-R Int : 130 ms QRS Dur : 080 ms QT Int : 368 ms P-R-T Axes : 075 059 051 degrees QTc Int : 427 ms Normal sinus rhythm Normal ECG When compared with ECG of 28-DEC-2022 10:48, No significant change was found ) and Plain X-Ray (XR/XR chest 1V IMPRESSION: Unremarkable examination. ) Radiology Impression Discussion of test interpretation with radiology: I have reviewed the radiologist's reading. External Record Review External record reviewed: Inpatient record, Office record, Outpatient record, Prior outpatient labs, Prior outpatient radiology, Primary care record and Outside ED record Prescription Management I considered prescription management with: Antibiotic Chronic Conditions Patient?s care impacted by: Other (see hpi ) Critical Care Time Critical Care Time Critical Care Time: Yes Total Critical Care Time: 35 Attestation: I attest to this time spent taking care of the patient, obtaining history, physical, reviewing labs, imaging, treatment of patients condition +/- specialist/hospitalist consult Discharge Plan Discharge Clinical Impression: Bronchitis, COPD (chronic obstructive pulmonary disease), Asthma with exacerbation Patient Disposition: Home, Self-Care Instructions: Acute Bronchitis (ED), COPD (Chronic Obstructive Pulmonary Disease) (DC), Asthma (ED) Additional Instructions: Take your medications as prescribed. If you were prescribed antibiotics today, it is important that you take your medication to their entirety, do not skip any doses, do not finish them early. Follow-up with your primary care provider this week. Return to the emergency department with new or worsening symptoms. Such as fevers, chills, chest pain, shortness of breath, nausea, vomiting, dizziness, headache, vision changes, lethargy In case of emergency call 911 Prescriptions: New doxycycline hyclate 100 mg capsule 100 mg PO BID 10 Days Qty: 20 0RF prednisone 20 mg tablet 40 mg PO DAILY 5 Days Qty: 10 0RF albuterol sulfate 90 mcg/actuation aerosol powdr breath activated 2 inh inhalation Q4-6H PRN (Reason: shortness of breath or wheezing) Qty: 1 0RF No Action capsaicin 0.1 % cream 1 appl topical BID Qty: 60 1RF Rx Instructions: do not wash area for at least 30 min after application ascorbic acid (vitamin C) 1,000 mg capsule 1 g PO DAILY Qty: 90 1RF cholecalciferol (vitamin D3) 50 mcg (2,000 unit) capsule 50 mcg PO DAILY Qty: 30 4RF mercaptopurine 50 mg tablet 50 mg PO DAILY Qty: 90 1RF albuterol sulfate 90 mcg/actuation HFA aerosol inhaler 2 puff inhalation Q4-6H PRN (Reason: shortness of breath or wheezing) 30 Days Qty: 8.5 5RF pyridoxine (vitamin B6) 100 mg tablet 100 mg PO BID Qty: 60 0RF omeprazole 40 mg capsule,delayed release(DR/EC) 40 mg PO BID Qty: 60 0RF fluticasone propion-salmeterol [Wixela Inhub] 250-50 mcg/dose blister with device 1 ea PO BID Qty: 60 0RF ibuprofen 400 mg tablet 400 mg PO TID PRN (Reason: pain (scale score 1-3)) Qty: 15 0RF tramadol 50 mg tablet 50 mg PO Q6H PRN (Reason: pain) Qty: 6 0RF albuterol sulfate 2.5 mg/0.5 mL solution for nebulization 5 mg inhalation Q4H PRN (Reason: shortness of breath or wheezing) Qty: 30 0RF montelukast 10 mg tablet 10 mg PO BEDTIME loratadine 10 mg tablet 10 mg PO DAILY PRN (Reason: Allergic Symptoms) multivitamin with folic acid [Daily-Glynn (with folic acid)] 400 mcg tablet 1 tab PO DAILY amlodipine 10 mg tablet 10 mg PO DAILY fluticasone propionate [Flonase Allergy Relief] 50 mcg/actuation spray,suspension 2 spray intranasal DAILY PRN (Reason: Allergy Symptoms) Rx Instructions: administer into each nostril Atrovent HFA 17 mcg/actuation HFA aerosol inhaler 2 puff inhalation TID 30 Days Qty: 12.9 5RF sodium,potassium,mag sulfates [Suprep Bowel Prep Kit] 17.5-3.13-1.6 gram recon soln See Rx Instructions PO .COMPLEX Qty: 354 0RF Rx Instructions: DILUTE; drink 1/2 at 6-8 pm and half at 11 PM- 1AM alendronate 70 mg tablet 70 mg PO QWEEK Qty: 5 5RF calcium citrate 250 mg calcium tablet 250 mg PO BID 30 Days Qty: 60 11RF Referrals: Katya Titus MD [Primary Care Provider] - 2 days Print Language: Upper Sorbian
[2024-05-07 10:53] VITALS: PULSE 106; RESP 22; O2SAT 97
[2024-05-07] MEDS: Albuterol Sulfate 2.5 MG, Albuterol/Iprat 2.5/0.5MG 3 ML 3 ML INHALE (10:56)
[2024-05-07] MEDS: methylPREDNISolone Sod Succ 125 MG/2 ML VIAL IVPUSH (11:00)
[2024-05-07] MEDS: Magnesium Sulfate/H2O 2 GM/50 ML PIGGYBACK IV (11:03)
[2024-05-07 11:13] LABS: MANUAL DIFF FLAG NO
[2024-05-07 11:15] LABS: Basophils Percent Auto 0.5 % (0-2); Eosinophils Absolute Auto 0.1 X10*3/uL (0.0-0.4); Eosinophils Percent Auto 1.6 % (0-4); Hematocrit 37.4 % (37.0-47.0); Imm Gran Abs Auto 0.01 X10*3/uL (0.00-0.03); Imm Gran Pct Auto 0.2 % (0.0-0.4); Lymphocytes Absolute Auto 1.4 X10*3/uL (1.2-4.9); Lymphocytes Percent Auto 24.8 % (20-40); Mean Corpuscular HGB Conc 34.8 g/dl (31.0-35.0); Mean Corpuscular Hemoglobin 31.9 pg (27.0-33.0); Mean Corpuscular Volume 91.7 fL (80.0-98.0); Mean Platelet Volume 9.8 fL (9.4-12.3); Monocytes Absolute Auto 0.6 X10*3/uL (0.1-1.2); Monocytes Percent Auto 10.5 % (2-11); Neutrophils Absolute Auto 3.6 x10*3/uL (2.0-8.3); Neutrophils Percent Auto 62.4 % (45-73); Platelet Count 201 X10*3/uL (160-400); Red Blood Count 4.08 X10*6/uL (4.20-5.50); Red Cell Distribution Width 12.8 % (11.0-16.0); White Blood Count 5.8 X10*3/uL (4.8-10.8)
[2024-05-07 11:27] LABS: COVID-19 Test Negative (Negative); IDNOW Serial# 58CA691E
[2024-05-07 11:31] LABS: Alanine Aminotransferase 25 U/L (0-31); Albumin Level 4.2 g/dL (3.5-5.0); Alkaline Phosphatase 73 U/L (39-117); Anion Gap 14 (12-20); Aspartate Amino Transferase 24 U/L (5-31); Bilirubin Total 0.6 mg/dL (0.0-1.0); Blood Urea Nitrogen 11 mg/dL (9-16); Calcium 10.2 mg/dL (8.4-10.2); Carbon Dioxide 26 mmol/L (22-29); Chloride 106 mmol/L (96-108); Creatinine Clr Calc Pharmacy 58.9; Estimated Glomerular Filt Rate > 60; Glucose Random 100 mg/dL (60-115); Magnesium 1.9 mg/dL (1.6-2.6); Potassium 3.4 mmol/L (3.3-5.1); Sodium 143 mmol/L (135-145); Total Protein 7.5 g/dL (6.5-8.0)
[2024-05-07 11:32] LABS: D Dimer High Sensitivity 206 NG/ML
[2024-05-07 11:40] LABS: Troponin-I High Sensitivity < 2.7 ng/L (<3.5-17.0)
[2024-05-07 11:51] VITALS: BP 136/97; PULSE 88; RESP 18; TEMP 36.6; O2SAT 98
== END 2024-05-07 11:55 | disposition home or self-care (01) ==
PROVIDERS: Physician Assistant; Emergency Provider Emergency Medicine Emergency Medical Services; PCP Internal Medicine
DX: J40 Bronchitis, not specified as acute or chronic (principal); J44.9 Chronic obstructive pulmonary disease, unspecified; J45.901 Unspecified asthma with (acute) exacerbation; R05.9 Cough, unspecified; Z11.52 Encounter for screening for COVID-19
CPT/HCPCS: 36415; 71045; 80053; 83735; 84484; 85025; 85379; 87635; 93005; 94640; 96374; 99284; 99285; J2919; J3475

== ENCOUNTER → 2024-05-07 10:46 | Outpatient (BNV) | payer OTHER, SELFPAY | PROVIDERS: Emergency Provider Emergency Medicine Emergency Medical Services; PCP Internal Medicine; Visit Provider Internal Medicine | DX: R06.02 Shortness of breath (principal) | CPT/HCPCS: 93010 ==

== ENCOUNTER 2024-05-11 10:11 | Outpatient (AMB) | payer OTHER, SELFPAY ==
[2024-05-11 10:14] VITALS: BP 132/60; PULSE 88; O2SAT 97; BMI 22.9
--- NOTE | 2024-05-11 10:14 | A.OFFVIS_ITS ---
Vital Signs 05/11/24 10:14 Height 5 ft 1 in Weight 121 lb 4.068 oz BMI 22.9 BP 132/60 Blood Pressure Location Lt brachial Position Sitting Pulse 88 Pulse Source Pulse Oximeter Pulse Oximetry (%) 97 Oxygen Delivery Method Room Air Intake Visit Reasons: copd Mrp Controller Required: No Adding Machine Servicer: Adding Machine Servicer offered & declined Accompanied by: Self / Same As Patient Allergies No Known Allergies Allergy (Verified 05/11/24 10:18) Medication List - Last Reconciled 05/11/24 by Mic Cohen MD albuterol sulfate 90 mcg/actuation 2 inhalations inhalation Q4-6H PRN albuterol sulfate 5 mg inhalation Q4H PRN albuterol sulfate 90 mcg/actuation 2 puffs inhalation Q4-6H PRN 30 days alendronate 70 mg PO QWEEK amlodipine 10 mg PO DAILY ascorbic acid (vitamin C) 1 g PO DAILY calcium citrate 250 mg PO BID 30 days capsaicin 0.1% 1 appl topical BID cholecalciferol (vitamin D3) 50 mcg PO DAILY doxycycline hyclate 100 mg PO BID 10 days fluticasone propion-salmeterol 250-50 mcg/dose (Wixela Inhub) 1 ea PO BID fluticasone propionate 50 mcg/actuation (Flonase Allergy Relief) 2 sprays intranasal DAILY PRN ibuprofen 400 mg PO TID PRN ipratropium bromide 17 mcg/actuation (Atrovent HFA) 2 puffs inhalation TID 30 days loratadine 10 mg PO DAILY PRN mercaptopurine 50 mg PO DAILY montelukast 10 mg PO BEDTIME multivitamin with folic acid 400 mcg (Daily-Glynn (with folic acid)) 1 tab PO DAILY omeprazole 40 mg PO BID prednisone 40 mg (2 x 20 mg) PO DAILY 5 days pyridoxine (vitamin B6) 100 mg PO BID sodium,potassium,mag sulfates 17.5-3.13-1.6 gram (Suprep Bowel Prep Kit) DILUTE; drink 1/2 at 6-8 pm and half at 11 PM- 1AM tramadol 50 mg PO Q6H PRN Do you need a note to return to daycare/school/sports/work: No HPI HPI copd: Details: ROGELIO, 69 YEARS OLD FEMALE, A CASE OF LIFELONG SMOKING, CHRONIC OBSTRUCTIVE PULMONARY DISEASE, WAS SEEN IN THE EMERGENCY ROOM JUST A FEW DAYS AGO WITH ACUTE EXACERBATION OF COPD. CHEST X-RAY WAS UNREMARKABLE , CLINICALLY CONSIDER TO HAVE ACUTE BRONCHITIS. TREATED WITH DOXYCYCLINE 100 B.I.D. WHICH SHE IS STILL TAKING, AND PREDNISONE 40 MG A DAY FOR 5 DAYS WHICH SHE HAS COMPLETED. SHE HAS MILD RESIDUAL COUGH AND NASAL CONGESTION, OTHERWISE BREATHING IS OKAY. STILL SMOKING 5 CIGARETTES A DAY. LAST LDCT IN JULY 2023 WAS UNREMARKABLE. [facility] Medical History Lipoma of left forearm Pulmonary nodule 1 cm or greater in diameter Autoimmune hepatitis Transaminitis Abnormal LFTs Smoker Allergic rhinitis COPD (chronic obstructive pulmonary disease) Hyperparathyroidism Abnormal SPEP Vitamin D deficiency Osteoporosis Arthritis Low calcium levels HTN (hypertension) Asthma Surgical History Status post excision of lipoma (~11/03/23) History of esophagogastroduodenoscopy (EGD) History of liver biopsy History of ERCP H/O colonoscopy Hx laparoscopic cholecystectomy Hx of tubal ligation Hx of tonsillectomy Family History Father Diabetes Heart disease Hypertension Mother Diabetes Arthritis Heart disease Paternal Uncle Cancer Sister Lung cancer Social History Household Members: Family Housing: Apartment Do you presently have visiting nurse or other home services: No Alcohol intake: never Patient Tobacco Use Status: Current everyday Tobacco user Tobacco use type: Cigarette Cigarette Packs Per Day: 0 Cigarettes Per Day: 5 Years Smoked: 47 Second Hand Smoke Exposure: Yes Advance Directives Date on File: 10/24/20 service: No Current occupational status: unemployed Review of Systems Const All systems reviewed & are unremarkable except as noted in HPI and below Reports fatigue ENT Reports nasal congestion (CONTROLLED) Card Denies chest pain, Denies irregular heart rhythm and Reports dyspnea on exertion Resp Reports as per HPI and Reports dyspnea on exertion GI Reports other (FLUID BUILDUP IN THE BELLY/ASCITES) Musc Reports no additional complaints Neuro Reports no additional complaints Psych Reports no additional complaints Endo Reports fatigue Physical Exam Vital Signs: Last Vital Signs Pulse 88 05/11/24 10:14 BP 132/60 05/11/24 10:14 Pulse Ox 97 05/11/24 10:14 Oxygen Delivery Method Room Air 05/11/24 10:14 BMI result Body Mass Index 22.9 Const General: comfortable, no acute distress, alert and awake Orientation/consciousness: patient oriented x3 HEENT Head: Yes normal to inspection General nose exam: No nasal polyps present and No nasal discharge present Face and sinus: Yes sinuses nontender Mouth: oropharynx normal Throat: Yes posterior oropharynx normal Eyes General: appearance normal, both eyes and all related structures Neck Neck: Yes normal visual inspection, Yes no lymphadenopathy, Yes trachea midline and Yes no JVD Thyroid: Thyroid normal Chest Chest palpation & inspection: normal inspection of the chest, normal palpation of entire chest wall and no tenderness Resp Other: Percussion note hyper-resonant, breath sounds are quite distant with prolonged expiratory phase. No wheezes rhonchi or crepitations are heard . But she does have mild residual cough when she takes a deep breath. Auscultation: no crackles and no wheezes Cardio Palpation: normal PMI Rate: regular rate Rhythm: regular rhythm Heart sounds: no gallops and no murmurs GI Palpation (GI): Soft to palpation, nontender, No hepatosplenomegaly present, no masses and Other GI palpation findings present (ABDOMEN IS PROTUBERANT, AND THERE SEEMS TO BE MODERATE AMOUNT OF ASCITES.) Auscultation: normal bowel sounds Back/Spine/Pelvis Thoracic/Lumbar Spine: thoracic and lumbar spine normal to inspection Skin General skin exam: no rashes or lesions noted Neuro General: patient oriented x3 and no focal motor deficits Cranial nerves: Yes CN's II-XII intact bilaterally Extrem General: Yes normal to inspection, Yes no calf tenderness and Yes edema (MARKED AMOUNT OF PITTING EDEMA OF BOTH LOWER EXTREMITIES IS NOTED.) Psych Appearance: grossly normal Speech and movement: Normal speech and movement present Results Reviewed Results Reviewed: Records from her visit to the emergency room are reviewed Assessment & Plan Assessment & Plan (1) COPD (chronic obstructive pulmonary disease): Comment: COPD MODERATELY SEVERE REMAINS STABLE AND WELL CONTROLLED . Code(s): J44.9 - Chronic obstructive pulmonary disease, unspecified Category: Medical Plan: CONTINUE WIXELA 250-51 INHALATION B.I.D. ALBUTEROL HFA 2 PUFFS Q.4-6 HOURS P.R.N.. ALSO MAY USE ALBUTEROL SOLUTION IN THE NEBULIZER Q.4 HOURS P.R.N. IF ANY COUGH OR WHEEZING. COMPLETE THE COURSE OF DOXYCYCLINE. (2) Allergic rhinitis: Comment: SHE HAS CHRONIC MILD NASAL CONGESTION WHICH SHE REMAINS CONTROLLED. Code(s): J30.9 - Allergic rhinitis, unspecified Category: Medical Plan: FLONASE-50 2 INHALATIONS EACH NOSTRIL DAILY LORATADINE 10 MG ONCE A DAY P.R.N. (3) Smoker: Comment: LONG-TIME SMOKER, NOW DOWN TO 5 CIGARETTES A DAY. Code(s): F17.200 - Nicotine dependence, unspecified, uncomplicated Category: Social Hx Plan: I HAD A GOOD TALK WITH HER AND STRESS THAT SHE NEEDS TO QUIT SMOKING COMPLETELY. AT THIS POINT REDUCE THE NUMBER OF CIGARETTES TO 3 A DAY. Coding Level of Care Code Est Pt Level 3 (49983) Diagnoses COPD (chronic obstructive pulmonary disease) J44.9 Allergic rhinitis J30.9 Smoker F17.200
== END 2024-05-11 10:39 | disposition home or self-care (01) ==
LOC: HO.HPS 10:11
PROVIDERS: PCP Internal Medicine; Visit Provider Internal Medicine
DX: J44.9 Chronic obstructive pulmonary disease, unspecified (principal); J30.9 Allergic rhinitis, unspecified; F17.200 Nicotine dependence, unspecified, uncomplicated
CPT/HCPCS: 99213

== ENCOUNTER → 2024-05-11 10:11 | Outpatient (BNVA) | payer OTHER, SELFPAY | PROVIDERS: PCP Internal Medicine; Visit Provider Internal Medicine | DX: J44.9 Chronic obstructive pulmonary disease, unspecified (principal); F17.210 Nicotine dependence, cigarettes, uncomplicated; J30.9 Allergic rhinitis, unspecified | CPT/HCPCS: 99212 ==

== ENCOUNTER 2024-06-20 13:32 | Outpatient (AMB) | payer OTHER, SELFPAY ==
[2024-06-20 13:46] VITALS: BP 132/68; PULSE 86; O2SAT 97; BMI 22.9
--- NOTE | 2024-06-20 13:46 | MHC.OFFVIS ---
Vital Signs 06/20/24 13:46 Height 5 ft 1 in Weight 121 lb 4.068 oz BMI 22.9 BP 132/68 Blood Pressure Location Lt brachial Position Sitting Pulse 86 Pulse Source Pulse Oximeter Pulse Oximetry (%) 97 Oxygen Delivery Method Room Air Intake Visit Reasons: COPD Intake Note: pt is here for follow up and feeling good, please resend spiriva the pharmacy stated it was not sent. Accounts Receivable Associate Required: No Allergies No Known Allergies Allergy (Verified 06/20/24 14:03) Medication List - Last Reconciled 06/20/24 by Mic Cohen MD albuterol sulfate 5 mg inhalation Q4H PRN albuterol sulfate 90 mcg/actuation 2 puffs inhalation Q4-6H PRN 30 days alendronate 70 mg PO QWEEK amlodipine 10 mg PO DAILY ascorbic acid (vitamin C) 1 g PO DAILY calcium citrate 250 mg PO BID 30 days capsaicin 0.1% 1 appl topical BID cholecalciferol (vitamin D3) 50 mcg PO DAILY fluticasone propion-salmeterol 250-50 mcg/dose (Wixela Inhub) 1 ea PO BID fluticasone propionate 50 mcg/actuation (Flonase Allergy Relief) 2 sprays intranasal DAILY PRN ibuprofen 400 mg PO TID PRN loratadine 10 mg PO DAILY PRN mercaptopurine 50 mg PO DAILY montelukast 10 mg PO BEDTIME multivitamin with folic acid 400 mcg (Daily-Glynn (with folic acid)) 1 tab PO DAILY prednisone 40 mg (2 x 20 mg) PO DAILY 5 days pyridoxine (vitamin B6) 100 mg PO BID sodium,potassium,mag sulfates 17.5-3.13-1.6 gram (Suprep Bowel Prep Kit) DILUTE; drink 1/2 at 6-8 pm and half at 11 PM- 1AM tiotropium bromide (Spiriva with HandiHaler) 1 cap inhalation DAILY 30 days tramadol 50 mg PO Q6H PRN HPI HPI COPD: Details: This 69 years old female is here for follow-up after 4 months. She claims that breathing is fairly stable however since she does not have Spiriva she has increased cough and more shortness of breath. She has had no recent respiratory infection or exacerbation. Trying to quit smoking but still smoking about 5 cigarettes a day. [facility] Medical History Lipoma of left forearm Pulmonary nodule 1 cm or greater in diameter Autoimmune hepatitis Transaminitis Abnormal LFTs Smoker Allergic rhinitis COPD (chronic obstructive pulmonary disease) Hyperparathyroidism Abnormal SPEP Vitamin D deficiency Osteoporosis Arthritis Low calcium levels HTN (hypertension) Asthma Surgical History Status post excision of lipoma (~11/03/23) History of esophagogastroduodenoscopy (EGD) History of liver biopsy History of ERCP H/O colonoscopy Hx laparoscopic cholecystectomy Hx of tubal ligation Hx of tonsillectomy Family History Father Diabetes Heart disease Hypertension Mother Diabetes Arthritis Heart disease Paternal Uncle Cancer Sister Lung cancer Social History Household Members: Family Housing: Apartment Do you presently have visiting nurse or other home services: No Alcohol intake: never Patient Tobacco Use Status: Current everyday Tobacco user Tobacco use type: Cigarette Cigarette Packs Per Day: 0 Cigarettes Per Day: 5 Years Smoked: 47 Second Hand Smoke Exposure: Yes Advance Directives Date on File: 10/24/20 service: No Current occupational status: unemployed Review of Systems Const All systems reviewed & are unremarkable except as noted in HPI and below Reports fatigue ENT Reports nasal congestion (CONTROLLED) Card Denies chest pain, Denies irregular heart rhythm and Reports dyspnea on exertion Resp Reports as per HPI and Reports dyspnea on exertion GI Reports other (FLUID BUILDUP IN THE BELLY/ASCITES) Musc Reports no additional complaints Neuro Reports no additional complaints Psych Reports no additional complaints Endo Reports fatigue Physical Exam Vital Signs: Last Vital Signs Pulse 86 06/20/24 13:46 BP 132/68 06/20/24 13:46 Pulse Ox 97 06/20/24 13:46 Oxygen Delivery Method Room Air 06/20/24 13:46 BMI result Body Mass Index 22.9 Const General: comfortable, no acute distress, alert and awake Orientation/consciousness: patient oriented x3 HEENT Head: Yes normal to inspection General nose exam: No nasal polyps present and No nasal discharge present Face and sinus: Yes sinuses nontender Mouth: oropharynx normal Throat: Yes posterior oropharynx normal Eyes General: appearance normal, both eyes and all related structures Neck Neck: Yes normal visual inspection, Yes no lymphadenopathy, Yes trachea midline and Yes no JVD Thyroid: Thyroid normal Chest Chest palpation & inspection: normal inspection of the chest, normal palpation of entire chest wall and no tenderness Resp Other: Percussion note hyper-resonant, breath sounds are quite distant with prolonged expiratory phase. No wheezes rhonchi or crepitations are heard . But she does have mild residual cough when she takes a deep breath. Auscultation: no crackles and no wheezes Cardio Palpation: normal PMI Rate: regular rate Rhythm: regular rhythm Heart sounds: no gallops and no murmurs GI Palpation (GI): Soft to palpation, nontender, No hepatosplenomegaly present, no masses and Other GI palpation findings present (ABDOMEN IS PROTUBERANT, AND THERE SEEMS TO BE MODERATE AMOUNT OF ASCITES.) Auscultation: normal bowel sounds Back/Spine/Pelvis Thoracic/Lumbar Spine: thoracic and lumbar spine normal to inspection Skin General skin exam: no rashes or lesions noted Neuro General: patient oriented x3 and no focal motor deficits Cranial nerves: Yes CN's II-XII intact bilaterally Extrem General: Yes normal to inspection, Yes no calf tenderness and Yes edema (MARKED AMOUNT OF PITTING EDEMA OF BOTH LOWER EXTREMITIES IS NOTED.) Psych Appearance: grossly normal Speech and movement: Normal speech and movement present Assessment & Plan Assessment & Plan (1) COPD (chronic obstructive pulmonary disease): Comment: COPD MODERATELY SEVERE REMAINS STABLE AND WELL CONTROLLED . Code(s): J44.9 - Chronic obstructive pulmonary disease, unspecified Category: Medical Plan: Continue Wixela 250-51 inhalation b.i.d. Respironics HandiHaler 1 inhalation daily Albuterol HFA 2 puffs Q. 4-6 hours p.r.n. when outdoors At home she can use albuterol solution in the nebulizer Q 4-6 hours p.r.n. (2) Allergic rhinitis: Comment: SHE HAS CHRONIC MILD NASAL CONGESTION WHICH SHE REMAINS CONTROLLED. Code(s): J30.9 - Allergic rhinitis, unspecified Category: Medical Plan: Montelukast 10 mg daily Flonase nasal spray 2 sprays each nostril daily (3) Smoker: Comment: LONG-TIME SMOKER, NOW DOWN TO 5 CIGARETTES A DAY, NOT ABLE TO CUT IT ANY FURTHER. Code(s): F17.200 - Nicotine dependence, unspecified, uncomplicated Category: Social Hx Plan: AGAIN EDUCATED ABOUT QUITTING SMOKING. SHE NEEDS TO QUIT COMPLETELY. (4) Pulmonary nodule 1 cm or greater in diameter: Comment: SHE IS A LIFETIME SMOKER. X-RAY CHEST IN MAY, SHOWED 1.3 CM NODULAR DENSITY RIGHT BASE CURRENT CT SCAN WITH CONTRAST, IS UNREMARKABLE NOT SHOWING ANY NODULES OR MASS. SHE NEEDS TO STAY ACTIVE IN ANNUAL LUNG SCREENING PROGRAM. Code(s): R91.1 - Solitary pulmonary nodule Category: Medical Plan: Advise that she should continue to have annual lung screening, withLDCT . Medications: Refilled tiotropium bromide (Spiriva with HandiHaler) puncture 1 cap using device; one dose = 2 inhalations 1 cap inhalation DAILY 30 days 30 inhalations 5RF copd Coding Level of Care Code Est Pt Level 3 (00919) Diagnoses COPD (chronic obstructive pulmonary disease) J44.9 Allergic rhinitis J30.9 Smoker F17.200 Pulmonary nodule 1 cm or greater in diameter R91.1
== END 2024-06-20 14:03 | disposition home or self-care (01) ==
PROVIDERS: PCP Internal Medicine; Visit Provider Internal Medicine
DX: J44.9 Chronic obstructive pulmonary disease, unspecified (principal); J30.9 Allergic rhinitis, unspecified; F17.200 Nicotine dependence, unspecified, uncomplicated; R91.1 Solitary pulmonary nodule
CPT/HCPCS: 99213

== ENCOUNTER → 2024-06-20 13:32 | Outpatient (BNVA) | payer OTHER, SELFPAY | PROVIDERS: PCP Internal Medicine; Visit Provider Internal Medicine | DX: J44.9 Chronic obstructive pulmonary disease, unspecified (principal); J30.9 Allergic rhinitis, unspecified; R91.1 Solitary pulmonary nodule; F17.210 Nicotine dependence, cigarettes, uncomplicated | CPT/HCPCS: 99212 ==

== ENCOUNTER 2024-09-14 11:05 | Outpatient (REF) | payer OTHER, SELFPAY ==
--- OUTSIDE RECORDS SUMMARY | 2024-09-14 13:04 | XMS_ITS | Encounter Summary ---
Author Organization [employer] [facility] Address [address] [place] [address] Care Team Providers Care Costing Manager Name Role Phone Katya Titus MD Primary Care Provide r Encounter Details Date Type Department Care Team (Late Contact Info) Description 03/25/2023 Orders Only [facility] [address] [place] [address] [phone] ProviderVladimir MD Social History Tobacco Use Types Packs/Day Years Used Date Smoking Tobacco: Every Day Cigarettes Passive Smoke Exposure: Current Smokeless Tobacco: Never Depression Answer Date Recorded Patient Health Questionnaire-9 Score 0 11/19/2022 Depression Answer Date Recorded Patient Health Questionnaire-2 Score 0 11/19/2022 Comments Unknown Sex and Gender Information Value Date Recorded Sex Assigned at Female 05/05/2022 10:17 AM EDT Legal Sex Female 10:17 AM EDT Gender Identity Female 05/05/2022 10:17 AM EDT Sexual Orientation Straight 05/05/2022 10 :17 AM EDT documented as of this encounter Plan of Treatment Upcoming Encounters Date Type Department Care Team (Late st Contact Info) Description 10/06/2024 10:00 AM EDT Office Visit [facility] [address] [place] [address] [phone] Katya Titus MD [address] [place] [address] [phone] documented as of this encounter Procedures Procedure Name Priority Date/Time Associated Diagnosis Comments COLONOSCOPY Routine 12/07/2018 documented in this encounter Results * Hm Colonoscopy (12/07/2018) us Historical Provider HEALTH MAINTENANCE Final Result documented in this encounter Visit Diagnoses Not on filedocumented in this encounter Additional Health Concerns Assessment Noted Time PHQ-9 Depression Total Score: 0 11/20/19 23 10:59 AM EDT documented as of this encounter Care Teams Costing Manager Relationship Specialty Start Date End Date Katya Titus MD [address] [place] [address] PCP - General Family Medicine 03/17/18 documented as of this encounter
--- OUTSIDE RECORDS SUMMARY | 2024-09-14 13:04 | XMS_ITS | Encounter Summary ---
Author Organization [employer] Address [address] [place] [address] Care Team Providers Care Mail Handlers Supervisor Name Role Phone Katya Titus MD Primary Care Provide r Encounter Details Date Type Department Care Team (Late st Contact Info) Description 07/17/2023 Orders Only [facility] [address] [place], [place] [phone] Jennifer Ryan LPN Social History Tobacco Use Types Packs/Day Years Used Date Smoking Tobacco: Every Day Cigarettes Passive Smoke Exposure: Current Smokeless Tobacco: Never Depression Answer Date Recorded Patient Health Questionnaire-9 Score 0 11/19/2022 Housing Stability Answer Date Recorded What is your housing situation today? I have kristian waterman 04/29/[address] you li ve. Do you have problems with any of the following? None of the above 04/29/2023 Food Insecurity Answer Date Recorded Within the past 12 months, y ou worried that your food would run out before you got money to buy more: Never True 04/29/2023 Within the past 12 months,th e food you bought just didn't last and you didn't have enough money to get more: Never True Transportation Answer Date Recorded In the past 12 months, has l ack of transportation kept you from medical appts, meetings, work or from getting things needed for daily living? No 04/29/2023 Utilities Answer Date Recorded In the past 12 months, has t he electric, gas, oil or water company threatened to shut off services in your home? No 04/29/2023 Depression Answer Date Recorded Patient Health Questionnaire-2 [...] Description 10/06/2024 10:00 AM EDT Office Visit [facility] [address] [place] [address] Katya Titus MD [address] [place] [address] documented as of this encounter Visit Diagnoses Not on filedocumented in this encounter Additional Health Concerns Assessment Noted Time PHQ-9 Depression Total Score: 0 11/20/19 23 10:59 AM EDT documented as of this encounter Care Teams Mail Handlers Supervisor Relationship Specialty Start Date End Date Katya Titus MD [address] [place], [place] [phone] PCP - General Family Medicine 03/17/18 documented as of this encounter
--- OUTSIDE RECORDS SUMMARY | 2024-09-14 13:04 | XMS_ITS | Encounter Summary ---
Author Organization [employer] Address [address] [place] [address] Care Team Providers Care Reflector Driller And Deburrer Name Role Phone Katya Titus MD Primary Care Provide r Encounter Details Date Type Department Care Team (Latest Contact Info) Description 09/14/2024 Travel Social History Tobacco Use Types Packs/Day Years Used Date Smoking Tobacco: Every Day Cigarettes Passive Smoke Exposure: Current Smokeless Tobacco: Never Depression Answer Date Recorded Patient Health Questionnaire-9 Score 0 11/19/2022 Housing Stability Answer Date Recorded What is your housing situation today? I have kristian waterman 05/02/[address] you li ve. Do you have problems with any of the following? None of the above 05/02/2024 Food Insecurity Answer Date Recorded Within the past 12 months, y ou worried that your food would run out before you got money to buy more: Never True 05/02/2024 Within the past 12 months,th e food you bought just didn't last and you didn't have enough money to get more: Never True Transportation Answer Date Recorded In the past 12 months, has l ack of transportation kept you from medical appts, meetings, work or from getting things needed for daily living? No 05/02/2024 Utilities Answer Date Recorded In the past 12 months, has t he electric, gas, oil or water company threatened to shut off services in your home? No 05/02/2024 Depression Answer Date Recorded Patient Health Questionnaire-2 Score 0 11/19/2022 Internet Access Answer Date Recorded Internet Access Q1 Yes 05/02/2024 Internet Access Q2 Not on file 05/02/2024 Comments Unknown Sex and Gender Information Value [...] Description 10/06/2024 10:00 AM EDT Office Visit [facility] [address] [place] [address] Katya Titus MD [address] [place] [address] documented as of this encounter Visit Diagnoses Not on filedocumented in this encounter Additional Health Concerns Assessment Noted Time PHQ-9 Depression Total Score: 0 11/20/19 23 10:59 AM EDT documented as of this encounter Care Teams Reflector Driller And Deburrer Relationship Specialty Start Date End Date Katya Titus MD [address] [place] [phone] PCP - General Family Medicine 03/17/18 documented as of this encounter
--- OUTSIDE RECORDS SUMMARY | 2024-09-14 13:04 | XMS_ITS | Clinical Summary ---
Author Organization [employer] Address [address] [facility] [address] [place] [address] Care Team Providers Care Toeing Stockings Name Role Phone Katya Titus MD Primary Care Provide r Allergies No known active allergies Medications cholecalciferol (Vitamin D-3) 50 MCG (2000 UT) capsule Take by mouth in the morning. 3 Active Prolia 60 MG/ML solution prefilled syringe 3 Active mercaptopurine (Purinethol) 50 MG tablet Take 50 mg by mouth in the morning. 3 Active pyridoxine (Vitamin B-6) 100 MG tablet Take 100 mg by mouth 2 times daily. 3 Active spironolactone (Aldactone) 50 MG tablet Take 100 mg by mouth in the morning. 3 Active beta carotene (vitamin A) 3 MG (97372 UT) capsule Take by mouth in the morning. 3 Active albuterol 108 (90 Base) MCG/ACT inhaler Inhale 2 puffs every 4 (four) hours if needed for wheezing or shortness of breath. 8.5 g 1 3 Active nicotine (Nicoderm CQ) 14 MG/24HR patchIndications: Smoker Place 1 patch on the skin 1 (one) time each day at the same time. 30 patch 1 3 Active nicotine (Nicoderm CQ) 7 MG/24HR patchIndications: Smoker Place 1 patch on the skin 1 (one) time each day at the same time. Do not start before April 13, 2023. 30 patch 3 Active albuterol 108 (90 Base) MCG/ACT inhalerIndication s:Chronic obstructive pulmonary disease, unspecified COPD type (CMS/HCC) Inhale 2 puffs every 6 (six) hours if needed for wheezing. 18 g 2 3 Active Wixela Inhub 250-50 MCG/ACT aerosol powderIndications :Wheezing INHALE 1 PUFF 2 TIMES DAILY; TAKE 1 PUFF BY MOUTH EVERY 12 HOURS 60 each 11 3 Active azithromycin (Zithromax) 250 MG tabletIndications :COPD exacerbation (CMS/HCC) Take 2 tabs PO daily x 1d then 1 tab PO daily on D2 to D5 6 tablet 3 Active ipratropium (Atrovent HFA) 17 MCG/ACT inhalerIndication s:COPD exacerbation (CMS/HCC) inhale 2 puff by inhalation route 4 times every day 12.9 g 3 3 Active albuterol (2.5 MG/3ML) 0.083% nebulizer solutionIndicatio ns:COPD exacerbation (CMS/HCC) USE 1 VIAL VIA NEBULIZER EVERY 4 HOURS NEEDED FOR WHEEZING 75 mL 3 4 Active amLODIPine (Norvasc) 10 MG tabletIndications :Essential hypertension TAKE 1/2 TABLET(5 MG) BY MOUTH IN THE MORNING 15 tablet 11 4 Active loratadine (Claritin) 10 MG tabletIndications :Allergic rhinitis, unspecified seasonality, unspecified trigger Take 1 tablet (10 mg) by mouth Once per day. 30 tablet 11 4 05/02/20 25 Active montelukast (Singulair) 10 MG tablet TAKE 1 TABLET BY MOUTH EVERY NIGHT DIRECTED 90 tablet 1 5 Active Active Problems Problem Noted Date Diagnosed Date Allergic rhinitis 05/02/2024 Mass of arm, left 08/07/2023 COVID-19 05/25/2023 COPD exacerbation 05/08/2023 Assessment & Plan (05/25/2023 2:54 PM EST): nebz Q 4-6hrs as needed Assessment & Plan (05/08/2023 10:13 AM EDT): Is symptoms persist or worse RTC or go to ED Smoker 02/11/2023 Assessment & Plan (02/11/2023 1:41 PM EDT): Extensive counseling done Senile osteoporosis 11/19/2022 Osteoporosis 11/19/2022 Assessment & Plan (11/19/2022 3:18 PM EDT): Continue to follow with specialist Hypervolemia 11/19/2022 Hyperparathyroidism 11/19/2022 Hemochromatosis 11/19/2022 Autoimmune hepatitis 11/19/2022 Assessment & Plan (08/07/2023 1:22 PM EST): Hep panel will be order patient will get her hepatitis vaccines after results Assessment & Plan (02/11/2023 1:41 PM EDT): Being followed closely by GI Assessment & Plan (11/19/2022 3:18 PM EDT): Continue to follow with specialist Seasonal allergies 12/15/2017 Osteopenia determined by x-ray 12/15/2017 Gastroesophageal reflux disease without esophagi tis 12/15/2017 Essential hypertension 12/15/2017 Assessment & Plan (05/02/2024 10:45 AM EDT): - Aerobic exercise to reduce BP. Initial goal of 30 min walk 3-5x/week. Increase as tolerated. - low-sodium diet (goal: <2g/day) and heart healthy diet such as DASH to reduce BP and prevent ASCVD. - Home BP monitoring 1-2 x day with goal of <140/90. - Seek immediate medical attention for chest pain, palpitations, SOB, syncope, or sudden changes in mental status. - Do not change or discontinue current prescriptions without first consulting health care provider Assessment & Plan (08/07/2023 10:07 AM EST): Maintenance: BMP: Lipid Panel: ASCVD Risk: Calculate pending updated labs EKG: Obtain baseline at f/u - Aerobic exercise to reduce BP. Initial goal of 30 min walk 3-5x/week. Increase as tolerated. - low-sodium diet (goal: <2g/day) and heart healthy diet such as DASH to reduce BP and prevent ASCVD. - Home BP monitoring 1-2 x day with goal of <140/90. - Seek immediate medical attention for chest pain, palpitations, SOB, syncope, or sudden changes in mental status. - Do not change or discontinue current prescriptions without first consulting health care provider Assessment & Plan (05/08/2023 10:14 AM EDT): Today elevated I instruct her to monitor her BP at home and RTC for nurse visit in 2 weeks if BP is not at goal plan is to add hydrochlorothiazide 12.5mg Assessment & Plan (02/11/2023 1:39 PM EDT): - Aerobic exercise to reduce BP. Initial goal of 30 min walk 3-5x/week. Increase as tolerated. - low-sodium diet (goal: <2g/day) and heart healthy diet such as DASH to reduce BP and prevent ASCVD. - Home BP monitoring 1-2 x day with goal of <140/90. - Seek immediate medical attention for chest pain, palpitations, SOB, syncope, or sudden changes in mental status. - Do not change or discontinue current prescriptions without first consulting health care provider Assessment & Plan (11/19/2022 3:17 PM EDT): - Aerobic exercise to reduce BP. Initial goal of 30 min walk 3-5x/week. Increase as tolerated. - low-sodium diet (goal: <2g/day) and heart healthy diet such as DASH to reduce BP and prevent ASCVD. - Home BP monitoring 1-2 x day with goal of <140/90. - Seek immediate medical attention for chest pain, palpitations, SOB, syncope, or sudden changes in mental status. _ I will increase her amlodipine to 10mg daily - Do not change or discontinue current prescriptions without first consulting health care provider Chronic obstructive lung disease 12/15/2017 Assessment & Plan (05/02/2024 10:44 AM EDT): Continue with current medications Continue to follow with specialist Tobacco cessation counseling again done today Assessment & Plan (08/07/2023 1:21 PM EST): Continue with same medication regimen Patient will continue to be follow by pulmonology Flu vaccine today Assessment & Plan (02/11/2023 1:41 PM EDT): Albuterol inhaler refilled today Rehabilitation Counselor to avoid triggers C/w rest of medications F/u with pulmonology Encounters Date Type Department Care Team Description 09/14/2024 Travel 07/19/2024 Patient Outreach [facility] [address] [place] [address] Jael Hayes Pre-visit Planning (SDOH screening negative and tobacco screening negative) 07/19/2024 Refill [facility] [address] [place], [place] [phone] Katya Titus MD from Last 3 Months Immunizations Name Administration Dates Next Due Influenza High-dose Quadrivalent Preservative Fr ee 07/19/2020 Influenza injectable quadriv alent IIV4 with preservative 05/15/2015 Influenza injectable quadrivalent preservative f ree 08/07/2023,07/14/2018 Influenza, High Dose Seasonal, Preservative Free 06/22/2019 Influenza, IIV3, injectable 05/22/2011 Influenza, Split (incl. purified surface antigen ) 04/14/2013,07/20/2012 Pneumococcal Conjugate PCV 13 06/22/2019 Pneumococcal Conjugate PCV 20 02/11/2023 Pneumococcal Polysaccharide PPSV23 07/29/2005 TD (adult), 2 Lf tetanus tox oid, preservative free, adsorbed 05/06/2003 Tdap 07/15/2013 Family History Medical History Relation Name Comments Coronary artery disease Mother Hypertension Mother Lung cancer Sister Relation Name Status Comments Mother Sister Social History Tobacco Use Types Packs/Day Years [...] Orientation Straight 05/05/2022 10 :17 AM EDT Last Filed Vital Signs Vital Sign Reading Time Taken Comments Blood Pressure 130/80 05/02/2024 8:59 AM EDT Pulse 68 05/02/2024 8:59 AM EDT Temperature 36.1 ??C (97 ??F) 05/02/2024 8:59 AM EDT Respiratory Rate 17 05/02/2024 8:59 AM EDT Oxygen Saturation 98% 08/07/2023 9:24 AM EST Inhaled Oxygen Concentration - - Weight 55.4 kg (122 lb 2 oz) 05/02/2024 8:59 AM EDT Height 154.9 cm (5' 1 ) 05/02/2024 8:59 AM EDT Body Mass Index 23.08 05/02/2024 8:59 AM EDT Plan of Treatment Upcoming Encounters Date Type Department Care Team (Late st Contact Info) Description 10/06/2024 10:00 AM EDT Office Visit [facility] [address] [place] [address] Katya Titus MD [address] [place] [address] Health Maintenance Due Date Last Done Comments CT Colonography 1955 FIT DNA/Cologuard 1955 FIT 1955 FOBT 1955 Sigmoidoscopy 1955 Hepatitis A Vaccines (1 of 2 - Risk 2-dose series) 1973 Zoster Vaccines (1 of 2) 1973 Hepatitis B Vaccines (1 of 3 - Risk 3-dose series) 2014 RSV Patients and Patients Aged 60 years or older (1 - Risk 60-74 years 1-dose series) 2014 COVID-19 Vaccine (3 - Moderna risk series) 11/06/2020 10/09/2020, 09/11/2020 DTaP/Tdap/Td Vaccines (2 - Td or Tdap) 07/15/2023 07/15/2013, 05/06/2003 Depression Screening 11/20/2023 11/19/2022, 11/20/19 23 Colonoscopy 12/08/2023 12/07/2018 Colorectal Cancer Screening 12/08/2023 Influenza Vaccine (#1) 2024 , 07/19/2020, 06/22/2019, Additional history exists Mammogram 09/24/2024 09/25/2023, 09/03, 09/19/2022, Additional history exists Alcohol/Substance Use Screening 05/02/2025 05/02/2024 Tobacco Screening 05/02/2025 05/02/2024 SDOH Screening 07/19/2025 07/19/2024 Lipid Panel 10/23/2026 10/23/2021 Pneumococcal Vaccine: 50+ Years Completed 02/11/2023, 06/22/2019, 07/29/2005 Hepatitis C Screening Completed 08/07/2023 HIB Vaccines Aged Out No longer eligi ble based on patient's age to complete this topic HPV Vaccines Aged Out No longer eligi ble based on patient's age to complete this topic IPV Vaccines Aged Out No longer eligi ble based on patient's age to complete this topic Meningococcal Vaccine Aged Out No peyton adriana eligible based on patient's age to complete this topic RSV under 20 months Aged Out No longe r eligible based on patient's age to complete this topic Rotavirus Vaccines Aged Out No longer eligible based on patient's age to complete this topic Procedures Procedure Name Priority Date/Time Associated Diagnosis Comments BI MAMMOGRAM SCREENING TOMOSYNTHESIS BILATERAL Routine 09/25/2023 11:20 AM EDT HEPATITIS PANEL, GENERAL Routine 08/07/2023 10:41 AM EST Hemochromatosis, unspecified hemochromatosis type Autoimmune hepatitis (CMS/HCC) LIPID PANEL, STANDARD Routine 10/23/2021 8:53 AM EDT HM COLONOSCOPY Routine 12/07/2018 from Last 3 Months or Most Recently Relevant to Health Maintenance Results * BI Mammogram Screening Tomosynthesis Bilateral (09/25/2023 11:20 AM EDT) Anatomical Region Laterality Modality Breast Bilateral Mammography 09/25/2023 11:2 0 AM EDT Narrative 10/13/2023 11:36 PM EDT ? [facility] [place] ? [address] ?[place] [address] ? Mammography Report ? Signed ? Patient: Hull,Vandana ?MR#: [id number] ?? [id number] ? : 1955 ?Acct:[id number] ? Age/Sex: 68 / F ?ADM Date: 09/24/ ? Loc: HO.MAMMO ? Attending Dr: Katya Burton MD ? Ordering Physician: Katya Titus MD ?Results: ?? 2Benign Findings ? Date of Service: 09/24/24 ?Follow Up: 1 Year From Orig ?? inal Mammogram ? Procedure(s): MM tomosynthesis screening BI ?? Accession Number(s): [id number] ? cc: Katya Titus MD ? EXAMINATION: ?? MM SCREENING DIGITAL BREAST TOMOSYNTHESIS, BILATERAL ? CLINICAL INFORMATION: ? Screening. Asymptomatic. ? COMPARISON: ?? Mammography: This study is compared with prior exams dating back to ?? 2019. ? TECHNIQUE: ?? Digital breast tomosynthesis is performed in both the craniocaudal and ?? mediolateral oblique views along with computer-aided detection (CAD). ?? Synthesized 2D images are generated from the tomosynthesis. ? FINDINGS: ?? The breasts are heterogeneously dense, which may obscure small masses ?? (ACR BI-RADS breast composition Category c). ? There are no significant masses, abnormal calcifications, or other ?? abnormalities. ? There are unchanged, bilateral, benign calcifications and bilateral ?? areas of well-circumscribed, benign nodularity of the left breast ?? consistent with cyst formation. ? MM/MM tomosynthesis screening BI ?? IMPRESSION: ?? No mammographic evidence of malignancy. ? ASSESSMENT: ? BI-RADS BI-RADS 2 - Benign Findings ? RECOMMENDATION: ?? Routine annual mammography screening. ? 1 year F/U ? This examination should not preclude the clinical evaluation of a ?? suspicious palpable abnormality. ? This patient's information was entered into a reminder system with a ?? target due date for their next mammogram. ? Dictated By: ?Samantha Martínez MD ? Signed By: ?<Electronically signed by Samantha Martínez MD in OV> ? 10/13/233 ? DD/ 1120 ? TD/TT: ? Wharf Builder: ? Procedure Note Francisco, Abdiel - 10/13/2023 [facility] [address] [place] [address] [place] [address] Mammography Report Signed Patient: Doni [place]#: [id number] : 4Acct:[id number] Age/Sex: 68 / FADM Date: 09/25/23 Loc: HO.MAMMO Attending Dr: Katya Burton MD Ordering Physician: Katay Titus MDResults: 2Benign Findings Date of Service: 09/25/23Follow Up: 1 Year From Orig inal Mammogram Procedure(s): MM tomosynthesis screening BI Accession Number(s): [id number] cc: Katya Titus MD EXAMINATION: MM SCREENING DIGITAL BREAST TOMOSYNTHESIS, BILATERAL CLINICAL INFORMATION: Screening. Asymptomatic. COMPARISON: Mammography: This study is compared with prior exams dating back to 2019. TECHNIQUE: Digital breast tomosynthesis is performed in both the craniocaudal and mediolateral oblique views along with computer-aided detection (CAD). Synthesized 2D images are generated from the tomosynthesis. FINDINGS: The breasts are heterogeneously dense, which may obscure small masses (ACR BI-RADS breast composition Category c). There are no significant masses, abnormal calcifications, or other abnormalities. There are unchanged, bilateral, benign calcifications and bilateral areas of well-circumscribed, benign nodularity of the left breast consistent with cyst formation. MM/MM tomosynthesis screening BI IMPRESSION: No mammographic evidence of malignancy. ASSESSMENT: BI-RADS BI-RADS 2 - Benign Findings RECOMMENDATION: Routine annual mammography screening. 1 year F/U This examination should not preclude the clinical evaluation of a suspicious palpable abnormality. This patient's information was entered into a reminder system with a target due date for their next mammogram. Dictated By: Samantha Martínez MD Signed By: <Electronically signed by Samantha Martínez MD in OV> 10/13/23 2333 DD/ 1120 TD/TT: Wharf Builder: us Katya Burton MD IMG BI PROCEDURES Fin al Result * Hepatitis A,B,C Profile (08/07/2023 10:41 AM EST) Hepatitis A IgM Nonreactive Nonreactive [facility] Comment:IgM antibodies to YO V not detected; does not exclude earlyacute or recovered HAV infection. ~Hepatitis B Surface Antibody NONREACTIVE Nonreactive [facility] Comment:Nonreactive: < 8.00 mIU/mL Hepatitis B Core Antibody Nonreactive Nonreactive [facility] Hepatitis C Antibody Nonreactive Nonreactive [facility] Comment:Antibodies to HCV no t detected; does not exclude early acuteHCV infection. Hepatitis B Surface Ag Negative Negative [facility] Blood Venous blood specimen / Unknown 08/07/2023 10:41 AM EST 08/07/2023 11:38 AM EST Katya Burton MD LAB BLOOD ORDERABLES Final Result [facility] [address] [place] [phone] * (ABNORMAL) LIPID PANEL, STANDARD (10/23/2021 8:53 AM EDT) Chol/HDLC Ratio 3.4 <5.0 (calc) [facility] Cholesterol, Total 199 <200 mg/dL [facility] HDL Cholesterol 58 > OR = 50 mg/dL [facility] LDL Cholesterol 115(H) mg/dL (calc) [facility] Comment: Reference range: <100 ?? Desirable range <100 mg/dL for primary prevention; ?? <70 mg/dL for patients with CHD or diabetic patients ?? with > or = 2 CHD risk factors. ?? LDL-C is now calculated using the Cathernie ?? calculation, which is a validated novel method providing ?? better accuracy than the Friedewald equation in the ?? estimation of LDL-C. ?? Nhan ADAM et al. BIANCA. 2013;310(19): 7955-3797 ?? (http://education.D[employer]ble[employer]/faq/XKR744) Non-HDL Cholesterol 141(H) <130 mg/dL (calc) [facility] Comment: For patients with diabetes plus 1 major ASCVD risk ?? factor, treating to a non-HDL-C goal of <100 mg/dL ?? (LDL-C of <70 mg/dL) is considered a therapeutic ?? option. Triglycerides 150(H) <150 mg/dL [facility] 10/23/2021 8:53 AM EDT Katya Burton MD LAB BLOOD ORDERABLES Final Result [facility] [address] * Hm Colonoscopy (12/07/2018) Historical Provider HEALTH MAINTENANCE Final Result from Last 3 Months or Most Recently Relevant to Health Maintenance Insurance [facility] Care Teams Toeing Stockings Relationship Specialty Start Date End Date Katya Titus MD [address] [place] [phone] PCP - General Family Medicine 03/17/18
[2024-09-14 14:07] LABS: Albumin Level 4.2 g/dL (3.5-5.0); Anion Gap 10 (12-20); Blood Urea Nitrogen 15 mg/dL (9-16); Carbon Dioxide 31 mmol/L (22-29); Chloride 107 mmol/L (96-108); Estimated Glomerular Filt Rate > 60; Glucose Random 92 mg/dL (60-115); Potassium 3.6 mmol/L (3.3-5.1); Sodium 144 mmol/L (135-145)
== END 2024-09-14 11:06 | disposition home or self-care (01) ==
LOC: HO.HHCL 11:05
PROVIDERS: Visit Provider Internal Medicine Endocrinology, Diabetes & Metabolism
DX: M81.0 Age-related osteoporosis without current pathological fracture (principal)
CPT/HCPCS: 36415; 80048; 82040; 82523

== ENCOUNTER 2024-09-26 11:32 | Outpatient (AMB) | payer OTHER, SELFPAY ==
--- NOTE | 2024-09-26 11:33 | A.OFFVIS_ITS ---
Vital Signs 09/26/24 11:35 Height 5 ft 1.35 in Weight 123 lb 0.287 oz BMI 23.0 BP 112/64 Blood Pressure Location Rt brachial Position Sitting Pulse 86 Pulse Source Pulse Oximeter Pulse Oximetry (%) 98 Oxygen Delivery Method Room Air Intake Visit Reasons: f/u osteoporosis Intake Note: Patient present today for Osteoporosis follow up. Compliance Professional Required: No Accompanied by: Self / Same As Patient Allergies No Known Allergies Allergy (Verified 09/26/24 11:36) Medication List - Last Reconciled 09/26/24 by Joao Guillermo MD albuterol sulfate 5 mg inhalation Q4H PRN albuterol sulfate 90 mcg/actuation 2 puffs inhalation Q4-6H PRN 30 days alendronate 70 mg PO QWEEK amlodipine 10 mg PO DAILY ascorbic acid (vitamin C) 1,000 mg PO DAILY calcium citrate 250 mg PO BID 30 days capsaicin 0.1% 1 appl topical BID cholecalciferol (vitamin D3) 50 mcg PO DAILY fluticasone propion-salmeterol 250-50 mcg/dose (Wixela Inhub) 1 ea PO BID fluticasone propionate 50 mcg/actuation (Flonase Allergy Relief) 2 sprays intranasal DAILY PRN ibuprofen 400 mg PO TID PRN loratadine 10 mg PO DAILY PRN mercaptopurine 50 mg PO DAILY montelukast 10 mg PO BEDTIME multivitamin with folic acid 400 mcg (Daily-Glynn (with folic acid)) 1 tab PO DAILY prednisone 40 mg (2 x 20 mg) PO DAILY 5 days pyridoxine (vitamin B6) 100 mg PO BID sodium,potassium,mag sulfates 17.5-3.13-1.6 gram (Suprep Bowel Prep Kit) DILUTE; drink 1/2 at 6-8 pm and half at 11 PM- 1AM tiotropium bromide (Spiriva with HandiHaler) 1 cap inhalation DAILY 30 days tramadol 50 mg PO Q6H PRN HPI Comments Details: 69 YO Female with PMHx COPD and Osteoporosis is seen in F/U for Osteoporosis. Of note, Patient is a very poor historian. She is not aware of much of her health history. First diagnosed with Osteoporosis in Aug 2019 with her first DEXA. She has never been treated in the past. After her initial visit we completed a full biochemical assessment for secondary causes of Osteoporosis. This revealed a possible M spike on her SPEP, and she was referred to Heme-Onc for this and per their records there was no concern for multiple myeloma. This also revealed low Vitamin D, elevated Calcium of 10.4, with an inappropriately normal PTH of 51. She repeated her labs which confirmed hypovitaminosis D, and Calcium WNL. Labs repeated again and were again WNL. She was started on high dose Vitamin D, now with Vitamin D is now WNL. 24 hour urine calcium reveals very low calcium levels. She was started on Prolia and has received 2 doses thus far 10/24/2021 and 04/28/2022. She has tolerated these well. Has 0 servings of dietary calcium per day. Takes Calcium Citrate 250 mg PO BID. Did take Vitamin D 50,000 IU once a week for a few months, but this was stopped for unknown reasons. She has long standing hypovitaminosis D. She was evaluated for celiac disease in the past and this was negative. She remains on Vitamin D 2000 IU daily, and did complete a course of high dose supplementation. Uses Omeprazole daily. She does have COPD and uses short Prednisone courses approximately 2-5 times per year. Denies ever using antiepileptic or anticoagulant medication. Does no exercise. Fracture history: Denies Height loss: Denies. 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 Menses were regular. . She did not breastfeed. Menopause was age 44. She did not use HRT. Denies history of Kidney stones: Mother with a history of Osteoporosis. UTD on dental cleanings and sees dentist every 6 months. No planned upcoming dental work or extractions. DXA: 09/24/2021 FINDINGS: AP SPINE L1-L4: Current: BMD 1.078 g/cm2, Z-score 1.2, T-score -0.9, normal, 3.1% decrease from previous, 8.8% decrease from baseline (<5% change is not significant). Prior: BMD 1.112 g/cm2. Baseline: BMD 1.182 g/cm2. LEFT FEMUR, NECK: Current: BMD 0.606 g/cm2, Z-score -1.2, T-score -3.1, osteoporosis. Prior: BMD 0.666 g/cm2. Baseline: BMD 0.832 g/cm2. LEFT FEMUR, TOTAL: Current: BMD 0.670 g/cm2, Z-score -1.0, T-score -2.7, osteoporosis, 11.7% decrease from previous, 26.9% decrease from baseline (<5% change is not significant). Prior: BMD 0.759 g/cm2. Baseline: BMD 0.917 g/cm2. Labs: Laboratory Tests 10/23/22 10/23/22 11:22 11:22 Sodium 143 Potassium 3.7 Creatinine 0.85 Estimated GFR > 60 25-OH Vitamin D Total 35.1 PTH Intact 28 Calcium (PTH Intact) 9.4 received last Prolia dose in November 2023. No back pain or hip pain since last visit . Is taking alendronate 70 mg Q weekly since 05/2024. The patient is a 69-year-old female presenting with osteoporosis. She has been taking alendronate weekly but recent urinary markers suggest insufficient manage ment of bone turnover. The patient had previously been on Prolia with good effect, but this treatment was stopped, leading to a potential rebound increase in bone turnover. - Alendronate: Weekly since May for osteoporosis. Compliance noted but an increase in urinary bone turnover marker suggests suboptimal efficacy. - Prolia: Previously administered every six months, stopped before starting alendronate. [facility] Medical History Lipoma of left forearm Pulmonary nodule 1 cm or greater in diameter Autoimmune hepatitis Transaminitis Abnormal LFTs Smoker Allergic rhinitis COPD (chronic obstructive pulmonary disease) Hyperparathyroidism Abnormal SPEP Vitamin D deficiency Osteoporosis Arthritis Low calcium levels HTN (hypertension) Asthma Surgical History Status post excision of lipoma (~11/03/23) History of esophagogastroduodenoscopy (EGD) History of liver biopsy History of ERCP H/O colonoscopy Hx laparoscopic cholecystectomy Hx of tubal ligation Hx of tonsillectomy Family History Father Diabetes Heart disease Hypertension Mother Diabetes Arthritis Heart disease Paternal Uncle Cancer Sister Lung cancer Social History Household Members: Family Housing: Apartment Do you presently have visiting nurse or other home services: No Alcohol intake: never Patient Tobacco Use Status: Current everyday Tobacco user Tobacco use type: Cigarette Cigarette Packs Per Day: 0 Cigarettes Per Day: 5 Years Smoked: 47 Second Hand Smoke Exposure: Yes Advance Directives Date on File: 10/24/20 service: No Current occupational status: unemployed Physical Exam Vital Signs: Last Vital Signs Pulse 86 09/26/24 11:35 BP 112/64 09/26/24 11:35 Pulse Ox 98 09/26/24 11:35 Oxygen Delivery Method Room Air 09/26/24 11:35 BMI result Body Mass Index 23.0 Assessment & Plan Assessment & Plan (1) Osteoporosis: Code(s): M81.0 - Age-related osteoporosis without current pathological fracture Category: Medical Qualifiers: Osteoporosis type: unspecified Presence of current pathological fracture: unspecified Qualified Code(s): M81.0 - Age-related osteoporosis without current pathological fracture Plan: This is a 68-year-old female with a history of osteoporosis with negative secondary workup was currently receiving Prolia 4th dose received May 2023. Last DEXA showed improvements in the hip and spine into the osteopenic range. Transition to oral alendronate in 05/2024. There has been a slight increase in the urine NTX out of the premenopausal range 1. Osteoporosis: The current concern of elevated bone turnover markers, despite alendronate therapy, necessitates a change in management. We proposed transitioning to IV Reclast to enhance treatment of osteoporosis. The patient will maintain alendronate until the Reclast infusion occurs. Post-infusion, we will monitor the impact by reassessing bone turnover markers, with instructions to stop alendronate following Reclast. Continuation of calcium and vitamin D supplementation is confirmed. I discussed with the patient the increase in urinary bone turnover markers, indicating possible inadequate control of osteoporosis with alendronate. I outlined the rationale for a single dose of IV Reclast as potentially more effective, given the suboptimal oral absorption. We addressed the infusion's procedural details, including the outpatient nature and expected duration. The potential side effects, such as fever and chills, were discussed, with a recommendation for premedication with Tylenol to minimize these effects. The patient consented and was informed about follow-up plans including repeat urine testing three weeks prior to the next follow-up visit to evaluate the response. I reinforced the continuation of calcium and vitamin D intake alongside this treatment plan. - Continue taking alendronate weekly until the Reclast IV infusion is administered. - After receiving Reclast, discontinue alendronate as per instructions. - Continue consistent intake of calcium and vitamin D supplements. - Take Tylenol before Reclast infusion to reduce the risk of infusion-related side effects. - Schedule and complete the reclast infusion as advised; it is an outpatient procedure. - Prior to the next follow-up, repeat urine testing three weeks before the visit for bone turnover assessment. - Call the clinic if no communication about the Reclast infusion appointment by October. The patient had an opportunity to ask questions regarding treatment plan. The patient expressed understanding and agreement with the above treatment plan. Patient was informed and verbally consented to the use of an ambient scribe for clinic note documentation during this visit. Coding Level of Care Code Est Pt Level 3 (53933) Diagnoses Osteoporosis, unspecified osteoporosis type, unspecified pathological fracture presence M81.0 Osteoporosis type: unspecified Presence of current pathological fracture: unspecified
[2024-09-26 11:35] VITALS: BP 112/64; PULSE 86; O2SAT 98; BMI 23.0
== END 2024-09-26 11:58 | disposition home or self-care (01) ==
LOC: HO.ENCR 11:32
PROVIDERS: PCP Internal Medicine; Visit Provider Internal Medicine Endocrinology, Diabetes & Metabolism
DX: M81.0 Age-related osteoporosis without current pathological fracture (principal)
CPT/HCPCS: 99213

== ENCOUNTER → 2024-09-26 11:32 | Outpatient (BNVA) | payer OTHER, SELFPAY | PROVIDERS: PCP Internal Medicine; Visit Provider Internal Medicine Endocrinology, Diabetes & Metabolism | DX: M81.0 Age-related osteoporosis without current pathological fracture (principal) | CPT/HCPCS: 99212 ==

== ENCOUNTER 2024-09-28 14:15 | Outpatient (RCR) | payer OTHER, SELFPAY ==
[2024-09-28 14:37] VITALS: BP 124/69; PULSE 76; RESP 14; TEMP 36.6; O2SAT 97
[2024-09-28] MEDS: Zoledronic Acid/Mannitol-Water 5 MG/100 ML PGGYBK.BTL IV (14:55)
== END 2024-09-28 15:14 | disposition home or self-care (01) ==
LOC: HO.INF 14:15
PROVIDERS: Visit Provider Internal Medicine Endocrinology, Diabetes & Metabolism
DX: M81.0 Age-related osteoporosis without current pathological fracture (principal)
CPT/HCPCS: 96374; J3489

== ENCOUNTER 2024-10-10 13:26 | Outpatient (REF) | payer OTHER, SELFPAY ==
--- OUTSIDE RECORDS SUMMARY | 2024-10-10 15:57 | XMS_ITS | Encounter Summary ---
Author Organization [employer] Address [address] [place] [address] Care Team Providers Care Shipper/Receiver Name Role Phone Katya Titus MD Primary Care Provide r Encounter Details Date Type Department Care Team (Late st Contact Info) Description 07/17/2023 Orders Only [facility] [address] [place], [place] [phone] Jennifer Ryan LPN Social History Tobacco Use [...] as of this encounter Plan of Treatment Not on file documented as of this encounter Visit Diagnoses Not on filedocumented in this encounter Additional Health Concerns Assessment Noted Time PHQ-9 Depression Total Score: 0 11/20/19 23 10:59 AM EDT documented as of this encounter Care Teams Shipper/Receiver Relationship Specialty Start Date End Date Katya Ttius MD [address] [place] [address] PCP - General Family Medicine 03/17/18 documented as of this encounter
--- OUTSIDE RECORDS SUMMARY | 2024-10-10 15:57 | XMS_ITS | Encounter Summary ---
Author Organization [facility] Address [address] [place] [address] Care Team Providers Care Plant Operator Control Room Operator Name Role Phone Katya Titus MD Primary Care Provide r Encounter Details Date Type Department Care Team (Late st Contact Info) Description 03/25/2023 Orders Only [facility] [address] [place] [address] Provider, Vladimir, Social History Tobacco Use Types Packs/Day Years [...] on file documented as of this encounter Procedures Procedure Name Priority Date/Time Associated Diagnosis Comments COLONOSCOPY Routine 12/07/2018 documented in this encounter Results * Colonoscopy (12/07/2018) Historical Provider HEALTH MAINTENANCE Final Result documented in this encounter Visit Diagnoses Not on filedocumented in this encounter Additional Health Concerns Assessment Noted Time PHQ-9 Depression Total Score: 0 11/20/19 23 10:59 AM EDT documented as of this encounter Care Teams Plant Operator Control Room Operator Relationship Specialty Start Date End Date Katya Titus MD [address] [facility] [address] PCP - General Family Medicine 03/17/18 documented as of this encounter
--- OUTSIDE RECORDS SUMMARY | 2024-10-10 15:57 | XMS_ITS | Encounter Summary ---
Author Organization [employer] Address [address] [place] [address] Care Team Providers [employer] Corporation Lawyer Name Role Phone Katya Titus MD Primary Care Provide r Reason for Referral * Consultation (Routine) - Authorized Specialty Diagnoses / Procedures Referred By Lulú neri Referred To Contact Gastroenterology Diagnoses Autoimmune hepatitis (CMS/HCC) Colon cancer screening Katya Titus MD [address] [place] [address] Phone: tel: fax: [facility] [address] [place] [address] Drive [address] Floor [place], [place] Phone: tel: fax: Referral ID Status Reason Start Date Expiration Date Visits Requested Visits Authorized [id number] Authorized Specialty Services Required 10/06/2024 10/06/2025 1 1 * Imaging (Routine) - Closed Specialty Diagnoses / Procedures Referred By Lluú neri Referred To Contact Radiology Diagnoses Encounter for screening mammogram for malignant neoplasm of breast Procedures BI Mammogram Screening Tomosynthesis Bilateral Katya Titus MD [address] [place] [address] Phone: tel: fax: [facility] [address] [place], [place] Phone: tel: fax: Referral ID Status Reason Start Date Expiration Date Visits Re quested Visits Authorized [id number] Closed 10/06/2024 10/06/2025 1 1 Encounter Details Date Type Department Care Team (Late st Contact Info) Description 10/06/2024 10:00 AM EDT Office Visit [facility] [address] [place] [address] Katya Titus MD [address] [place] [address] Senile osteoporosis (Primary Dx); Chronic obstructive pulmonary disease, unspecified COPD type (CMS/HCC); Hyperparathyroidism (CMS/HCC); Autoimmune hepatitis (CMS/HCC); Encounter for screening mammogram for malignant neoplasm of breast; Colon cancer screening; Essential hypertension Social History Tobacco Use Types Packs/Day Years Used Date Smoking Tobacco: Every Day Cigarettes Passive Smoke Exposure: Current Smokeless Tobacco: Never Alcohol Use Standard Drinks/Week Comments Never 0 (1 standard drink = 0.6 oz pur e alcohol) Depression Answer Date Recorded Patient Health Questionnaire-9 [...] AM EDT documented as of this encounter Last Filed Vital Signs Vital Sign Reading Time Taken Comments Blood Pressure 146/82 10/06/2024 10:31 AM EDT Pulse 92 10/06/2024 9:58 AM EDT Temperature 37 ??C (98.6 ??F) 10/06/2024 9:58 AM EDT Respiratory Rate 17 10/06/2024 9:58 AM EDT Oxygen Saturation - - Inhaled Oxygen Concentration - - Weight 56 kg (123 lb 6.4 oz) 10/06/2024 9:58 AM EDT Height 154.9 cm (5' 1 ) 10/06/2024 9:58 AM EDT Body Mass Index 23.32 10/06/2024 9:58 AM EDT documented in this encounter Progress Notes * Katya Burton MD - 10/06/2024 10:00 AM EDT SUBJECTIVE: Vandana Hull is a 69 y.o. year old female who presents for Chronic Disease Management . Patient reports she has been doing well, she tells me she did have COPD exacerbation in the past month but that she is finally recovered, she has been followed closely by plane runner but because ofthis she has missed her GI appointment to monitor her liver Social History Social History Narrative Not on file Patient Active Problem List Diagnosis Senile osteoporosis Seasonal allergies Osteoporosis Osteopenia determined by x-ray Hypervolemia Hyperparathyroidism (CMS/HCC) Hemochromatosis Gastroesophageal reflux disease without esophagitis Essential hypertension Chronic obstructive lung disease (CMS/HCC) Autoimmune hepatitis (CMS/HCC) Smoker COPD exacerbation (CMS/HCC) COVID-19 Mass of arm, left Allergic rhinitis Encounter for screening mammogram for malignant neoplasm of breast Colon cancer screening Family History Problem Relation Name Age of Onset Coronary artery disease Mother Hypertension Mother Lung cancer Sister 60 Review of Systems Constitutional: Negative. HENT: Negative. Respiratory: Negative. Cardiovascular: Negative. OBJECTIVE: Vitals: 10/06/24 0958 10/06/24 1031 BP: (!) 147/81 (!) 146/82 BP Location: Left arm Left arm Patient Position: Sitting BP Cuff Size: Adult Pulse: 92 Resp: 17 Temp: 98.6 ??F (37 ??C) TempSrc: Oral Weight: 123 lb 6.4 oz (56 kg) Height: 5' 1 (1.549 m) Physical Exam Constitutional: Appearance: Normal appearance. Cardiovascular: Rate and Rhythm: Normal rate and regular rhythm. Pulmonary: Effort: Pulmonary effort is normal. Breath sounds: Normal breath sounds. Abdominal: General: Abdomen is flat. Palpations: Abdomen is soft. Musculoskeletal: Right lower leg: No edema. Left lower leg: No edema. Neurological: Mental Status: She is alert. Follow Up: Follow up in about 3 months (around 01/05/2025) for chronic conditions . Current Outpatient Medications on File Prior to Visit Medication Sig Dispense Refill albuterol (2.5 MG/3ML) 0.083% nebulizer solution USE 1 VIAL VIA NEBULIZER EVERY 4 HOURS NEEDED FOR WHEEZING 75 mL 3 albuterol 108 (90 Base) MCG/ACT inhaler Inhale 2 puffs every 4 (four) hours if needed for wheezing or shortness of breath. 8.5 g 1 albuterol 108 (90 Base) MCG/ACT inhaler Inhale 2 puffs every 6 (six) hours if needed for wheezing. 18 g 2 azithromycin (Zithromax) 250 MG tablet Take 2 tabs PO daily x 1d then 1 tab PO daily on D2 to D5 6 tablet 0 beta carotene (vitamin A) 3 MG (81582 UT) capsule Take by mouth in the morning. cholecalciferol (Vitamin D-3) 50 MCG (2000 UT) capsule Take by mouth in the morning. ipratropium (Atrovent HFA) 17 MCG/ACT inhaler inhale 2 puff by inhalation route 4 times every day 12.9 g 3 loratadine (Claritin) 10 MG tablet Take 1 tablet (10 mg) by mouth Once per day. 30 tablet 11 mercaptopurine (Purinethol) 50 MG tablet Take 50 mg by mouth in the morning. montelukast (Singulair) 10 MG tablet TAKE 1 TABLET BY MOUTH EVERY NIGHT DIRECTED 90 tablet 1 nicotine (Nicoderm CQ) 7 MG/24HR patch Place 1 patch on the skin 1 (one) time each day at the same time. Do not start before April 13, 2023. 30 patch 0 Prolia 60 MG/ML solution prefilled syringe pyridoxine (Vitamin B-6) 100 MG tablet Take 100 mg by mouth 2 times daily. spironolactone (Aldactone) 50 MG tablet Take 100 mg by mouth in the morning. Wixela Inhub 250-50 MCG/ACT aerosol powder INHALE 1 PUFF 2 TIMES DAILY; TAKE 1 PUFF BY MOUTH EVERY 12 HOURS 60 each 11 [DISCONTINUED] amLODIPine (Norvasc) 10 MG tablet TAKE 1/2 TABLET(5 MG) BY MOUTH IN THE MORNING 15 tablet 11 No current facility-administered medications on file prior to visit. Problem List Items Addressed This Visit Chronic obstructive lung disease (CMS/HCC) Continue with same medication regimen and continue to follow-up with pulmonology Extensive counseling about smoking cessation on today Hyperparathyroidism (CMS/HCC) Stable continue to follow with endocrinology Autoimmune hepatitis (CMS/HCC) Continue to follow with GI, Dr. Roman I did put a new referral in case she needs it Relevant Orders Referral to Gastroenterology Senile osteoporosis - Primary Continue to follow with endocrinology Encounter for screening mammogram for malignant neoplasm of breast Relevant Orders BI Mammogram Screening Tomosynthesis Bilateral Colon cancer screening Relevant Orders Referral to Gastroenterology Essential hypertension I advised: - Aerobic exercise to reduce BP. Initial goal of 30 min walk 3-5x/week. Increase as tolerated. - low-sodium diet (goal: <2g/day) and heart healthy diet such as DASH to reduce BP and prevent ASCVD. - Home BP monitoring 1-2 x day with goal of <140/90. - Seek immediate medical attention for chest pain, palpitations, SOB, syncope, or sudden changes inmental status. - Do not change or discontinue current prescriptions without first consulting health care provider Relevant Medications amLODIPine (Norvasc) 10 MG tablet documented in this encounter Miscellaneous Notes * Assessment & Plan Note - Katya Burton MD - 10/06/2024 12:27 PM EDT Associated Problem(s): Hyperparathyroidism (CMS/HCC) Stable continue to follow with endocrinology * Assessment & Plan Note - Katya Burton MD - 10/06/2024 12:27 PM EDT Associated Problem(s): Senile osteoporosis Continue to follow with endocrinology * Assessment & Plan Note - Katya Burton MD - 10/06/2024 12:27 PM EDT Associated Problem(s): Autoimmune hepatitis (CMS/HCC) Continue to follow with GI, Dr. Roman I did put a new referral in case she needs it * Assessment & Plan Note - Katya Burton MD - 10/06/2024 12:27 PM EDT Associated Problem(s): Essential hypertension I advised: - Aerobic exercise to reduce BP. Initial goal of 30 min walk 3-5x/week. Increase as tolerated. - low-sodium diet (goal: <2g/day) and heart healthy diet such as DASH to reduce BP and prevent ASCVD. - Home BP monitoring 1-2 x day with goal of <140/90. - Seek immediate medical attention for chest pain, palpitations, SOB, syncope, or sudden changes inmental status. - Do not change or discontinue current prescriptions without first consulting health care provider * Assessment & Plan Note - Katya Burton MD - 10/06/2024 12:26 PM EDT Associated Problem(s): Chronic obstructive lung disease (CMS/HCC) Continue with same medication regimen and continue to follow-up with pulmonology Extensive counseling about smoking cessation on today documented in this encounter Plan of Treatment Scheduled Orders Name Type Priority Associated Diagnoses Orde r Schedule BI Mammogram Screening Tomosynthesis Bilateral Imaging Routine Encounter for screening mammogram for malignant neoplasm of breast Expected: 10/06/2024, Expires: 12/06/2025 Scheduled Referrals Name Type Priority Associated Diagnoses Order Schedule Referral to Gastroenterology Outpatient Referral Routine Autoimmune hepatitis (CMS/HCC) Colon cancer screening Expected: 10/06/2024 (Approximate), Expires: 10/06/2025 documented as of this encounter Visit Diagnoses Diagnosis Senile osteoporosis- Primary Chronic obstructive pulmonary disease, unspecified COPD type (CMS/HCC) Hyperparathyroidism (CMS/HCC) Hyperparathyroidism, unspecified Autoimmune hepatitis (CMS/HCC) Autoimmune hepatitis Encounter for screening mammogram for malignant neoplasm of breast Colon cancer screening Special screening for malignant neoplasms, colon Essential hypertension Unspecified essential hypertension documented in this encounter Additional Health Concerns Assessment Noted Time PHQ-9 Depression Total Score: 0 11/20/19 23 10:59 AM EDT documented as of this encounter Care Teams Corporation Lawyer Relationship Specialty Start Date End Date Katya Titus MD [address] [place] [id number] PCP - General Family Medicine 03/17/18 documented as of this encounter
--- OUTSIDE RECORDS SUMMARY | 2024-10-10 15:57 | XMS_ITS | Encounter Summary ---
Author Organization [email or web address] Address [address] [place] [address] Care Team Providers Care Telephoto Engineer Name Role Phone Katya Titus MD Primary Care Provide r Encounter Details Date Type Department Care Team (Latest Contact Info) Description 10/06/2024 Travel Social History Tobacco Use Types Packs/Day [...] documented as of this encounter Care Teams Telephoto Engineer Relationship Specialty Start Date End Date Katya Titus MD [address] [place] [id number] PCP - General Family Medicine 03/17/18 documented as of this encounter
--- OUTSIDE RECORDS SUMMARY | 2024-10-10 15:57 | XMS_ITS | Clinical Summary ---
Author Organization [id number] Address [address] [facility] 7t [place] [address] Care Team Providers Care Microfiche Duplicator Name Role Phone Katya Titus MD Primary Care Provide r Allergies No known active allergies Medications cholecalciferol (Vitamin D-3) 50 MCG (2000 UT) capsule Take by mouth in the morning. 08/19/19 23 Active Prolia 60 MG/ML solution prefilled syringe 10/18/19 23 Active mercaptopurine (Purinethol) 50 MG tablet Take 50 mg by mouth in the morning. 09/12/19 23 Active pyridoxine (Vitamin B-6) 100 MG tablet Take 100 mg by mouth 2 times daily. 10/30/19 23 Active spironolactone (Aldactone) 50 MG tablet Take 100 mg by mouth in the morning. 09/12/19 23 Active beta carotene (vitamin A) 3 MG (61178 UT) capsule Take by mouth in the morning. 10/18/19 23 Active albuterol 108 (90 Base) MCG/ACT inhaler Inhale 2 puffs every 4 (four) hours if needed for wheezing or shortness of breath. 8.5 g 1 01/24/20 23 Active nicotine (Nicoderm CQ) 7 MG/24HR patchIndications :Smoker Place 1 patch on the skin 1 (one) time each day at the same time. Do not start before April 13, 2023. 30 patch 04/13/20 23 Active albuterol 108 (90 Base) MCG/ACT inhalerIndicatio ns:Chronic obstructive pulmonary disease, unspecified COPD type (CMS/HCC) Inhale 2 puffs every 6 (six) hours if needed for wheezing. 18 g 2 02/12/20 23 Active Wixela Inhub 250-50 MCG/ACT aerosol powderIndication s:Wheezing INHALE 1 PUFF 2 TIMES DAILY; TAKE 1 PUFF BY MOUTH EVERY 12 HOURS 60 each 11 03/31/20 23 Active azithromycin (Zithromax) 250 MG tabletIndication s:COPD exacerbation (CMS/HCC) Take 2 tabs PO daily x 1d then 1 tab PO daily on D2 to D5 6 tablet 05/08/20 23 Active ipratropium (Atrovent HFA) 17 MCG/ACT inhalerIndicatio ns:COPD exacerbation (CMS/HCC) inhale 2 puff by inhalation route 4 times every day 12.9 g 3 05/08/20 23 Active albuterol (2.5 MG/3ML) 0.083% nebulizer solutionIndicati ons:COPD exacerbation (CMS/HCC) USE 1 VIAL VIA NEBULIZER EVERY 4 HOURS NEEDED FOR WHEEZING 75 mL 3 08/26/19 24 Active loratadine (Claritin) 10 MG tabletIndication s:Allergic rhinitis, unspecified seasonality, unspecified trigger Take 1 tablet (10 mg) by mouth Once per day. 30 tablet 11 05/02/20 24 025 Active montelukast (Singulair) 10 MG tablet TAKE 1 TABLET BY MOUTH EVERY NIGHT DIRECTED 90 tablet 1 07/19/19 25 Active amLODIPine (Norvasc) 10 MG tabletIndication s:Essential hypertension Take 1 tablet (10 mg) by mouth Once per day. 90 tablet 1 10/07/19 25 026 Active amLODIPine (Norvasc) 10 MG tabletIndication s:Essential hypertension TAKE 1/2 TABLET(5 MG) BY MOUTH IN THE MORNING 15 tablet 11 01/25/20 24 025 Discontinued Active Problems Problem Noted Date Diagnosed Date Encounter for screening mamm ogram for malignant neoplasm of breast 10/06/2024 Colon cancer screening 10/06/2024 Allergic rhinitis 05/02/2024 Mass of arm, left 08/07/2023 COVID-19 05/25/2023 COPD exacerbation 05/08/2023 Assessment & Plan (05/25/2023 2:54 PM EST): nebz Q 4-6hrs as needed Assessment & Plan (05/08/2023 10:13 AM EDT): Is symptoms persist or worse RTC or go to ED Smoker 02/11/2023 Assessment & Plan (02/11/2023 1:41 PM EDT): Extensive counseling done Senile osteoporosis 11/19/2022 Assessment & Plan (10/06/2024 12:27 PM EDT): Continue to follow with endocrinology Osteoporosis 11/19/2022 Assessment & Plan (11/19/2022 3:18 PM EDT): Continue to follow with specialist Hypervolemia 11/19/2022 Hyperparathyroidism 11/19/2022 Assessment & Plan (10/06/2024 12:27 PM EDT): Stable continue to follow with endocrinology Hemochromatosis 11/19/2022 Autoimmune hepatitis 11/19/2022 Assessment & Plan (10/06/2024 12:27 PM EDT): Continue to follow with GI, Dr. Roman I did put a new referral in case she needs it Assessment & Plan (08/07/2023 1:22 PM EST): [...] 12/15/2017 Essential hypertension 12/15/2017 Assessment & Plan (10/06/2024 12:27 PM EDT): I advised: - Aerobic exercise to reduce [...] consulting health care provider Assessment & Plan (05/02/2024 10:45 AM EDT): [...] obstructive lung disease 12/15/2017 Assessment & Plan (10/06/2024 12:26 PM EDT): Continue with same medication regimen and continue to follow-up with pulmonology Extensive counseling about smoking cessation on today Assessment & Plan (05/02/2024 10:44 AM EDT): Continue with current medications Continue to follow with specialist Tobacco cessation counseling again done today Assessment & Plan (08/07/2023 1:21 PM EST): Continue with same medication regimen Patient will continue to be follow by pulmonology Flu vaccine today Assessment & Plan (02/11/2023 1:41 PM EDT): Albuterol inhaler refilled today Linoleum Layer to avoid triggers C/w rest of medications F/u with pulmonology Encounters Date Type Department Care Team Description 10/06/2024 10:00 AM EDT Office Visit [facility] [address] [place] [phone] Katya Titus MD Senile osteoporosis (Primary Dx); Chronic obstructive pulmonary disease, unspecified COPD type (CMS/HCC); Hyperparathyroidism (CMS/HCC); Autoimmune hepatitis (CMS/HCC); Encounter for screening mammogram for malignant neoplasm of breast; Colon cancer screening; Essential hypertension 10/06/2024 Travel 09/27/2024 Patient Outreach [facility] [address] [place] [address] Katya Titus MD Pre-visit Planning (SDOH screening completed on 07/19/2024) 09/14/2024 Travel 07/19/2024 Patient Outreach [facility] [address] [place] [address] Jael Hayes Pre-visit Planning (SDOH screening negative and tobacco screening negative) 07/19/2024 Refill [facility] [address] [place] [address] Katya Titus MD from Last 3 Months [...] PCV 20 02/11/2023 Pneumococcal Polysaccharide PPSV23 07/29/2005 RSV Bivalent 09/14/2024 TD (adult), 2 Lf tetanus tox oid, [...] 17 10/06/2024 9:58 AM EDT Oxygen Saturation 98% 08/07/2023 9:24 AM EST Inhaled Oxygen Concentration - - Weight 56 kg (123 lb 6.4 oz) 10/06/2024 9:58 AM EDT Height 154.9 cm (5' 1 ) 10/06/2024 9:58 AM EDT Body Mass Index 23.32 10/06/2024 9:58 AM EDT Plan of Treatment Health Maintenance Due Date Last Done Comments CT Colonography 1955 FIT DNA/Cologuard 1955 FIT 1955 FOBT 1955 Sigmoidoscopy 1955 Hepatitis A Vaccines (1 of 2 - Risk 2-dose series) 1973 Zoster Vaccines (1 of 2) 1973 Hepatitis B Vaccines (1 of 3 - Risk 3-dose series) 2014 COVID-19 Vaccine (3 - Moderna risk series) 11/06/2020 10/09/2020, 09/11/2020 DTaP/Tdap/Td Vaccines (2 - Td or Tdap) 07/15/2023 07/15/2013, 05/06/2003 Depression Screening 11/20/2023 11/19/2022, 11/20/19 23 Colonoscopy 12/08/2023 12/07/2018 Colorectal Cancer Screening 12/08/2023 Influenza Vaccine (#1) 2024 , 07/19/2020, 06/22/2019, Additional history exists Mammogram 09/24/2024 09/25/2023, 09/03, 09/19/2022, Additional history exists Alcohol/Substance Use Screening 05/02/2025 05/02/2024 SDOH Screening 07/19/2025 07/19/2024 Tobacco Screening 10/06/2025 10/06/2024 Lipid Panel 10/23/2026 10/23/2021 Pneumococcal Vaccine: 50+ Years Completed 02/11/2023, 06/22/2019, 07/29/2005 Hepatitis C Screening Completed 08/07/2023 RSV Patients and Patients Aged 60 years or older Completed 09/14/2024 HIB Vaccines Aged Out No longer eligi [...] EDT Narrative 10/13/2023 11:36 PM EDT ? [facility] [place] ? [address] ?[place] [address] ? Mammography Report ? Signed ? Patient: Hull,Vandana ?MR#: [id number] ?? 582 ? : 1955 ?Acct:[id number] ? Age/Sex: 68 / F ?ADM Date: 09/25/23 ? Loc: HO.MAMMO ? Attending Dr: Katya Burton MD ? Ordering Physician: Katya Titus MD ?Results: ?? 2Benign Findings ? Date of Service: 09/25/23 ?Follow Up: 1 Year From Orig ?? inal Mammogram ? Procedure(s): MM tomosynthesis screening BI ?? Accession Number(s): [id number] ? cc: Katya Titus MD ? EXAMINATION: [...] by Samantha Martínez MD in OV> ? 10/13/23 2333 ? DD/ 1120 ? TD/TT: ? Tax Record Clerk: ? Procedure Note Francisco, Abdiel - 10/13/2023 [facility] [address] [place] [address] Dr. [place], ERCIA [address] Mammography Report Signed Patient: Doni Hull#: [id number] 582 : 4Acct:[id number] Age/Sex: 68 / FADM Date: 09/25/23 Loc: HO.MAMMO Attending Dr: Katya Burton MD Ordering Physician: Katya Titus MDResults: 2Benign Findings Date of Service: 09/25/23Follow Up: 1 Year From Orig ina Mammogram Procedure(s): MM tomosynthesis screening BI Accession Number(s): [id number] cc: Katya Titus MD EXAMINATION: MM SCREENING [...] in OV> 10/13/23 2333 DD/ 1120 TD/TT: Tax Record Clerk: us Katya Burton MD IMG BI PROCEDURES Fin al Result * Hepatitis A,B,C Profile (08/07/2023 10:41 AM EST) Hepatitis A IgM Nonreactive Nonreactive [facility] Comment:IgM antibodies to YO V not detected; does not exclude earlyacute or recovered HAV infection. ~Hepatitis B Surface Antibody NONREACTIVE Nonreactive [facility] Comment:Nonreactive: < 8.00 mIU/mL Hepatitis B Core Antibody Nonreactive Nonreactive [facility] Hepatitis C Antibody Nonreactive Nonreactive [facility] Comment:Antibodies to HCV no t detected; does not exclude early acuteHCV infection. Hepatitis B Surface Ag Negative Negative [facility] Blood Venous blood specimen / Unknown 08/07/2023 10:41 AM EST 08/07/2023 11:38 AM EST Katya Burton MD LAB BLOOD ORDERABLES Final Result [facility] [address] [place] [address] [phone] * (ABNORMAL) LIPID PANEL, STANDARD (10/23/2021 [...] ?? LDL-C is now calculated using the Catherine ?? calculation, which is a validated novel method providing ?? better accuracy than the Friedewald equation in the ?? estimation of LDL-C. ?? Nhan ADAM et al. BIANCA. 2013;310(19): 4169-1966 ?? (http://education.[employer].Edgar Online/faq/NXS749) Non-HDL Cholesterol 141(H) <130 mg/dL (calc) [facility] Comment: For patients with diabetes plus 1 major ASCVD risk ?? factor, treating to a non-HDL-C goal of <100 mg/dL ?? (LDL-C of <70 mg/dL) is considered a therapeutic ?? option. Triglycerides 150(H) <150 mg/dL [facility] 10/23/2021 8:53 AM EDT Katya Burton MD LAB BLOOD ORDERABLES Final Result [facility] [address] [place] [address], * Hm Colonoscopy (12/07/2018) Historical Provider HEALTH MAINTENANCE Final Result from Last 3 Months or Most Recently Relevant to Health Maintenance Insurance [facility] Care Teams Microfiche Duplicator Relationship Specialty Start Date End Date Katya Titus MD [address] [facility] [place] [address] PCP - General Family Medicine 03/17/18
== END 2024-10-10 13:27 | disposition home or self-care (01) ==
LOC: HO.MAMMO 13:26
PROVIDERS: PCP Internal Medicine; Visit Provider Internal Medicine
DX: Z12.31 Encounter for screening mammogram for malignant neoplasm of breast (principal)
CPT/HCPCS: 77063; 77067

== ENCOUNTER → 2024-10-10 13:45 | Outpatient (BNV) | payer OTHER, SELFPAY | PROVIDERS: PCP Internal Medicine; Visit Provider Internal Medicine | DX: Z12.31 Encounter for screening mammogram for malignant neoplasm of breast (principal) | CPT/HCPCS: 77063; 77067 ==

== ENCOUNTER 2024-12-25 20:39 | Emergency (ER) | payer OTHER, SELFPAY ==
--- NOTE | ~2024-12-25 | XR_ITS ---
CLINICAL HISTORY: cough sob 2 view chest x-ray Comparison: None provided Findings: Normal size heart. 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 Pulmonary vasculature within normal limits. No consolidation, pleural effusion or pneumothorax. No acute fracture. IMPRESSION: 1. No acute findings. This document has been electronically signed by: Julee Spears MD on 12/25/2024 22:18:03
[2024-12-25 21:17] VITALS: BP 149/86; PULSE 94; RESP 18; TEMP 37; O2SAT 96; BMI 23.7
[2024-12-25 22:34] LABS: IDNOW Serial# 58CA691E; Strep A Nucleic Acid Negative (Negative)
[2024-12-25 23:03] LABS: Influenza A PCR NEGATIVE (Negative); Influenza B PCR NEGATIVE (Negative); Resp Syncy Virus RNA Qual PCR NEGATIVE (Negative); SARS COV2 PCR INHOUSE NEGATIVE (Negative)
--- NOTE | 2024-12-26 00:13 | ED_ITS ---
HPI - General Adult General Chief complaint: Upper Respiratory Symptoms Stated complaint: coughing since thursday/ Time Seen by Provider: 12/26/24 00:13 Source: patient Mode of arrival: ambulatory Limitations: no limitations History of Present Illness ED Provider: Radha Pace PA-C HPI narrative: Patient is a 69 year old assigned female at with a history of COPD, hepatitis, and IBS presenting to the emergency department today with a cough, congestion, and sore throat. Patient states that over the last 3 days she has had a cough, nasal congestion, and a sore throat. Patient denies any dizziness, lightheadedness, abdominal pain, nausea, vomiting, fever, chills, blurry vision, double vision, loss of vision, chest pain, difficulty breathing, shortness of breath, back pain, night sweats, pain with urination, increased urinary frequency, increased urinary urgency, blood in her urine or stool, syncope or a near syncopal episode, recent trauma or falls, bowel incontinence, bladder incontinence, or any other complaints at this time. Onset (ago): day(s) (3) Relieving factors: none Exacerbating factors: none Associated symptoms: cough Treatments prior to arrival: none Related Data Home Medications ?Medication ?Instructions ?Recorded ?Confirmed loratadine 10 mg tablet 10 mg PO DAILY PRN Allergic 07/19/20 09/26/24 Symptoms montelukast 10 mg tablet 10 mg PO BEDTIME 07/19/20 multivitamin with folic acid 400 1 tab PO DAILY 09/26/24 mcg tablet (Daily-Glynn (with folic acid)) amlodipine 10 mg tablet 10 mg PO DAILY 02/23/2309/04 fluticasone propionate 50 2 spray intranasal DAILY PRN 06/25/23 09/26/24 mcg/actuation nasal Allergy Symptoms spray,suspension (Flonase Allergy Relief) Previous Rx's ?Medication ?Instructions ?Recorded albuterol sulfate 2.5 mg/0.5 mL 5 mg inhalation Q4H AK N shortness 05/20/23 solution for nebulization of breath or wheezing #30 ea capsaicin 0.1 % topical cream 1 appl topical BID #60 g víctor 06/15/23 ibuprofen 400 mg tablet 400 mg PO TID PRN pain (scal e 11/03/23 score 1-3) #15 tabs tramadol 50 mg tablet 50 mg PO Q6H PRN pain #6 tab s 11/03/23 mercaptopurine 50 mg tablet 50 mg PO DAILY #90 tabs albuterol sulfate 90 mcg/actuation 2 puff inhalation Q 4-6H PRN 04/11/24 aerosol inhaler shortness of breath or wheez ing 30 days #8.5 grams alendronate 70 mg tablet 70 mg PO QWEEK #5 tabs 04/19 calcium citrate 250 mg PO BID 30 days #60 ta bs 04/19/24 prednisone 20 mg tablet 40 mg (2 x 20 mg) PO DAILY 5 days 05/07/24 #10 tabs pyridoxine (vitamin B6) 100 mg 100 mg PO BID #60 tabs 05/16/24 tablet tiotropium bromide 18 mcg capsule 1 cap inhalation [place] copd 30 06/20/24 with inhalation device (Spiriva days #30 inhalations with HandiHaler) sodium,potassium,mag sulfates 17.5 See Rx Instructions PO .COMPLEX 09/22/24 gram-3.13 gram-1.6 gram oral soln #354 mL (Suprep Bowel Prep Kit) VITAMIN C 1000MG TABLETS See Rx Instructions .Route 0 12/12/24 .COMPLEX #90 tabs cholecalciferol (vitamin D3) 50 50 mcg PO DAILY #30 ca ps 12/12/24 mcg (2,000 unit) capsule fluticasone 250 mcg-salmeterol 50 1 ea PO BID #180 ea 12/22/24 mcg/dose blistr powdr for inhalation amoxicillin 875 mg-potassium 1 tab PO BID 7 days #14 t abs 12/26/24 clavulanate 125 mg tablet doxycycline hyclate 100 mg tablet 100 mg PO BID 7 days #14 tabs 12/26/24 prednisone 20 mg tablet 20 mg PO DAILY 7 days #7 tab s 12/26/24 Allergies Allergy/AdvReac Type Severity Reaction Status Date / Time No Known Allergies Allergy Verified 12/25/24 21:20 Review of Systems Constitutional: Constitutional: Reports no additional constitutional complaints, Denies chills, Denies fever(s) and Denies night sweats Eyes: Eyes: Reports no additional eye complaints, Denies blurry vision, Denies change in vision, Denies diplopia, Denies eye discharge, Denies loss of vision and Denies eye pain ENT: Denies dizziness, Reports nasal congestion and Reports sore throat Cardiovascular: Cardiovascular: Reports no additional cardiovascular complaints, Denies chest pain, Denies lightheadedness, Denies Loss of Consciousness and Denies dyspnea Respiratory: Respiratory: Reports no additional respiratory complaints, Reports cough and Denies dyspnea Gastrointestinal: Gastrointestinal: Reports no additional gastrointestinal complaints, Denies abdominal pain, Denies melena, Denies hematochezia, Denies change in bowel habits and Denies change in stool character Genitourinary: Genitourinary: Denies hematuria, Denies urinary frequency, Denies dysuria, Denies urinary incontinence, Denies urinary hesitancy and Denies urinary urgency Musculoskeletal: Musculoskeletal: Reports no additional musculoskeletal complaints, Denies numbness and Denies tingling Neurologic: Denies dizziness, Denies loss of vision, Denies numbness and Denies tingling Psychiatric: Psychiatric: Reports no additional psychiatric complaints Endocrine: Endocrine: Reports no additional endocrine complaints Hematologic/Lymphatic: Hematologic/Lymphatic: Reports no additional hematologic/lymphatic complaints Allergic/Immunologic: Allergic/Immunologic: Reports no additional allerg ic/immunologic complaints [facility] Past Medical History Attestation statement: The following information was validated with the patient. Source: old records reviewed and nursing notes reviewed Medical History Lipoma of left forearm Pulmonary nodule 1 cm or greater in diameter Autoimmune hepatitis Transaminitis Abnormal LFTs Smoker Allergic rhinitis COPD (chronic obstructive pulmonary disease) Hyperparathyroidism Abnormal SPEP Vitamin D deficiency Osteoporosis Arthritis Low calcium levels HTN (hypertension) Asthma Surgical History Status post excision of lipoma (~11/03/23) History of esophagogastroduodenoscopy (EGD) History of liver biopsy History of ERCP H/O colonoscopy Hx laparoscopic cholecystectomy Hx of tubal ligation Hx of tonsillectomy Family History Family History Father Diabetes Heart disease Hypertension Mother Diabetes Arthritis Heart disease Paternal Uncle Cancer Sister Lung cancer Social History Social History Household Members: Family Housing: Apartment Do you presently have visiting nurse or other home services: No Alcohol intake: never Patient Tobacco Use Status: Current everyday Tobacco user Tobacco use type: Cigarette Cigarette Packs Per Day: 0 Cigarettes Per Day: 5 Years Smoked: 47 Second Hand Smoke Exposure: Yes Advance Directives: No Advance Directives Information Provided: No Advance Directives Date on File: 10/24/20 Do you have a plan to hurt others: No Plan service: No Current occupational status: unemployed Physical Exam ED Vital Signs: Vital Signs - 24 hr 12/25/24 21:17 12/26/24 00:24 12/26/24 00:25 Temperature 98.6 F 98.4 F 98.4 F Pulse Rate 94 88 88 Respiratory Rate 18 16 16 Blood Pressure 149/86 H 132/81 132/81 Pulse Oximetry 96 97 97 Oxygen Delivery Method Room Air Room Air Room Air BMI result Body Mass Index 23.7 Const General: cooperative, no acute distress, alert and awake Nutritional Appearance: well nourished Orientation/consciousness: patient oriented x3 HENMT Head: Yes normal to inspection and Yes atraumatic Ears: hearing grossly normal bilaterally and external ears normal General nose exam: Normal external nose present, no nasal discharge noted and no epistaxis Face and sinus: Yes normal facial exam, No abrasion and No laceration Mouth: Normal oral and palatal mucosa present, no drooling and no muffled voice Eyes General: appearance normal, both eyes and all related structures Periorbital: periorbital findings normal Eyelids: Yes eyelids normal Conjunctivae: conjunctivae normal Pupils: Equal, round and reactive pupils present EOM: EOMs intact bilaterally Neck Neck: Yes normal visual inspection, Yes full ROM and Yes no lymphadenopathy Resp Effort & Inspection: normal respiratory effort and able to speak in complete sentences Neuro General: patient oriented x3, moves all extremities and CN's II-XI intact bilaterally Cranial nerves: Yes Equal, round and reactive pupils present Cognition (Neuro): normal cognition Extrem General: Yes normal to inspection, Yes full ROM and Yes capillary refill normal Psych Appearance: grossly normal Mental Status: mental status grossly normal Affect: normal affect Attitude: cooperative Thought process: Normal thought process present Thought content: Normal thought content present Insight: Good insight present (Psych) Medical Decision Making Medical Decision Making MDM Narrative: Patient is a 69 year old assigned female at with a history of COPD, hepatitis, and IBS presenting to the emergency department today with a cough, congestion, and sore throat. Patient's physical exam was unremarkable. Patient's COVID-19, influenza, RSV, and strep tests were negative. Patient's chest x-ray showed no acute process. Given patient's comorbidites and current presentation - will treat as if atypical PNA + COPD exacerbation. I explained my physical exam findings as well as all test results to the patient. I answered all questions asked by the patient. I stressed the importance of the patient taking her medication as directed (either prescribed or as the over the counter packaging recommends). I stressed the importance of the patient following up with her primary care provider. I stressed the importance of the patient returning to the emergency department immediately if her symptoms were to worsen or if she were to develop any dizziness, shortness of breath, difficulty breathing, chest pain, blurry vision, loss of vision, nausea, vomiting, abdominal pain, fever, chills, back pain, or any other complaints. Patient verbalized agreement and understanding with this treatment plan and discharge. Differential Diagnosis Differential Diagnoses: The differential diagnosis associated with the presentation includes Atypical PNA COPD exacerbation Admission/Observation Consideration of admission/observation: Escalation of care including admission/observation considered Patient would have been admitted to the hospital had her work up had any findings where hospital admission was appropriate and her clinical presentation warranted hospital admission. Lab Data [facility] Lab Attestation statement: I reviewed the patient's lab results. My interpretation of these results are in the [facility] Rationale portion of this note. Labs: Lab Results 12/25/24 Range/Units 22:07 Influenza Type A (PCR) NEGATIVE (Negative) Influenza Type B (PCR) NEGATIVE (Negative) RSV RNA Qual (PCR) NEGATIVE (Negative) SARS-CoV-2 RNA (RT-PCR) NEGATIVE (Negative) S. pyogenes GrpA MARISA Negative (Negative) Independent Interpretation I performed an independent interpretation of an: Plain X-Ray Interpretation: My interpretation is in agreement with the radiologist's impression of this imaging study. CLINICAL HISTORY: cough sob 2 view chest x-ray Comparison: None provided Findings: Normal size heart. 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 Pulmonary vasculature within normal limits. No consolidation, pleural effusion or pneumothorax. No acute fracture. IMPRESSION: 1. No acute findings. This document has been electronically signed by: Julee Spears MD on 12/25/2024 22:18:03 Dictated By: Julee Spears MD Signed By: Electronically signed by Julee Spears MD 12/25/24 [id number] Radiology Impression Discussion of test interpretation with radiology: I have reviewed the radiologist's reading. Prescription Management I considered prescription management with: Antibiotic (Patient prescribed antibiotics for atypical PNA) Discharge Plan Discharge Clinical Impression: COPD exacerbation, Atypical pneumonia Patient Disposition: Home, Self-Care Instructions: COPD (Chronic Obstructive Pulmonary Disease) (DC), Pneumonia (ED) Additional Instructions: Follow up with your primary care provider. Return to the emergency department immediately if your symptoms worsen or if you develop any dizziness, shortness of breath, difficulty breathing, chest pain, blurry vision, loss of vision, nausea, vomiting, abdominal pain, fever, chills, back pain, or any other complaints. Maria Del Carmen?seguimiento?con munguia m?dico de atenci?n primaria. Acuda inmediatamente al servicio de urgencias si anson s?ntomas empeoran o si presenta falta de aliento, dificultad para respirar, dolor tor?cico, mareos, aturdimiento, dolor de espalda, dolor abdominal, fiebre, escalofr?os o cualquier otro s?ntoma. Please see the information below about our Patient Portal. If you are not yet enrolled in the [facility] Patient Portal, you will receive an enrollment email invitation following your visit to any [facility] setting. You may also self-enroll in the Patient Portal by visiting our website: [email or web address] The following information is required to access the Patient Portal: - Your [facility] Medical Record Number - Your personal home email address (must match what is in your electronic medical record, Registration staff can assist with this) - Name - Date of Capabilities of the Patient Portal: - Message some providers - View upcoming appointments - Access your health summary, medical history, and visit history - View current conditions and allergies - View procedure and lab results - View your medications, including guidelines, side effects, and precautions - Complete pre-appointment questionnaires requested by your provider - Ready summary reports of your office visits and procedures To access the Patient Portal Mobile [employer], follow these directions: - Search [employer] in the [employer] Store or [employer] Store - Download the Thiago - Search for [facility] - Enter your login/password Portal del paciente Si usted no esta inscrito en el portal de pacientes de [facility], recibira mendez invitacion de inscripcion despues de munguia visita al [facility] o al [facility] via correo electronico. Tambien puede inscribirse voluntariamente en el portal de pacientes visitando nuestra pagina web: [email or web address] La siguiente informacion sera requerida para acceder al portal: - Munguia danny de historia medica de [facility] - Munguia direccion de correo electronico personal - Nombre - Fecha de nacimiento Capacidades: Las siguientes capacidades estan disponibles en el portal de pacientes: - Enviar mensajes a algunos doctores - Verificar proximas citas - Acceso a munguia historial de zabrina, registro medico e historial de visitas - Mariposa las condiciones actuales y alergias mariposa procedimientos y resultados del laboratorio - Mariposa anson medicamentos, incluyendo las pautas - Efectos secundarios y precauciones - Completar o llenar formularios / cuestionarios de - Citas solicitadas por munguia doctor - Leer los resumenes de reportes medicos de anson visitas y procedimientos Seven acceder a la aplicacion movil: - [facility] [employer] [facility] en la Thi[employer] Store o [employer] Play Store - Descargue la aplicacion - [facility] - Ingrese munguia nombre de usuario / Contrasena Prescriptions: New prednisone 20 mg tablet 20 mg PO DAILY 7 Days Qty: 7 0RF doxycycline hyclate 100 mg tablet 100 mg PO BID 7 Days Qty: 14 0RF amoxicillin-pot clavulanate 875-125 mg tablet 1 tab PO BID 7 Days Qty: 14 0RF No Action capsaicin 0.1 % cream 1 appl topical BID Qty: 60 1RF Rx Instructions: do not wash area for at least 30 min after application mercaptopurine 50 mg tablet 50 mg PO DAILY Qty: 90 1RF albuterol sulfate 90 mcg/actuation HFA aerosol inhaler 2 puff inhalation Q4-6H PRN (Reason: shortness of breath or wheezing) 30 Days Qty: 8.5 5RF pyridoxine (vitamin B6) 100 mg tablet 100 mg PO BID Qty: 60 0RF sodium,potassium,mag sulfates [Suprep Bowel Prep Kit] 17.5-3.13-1.6 gram recon soln See Rx Instructions PO .COMPLEX Qty: 354 0RF Rx Instructions: DILUTE; drink 1/2 at 6-8 pm and half at 11 PM- 1AM VITAMIN C 1000MG TABLETS See Rx Instructions .ROUTE .COMPLEX Qty: 90 0RF Dose Instruction: TAKE 1 TABLET BY MOUTH ONCE DAILY Rx Instructions: TAKE 1 TABLET BY MOUTH ONCE DAILY cholecalciferol (vitamin D3) 50 mcg (2,000 unit) capsule 50 mcg PO DAILY Qty: 30 2RF fluticasone propion-salmeterol 250-50 mcg/dose blister with device 1 ea PO BID Qty: 180 0RF ibuprofen 400 mg tablet 400 mg PO TID PRN (Reason: pain (scale score 1-3)) Qty: 15 0RF tramadol 50 mg tablet 50 mg PO Q6H PRN (Reason: pain) Qty: 6 0RF prednisone 20 mg tablet 40 mg PO DAILY 5 Days Qty: 10 0RF albuterol sulfate 2.5 mg/0.5 mL solution for nebulization 5 mg inhalation Q4H PRN (Reason: shortness of breath or wheezing) Qty: 30 0RF montelukast 10 mg tablet 10 mg PO BEDTIME loratadine 10 mg tablet 10 mg PO DAILY PRN (Reason: Allergic Symptoms) multivitamin with folic acid [Daily-Glynn (with folic acid)] 400 mcg tablet 1 tab PO DAILY amlodipine 10 mg tablet 10 mg PO DAILY fluticasone propionate [Flonase Allergy Relief] 50 mcg/actuation spray,suspension 2 spray intranasal DAILY PRN (Reason: Allergy Symptoms) Rx Instructions: administer into each nostril alendronate 70 mg tablet 70 mg PO QWEEK Qty: 5 5RF calcium citrate 250 mg calcium tablet 250 mg PO BID 30 Days Qty: 60 11RF tiotropium bromide [Spiriva with HandiHaler] 18 mcg capsule, w/inhalation device 1 cap inhalation DAILY 30 Days Qty: 30 5RF Rx Instructions: puncture 1 cap using device; one dose = 2 inhalations Referrals: Katya Titus MD [Primary Care Provider, Internal Medicine] Interventions: ED Discharge Assessment Last Done: 12/26/24 00:25 Discharge Date/Time: 12/26/24 00:26 Print Language: Palestinian
[2024-12-26 00:24] VITALS: BP 132/81; PULSE 88; RESP 16; TEMP 36.9; O2SAT 97
[2024-12-26 00:25] VITALS: BP 132/81; PULSE 88; RESP 16; TEMP 36.9; O2SAT 97
== END 2024-12-26 00:26 | disposition home or self-care (01) ==
PROVIDERS: Emergency Provider Emergency Medicine Emergency Medical Services; PCP Internal Medicine
DX: J44.1 Chronic obstructive pulmonary disease with (acute) exacerbation (principal); J18.9 Pneumonia, unspecified organism; R05.9 Cough, unspecified; J02.9 Acute pharyngitis, unspecified; R09.81 Nasal congestion; F17.210 Nicotine dependence, cigarettes, uncomplicated; Z79.899 Other long term (current) drug therapy; Z03.818 Encounter for observation for suspected exposure to other biological agents ruled out
CPT/HCPCS: 0241U; 71046; 87651; 99283

== ENCOUNTER → 2024-12-25 21:35 | Outpatient (BNV) | payer OTHER, SELFPAY | PROVIDERS: PCP Internal Medicine; Visit Provider Specialist | DX: R05.9 Cough, unspecified (principal); R06.02 Shortness of breath | CPT/HCPCS: 71046 ==

== ENCOUNTER 2024-12-29 09:46 | Outpatient (REF) | payer OTHER, SELFPAY ==
[2024-12-29 10:04] LABS: MANUAL DIFF FLAG NO
[2024-12-29 10:20] LABS: Basophils Percent Auto 0.2 % (0-2); Eosinophils Absolute Auto 0.1 X10*3/uL (0.0-0.4); Eosinophils Percent Auto 0.9 % (0-4); Hematocrit 37.4 % (37.0-47.0); Hemoglobin 13.1 g/dl (12.0-16.0); Imm Gran Abs Auto 0.03 X10*3/uL (0.00-0.03); Imm Gran Pct Auto 0.5 % (0.0-0.4); Lymphocytes Absolute Auto 1.6 X10*3/uL (1.2-4.9); Lymphocytes Percent Auto 25.2 % (20-40); Mean Corpuscular Volume 91.4 fL (80.0-98.0); Monocytes Absolute Auto 0.6 X10*3/uL (0.1-1.2); Monocytes Percent Auto 9.6 % (2-11); Neutrophils Absolute Auto 4.1 x10*3/uL (2.0-8.3); Neutrophils Percent Auto 63.6 % (45-73); Platelet Count 214 X10*3/uL (160-400); Red Blood Count 4.09 X10*6/uL (4.20-5.50); Red Cell Distribution Width 13.7 % (11.0-16.0); White Blood Count 6.4 X10*3/uL (4.8-10.8)
[2024-12-29 10:53] LABS: Alanine Aminotransferase 37 U/L (0-31); Albumin Level 4.3 g/dL (3.5-5.0); Alkaline Phosphatase 70 U/L (39-117); Aspartate Amino Transferase 31 U/L (5-31); Bilirubin Total 0.5 mg/dL (0.0-1.0); Blood Urea Nitrogen 14 mg/dL (9-16); Calcium 9.5 mg/dL (8.4-10.2); Estimated Glomerular Filt Rate > 60; Glucose Random 96 mg/dL (60-115)
--- OUTSIDE RECORDS SUMMARY | 2024-12-29 11:01 | XMS_ITS | Patient Health Record ---
Author Organization [facility] Address [address] [place] [address] Care Team Providers Care Pricing Coordinator Name Role Phone Twila Thao Primary Care Provider Joao Kaiser [phone] Reason For Referral No Information Plan Of Treatment No Information Insurance Providers Payer Name Payer Address Payer Phone Subscriber Number Group Number Insured Name Patient Relationship to Insured Coverage Start Date Coverage End Date MEDICAID OF [facility] [address] [place] [address] [id number] ROGELIO TOLENTINO Self - patient is the insured
[2024-12-29 11:07] LABS: Anion Gap 13 (12-20); Carbon Dioxide 25 mmol/L (22-29); Chloride 108 mmol/L (96-108); Potassium 2.9 mmol/L (3.3-5.1); Sodium 143 mmol/L (135-145)
== END 2024-12-29 09:47 | disposition home or self-care (01) ==
LOC: HO.LAB 09:46
PROVIDERS: Internal Medicine Endocrinology, Diabetes & Metabolism; PCP Internal Medicine; Visit Provider Internal Medicine Gastroenterology
DX: K75.4 Autoimmune hepatitis (principal); K75.81 Nonalcoholic steatohepatitis (NASH)
CPT/HCPCS: 36415; 80053; 85025

== ENCOUNTER 2024-12-29 13:59 | Emergency (ER) | payer OTHER, SELFPAY ==
[2024-12-29 14:23] VITALS: BP 160/88; PULSE 95; RESP 16; TEMP 36.4; O2SAT 95; BMI 23.0
--- NOTE | 2024-12-29 14:24 | ED.RECABL ---
HPI - Recheck/Abnormal Lab/Rx General Chief Complaint: Recheck/Abnormal Lab/Rx Stated Complaint: Abnormal labs Time Seen by Provider: 12/29/24 15:51 Source: patient, RN notes reviewed and old records reviewed Mode of arrival: ambulatory Limitations: no limitations History of Present Illness ED Provider: Gabriele RASHEED narrative: 69-year-old female with a past medical history significant for malnutrition, autoimmune hepatitis, hemochromatosis, GERD, IBS, COPD presents for evaluation of abnormal labs. Patient had routine labs done this morning and was called to go to emergency department because ?my potassium was low. ? Patient reports feeling somewhat weak this morning but denies any chest pain, palpitations pain She has not had any nausea, vomiting or diarrhea She is not on any diuretics. Her primary doctor prescribed her some oral potassium pills for the next week Related Data Home Medications ?Medication ?Instructions ?Recorded ?Confirmed loratadine 10 mg tablet 10 mg PO DAILY PRN Allergic 07/19/20 09/26/24 Symptoms montelukast 10 mg tablet 10 mg PO BEDTIME 07/19/20 09/26/24 multivitamin with folic acid 400 1 tab PO DAILY 06/11/21 09/26/24 mcg tablet (Daily-Glynn (with folic acid)) amlodipine 10 mg tablet 10 mg PO DAILY 02/23/23 09/26/24 fluticasone propionate 50 2 spray intranasal DAILY PRN 06/25/23 09/26/24 mcg/actuation nasal Allergy Symptoms spray,suspension (Flonase Allergy Relief) Previous Rx's ?Medication ?Instructions ?Recorded albuterol sulfate 2.5 mg/0.5 mL 5 mg inhalation Q4H PRN shortness 05/20/23 solution for nebulization of breath or wheezing #30 ea capsaicin 0.1 % topical cream 1 appl topical BID #60 grams 06/15/23 ibuprofen 400 mg tablet 400 mg PO TID PRN pain (scale 11/03/23 score 1-3) #15 tabs tramadol 50 mg tablet 50 mg PO Q6H PRN pain #6 tabs 11/03/23 mercaptopurine 50 mg tablet 50 mg PO DAILY #90 tabs 04/09/24 albuterol sulfate 90 mcg/actuation 2 puff inhalation Q4-6H PRN 04/11/24 aerosol inhaler shortness of breath or wheezing 30 days #8.5 grams alendronate 70 mg tablet 70 mg PO QWEEK #5 tabs 04/19/24 calcium citrate 250 mg PO BID 30 days #60 tabs 04/19/24 prednisone 20 mg tablet 40 mg (2 x 20 mg) PO DAILY 5 days 05/07/24 #10 tabs pyridoxine (vitamin B6) 100 mg 100 mg PO BID #60 tabs 05/16/24 tablet tiotropium bromide 18 mcg capsule 1 cap inhalation DAILY copd 30 06/20/24 with inhalation device (Spiriva days #30 inhalations with HandiHaler) sodium,potassium,mag sulfates 17.5 See Rx Instructions PO .COMPLEX 09/22/24 gram-3.13 gram-1.6 gram oral soln #354 mL (Suprep Bowel Prep Kit) VITAMIN C 1000MG TABLETS See Rx Instructions .Route 12/12/24 .COMPLEX #90 tabs cholecalciferol (vitamin D3) 50 50 mcg PO DAILY #30 caps 12/12/24 mcg (2,000 unit) capsule fluticasone 250 mcg-salmeterol 50 1 ea PO BID #180 ea 12/22/24 mcg/dose blistr powdr for inhalation amoxicillin 875 mg-potassium 1 tab PO BID 7 days #14 tabs 12/26/24 clavulanate 125 mg tablet doxycycline hyclate 100 mg tablet 100 mg PO BID 7 days #14 tabs 12/26/24 prednisone 20 mg tablet 20 mg PO DAILY 7 days #7 tabs 12/26/24 Allergies Allergy/AdvReac Type Severity Reaction Status Date / Time No Known Allergies Allergy Verified 12/29/24 14:25 Review of Systems Constitutional: Constitutional: Denies body ache(s), Denies chills, Denies fever(s) and Denies headache(s) Eyes: Eyes: Denies blurry vision ENT: Denies dizziness, Denies dry mouth and Denies headache(s) Cardiovascular: Cardiovascular: Denies chest pain and Denies dyspnea on exertion Respiratory: Respiratory: Denies cough and Denies dyspnea on exertion Gastrointestinal: Gastrointestinal: Denies abdominal pain, Denies nausea and Denies vomiting Genitourinary: Genitourinary: Denies dysuria Musculoskeletal: Musculoskeletal: Denies back pain Integumentary/Breasts: Skin/Breast: Denies rash Neurologic: Denies dizziness and Denies headache(s) FORMERLY [facility] Past Medical History Medical History Lipoma of left forearm Pulmonary nodule 1 cm or greater in diameter Autoimmune hepatitis Transaminitis Abnormal LFTs Smoker Allergic rhinitis COPD (chronic obstructive pulmonary disease) Hyperparathyroidism Abnormal SPEP Vitamin D deficiency Osteoporosis Arthritis Low calcium levels HTN (hypertension) Asthma Surgical History Status post excision of lipoma (~11/03/23) History of esophagogastroduodenoscopy (EGD) History of liver biopsy History of ERCP H/O colonoscopy Hx laparoscopic cholecystectomy Hx of tubal ligation Hx of tonsillectomy Family History Family History Father Diabetes Heart disease Hypertension Mother Diabetes Arthritis Heart disease Paternal Uncle Cancer Sister Lung cancer Social History Social History Household Members: Family Housing: Apartment Do you presently have visiting nurse or other home services: No Alcohol intake: never Patient Tobacco Use Status: Current everyday Tobacco user Tobacco use type: Cigarette Cigarette Packs Per Day: 0 Cigarettes Per Day: 5 Years Smoked: 47 Second Hand Smoke Exposure: Yes Advance Directives: No Advance Directives Information Provided: No Advance Directives Date on File: 10/24/20 Do you have a plan to hurt others: No Plan service: No Current occupational status: unemployed Physical Exam Vital Signs: Vital Signs: Last Vital Signs Temp 97.5 F 12/29/24 14:23 Pulse 95 12/29/24 14:23 Resp 16 12/29/24 14:23 BP 160/88 H 12/29/24 14:23 Pulse Ox 95 12/29/24 14:23 O2 Del Method Room Air 12/29/24 14:23 BMI result Body Mass Index 23.0 Const: General: healthy appearing, comfortable, no acute distress, alert and awake Nutritional Appearance: well nourished Orientation/consciousness: patient oriented x3 HEENT: Head: Yes normocephalic and Yes atraumatic Throat: Yes posterior oropharynx normal Eyes: Eyelids: Yes eyelids normal Conjunctivae: conjunctivae normal Sclerae: sclerae normal Corneas: corneas normal Pupils: Equal, round and reactive pupils present EOM: EOMs intact bilaterally Neck: Neck: Yes full ROM Resp: Effort & Inspection: normal respiratory effort, able to speak in complete sentences and not labored Cardio: Rate: regular rate Rhythm: regular rhythm GI: Inspection: No distended Palpation (GI): Soft to palpation, not firm, nontender, no guarding and not rigid Skin: General skin exam: elasticity normal Neuro: General: patient oriented x3 Cranial nerves: Yes Equal, round and reactive pupils present and Yes Bilaterally intact EOM present Cognition (Neuro): normal cognition Course Course Course Narrative: This is an RME: Additional HPI, ROS, PE not included below will be deferred to primary provider. RME assessment and note performed by: Margi Amaral PA-C This is a [id number], with a hx of COPD, hepatitis, and IBS who presents to the ER with complaints of abnormal labs. Reports she was called as her potassium is low. Potassium is 2.9 per outpatient labs. She is currently on ABX for pneumonia. She has no current concerns. Plan: Labs, further ER eval needed Medical Decision Making Medical Decision Making [facility] Narrative: 69-year-old female with past medical history as above presents for evaluation of abnormal labs and outpatient testing. She complains of generalized weakness but denies any chest pain palpitations. Her primary doctor sent her a prescription for potassium 20 mEq tablets, 21 tablets to be taken over the next week for a total of 60 mEq per day. The patient's magnesium is normal at 1.9. The patient will be discharged to follow up with the PCP and have outpatient labs in 1-2 weeks she is not on any diuretics Differential Diagnosis Differential Diagnoses: The differential diagnosis associated with the presentation includes Hypokalemia Hypomagnesemia Hyperkalemia Dehydration Lab Data [facility] Lab Attestation statement: I reviewed the patient's lab results. No leukocytosis or anemia. Normal platelet count. No significant electrolyte abnormalities. Notably the patient's potassium has improved to 3.6 12/29/24 15:06 12/29/24 15:06 Labs: Lab Results 12/29/24 Range/Units 15:06 WBC 4.9 (4.8-10.8) X10*3/uL RBC 4.19 L (4.20-5.50) X10*6/uL Hgb 13.3 (12.0-16.0) g/dl Hct 38.2 (37.0-47.0) % MCV 91.2 (80.0-98.0) fL MCH 31.7 (27.0-33.0) pg MCHC 34.8 (31.0-35.0) g/dl RDW 13.8 (11.0-16.0) % Plt Count 213 (160-400) X10*3/uL MPV 10.2 (9.4-12.3) fL Immature Gran % (Auto) 0.4 (0.0-0.4) % Neut % (Auto) 84.3 H (45-73) % Lymph % (Auto) 11.9 L (20-40) % Foster % (Auto) 3.4 (2-11) % Eos % (Auto) 0.0 (0-4) % Baso % (Auto) 0.0 (0-2) % Lymph # (Auto) 0.6 L (1.2-4.9) X10*3/uL Foster # (Auto) 0.2 (0.1-1.2) X10*3/uL Eos # (Auto) 0.0 (0.0-0.4) X10*3/uL Baso # (Auto) 0.0 (0.0-0.2) X10*3/uL Abs Immat Gran (auto) 0.02 (0.00-0.03) X10*3/uL Absolute Neuts (auto) 4.2 (2.0-8.3) x10*3/uL Absolute Nucleated RBC 0.000 (0.0-0.012) X10*3/uL Nucleated RBC % (auto) 0.0 (0.0-0.2) /100WBC Sodium 142 (135-145) mmol/L Potassium 3.6 D (3.3-5.1) mmol/L Chloride 106 (96-108) mmol/L Carbon Dioxide 26 (22-29) mmol/L Anion Gap 14 (12-20) BUN 15 (9-16) mg/dL Creatinine 0.79 (0.5-1.4) mg/dL Estim Creat Clear Calc 50.0 Estimated GFR > 60 Random Glucose 143 H (60-115) mg/dL Calcium 9.8 (8.4-10.2) mg/dL Magnesium 1.9 (1.6-2.6) mg/dL Total Bilirubin 0.6 (0.0-1.0) mg/dL Direct Bilirubin 0.2 (0.0-0.5) mg/dL AST 37 H (5-31) U/L ALT 42 H (0-31) U/L Alkaline Phosphatase 73 (39-117) U/L Total Protein 7.4 (6.5-8.0) g/dL Albumin 4.6 (3.5-5.0) g/dL Discharge Plan Discharge Clinical Impression: Acute hypokalemia Patient Disposition: Home, Self-Care Instructions: Hypokalemia (ED) Additional Instructions: Your potassium this morning on your outpatient labs was 2.9. When we rechecked your potassium 7 hours later, your potassium was normal at 3.6 Your primary doctor already sent a prescription for potassium to your pharmacy You may take these as prescribed I recommend having a repeat potassium draw in 1-2 weeks. It is appropriate to wait until your appointment on January 09 to have blood work rechecked Return for new or worsening symptoms, especially if you develop vomiting, diarrhea, palpitations or chest pain Prescriptions: No Action capsaicin 0.1 % cream 1 appl topical BID Qty: 60 1RF Rx Instructions: do not wash area for at least 30 min after application mercaptopurine 50 mg tablet 50 mg PO DAILY Qty: 90 1RF albuterol sulfate 90 mcg/actuation HFA aerosol inhaler 2 puff inhalation Q4-6H PRN (Reason: shortness of breath or wheezing) 30 Days Qty: 8.5 5RF pyridoxine (vitamin B6) 100 mg tablet 100 mg PO BID Qty: 60 0RF sodium,potassium,mag sulfates [Suprep Bowel Prep Kit] 17.5-3.13-1.6 gram recon soln See Rx Instructions PO .COMPLEX Qty: 354 0RF Rx Instructions: DILUTE; drink 1/2 at 6-8 pm and half at 11 PM- 1AM VITAMIN C 1000MG TABLETS See Rx Instructions .ROUTE .COMPLEX Qty: 90 0RF Dose Instruction: TAKE 1 TABLET BY MOUTH ONCE DAILY Rx Instructions: TAKE 1 TABLET BY MOUTH ONCE DAILY cholecalciferol (vitamin D3) 50 mcg (2,000 unit) capsule 50 mcg PO DAILY Qty: 30 2RF fluticasone propion-salmeterol 250-50 mcg/dose blister with device 1 ea PO BID Qty: 180 0RF ibuprofen 400 mg tablet 400 mg PO TID PRN (Reason: pain (scale score 1-3)) Qty: 15 0RF tramadol 50 mg tablet 50 mg PO Q6H PRN (Reason: pain) Qty: 6 0RF prednisone 20 mg tablet 40 mg PO DAILY 5 Days Qty: 10 0RF albuterol sulfate 2.5 mg/0.5 mL solution for nebulization 5 mg inhalation Q4H PRN (Reason: shortness of breath or wheezing) Qty: 30 0RF prednisone 20 mg tablet 20 mg PO DAILY 7 Days Qty: 7 0RF doxycycline hyclate 100 mg tablet 100 mg PO BID 7 Days Qty: 14 0RF amoxicillin-pot clavulanate 875-125 mg tablet 1 tab PO BID 7 Days Qty: 14 0RF montelukast 10 mg tablet 10 mg PO BEDTIME loratadine 10 mg tablet 10 mg PO DAILY PRN (Reason: Allergic Symptoms) multivitamin with folic acid [Daily-Glynn (with folic acid)] 400 mcg tablet 1 tab PO DAILY amlodipine 10 mg tablet 10 mg PO DAILY fluticasone propionate [Flonase Allergy Relief] 50 mcg/actuation spray,suspension 2 spray intranasal DAILY PRN (Reason: Allergy Symptoms) Rx Instructions: administer into each nostril alendronate 70 mg tablet 70 mg PO QWEEK Qty: 5 5RF calcium citrate 250 mg calcium tablet 250 mg PO BID 30 Days Qty: 60 11RF tiotropium bromide [Spiriva with HandiHaler] 18 mcg capsule, w/inhalation device 1 cap inhalation DAILY 30 Days Qty: 30 5RF Rx Instructions: puncture 1 cap using device; one dose = 2 inhalations Print Language: Yakut
[2024-12-29 15:25] LABS: MANUAL DIFF FLAG NO
[2024-12-29 15:29] LABS: Hematocrit 38.2 % (37.0-47.0); Hemoglobin 13.3 g/dl (12.0-16.0); Imm Gran Abs Auto 0.02 X10*3/uL (0.00-0.03); Imm Gran Pct Auto 0.4 % (0.0-0.4); Lymphocytes Absolute Auto 0.6 X10*3/uL (1.2-4.9); Lymphocytes Percent Auto 11.9 % (20-40); Mean Corpuscular HGB Conc 34.8 g/dl (31.0-35.0); Mean Corpuscular Hemoglobin 31.7 pg (27.0-33.0); Mean Corpuscular Volume 91.2 fL (80.0-98.0); Mean Platelet Volume 10.2 fL (9.4-12.3); Monocytes Absolute Auto 0.2 X10*3/uL (0.1-1.2); Monocytes Percent Auto 3.4 % (2-11); Neutrophils Absolute Auto 4.2 x10*3/uL (2.0-8.3); Neutrophils Percent Auto 84.3 % (45-73); Platelet Count 213 X10*3/uL (160-400); Red Blood Count 4.19 X10*6/uL (4.20-5.50); Red Cell Distribution Width 13.8 % (11.0-16.0); White Blood Count 4.9 X10*3/uL (4.8-10.8)
[2024-12-29 15:42] LABS: Alanine Aminotransferase 42 U/L (0-31); Albumin Level 4.6 g/dL (3.5-5.0); Alkaline Phosphatase 73 U/L (39-117); Anion Gap 14 (12-20); Aspartate Amino Transferase 37 U/L (5-31); Bilirubin Direct 0.2 mg/dL (0.0-0.5); Bilirubin Total 0.6 mg/dL (0.0-1.0); Blood Urea Nitrogen 15 mg/dL (9-16); Calcium 9.8 mg/dL (8.4-10.2); Carbon Dioxide 26 mmol/L (22-29); Chloride 106 mmol/L (96-108); Estimated Glomerular Filt Rate > 60; Glucose Random 143 mg/dL (60-115); Magnesium 1.9 mg/dL (1.6-2.6); Potassium 3.6 mmol/L (3.3-5.1); Sodium 142 mmol/L (135-145); Total Protein 7.4 g/dL (6.5-8.0)
[2024-12-29 16:14] VITALS: BP 134/70; PULSE 89; RESP 18; TEMP -17.7; TEMP 0; O2SAT 94
[2024-12-29 16:15] VITALS: BP 134/70; PULSE 89; RESP 18; TEMP -17.7; TEMP 0; O2SAT 94
== END 2024-12-29 16:15 | disposition home or self-care (01) ==
PROVIDERS: Physician Assistant Medical; Emergency Provider Emergency Medicine; PCP Internal Medicine
DX: E87.6 Hypokalemia (principal); R79.89 Other specified abnormal findings of blood chemistry; R53.1 Weakness; Z79.899 Other long term (current) drug therapy
CPT/HCPCS: 36415; 80048; 80076; 83735; 85025; 99283

== ENCOUNTER → 2025-01-03 09:50 | Outpatient (BNV) | payer OTHER, SELFPAY | PROVIDERS: PCP Internal Medicine; Visit Provider Student in an Organized Health Care Education/Training Program | DX: R07.9 Chest pain, unspecified (principal) | CPT/HCPCS: 71046 ==

== ENCOUNTER 2025-01-03 20:35 | Emergency (ER) | payer OTHER, SELFPAY ==
--- NOTE | ~2025-01-03 | XR_ITS ---
CLINICAL HISTORY: cough and rib pain 2 view chest x-ray Comparison: None provided Findings: The lungs are clear. Normal size heart. No acute fracture. IMPRESSION: 1. No acute findings. This document has been electronically signed by: Db Grace MD on 01/03/2025 21:17:41
[2025-01-03 20:40] VITALS: BP 138/80; PULSE 97; RESP 16; TEMP 36.3; O2SAT 97; BMI 22.7
--- NOTE | 2025-01-03 20:52 | ED_ITS ---
HPI - General Adult General Chief complaint: General Medical Stated complaint: was here a week ago/on meds but not feeling better Time Seen by Provider: 01/03/25 22:45 Source: patient Mode of arrival: ambulatory Limitations: no limitations History of Present Illness ED Provider: Bautista PERSON HPI narrative: The patient is a 69-year-old female with history of COPD, malnutrition, GERD, autoimmune hepatitis, osteoporosis, and active tobacco use presenting to the ED for re-evaluation after she was seen on 12/26/2024 for shortness of breath with increased cough productive of white sputum. Patient at that time had a nondiagnostic x-ray, was treated for suspected COPD exacerbation and atypical pneumonia with prednisone, Augmentin, and doxycycline. The patient reports she completed her antibiotics and prednisone however reports not feeling any significant relief in symptoms while taking the medications and reports symptoms have increased since completing the antibiotic and steroid course. The patient denies associated objective fever, abdominal pain, nausea, vomiting, urinary symptoms or recent sick contacts or trauma. The patient reports she has had increased cough productive of white sputum without associated hemoptysis, however does report she has increased pain in the bilateral ribs, [id number] with deep respiration and cough. The patient denies any recent travel or lower extremity swelling or pain. Related Data Home Medications ?Medication ?Instructions ?Recorded ?Confirmed loratadine 10 mg tablet 10 mg PO DAILY PRN Allergic 07/19/20 09/26/24 Symptoms montelukast 10 mg tablet 10 mg PO BEDTIME 07/19/20 multivitamin with folic acid 400 1 tab PO DAILY 09/26/24 mcg tablet (Daily-Glynn (with folic acid)) amlodipine 10 mg tablet 10 mg PO DAILY 02/23/2309/04 fluticasone propionate 50 2 spray intranasal DAILY PRN 06/25/23 09/26/24 mcg/actuation nasal Allergy Symptoms spray,suspension (Flonase Allergy Relief) Previous Rx's ?Medication ?Instructions ?Recorded albuterol sulfate 2.5 mg/0.5 mL 5 mg inhalation Q4H AZ N shortness 05/20/23 solution for nebulization of breath or wheezing #30 ea capsaicin 0.1 % topical cream 1 appl topical BID #60 g víctor 06/15/23 ibuprofen 400 mg tablet 400 mg PO TID PRN pain (scal e 11/03/23 score 1-3) #15 tabs tramadol 50 mg tablet 50 mg PO Q6H PRN pain #6 tab s 11/03/23 mercaptopurine 50 mg tablet 50 mg PO DAILY #90 tabs albuterol sulfate 90 mcg/actuation 2 puff inhalation Q 4-6H PRN 04/11/24 aerosol inhaler shortness of breath or wheez ing 30 days #8.5 grams alendronate 70 mg tablet 70 mg PO QWEEK #5 tabs 04/19 calcium citrate 250 mg PO BID 30 days #60 ta bs 04/19/24 prednisone 20 mg tablet 40 mg (2 x 20 mg) PO DAILY 5 days 05/07/24 #10 tabs pyridoxine (vitamin B6) 100 mg 100 mg PO BID #60 tabs 05/16/24 tablet tiotropium bromide 18 mcg capsule 1 cap inhalation [place] copd 30 06/20/24 with inhalation device (Spiriva days #30 inhalations with HandiHaler) sodium,potassium,mag sulfates 17.5 See Rx Instructions PO .COMPLEX 09/22/24 gram-3.13 gram-1.6 gram oral soln #354 mL (Suprep Bowel Prep Kit) VITAMIN C 1000MG TABLETS See Rx Instructions .Route 0 12/12/24 .COMPLEX #90 tabs cholecalciferol (vitamin D3) 50 50 mcg PO DAILY #30 ca ps 12/12/24 mcg (2,000 unit) capsule fluticasone 250 mcg-salmeterol 50 1 ea PO BID #180 ea 12/22/24 mcg/dose blistr powdr for inhalation amoxicillin 875 mg-potassium 1 tab PO BID 7 days #14 t abs 12/26/24 clavulanate 125 mg tablet doxycycline hyclate 100 mg tablet 100 mg PO BID 7 days #14 tabs 12/26/24 prednisone 20 mg tablet 20 mg PO DAILY 7 days #7 tab s 12/26/24 ipratropium 0.5 mg-albuterol 3 mg 3 ml inhalation Q6-8 H PRN 01/04/25 (2.5 mg base)/3 mL nebulization shortness of breath or wheezing soln #90 mL prednisone 10 mg tablets in a dose 10 mg PO DIRECTE D #42 ea 07/02/25 pack Allergies Allergy/AdvReac Type Severity Reaction Status Date / Time No Known Allergies Allergy Verified 01/03/25 20:44 Review of Systems 2 Review of Systems: Yes all other systems are reviewed and are negative [facility] Past Medical History Medical History Lipoma of left forearm Pulmonary nodule 1 cm or greater in diameter Autoimmune hepatitis Transaminitis Abnormal LFTs Smoker Allergic rhinitis COPD (chronic obstructive pulmonary disease) Hyperparathyroidism Abnormal SPEP Vitamin D deficiency Osteoporosis Arthritis Low calcium levels HTN (hypertension) Asthma Surgical History Status post excision of lipoma (~11/03/23) History of esophagogastroduodenoscopy (EGD) History of liver biopsy History of ERCP H/O colonoscopy Hx laparoscopic cholecystectomy Hx of tubal ligation Hx of tonsillectomy Family History Family History Father Diabetes Heart disease Hypertension Mother Diabetes Arthritis Heart disease Paternal Uncle Cancer Sister Lung cancer Social History Social History Household Members: Family Housing: Apartment Do you presently have visiting nurse or other home services: No Alcohol intake: never Patient Tobacco Use Status: Current everyday Tobacco user Tobacco use type: Cigarette Cigarette Packs Per Day: 0 Cigarettes Per Day: 5 Years Smoked: 47 Second Hand Smoke Exposure: Yes Advance Directives Date on File: 10/24/20 service: No Current occupational status: unemployed Physical Exam ED Vital Signs: Vital Signs - 24 hr 01/03/25 20:40 01/03/25 22:09 Temperature 97.4 F 98.3 F Pulse Rate 97 86 Respiratory Rate 16 16 Blood Pressure 138/80 126/78 Pulse Oximetry 97 97 Oxygen Delivery Method Room Air Room Air BMI result Body Mass Index 22.7 CONSTITUTIONAL: The patient appears non-toxic, borderline cachectic, but otherwise in no acute distress. Vital signs as documented. HEAD: Atraumatic, normocephalic. EYES: EOMs grossly intact, pupils equal, conjunctiva clear, no exudate. ENT: Nares patent, no discharge. Airway patent, no audible stridor, visible mucosa is pink and moist without noted lesions. NECK: Trachea is midline, no obvious masses or gross abnormalities. CHEST: Symmetric movement, normal appearance. LUNGS: LS present and CTAB, no w/r/r. Non-labored work of breathing. CARDIAC: Regular Rhythm, S1/S2 appreciated, no murmurs, rubs or gallops. ABDOMEN: Abdomen soft and non-tender x4 quadrants, no palpable masses or organomegaly. : Deferred. EXTREMITIES: Normal tone, moves all extremities spontaneously without reported pain. No obvious acute injury or deformity noted. NEURO: Alert and oriented x3, CN II-XII appear grossly intact. Cerebellar Functioning grossly intact. No obvious sensory or motor deficits. Speech clear and appropriate. PSYCH: normal affect, appropriate eye contact, fluid speech, with appropriate response to questioning. No reported suicidality or homicidality. SKIN: Warm, dry, color appropriate, normal turgor. No rashes noted. Course Course Course Narrative: This is an RME performed by Alex Sands [employer]: Additional HPI, ROS, PE not included below will be deferred to primary provider. patient is a 69-year-old female who presents emergency department for evaluation, history of COPD was diagnosed with pneumonia last week, given steroids and antibiotics she completed both courses but states she has had no improvement in her pain, remains symptomatic with shortness of breath and increased cough plan: Serum labs, repeat CXR Medical Decision Making Medical Decision Making MDM Narrative: 11:09 PM 01/03/2025 (Toma PERSON): The patient is a 69-year-old female with history of COPD presenting to the ED for evaluation of persistent and worsening symptoms after recent treatment with prednisone and antibiotics for suspected COPD and atypical pneumonia. The patient in the ED is well-appearing, exam reveals no wheezing or other adventitious lung sounds. The patient's chest x- ray today shows no focal consolidation or other acute cardiopulmonary process. Patient's laboratory evaluation is markedly reassuring, no leukocytosis, left shift, NIGEL, or electrolyte abnormality. Viral swab today negative for RSV, COVID, or influenza. The patient is endorsing some pleurisy with deep breath and cough, worse on the left. Patient's last D-dimer was in 2023, will add on D-dimer to rule out coagulopathic process. If D-dimer is negative patient likely suffering from progression of COPD as she continues to be an active smoker, currently smoking approximately a 3rd a pack of cigarettes per day. If D-dimer positive we will further assess with CTA. Differential Diagnosis Differential Diagnoses: The differential diagnosis associated with the presentation includes COPD exacerbation, PE, pneumonia Admission/Observation Consideration of admission/observation: Escalation of care including admission/observation considered Lab Data MDM Lab Attestation statement: I reviewed the patient's lab results. 01/03/25 21:01 01/03/25 21:01 Labs: Lab Results 01/03/25 01/03/25 Range/Units 21:01 23:24 WBC 10.9 H (4.8-10.8) X10*3/uL RBC 4.30 (4.20-5.50) X10*6/uL Hgb 13.7 (12.0-16.0) g/dl Hct 39.4 (37.0-47.0) % MCV 91.6 (80.0-98.0) fL MCH 31.9 (27.0-33.0) pg MCHC 34.8 (31.0-35.0) g/dl RDW 14.0 (11.0-16.0) % Plt Count 231 (160-400) X10*3/uL MPV 9.9 (9.4-12.3) fL Immature Gran % (Auto) 0.5 H (0.0-0.4) % Neut % (Auto) 69.2 (45-73) % Lymph % (Auto) 17.9 L (20-40) % Marshall % (Auto) 11.2 H (2-11) % Eos % (Auto) 0.9 (0-4) % Baso % (Auto) 0.3 (0-2) % Lymph # (Auto) 2.0 (1.2-4.9) X10*3/uL Marshall # (Auto) 1.2 (0.1-1.2) X10*3/uL Eos # (Auto) 0.1 (0.0-0.4) X10*3/uL Baso # (Auto) 0.0 (0.0-0.2) X10*3/uL Abs Immat Gran (auto) 0.05 H (0.00-0.03) X10*3/uL Absolute Neuts (auto) 7.6 (2.0-8.3) x10*3/uL Absolute Nucleated RBC 0.000 (0.0-0.012) X10*3/uL Nucleated RBC % (auto) 0.0 (0.0-0.2) /100WBC D-Dimer High Sensitivty < 150 NG/ML Sodium 144 (135-145) mmol/L Potassium 3.4 (3.3-5.1) mmol/L Chloride 105 (96-108) mmol/L Carbon Dioxide 29 (22-29) mmol/L Anion Gap 13 (12-20) BUN 18 H (9-16) mg/dL Creatinine 0.95 (0.5-1.4) mg/dL Estim Creat Clear Calc 41.6 Estimated GFR 58 Random Glucose 76 (60-115) mg/dL Calcium 9.1 D (8.4-10.2) mg/dL Total Bilirubin 0.9 (0.0-1.0) mg/dL AST 19 (5-31) U/L ALT 26 (0-31) U/L Alkaline Phosphatase 75 (39-117) U/L Total Protein 7.1 (6.5-8.0) g/dL Albumin 4.5 (3.5-5.0) g/dL Influenza Type A (PCR) NEGATIVE (Negative) Influenza Type B (PCR) NEGATIVE (Negative) RSV RNA Qual (PCR) NEGATIVE (Negative) SARS-CoV-2 RNA (RT-PCR) NEGATIVE (Negative) Radiology Impression Discussion of test interpretation with radiology: I have reviewed the radiologist's reading. Radiologist Impression: CLINICAL HISTORY: cough and rib pain 2 view chest x-ray Comparison: None provided Findings: The lungs are clear. Normal size heart. No acute fracture. IMPRESSION: 1. No acute findings. This document has been electronically signed by: Db Grace MD on 01/03/2025 21:17:41 External Record Review External record reviewed: Outpatient record Discharge Plan Discharge Clinical Impression: Acute exacerbation of chronic obstructive pulmonary disease Patient Disposition: Home, Self-Care Instructions: COPD (Chronic Obstructive Pulmonary Disease) (ED), Chronic Bronchitis (ED) Additional Instructions: Thank you for choosing [facility] Emergency Department for your care today. Thankfully your repeat laboratory evaluation, viral swab, and chest x-ray today show no evidence of any new acute pathology responsible for your symptoms. It appears your persistent cough and increased shortness of breath may be secondary to progression of your COPD. Thankfully your D-dimer today showed no evidence of a blood clot responsible for his symptoms. At this time there is no evidence of an acute process requiring admission to the hospital or continued ED observation, and it is safe to discharge you home. Please continue using your albuterol inhaler as needed. Please take the prednisone taper as prescribed. Please use the DuoNeb ampules in place of your albuterol for your nebulizer treatments as directed until follow-up with your PCP on the . Please stay well hydrated and get plenty of rest. Please follow up with your primary care physician for re-evaluation, additional management of your symptoms, and continued preventative care. If you do not have a primary care physician, please call the [facility] at [phone] to establish a new primary care physician. While waiting to establish your new primary care physician, you can call our [facility] at [phone] for non-emergency needs. Please return to the emergency department if you develop a severe or sudden change in your symptoms, a fever over 100.4 that does not improve with Tylenol or Ibuprofen, recurrent vomiting, or any other new or worsening symptoms or concerns. Prescriptions: New ipratropium-albuterol 0.5 mg-3 mg(2.5 mg base)/3 mL solution for nebulization 3 ml inhalation Q6-8H PRN (Reason: shortness of breath or wheezing) Qty: 90 0RF prednisone 10 mg tablets,dose pack 10 mg PO DIRECTED Qty: 42 0RF Rx Instructions: Take 60 mg (6 tabs) daily for 2 days. Then take 50 mg (5 tabs) daily for 2 days. Then take 40 mg (4 tabs) daily for 2 days. Then take 30 mg (3 tabs) daily for 2 days. Then take 20 mg (2 tabs) daily for 2 days. Then take 10 mg (1 tab) daily for 2 days. Then stop. No Action capsaicin 0.1 % cream 1 appl topical BID Qty: 60 1RF Rx Instructions: do not wash area for at least 30 min after application mercaptopurine 50 mg tablet 50 mg PO DAILY Qty: 90 1RF albuterol sulfate 90 mcg/actuation HFA aerosol inhaler 2 puff inhalation Q4-6H PRN (Reason: shortness of breath or wheezing) 30 Days Qty: 8.5 5RF pyridoxine (vitamin B6) 100 mg tablet 100 mg PO BID Qty: 60 0RF sodium,potassium,mag sulfates [Suprep Bowel Prep Kit] 17.5-3.13-1.6 gram recon soln See Rx Instructions PO .COMPLEX Qty: 354 0RF Rx Instructions: DILUTE; drink 1/2 at 6-8 pm and half at 11 PM- 1AM VITAMIN C 1000MG TABLETS See Rx Instructions .ROUTE .COMPLEX Qty: 90 0RF Dose Instruction: TAKE 1 TABLET BY MOUTH ONCE DAILY Rx Instructions: TAKE 1 TABLET BY MOUTH ONCE DAILY cholecalciferol (vitamin D3) 50 mcg (2,000 unit) capsule 50 mcg PO DAILY Qty: 30 2RF fluticasone propion-salmeterol 250-50 mcg/dose blister with device 1 ea PO BID Qty: 180 0RF ibuprofen 400 mg tablet 400 mg PO TID PRN (Reason: pain (scale score 1-3)) Qty: 15 0RF tramadol 50 mg tablet 50 mg PO Q6H PRN (Reason: pain) Qty: 6 0RF prednisone 20 mg tablet 40 mg PO DAILY 5 Days Qty: 10 0RF albuterol sulfate 2.5 mg/0.5 mL solution for nebulization 5 mg inhalation Q4H PRN (Reason: shortness of breath or wheezing) Qty: 30 0RF prednisone 20 mg tablet 20 mg PO DAILY 7 Days Qty: 7 0RF doxycycline hyclate 100 mg tablet 100 mg PO BID 7 Days Qty: 14 0RF amoxicillin-pot clavulanate 875-125 mg tablet 1 tab PO BID 7 Days Qty: 14 0RF montelukast 10 mg tablet 10 mg PO BEDTIME loratadine 10 mg tablet 10 mg PO DAILY PRN (Reason: Allergic Symptoms) multivitamin with folic acid [Daily-Glynn (with folic acid)] 400 mcg tablet 1 tab PO DAILY amlodipine 10 mg tablet 10 mg PO DAILY fluticasone propionate [Flonase Allergy Relief] 50 mcg/actuation spray,suspension 2 spray intranasal DAILY PRN (Reason: Allergy Symptoms) Rx Instructions: administer into each nostril alendronate 70 mg tablet 70 mg PO QWEEK Qty: 5 5RF calcium citrate 250 mg calcium tablet 250 mg PO BID 30 Days Qty: 60 11RF tiotropium bromide [Spiriva with HandiHaler] 18 mcg capsule, w/inhalation device 1 cap inhalation DAILY 30 Days Qty: 30 5RF Rx Instructions: puncture 1 cap using device; one dose = 2 inhalations Referrals: Katya Titus MD [Primary Care Provider, Internal Medicine] Clinical Impression: Acute exacerbation of chronic obstructive pulmonary disease Print Language: Croatian
[2025-01-03 21:05] LABS: MANUAL DIFF FLAG NO
[2025-01-03 21:06] LABS: Hematocrit 39.4 % (37.0-47.0); Hemoglobin 13.7 g/dl (12.0-16.0); Imm Gran Abs Auto 0.05 X10*3/uL (0.00-0.03); Imm Gran Pct Auto 0.5 % (0.0-0.4); Lymphocytes Absolute Auto 2.0 X10*3/uL (1.2-4.9); Mean Corpuscular HGB Conc 34.8 g/dl (31.0-35.0); Mean Corpuscular Hemoglobin 31.9 pg (27.0-33.0); Mean Corpuscular Volume 91.6 fL (80.0-98.0); NRBC Abs Auto 0.000 X10*3/uL (0.0-0.012); NRBC Pct Auto 0.0 /100WBC (0.0-0.2); Platelet Count 231 X10*3/uL (160-400); Red Blood Count 4.30 X10*6/uL (4.20-5.50); White Blood Count 10.9 X10*3/uL (4.8-10.8)
[2025-01-03 21:23] LABS: Alanine Aminotransferase 26 U/L (0-31); Albumin Level 4.5 g/dL (3.5-5.0); Alkaline Phosphatase 75 U/L (39-117); Anion Gap 13 (12-20); Aspartate Amino Transferase 19 U/L (5-31); Blood Urea Nitrogen 18 mg/dL (9-16); Calcium 9.1 mg/dL (8.4-10.2); Carbon Dioxide 29 mmol/L (22-29); Chloride 105 mmol/L (96-108); Creatinine Clr Calc Pharmacy 41.6; Estimated Glomerular Filt Rate 58; Potassium 3.4 mmol/L (3.3-5.1); Sodium 144 mmol/L (135-145); Total Protein 7.1 g/dL (6.5-8.0)
[2025-01-03 21:45] LABS: Resp Syncy Virus RNA Qual PCR NEGATIVE (Negative); SARS COV2 PCR INHOUSE NEGATIVE (Negative)
[2025-01-03 22:09] VITALS: BP 126/78; PULSE 86; RESP 16; TEMP 36.8; O2SAT 97
[2025-01-03 23:52] LABS: D Dimer High Sensitivity < 150 NG/ML
[2025-01-04 00:58] VITALS: BP 128/71; PULSE 91; RESP 16; TEMP 37.1; O2SAT 92
[2025-01-04 01:08] VITALS: BP 128/71; PULSE 91; RESP 16; TEMP 37.1; O2SAT 92
== END 2025-01-04 01:08 | disposition home or self-care (01) ==
PROVIDERS: Physician Assistant; Emergency Provider Emergency Medicine; PCP Internal Medicine
DX: J44.1 Chronic obstructive pulmonary disease with (acute) exacerbation (principal); R06.02 Shortness of breath; R05.9 Cough, unspecified; Z79.899 Other long term (current) drug therapy; F17.210 Nicotine dependence, cigarettes, uncomplicated; Z11.52 Encounter for screening for COVID-19
CPT/HCPCS: 36415; 71046; 80053; 85025; 85379; 87637; 99283; 99284

== ENCOUNTER 2025-01-09 09:22 | Outpatient (AMB) | payer OTHER, SELFPAY ==
[2025-01-09 09:31] VITALS: BP 134/58; PULSE 77; O2SAT 95; BMI 22.4
--- NOTE | 2025-01-09 09:31 | MHC.OFFVIS ---
Vital Signs 01/09/25 09:31 Height 5 ft 1.23 in Weight 119 lb 11.376 oz BMI 22.4 BP 134/58 L Blood Pressure Location Rt brachial Position Sitting Pulse 77 Pulse Source Pulse Oximeter Pulse Oximetry (%) 95 Oxygen Delivery Method Room Air Intake Visit Reasons: f/u osteoporosis Intake Note: Patient present today for Osteoporosis follow up. Cosmetic Surgeon Required: No Accompanied by: Self / Same As Patient Allergies No Known Allergies Allergy (Verified 01/09/25 09:32) Medication List - Last Reconciled 01/09/25 by Joao Guillermo MD albuterol sulfate 5 mg inhalation Q4H PRN albuterol sulfate 90 mcg/actuation 2 puffs inhalation Q4-6H PRN 30 days alendronate 70 mg PO QWEEK amlodipine 10 mg PO DAILY amoxicillin-pot clavulanate 875-125 mg 1 tab PO BID 7 days calcium citrate 250 mg PO BID 30 days capsaicin 0.1% 1 appl topical BID cholecalciferol (vitamin D3) 50 mcg PO DAILY doxycycline hyclate 100 mg PO BID 7 days fluticasone propion-salmeterol 250-50 mcg/dose 1 ea PO BID fluticasone propionate 50 mcg/actuation (Flonase Allergy Relief) 2 sprays intranasal DAILY PRN ibuprofen 400 mg PO TID PRN ipratropium-albuterol 0.5 mg-3 mg(2.5 mg base)/3 mL 3 mL inhalation Q6-8H PRN loratadine 10 mg PO DAILY PRN mercaptopurine 50 mg PO DAILY montelukast 10 mg PO BEDTIME multivitamin with folic acid 400 mcg (Daily-Glynn (with folic acid)) 1 tab PO DAILY prednisone 40 mg (2 x 20 mg) PO DAILY 5 days prednisone 20 mg PO DAILY 7 days prednisone 10 mg PO DIRECTED pyridoxine (vitamin B6) 100 mg PO BID sodium,potassium,mag sulfates 17.5-3.13-1.6 gram (Suprep Bowel Prep Kit) DILUTE; drink 1/2 at 6-8 pm and half at 11 PM- 1AM tiotropium bromide (Spiriva with HandiHaler) 1 cap inhalation DAILY 30 days tramadol 50 mg PO Q6H PRN [VITAMIN C 1000MG TABLETS TAKE 1 TABLET BY MOUTH ONCE DAILY] HPI Comments Details: 69 YO Female with PMHx COPD and Osteoporosis is seen in F/U for Osteoporosis. Of note, Patient is a very poor historian. She is not aware of much of her health history. First diagnosed with Osteoporosis in Aug 2019 with her first DEXA. She has never been treated in the past. After her initial visit we completed a full biochemical assessment for secondary causes of Osteoporosis. This revealed a possible M spike on her SPEP, and she was referred to Heme-Onc for this and per their records there was no concern for multiple myeloma. This also revealed low Vitamin D, elevated Calcium of 10.4, with an inappropriately normal PTH of 51. She repeated her labs which confirmed hypovitaminosis D, and Calcium WNL. Labs repeated again and were again WNL. She was started on high dose Vitamin D, now with Vitamin D is now WNL. 24 hour urine calcium reveals very low calcium levels. She was started on Prolia and has received 2 doses thus far 10/24/2021 and 04/28/2022. She has tolerated these well. Has 0 servings of dietary calcium per day. Takes Calcium Citrate 250 mg PO BID. Did take Vitamin D 50,000 IU once a week for a few months, but this was stopped for unknown reasons. She has long standing hypovitaminosis D. She was evaluated for celiac disease in the past and this was negative. She remains on Vitamin D 2000 IU daily, and did complete a course of high dose supplementation. Uses Omeprazole daily. She does have COPD and uses short Prednisone courses approximately 2-5 times per year. Denies ever using antiepileptic or anticoagulant medication. Does no exercise. Fracture history: Denies Height loss: Denies. 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 Menses were regular. . She did not breastfeed. Menopause was age 44. She did not use HRT. Denies history of Kidney stones: Mother with a history of Osteoporosis. UTD on dental cleanings and sees dentist every 6 months. No planned upcoming dental work or extractions. DXA: 09/24/2021 FINDINGS: AP SPINE L1-L4: Current: BMD 1.078 g/cm2, Z-score 1.2, T-score -0.9, normal, 3.1% decrease from previous, 8.8% decrease from baseline (<5% change is not significant). Prior: BMD 1.112 g/cm2. Baseline: BMD 1.182 g/cm2. LEFT FEMUR, NECK: Current: BMD 0.606 g/cm2, Z-score -1.2, T-score -3.1, osteoporosis. Prior: BMD 0.666 g/cm2. Baseline: BMD 0.832 g/cm2. LEFT FEMUR, TOTAL: Current: BMD 0.670 g/cm2, Z-score -1.0, T-score -2.7, osteoporosis, 11.7% decrease from previous, 26.9% decrease from baseline (<5% change is not significant). Prior: BMD 0.759 g/cm2. Baseline: BMD 0.917 g/cm2. Labs: Laboratory Tests 10/23/22 10/23/22 11:22 11:22 Sodium 143 Potassium 3.7 Creatinine 0.85 Estimated GFR > 60 25-OH Vitamin D Total 35.1 PTH Intact 28 Calcium (PTH Intact) 9.4 received last Prolia dose in November 2023. No back pain or hip pain since last visit . Is taking alendronate 70 mg Q weekly since 05/2024. The patient is a 69-year-old female presenting with osteoporosis. She has been taking alendronate weekly but recent urinary markers suggest insufficient management of bone turnover. The patient had previously been on Prolia with good effect, but this treatment was stopped, leading to a potential rebound increase in bone turnover. - Alendronate: Weekly since May for osteoporosis. Compliance noted but an increase in urinary bone turnover marker suggests suboptimal efficacy. - Prolia: Previously administered every six months, stopped before starting alendronate. She received a dose of Reclast 09/28/2024 The patient is a 69-year-old female presenting with osteoporosis management and monitoring of Reclast treatment efficacy. She received a Reclast infusion in September due to increased bone turnover, and since then, she has not experienced any fractures. A urine test is planned to assess the effectiveness of Reclast, requiring a fasting second morning urine NTX sample. The patient experienced hypokalemia, which led to an emergency visit where the condition was corrected. Her potassium levels have since normalized. She also reported a history of walking pneumonia, which has since improved. [facility] Medical History Lipoma of left forearm Pulmonary nodule 1 cm or greater in diameter Autoimmune hepatitis Transaminitis Abnormal LFTs Smoker Allergic rhinitis COPD (chronic obstructive pulmonary disease) Hyperparathyroidism Abnormal SPEP Vitamin D deficiency Osteoporosis Arthritis Low calcium levels HTN (hypertension) Asthma Surgical History Status post excision of lipoma (~11/03/23) History of esophagogastroduodenoscopy (EGD) History of liver biopsy History of ERCP H/O colonoscopy Hx laparoscopic cholecystectomy Hx of tubal ligation Hx of tonsillectomy Family History Father Diabetes Heart disease Hypertension Mother Diabetes Arthritis Heart disease Paternal Uncle Cancer Sister Lung cancer Social History Household Members: Family Housing: Apartment Do you presently have visiting nurse or other home services: No Alcohol intake: never Patient Tobacco Use Status: Current everyday Tobacco user Tobacco use type: Cigarette Cigarette Packs Per Day: 0 Cigarettes Per Day: 5 Years Smoked: 47 Second Hand Smoke Exposure: Yes Advance Directives Date on File: 10/24/20 service: No Current occupational status: unemployed Physical Exam Vital Signs: Last Vital Signs Pulse 77 01/09/25 09:31 BP 134/58 L 01/09/25 09:31 Pulse Ox 95 01/09/25 09:31 Oxygen Delivery Method Room Air 01/09/25 09:31 BMI result Body Mass Index 22.4 Assessment & Plan Assessment & Plan (1) Osteoporosis: Code(s): M81.0 - Age-related osteoporosis without current pathological fracture Category: Medical Qualifiers: Osteoporosis type: unspecified Presence of current pathological fracture: unspecified Qualified Code(s): M81.0 - Age-related osteoporosis without current pathological fracture Plan: This is a 68-year-old female with a history of osteoporosis with negative secondary workup was currently receiving Prolia 4th dose received May 2023. Last DEXA showed improvements in the hip and spine into the osteopenic range. Transition to oral alendronate in 05/2024. There has been a slight increase in the urine NTX out of the premenopausal range and patient received a dose of Reclast 09/2024 Plan is to recheck urine NTX 2nd void fasting. If urine NTX is suppressed, we will continue to follow. If urine NTX is elevated, consider a 2nd dose of Reclast 1. Osteoporosis The patient received a Reclast infusion in September due to increased bone turnover. A urine NTX test is planned to assess the effectiveness of Reclast. If the urine test shows inadequate response, another dose of Reclast may be considered. The patient is advised to continue calcium and vitamin D supplementation. During the visit, I discussed with the patient the importance of monitoring the effectiveness of Reclast treatment for osteoporosis through a urine test. I explained that if the test indicates inadequate response, another dose of Reclast may be necessary. I also emphasized the need for continued calcium and vitamin D supplementation. We reviewed the patient's history of hypokalemia and walking pneumonia, noting that both conditions have improved. I advised the patient to follow up in four months to reassess her condition and treatment efficacy. - Complete the urine test as instructed, using the second morning urine sample after fasting. - Continue taking calcium and vitamin D supplements as prescribed. - Follow up with your primary care physician regarding any concerns with urine bubbles. - The patient had an opportunity to ask questions regarding treatment plan. The patient expressed understanding and agreement with the above treatment plan. Patient was informed and verbally consented to the use of an ambient scribe for clinic note documentation during this visit. Orders: Orders Collagen Crosslinks NTX Today M81.0 - Age-related osteoporosis without current pathological fracture Coding Level of Care Code Est Pt Level 3 (35107) Diagnoses Osteoporosis, unspecified osteoporosis type, unspecified pathological fracture presence M81.0 Osteoporosis type: unspecified Presence of current pathological fracture: unspecified
--- OUTSIDE RECORDS SUMMARY | 2025-01-09 09:52 | XMS_ITS | Patient Health Record ---
Author Organization [facility] [facility] Address [address] [place] [address] Care Team Providers Care Ammonia Refrigeration Technician Name Role Phone Twila Thao Primary Care Provider Joao Kaiser [phone] Reason For Referral No Information Plan Of Treatment No Information Insurance Providers Payer Name Payer Address Payer Phone Subscriber Number Group Number Insured Name Patient Relationship to Insured Coverage Start Date Coverage End Date MEDICAID OF [facility] [address] [place] [id number] [id number] ROGELIO TOLENTINO Self - patient is the insured
--- OUTSIDE RECORDS SUMMARY | 2025-01-09 09:52 | XMS_ITS | Encounter Summary ---
Author Organization [employer] Address [address] [place] [address] Care Team Providers Care Structural Manager Name Role Phone Katya Titus MD Primary Care Provide r Reason for Visit * Reason Comments Med Refill Encounter Details Date Type Department Care Team ([facility] st Contact Info) Description 12/22/2024 Refill [facility] [address] [place], [place] [phone] Katya Titus MD [address] [place] [address] Social History Tobacco Use Types Packs/Day Years [...] Description 01/13/2025 9:30 AM EDT Office Visit [facility] [address] [place] [address] Katya Titus MD [address] [place] [address] 05/08/2025 11:00 AM EST Office Visit [facility] [address] [place] [address] Marquis, Claudia, OD [address] [place] [address] documented as of this encounter Visit Diagnoses Not on filedocumented in this encounter Additional Health Concerns Assessment Noted Time PHQ-9 Depression Total Score: 0 11/20/19 23 10:59 AM EDT documented as of this encounter Care Teams Structural Manager Relationship Specialty Start Date End Date Katya Titus MD [address] [place], [place] [phone] PCP - General Family Medicine 03/17/18 documented as of this encounter
== END 2025-01-09 09:50 | disposition home or self-care (01) ==
LOC: HO.ENCR 09:23
PROVIDERS: PCP Internal Medicine; Visit Provider Internal Medicine Endocrinology, Diabetes & Metabolism
DX: M81.0 Age-related osteoporosis without current pathological fracture (principal)
CPT/HCPCS: 99213

== ENCOUNTER → 2025-01-09 09:22 | Outpatient (BNVA) | payer OTHER, SELFPAY | PROVIDERS: PCP Internal Medicine; Visit Provider Internal Medicine Endocrinology, Diabetes & Metabolism | DX: M81.0 Age-related osteoporosis without current pathological fracture (principal); E55.9 Vitamin D deficiency, unspecified | CPT/HCPCS: 99212 ==

== ENCOUNTER 2025-01-23 09:49 | Outpatient (REF) | payer OTHER, SELFPAY ==
--- OUTSIDE RECORDS SUMMARY | 2025-01-23 10:30 | XMS_ITS | Encounter Summary ---
Author Organization [employer] Address [address] [place] [address] Care Team Providers Care Head Stock Transfer Clerk Name Role Phone Katya Titus MD Primary Care Provide r Reason for Visit * Reason Comments Med Refill Encounter Details Date Type Department Care Team ([facility] st Contact Info) Description 12/22/2024 Refill [facility] [address] [place], [place] [phone] Katya Titus MD [address] [place], [place] [phone] Social History Tobacco Use Types Packs/Day Years [...] Care Team (Late st Contact Info) Description 05/08/2025 11:00 AM EST Office Visit [facility] OPT[facility] [address] [place] [address] Marquis, Claudia, OD [address] [place] [address] documented as of this encounter Visit Diagnoses Not on filedocumented in this encounter Additional Health Concerns Assessment Noted Time PHQ-9 Depression Total Score: 0 11/20/19 23 10:59 AM EDT documented as of this encounter Care Teams Head Stock Transfer Clerk Relationship Specialty Start Date End Date Katya Titus MD [address] [place], [place] [phone] PCP - General Family Medicine 03/17/18 documented as of this encounter
--- OUTSIDE RECORDS SUMMARY | 2025-01-23 10:30 | XMS_ITS | Patient Health Record ---
Author Organization [facility] Address [address] [place] [address] Care Team Providers Care Torch Cutter Name Role Phone Twila Thao Primary Care Provider Joao Kaiser [phone] Reason For Referral No Information Plan Of Treatment No Information Insurance Providers Payer Name Payer Address Payer Phone Subscriber Number Group Number Insured Name Patient Relationship to Insured Coverage Start Date Coverage End Date MEDICAID OF [facility] [address] [place] [phone] [id number] ROGELIO TOLENTINO Self - patient is the insured
== END 2025-01-23 09:50 | disposition home or self-care (01) ==
LOC: HO.HHCL 09:49
PROVIDERS: PCP Internal Medicine; Visit Provider Internal Medicine Endocrinology, Diabetes & Metabolism
DX: E87.6 Hypokalemia (principal)
CPT/HCPCS: 36415; 80048; 82523

== ENCOUNTER 2025-01-25 07:25 | Day surgery (SDC) | payer OTHER, SELFPAY ==
--- OUTSIDE RECORDS SUMMARY | 2024-12-09 11:57 | XMS_ITS | Clinical Summary ---
Author Organization [facility] [employer] Address [address] [facility] [address] [place] [address] Care Team Providers Care Powder Compounder Name Role Phone Katya Titus MD Primary [...] Active beta carotene (vitamin A) 3 MG (44104 UT) capsule Take by mouth in the morning. 3 Active albuterol 108 (90 Base) MCG/ACT inhaler Inhale 2 puffs every 4 (four) hours if needed for wheezing or shortness of breath. 8.5 g 1 3 Active nicotine (Nicoderm CQ) 7 [...] FOR WHEEZING 75 mL 3 4 Active loratadine (Claritin) 10 MG tabletIndications :Allergic rhinitis, unspecified seasonality, unspecified trigger Take 1 tablet (10 mg) by mouth Once per day. 30 tablet 11 4 05/02/20 25 Active montelukast (Singulair) 10 MG tablet TAKE 1 TABLET BY MOUTH EVERY NIGHT DIRECTED 90 tablet 1 5 Active amLODIPine (Norvasc) 10 MG tabletIndications :Essential hypertension Take 1 tablet (10 mg) by mouth Once per day. 90 tablet 1 5 10/07/19 26 Active Active Problems Problem Noted Date Diagnosed [...] 1:41 PM EDT): Albuterol inhaler refilled today Range Examiner to avoid triggers C/w rest of medications F/u with pulmonology Encounters Date Type Department Care Team Description 10/06/2024 10:00 AM EDT Office Visit [facility] [address] [place] [phone] Katya Titus MD Senile osteoporosis (Primary Dx); Chronic obstructive pulmonary disease, unspecified COPD type (CMS/HCC); Hyperparathyroidism (CMS/HCC); Autoimmune hepatitis (CMS/HCC); Encounter for screening mammogram for malignant neoplasm of breast; Colon cancer screening; Essential hypertension 10/06/2024 Travel 09/27/2024 Patient Outreach [address] [phone] Katya Titus MD Pre-visit Planning ([facility] screening completed on 07/19/2024) 09/14/2024 Travel from Last 3 Months Immunizations Immunization Administration Dates Next Due Influenza High-dose Quadrivalent [...] 10/06/2024 9:58 AM EDT Plan of Treatment Upcoming Encounters Date Type Department Care Team (Late st Contact Info) Description 01/13/2025 9:30 AM EDT Office Visit [facility] [address] [place] [address] Katya Titus MD [address] [place] [address] Health Maintenance Due Date Last Done Comments [...] 12/07/2018 Colorectal Cancer Screening 12/08/2023 Influenza Vaccine (Season Ended) 2025 08/07/2023, 07/19/2020, 06/22/2019, Additional history exists Alcohol/Substance Use Screening 05/02/2025 05/02/2024 SDOH Screening 07/19/2025 07/19/2024 Tobacco Screening 10/06/2025 10/06/2024 Mammogram 10/10/2025 10/10/2024, 09/04, 09/19/2022, Additional history exists Lipid Panel 10/23/2026 10/23/2021 Pneumococcal Vaccine: 50+ [...] patient's age to complete this topic Meningococcal B Vaccine Aged Out No l onger eligible based on patient's age to complete [...] Comments BI MAMMOGRAM SCREENING TOMOSYNTHESIS BILATERAL Routine 10/10/2024 1:35 PM EDT Encounter for screening mammogram for malignant neoplasm of breast HEPATITIS PANEL, GENERAL Routine 08/07/2023 10:41 AM EST Hemochromatosis, unspecified hemochromatosis type Autoimmune hepatitis (CMS/HCC) LIPID PANEL, STANDARD Routine 10/23/2021 8:53 AM EDT HM COLONOSCOPY Routine 12/07/2018 from Last 3 Months or Most Recently Relevant to Health Maintenance Results * BI Mammogram Screening Tomosynthesis Bilateral (10/10/2024 1:35 PM EDT) Anatomical Region Laterality Modality Breast Bilateral Mammography 10/10/2024 1:35 PM EDT Narrative 10/16/2024 8:01 PM EDT ? [facility] [place] ? [address] ?[place] [address] ?[phone] ? Mammography Report ? Signed ? Patient: Hull,Vandana ?MR#: [id number] ?? 582 ? : 1955 ?Acct:[id number] ? Age/Sex: 69 / F ?ADM Date: 10/10/24 ? Loc: HO.MAMMO ? Attending Dr: Katya Burton MD ? Ordering Physician: Katya Titus MD ?Results: ?? 1Negative ? Date of Service: 10/10/24 ?Follow Up: 1 Year From Orig ?? inal Mammogram ? Procedure(s): MM tomosynthesis screening BI ?? Accession Number(s): [id number] ? cc: Katya Titus MD ? EXAMINATION: ?? MM SCREENING DIGITAL BREAST TOMOSYNTHESIS, BILATERAL ? CLINICAL INFORMATION: ? Screening. Asymptomatic. ? COMPARISON: ?? Mammography: Comparison is made with available priors ? TECHNIQUE: ?? Digital breast mammography with tomosynthesis is performed in both the ?? craniocaudal and mediolateral oblique views along with computer-aided ?? detection (CAD). ? FINDINGS: ?? The breasts are heterogeneously dense, which may obscure small masses ?? (ACR BI-RADS breast composition Category c). ? There are no significant masses, abnormal calcifications, or other ?? abnormalities. ? MM/MM tomosynthesis screening BI ?? IMPRESSION: ?? No mammographic evidence of malignancy. ? ASSESSMENT: ? BI-RADS BI-RADS 1 - Negative ? RECOMMENDATION: ?? Routine annual mammography screening. ? 1 year F/U ? This examination should not preclude the clinical evaluation of a ?? suspicious palpable abnormality. ? This patient's information was entered into a reminder system with a ?? target due date for their next mammogram. ? Electronically signed by: ??Georgina Rivera DO ??10/16/2024 07:58 PM EDT ? Dictated By: ?Georgina Rivera DO ? Signed By: ?<Electronically signed by Georgina Rivera, DO in OV> ? 10/16/241957 ? DD/ 1335 ? TD/TT: 10/10/24 1345 ? Station Usher: ? Procedure Note Abdiel Singh - 10/16/2024 [facility] [address] [place] [address] Mammography Report Signed Patient: Doni Hull#: [id number] 582 : 4Acct:[id number] Age/Sex: 69 / FADM Date: 10/10/24 Loc: HO.MAMMO Attending Dr: Katya Burton MD Ordering Physician: Katya Titusesults: 1Negative Date of Service: 10/10/24Follow Up: 1 Year From [facility] ina Mammogram Procedure(s): MM tomosynthesis screening BI Accession Number(s): [id number] cc: Katya Titus MD EXAMINATION: MM SCREENING DIGITAL BREAST TOMOSYNTHESIS, BILATERAL CLINICAL INFORMATION: Screening. Asymptomatic. COMPARISON: Mammography: Comparison is made with available priors TECHNIQUE: Digital breast mammography with tomosynthesis is performed in both the craniocaudal and mediolateral oblique views along with computer-aided detection (CAD). FINDINGS: The breasts are heterogeneously dense, which may obscure small masses (ACR BI-RADS breast composition Category c). There are no significant masses, abnormal calcifications, or other abnormalities. MM/MM tomosynthesis screening BI IMPRESSION: No mammographic evidence of malignancy. ASSESSMENT: BI-RADS BI-RADS 1 - Negative RECOMMENDATION: Routine annual mammography screening. 1 year F/U This examination should not preclude the clinical evaluation of a suspicious palpable abnormality. This patient's information was entered into a reminder system with a target due date for their next mammogram. Electronically signed by: Georgina Rivera DO 10/16/2024 07:58 PM EDT Dictated By: Georgina Rivera DO Signed By: <Electronically signed by Georgina Rivera DO in OV> 10/16/241957 DD/ 1335 TD/TT: 10/10/24 1345 Station Usher: Katya Burton MD IMG BI PROCEDURES Alvarez laura Result - Final * Hepatitis A,B,C Profile (08/07/2023 10:41 AM EST) Hepatitis A IgM Nonreactive Nonreactive [facility] Comment:IgM antibodies to YO V not detected; does not exclude earlyacute or recovered HAV infection. ~Hepatitis B Surface Antibody NONREACTIVE Nonreactive [facility] Comment:Nonreactive: < 8.00 mIU/mL Hepatitis B Core Antibody Nonreactive Nonreactive [facility] Hepatitis C Antibody Nonreactive Nonreactive [facility] Comment:Antibodies to HCV no t detected; does not exclude early acuteHCV infection. Hepatitis B Surface Ag Negative Negative [facility] Blood Venous blood specimen / Unknown 08/07/2023 10:41 AM EST 08/07/2023 11:38 AM EST us Katya Burton MD LAB BLOOD ORDERABLES Final Result [facility] [address] [place] [address] [phone] * (ABNORMAL) LIPID PANEL, STANDARD (10/23/2021 [...] ?? LDL-C is now calculated using the Nhan-Villalobos ?? calculation, which is a validated novel method providing ?? better accuracy than the Friedewald equation in the ?? estimation of LDL-C. ?? Nhan ADAM et al. BIANCA. 2013;310(19): 5651-6589 ?? (http://education.[employer] [facility].Innobits/faq/UOD291) Non-HDL Cholesterol 141(H) <130 mg/dL (calc) [facility] Comment: For patients with diabetes plus 1 major ASCVD risk ?? factor, treating to a non-HDL-C goal of <100 mg/dL ?? (LDL-C of <70 mg/dL) is considered a therapeutic ?? option. Triglycerides 150(H) <150 mg/dL [facility] 10/23/2021 8:53 AM EDT us Katya Burton MD LAB BLOOD ORDERABLES Final Result [facility] [address] [place] [phone], * Hm Colonoscopy (12/07/2018) us Historical Provider HEALTH MAINTENANCE Final Result from Last 3 Months or Most Recently Relevant to Health Maintenance Insurance [facility] [employer] (HMO D-SNP) [place] [id number] Care Teams Powder Compounder Relationship Specialty Start Date End Date Katya Titus MD [address] [facility] [place] [address] PCP - General Family Medicine 03/17/18
--- NOTE | 2025-01-24 09:38 | HO.ANESPROP2 ---
Documented by User: Shellie Ochoa NP 01/24/25 09:40 HPI - Anesthesia Eval Consult details Narrative: 69 yr old female for Upper Endoscopy and Colonoscopy ED visit 01/03/25 for COPD exacerbation, suspected atypical PNA-->prednisone, augmentin, xray neg, labs reassuring/unremarkable including CBC, CMP, ddimer PMFSH Active Problems Active Problems: All Active Problems Malnutrition (Acute) Painful arc syndrome of right shoulder (Acute) Painful arc syndrome of left shoulder (Acute) Left arm swelling (Acute) Shoulder pain, left (Acute) Type 1 autoimmune hepatitis (Acute) Abdominal pain (Acute) Hemochromatosis (Acute) Acute hepatitis (Acute) Fecal urgency (Acute) Irritable bowel syndrome with both constipation and diarrhea (Acute) GERD (gastroesophageal reflux disease) (Acute) Lipoma of left forearm (Acute) Pulmonary nodule 1 cm or greater in diameter (Acute) Autoimmune hepatitis (Acute) Smoker (Acute) Allergic rhinitis (Acute) COPD (chronic obstructive pulmonary disease) (Acute) Hyperparathyroidism (Acute) Abnormal SPEP (Chronic) Vitamin D deficiency (Acute) Osteoporosis (Acute) Past Medical History Medical History Lipoma of left forearm Pulmonary nodule 1 cm or greater in diameter Autoimmune hepatitis Transaminitis Abnormal LFTs Smoker Allergic rhinitis COPD (chronic obstructive pulmonary disease) Hyperparathyroidism Abnormal SPEP Vitamin D deficiency Osteoporosis Arthritis Low calcium levels HTN (hypertension) Asthma Family History Family History Father Diabetes Heart disease Hypertension Mother Diabetes Arthritis Heart disease Paternal Uncle Cancer Sister Lung cancer Family history of problems with anesthesia: No Surgical History Surgical History Status post excision of lipoma (~11/03/23) History of esophagogastroduodenoscopy (EGD) History of liver biopsy History of ERCP H/O colonoscopy Hx laparoscopic cholecystectomy Hx of tubal ligation Hx of tonsillectomy History of Problems with Anesthesia: No Social History Social History Household Members: Family Housing: Apartment Do you presently have visiting nurse or other home services: No Alcohol intake: never Patient Tobacco Use Status: Current everyday Tobacco user Tobacco use type: Cigarette Cigarette Packs Per Day: 0 Cigarettes Per Day: 5 Years Smoked: 47 Second Hand Smoke Exposure: Yes Use of substances other than those prescribed or required for medical reasons: No Are you DNR?: No Advance Directives: No Advance Directives Information Provided: Yes Advance Directives Date on File: 10/24/20 service: No Current occupational status: unemployed Meds Allergies Allergy/AdvReac Type Severity Reaction Status Date / Time No Known Allergies Allergy Verified 01/25/25 08:19 Home Medications ?Medication ?Instructions ?Recorded ?Confirmed ?Last Taken ?Type loratadine 10 mg tablet 10 mg PO DAILY PRN Allergic 07/19/20 01/25/25 Unknown History Symptoms montelukast 10 mg tablet 10 mg PO BEDTIME 07/19/20 01/25/25 01/02/21 History multivitamin with folic acid 400 1 tab PO DAILY 06/11/21 01/25/25 Unknown History mcg tablet (Daily-Glynn (with folic acid)) amlodipine 10 mg tablet 10 mg PO DAILY 02/23/23 01/25/25 01/25/25 07:15 History fluticasone propionate 50 2 spray intranasal DAILY PRN 06/25/23 01/25/25 Unknown History mcg/actuation nasal Allergy Symptoms spray,suspension (Flonase Allergy Relief) omeprazole 40 mg capsule,delayed 40 mg PO BID 01/25/25 01/25/25 Unknown History release Exam Narrative Narrative: EKG 05/2024: NSR rate 81 Assessment and Plan Final Anesthetic Review Family History of Problems with Anesthesia: No History of Problems with Anesthesia: No Documented by User: Claudia Rojo MD 01/25/25 09:07 [facility] Past Medical History Medical History Lipoma of left forearm Pulmonary nodule 1 cm or greater in diameter Autoimmune hepatitis Transaminitis Abnormal LFTs Smoker Allergic rhinitis COPD (chronic obstructive pulmonary disease) Hyperparathyroidism Abnormal SPEP Vitamin D deficiency Osteoporosis Arthritis Low calcium levels HTN (hypertension) Asthma Family History Family History Father Diabetes Heart disease Hypertension Mother Diabetes Arthritis Heart disease Paternal Uncle Cancer Sister Lung cancer Surgical History Surgical History Status post excision of lipoma (~11/03/23) History of esophagogastroduodenoscopy (EGD) History of liver biopsy History of ERCP H/O colonoscopy Hx laparoscopic cholecystectomy Hx of tubal ligation Hx of tonsillectomy Social History Social History Household Members: Family Housing: Apartment Do you presently have visiting nurse or other home services: No Alcohol intake: never Patient Tobacco Use Status: Current everyday Tobacco user Tobacco use type: Cigarette Cigarette Packs Per Day: 0 Cigarettes Per Day: 5 Years Smoked: 47 Second Hand Smoke Exposure: Yes Use of substances other than those prescribed or required for medical reasons: No Are you DNR?: No Advance Directives: No Advance Directives Information Provided: Yes Advance Directives Date on File: 10/24/20 service: No Current occupational status: unemployed Meds Allergies Allergy/AdvReac Type Severity Reaction Status Date / Time No Known Allergies Allergy Verified 01/25/25 08:19 Home Medications ?Medication ?Instructions ?Recorded ?Confirmed ?Last Taken ?Type loratadine 10 mg tablet 10 mg PO DAILY PRN Allergic 07/19/20 01/25/25 Unknown History Symptoms montelukast 10 mg tablet 10 mg PO BEDTIME 07/19/20 01/25/25 01/02/21 History multivitamin with folic acid 400 1 tab PO DAILY 06/11/21 01/25/25 Unknown History mcg tablet (Daily-Glynn (with folic acid)) amlodipine 10 mg tablet 10 mg PO DAILY 02/23/23 01/25/25 01/25/25 07:15 History fluticasone propionate 50 2 spray intranasal DAILY PRN 06/25/23 01/25/25 Unknown History mcg/actuation nasal Allergy Symptoms spray,suspension (Flonase Allergy Relief) omeprazole 40 mg capsule,delayed 40 mg PO BID 01/25/25 01/25/25 Unknown History release Exam Airway Mallampati Class: I (edentulous) TM Dist: >3cm Neck ROM: Full Heart: rrr Lungs: cta Assessment and Plan Assessment Anesthesia Assessment: Anesthesia Plan Discussed and Chart Reviewed Final Anesthetic Review NPO: Yes ASA Class: III Final Preanesthetic Review: No Changes in Pt Med Stat, Meds/Allgs Chart Reviewed and Consent Obtained/Reviewed Patient Risk: Intermediate Procedure Risk: Intermediate Anesthetic Plan Anesthetic Plan: MAC: Disposition: Standard PACU
[2025-01-25 08:25] VITALS: BMI 21.5
--- NOTE | 2025-01-25 08:28 | MHC.SHP ---
Pre-Procedural Eval Section A - 24 Hr Update-Section A only Date of Service: 01/25/25 Section B - Complete if H&P > 30 days Chief Complaint: Autoimmune hepatitis,protein-calorie malnutrition Relevant Family History (Specify if Yes): No Relevant Social History: Tobacco Use Present Medications: see Short Stay Collaborative assessment Medical History: Significant History ( Lipoma of left forearm Pulmonary nodule 1 cm or greater in diameter Autoimmune hepatitis Transaminitis Abnormal LFTs Smoker Allergic rhinitis COPD (chronic obstructive pulmonary disease) Hyperparathyroidism Abnormal SPEP Vitamin D deficiency Osteoporosis Arthritis Low calcium levels HTN (hypertensi) History of Previous Operations: Relevant previous surgery/procedure and date(s) ( Status post excision of lipoma (~11/03/23) History of esophagogastroduodenoscopy (EGD) History of liver biopsy History of ERCP H/O colonoscopy Hx laparoscopic cholecystectomy Hx of tubal ligation Hx of tonsillectomy) Allergies: Allergies Allergy/AdvReac Type Severity Reaction Status Date / Time No Known Allergies Allergy Verified 01/25/25 08:19 Review of Systems Sugical H&P ROS: Negative: Constitution, Cardiovascular, Respiratory, Neurological, Psychiatric, Hem-Onc, Allergic/Immunologic, Gastrointestinal, Genitourinary, Musculoskeletal, Integumentary, Endocrine and Eyes/Ears/Nose/Throat Exam Surgical H&P Exam: Normal: HEENT, Normal: Heart, Normal: Lungs, Normal: Extremities, Normal: Abdomen, Normal: Skin and Normal: Neurological Plan Diagnosis/Plan: Unchanged I have reviewed the history and physical and performed a pertinent physical examination on my patient. No changes have occurred unless specified. Time Spent With Patient Time: Total time managing care of this patient today ____ minutes.
[2025-01-25 08:29] VITALS: BP 127/63; PULSE 96; RESP 16; TEMP 36.5; O2SAT 97
[2025-01-25] MEDS: Lactated Ringers 1,000 ML 100 ML IVCONT (08:35)
--- NOTE | 2025-01-25 09:55 | HO.OPN-COLON ---
Colonoscopy Operative Note Operative Note Date of Service: 01/25/25 Narrative: Operative Information Procedure Description: EGD, Colonoscopy Indication: screening for varices and colon cancer Anesthesia: MAC FLEXIBLE TRANSORAL UPPER GASTROINTESTINAL ENDOSCOPY AND COLONOSCOPY PROCEDURE NOTE UPPER ENDOSCOPY Consent: Indications for the procedure and potential complications of bleeding, perforation, reaction to medications and missed diagnosis were discussed with the patient and informed consent was obtained. Instrument: Olympus GIF H 190 J mid size upper endoscope Monitoring: Vital signs and clinical assessment, continuous EKG monitoring, Pulse oximetry, Carbon Dioxide monitoring and blood pressure monitoring were done throughout the procedure. Procedure: The patient was placed in the left lateral decubitis position and pre-procedure medications were administered and a bite block was placed. The endoscope was inserted into the mouth and advanced under direct vision to the third part of duodenum. A careful inspection was made as the upper endoscope was withdrawn including a retroflexed examination of the proximal stomach; Findings and interventions are described below. Findings: Larynx:normal Esophagus: GE junction at 34 cm, diaphragm hiatus at 36 cm, consistent with 2 cm sliding hiatal hernia with mild esophagitis, lax LES Stomach: Patchy erythema. Biopsies were obtained. Grade 2 flap valve on retroflexed examination of the cardia. Duodenum: Normal bulb and descending duodenum, bx taken Intervention: Biopsies as noted above, COLONOSCOPY Instrument: Olympus variable stiffness pediatric scope 190L Colonoscopy Monitoring: Vital signs and clinical assessment, continuous EKG monitoring, Pulse oximetry, Carbon Dioxide monitoring and blood pressure monitoring were done throughout the procedure. Colon withdrawal time was 21 minutes. Procedure: The patient was placed in the left lateral decubitis position and pre-procedure medications were administered. After a digital rectal examination of the ano-rectum, the video colonoscope was inserted into the rectum and advanced through the colon to the cecum/TI. The colonoscope was slowly withdrawn in a retrograde panoramic fashion and the colon mucosa was carefully examined including a retroflexed view of the rectum. Findings and interventions are described below. Procedure Difficulty:moderate Findings: Terminal Ileum-normal Cecum:normal over ileocecal valve 4-6 mm sessile polyp removed with cold forceps Ascending Colon: normal Transverse Colon - 10 mm lipoma noted Descending Colon: x 5 sessile polyps 6-8 mm removed with cold snare Sigmoid Colon: mild diverticulosis, 10 mm sessile polyp removed with cold snare Rectum: Retroflexion with small internal hemorrhoids, grade I, 6-8 mm sessile polyp removed with cold snare Anorectum - normal Colon preparation: [place] Bowel Preparation Scale Right colon; 2 Transverse colon: 2 Left colon; 1-2 (0 = Unprepared colon segment with mucosa not seen due to solid stool that cannot be cleared. 1 = Portion of mucosa of the colon segment seen, but other areas of the colon segment not well seen due to staining, residual stool and/or opaque liquid. 2 = Minor amount of residual staining, small fragments of stool and/or opaque liquid, but mucosa of colon segment seen well. 3 = Entire mucosa of colon segment seen well with no residual staining, small fragments of stool or opaque liquid) Impression and Post Procedure Diagnosis: Endoscopy Findings: hiatal hernia gastritis esophagitis lax LES Colonoscopy Findings: diverticulosis colon polyps x 8 internal hemorrhoids Plan: Await Pathology results Repeat Colonoscopy in 1 year or earlier if clinically indicated High fiber diet leaflet avoid straining at stool, epsom salts and sitz bath, anusol supps or cream GERD precautions Above findings were reviewed with the patient and relevant handouts were provided if indicated.
[2025-01-25 09:56] VITALS: BP 112/64; PULSE 85; RESP 16; TEMP 36.3; O2SAT 98
[2025-01-25 10:10] VITALS: BP 120/62; PULSE 82; RESP 16; TEMP 36.1; O2SAT 97
== END 2025-01-25 10:34 | disposition home or self-care (01) ==
PROVIDERS: PCP Internal Medicine; Visit Provider Internal Medicine Gastroenterology
PROC: (CPT 45385; principal; 2025-01-25 09:20)
DX: K75.4 Autoimmune hepatitis (principal); E46 Unspecified protein-calorie malnutrition; Z68.23 Body mass index [BMI] 23.0-23.9, adult; R94.5 Abnormal results of liver function studies; D12.0 Benign neoplasm of cecum; D12.4 Benign neoplasm of descending colon; D12.3 Benign neoplasm of transverse colon; D12.5 Benign neoplasm of sigmoid colon; K62.1 Rectal polyp; K57.30 Diverticulosis of large intestine without perforation or abscess without bleeding; K64.0 First degree hemorrhoids; K29.80 Duodenitis without bleeding; K20.90 Esophagitis, unspecified without bleeding; K29.50 Unspecified chronic gastritis without bleeding; K44.9 Diaphragmatic hernia without obstruction or gangrene; J44.9 Chronic obstructive pulmonary disease, unspecified; I10 Essential (primary) hypertension; R74.01 Elevation of levels of liver transaminase levels; M81.0 Age-related osteoporosis without current pathological fracture; E21.3 Hyperparathyroidism, unspecified; R91.1 Solitary pulmonary nodule; F17.210 Nicotine dependence, cigarettes, uncomplicated; Z56.0 Unemployment, unspecified; E55.9 Vitamin D deficiency, unspecified; Z90.49 Acquired absence of other specified parts of digestive tract; Z98.890 Other specified postprocedural states; R79.89 Other specified abnormal findings of blood chemistry
CPT/HCPCS: 45385; 45380; 43239; 88305; 88313; 88342; J2003; J2704

== ENCOUNTER → 2025-01-25 07:25 | Outpatient (BNV) | payer OTHER, SELFPAY | PROVIDERS: PCP Internal Medicine; Visit Provider Internal Medicine Gastroenterology | DX: K44.9 Diaphragmatic hernia without obstruction or gangrene (principal); K20.90 Esophagitis, unspecified without bleeding; K29.70 Gastritis, unspecified, without bleeding; K22.4 Dyskinesia of esophagus; Z12.11 Encounter for screening for malignant neoplasm of colon; K63.5 Polyp of colon; K57.90 Diverticulosis of intestine, part unspecified, without perforation or abscess without bleeding; K64.8 Other hemorrhoids | CPT/HCPCS: 43239; 45380; 45385 ==

== ENCOUNTER 2025-05-01 13:46 | Outpatient (AMB) | payer OTHER, SELFPAY ==
[2025-05-01 13:53] VITALS: BP 126/68; PULSE 80; BMI 21.2
--- NOTE | 2025-05-01 13:53 | A.OFFVIS_ITS ---
Vital Signs 05/01/25 13:53 Height 5 ft 1 in Weight 112 lb 6.972 oz BMI 21.2 BP 126/68 Blood Pressure Location Lt brachial Position Sitting Pulse 80 Intake Visit Reasons: autoimmune hep Intake Note: Vandana presents in the officce as a follow up. CC: no concerns today!! 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 She denied any sx, no abdominal pain, jaundice, dark urine. nausea, vomiting or fevers, chills. She did recall several days of ruq pain going into her back, but pain was also in lower abdomen, which had gone. her appetite has been good, and no weight loss, stools are normal, without blood. She denied use of herbs, OTC meds, tylenol, or sick contacts, no respiratory sx. No ABX in last 3 months specifically no augmentin. Deneis alcohol intake and no illicit drug use. An abdominal ultrasound obtained in the ER, revealed normal-appearing liver with possible mild steatosis and no CBD dialtion or stones. MRCP done and personally reviewed, without any ductal dilation or filling defects, no pancreas mass. LAbs with neg acetaminophen, Hep serologies, ferritin 5000, and iron sat 72%, auto antibodies with raised ZITA, raised SMA, neg SLA, neg ANCA< neg celiac, normal IgG level Rept LABS: ferritin: 1471 TB: 3.7 AST- 648 ALT: 650 Alk p: 245 HFE gene status--negative TPMT--nml activity she eventually agreed to a liver bx: 12/24 Revealed Marked portal and lobular chronic inflammation with eosinophils and plasma cells., stage 3 fibrosis, no sign iron deposition She developed ascites and required ascitic tap with SAAG >1.1, no SBP doppler was neg for PVT she was put on aldactone, lasix and imuran 50 mg with steroid taper the imuran made her feel nauseated so changed to 6 MP LABS: 03/26 Hgb: 14 MCV: 101 pls 158 Na 141 creat 0.6 bili 1 AST 50 ALT 46 alk phos 122 alb 3.8 Rept labs 05/2021: bili- 1.1 ALT 31 AST 33 alk phos 117 Labs: 04/2022 LFT nml apart from mild ALT elevation LFT 10/2022-- LFT nml LFT; 06/27-- nml, INR 1.0 LFT 01/27: nml OTHER DATA: EGD: 05/2021----small varices, hyperplastic polyp removed fundus US 06/2021--cirrhosis, no mass lesions US: 02/2022- normal appearing liver, prominetn LN head of pancreas area. MRI 06/26-- no abn liver lesions, no pancreas lesions US 03/2023--likely cirrhosis, stable LN near pancreas MRI 08/29: cirrhosis --no liver lesion EGD?colo: 01/27 Endoscopy Findings: hiatal hernia gastritis esophagitis lax LES Colonoscopy Findings: diverticulosis colon polyps x 8 internal hemorrhoids INTERIM: No major issues she feels well no abdominal pain no ascites, no memory issues denies nausea or vomiting no constipation or diarrhea no melena or rectal bleeding still compliant with 6MP no alcohol use EXAM: GENERAL: The patient is well developed and nontoxic. VITAL SIGNS:see workflow HEENT: Nonicteric sclerae, PERRLA, EOMI. Oropharynx clear. Moist mucous membranes. Conjunctivae appear well perfused. No thyroid mass. CHEST: Chest wall is nontender. HEART: Regular rate and rhythm without murmurs. LUNGS: Clear to auscultation bilaterally. ABDOMEN: Soft, positive bowel sounds, nontender,? pos hepatomegaly .no flank tenderness SKIN: No rash, no excessive bruising, petechiae, or purpura. NEUROLOGIC: Cranial nerves II-XII intact without motor/sensory deficit. psych--nml affect A/P: 1/ Abn LFT with elevated iron markers, pos ZITA and SMA--most consistent with type 1 Autoimmune hepatitis, ascites now resolved with diuretics and immune suppression, LFt have been normal 2/ Gastric polyp, hyperplastic 3/ epigastric pain and fullness, satiety--resolved PLAN: 1/ cont with 6 MP--recheck labs 2/ q 6 months imaging for HCC, repeat now 3/ EGD for variceal surveillance in 1 yr - 4/ cont with MV and supplements 5/ transplant--not needed right now, improved 6/ with chronic 6 MP will need regular mammograms, pap, skin exam and colonoscopy per schedule [facility] Medical History Lipoma of left forearm Pulmonary nodule 1 cm or greater in diameter Autoimmune hepatitis Transaminitis Abnormal LFTs Smoker Allergic rhinitis COPD (chronic obstructive pulmonary disease) Hyperparathyroidism Abnormal SPEP Vitamin D deficiency Osteoporosis Arthritis Low calcium levels HTN (hypertension) Asthma Surgical History Status post excision of lipoma (~11/03/23) History of esophagogastroduodenoscopy (EGD) History of liver biopsy History of ERCP H/O colonoscopy Hx laparoscopic cholecystectomy Hx of tubal ligation Hx of tonsillectomy Family History Father Diabetes Heart disease Hypertension Mother Diabetes Arthritis Heart disease Paternal Uncle Cancer Sister Lung cancer Social History Household Members: Family Housing: Apartment Do you presently have visiting nurse or other home services: No Alcohol intake: never Patient Tobacco Use Status: Current everyday Tobacco user Tobacco use type: Cigarette Cigarette Packs Per Day: 0 Cigarettes Per Day: 5 Years Smoked: 47 Second Hand Smoke Exposure: Yes Advance Directives Date on File: 10/24/20 service: No Current occupational status: unemployed Physical Exam Vital Signs: Last Vital Signs Pulse 80 05/01/25 13:53 BP 126/68 05/01/25 13:53 BMI result Body Mass Index 21.2 Assessment & Plan Assessment & Plan (1) Autoimmune hepatitis: Code(s): K75.4 - Autoimmune hepatitis Category: Medical Plan: as above Orders: Orders US abdomen joaquin w elastography 05/01/25 K74.60 - Unspecified cirrhosis of liver, K75.81 - Nonalcoholic steatohepatitis (ROSARIO) Complete Blood Count Auto Diff 05/01/25 K75.4 - Autoimmune hepatitis Comprehensive Met. Panel 05/01/25 K75.4 - Autoimmune hepatitis, K75.81 - Nonalcoholic steatohepatitis (ROSARIO) Prothrombin Time INR 05/01/25 K75.4 - Autoimmune hepatitis Medications: Discontinued doxycycline hyclate Discontinued Reason: Patient Completed Course 100 mg PO BID 7 days 14 tabs 0RF Coding Level of Care Code Est Pt Level 4 (42348) Diagnoses Autoimmune hepatitis K75.4
--- OUTSIDE RECORDS SUMMARY | 2025-05-01 17:26 | XMS_ITS | Encounter Summary ---
Author Organization [employer] Address [address] [facility] [address] [place] [address] Care Team Providers Care Land Resource Specialist Name Role Phone Katya Titus MD Primary Care Provide r Reason for Visit * Reason Comments Med Refill Encounter Details Date Type Department Care Team ([facility] st Contact Info) Description 12/22/2024 Refill [facility] [address] [place], [place] [phone] Katya Titus MD [address], [place] [phone] Social History Tobacco Use Types Packs/Day Years [...] Description 05/08/2025 11:00 AM EST Office Visit [facility] [address] [place] [address] Marquis, Claudia, OD [address] [place] [address] documented as of this encounter Visit Diagnoses Not on filedocumented in this encounter Additional Health Concerns Assessment Noted Time PHQ-9 Depression Total Score: 0 11/20/19 23 10:59 AM EDT documented as of this encounter Care Teams Land Resource Specialist Relationship Specialty Start Date End Date Katya Titus MD [address], [place] [phone] PCP - General Family Medicine 03/17/18 documented as of this encounter
--- OUTSIDE RECORDS SUMMARY | 2025-05-01 17:26 | XMS_ITS | Patient Health Record ---
Author Organization [facility] Address [address] [place] [address] Care Team Providers Care Chuck Boner Name Role Phone Twila Thao Primary Care Provider Joao Kaiser [phone] Reason For Referral No Information Plan Of Treatment No Information Insurance Providers Payer Name Payer Address Payer Phone Subscriber Number Group Number Insured Name Patient Relationship to Insured Coverage Start Date Coverage End Date MEDICA[employer] [facility] [address] [place] [id number] ROGELIO TOLENTINO Self - patient is the insured
--- OUTSIDE RECORDS SUMMARY | 2025-05-01 17:27 | XMS_ITS | Clinical Summary ---
Author Organization [employer] Address [address] [facility] 7t [place] [address] Care Team Providers Care Gas Meter Mechanic Name Role Phone Katya Titus MD Primary [...] Active beta carotene (vitamin A) 3 MG (36953 UT) capsule Take by mouth in the morning. 3 Active albuterol 108 (90 Base) MCG/ACT inhaler Inhale 2 puffs every 4 (four) hours if needed for wheezing or shortness of breath. 8.5 g 1 3 Active albuterol 108 (90 Base) MCG/ACT inhalerIndication s:Chronic obstructive pulmonary disease, unspecified COPD type (CMS/HCC) (HCC) Inhale 2 puffs every 6 (six) hours if needed for wheezing. 18 g 2 3 Active Wixela Inhub 250-50 MCG/ACT aerosol powderIndications :Wheezing INHALE 1 PUFF 2 TIMES DAILY; TAKE 1 PUFF BY MOUTH EVERY 12 HOURS 60 each 11 3 Active azithromycin (Zithromax) 250 MG tabletIndications :COPD exacerbation (CMS/HCC) ([facility]) Take 2 tabs PO daily x 1d then 1 tab PO daily on D2 to D5 6 tablet 3 Active ipratropium (Atrovent HFA) 17 MCG/ACT inhalerIndication s:COPD exacerbation (CMS/HCC) ([facility]) inhale 2 puff by inhalation route 4 times every day 12.9 g 3 3 Active albuterol (2.5 MG/3ML) 0.083% nebulizer solutionIndicatio ns:COPD exacerbation (CMS/HCC) ([facility]) USE 1 VIAL VIA NEBULIZER EVERY 4 [...] 90 tablet 1 5 10/07/19 26 Active nicotine (Nicoderm CQ) 21 MG/24HR patchIndications: Smoker Place 1 patch on the skin 1 (one) time each day at the same time. 30 patch 1 5 Active fluticasone (Flonase) 50 MCG/ACT nasal sprayIndications: Allergic rhinitis, unspecified seasonality, unspecified trigger Administer 1-2 sprays into each nostril Once per day. Shake gently. Before first use, prime pump. After use, clean tip and replace cap. 16 g 2 5 01/14/20 26 Active Neomycin-Polymyxi n-HC 1 % solutionIndicatio ns:Acute otitis externa of both ears, unspecified type Administer 3 drops into affected ear(s) 4 times daily. 10 mL 5 Active Active Problems Problem Noted Date Diagnosed Date Right groin hernia 04/19/2025 Assessment & Plan (04/19/2025 1:58 PM EDT): - Right groin hernia suspected based on symptoms and physical findings. - Referred to surgery for further evaluation and management Otitis externa 01/13/2025 Encounter for screening mamm ogram for malignant neoplasm of breast 10/06/2024 Colon cancer screening 10/06/2024 Allergic rhinitis 05/02/2024 Mass of arm, left 08/07/2023 COVID-19 05/25/2023 COPD exacerbation (CMS/HCC) 05/08/2023 Assessment & Plan (05/25/2023 2:54 PM EST): nebz Q 4-6hrs as needed Assessment & Plan (05/08/2023 10:13 AM EDT): Is symptoms persist or worse RTC or go to ED Smoker 02/11/2023 Assessment & Plan (01/13/2025 3:14 PM EDT): Extensive counseling done, patient agrees to quit smoking she is requesting nicotine patches I will refer her to see me again Assessment & Plan (02/11/2023 1:41 PM EDT): Extensive counseling done Senile osteoporosis 11/19/2022 Assessment & Plan (10/06/2024 12:27 PM EDT): Continue to follow with endocrinology Osteoporosis 11/19/2022 Assessment & Plan (04/19/2025 1:58 PM EDT): Continue to follow with endocrinology Assessment & Plan (11/19/2022 3:18 PM EDT): Continue to follow with specialist Hypervolemia 11/19/2022 Hyperparathyroidism 11/19/2022 Assessment & Plan (10/06/2024 12:27 PM EDT): Stable continue to follow with endocrinology Hemochromatosis 11/19/2022 Autoimmune hepatitis (CMS/HCC) 11/19/2022 Assessment & Plan (04/19/2025 1:58 PM EDT): - Autoimmune hepatitis is not related to alcohol or diet; etiology is autoimmune. Treatment ongoing, with one year remaining. - Continue current treatment for autoimmune hepatitis. Monitor liver function. Follow up in three months. Assessment & Plan (10/06/2024 12:27 PM EDT): [...] 12/15/2017 Essential hypertension 12/15/2017 Assessment & Plan (04/19/2025 1:57 PM EDT): - Blood pressure is well controlled. - Continue current management. Assessment & Plan (01/13/2025 3:13 PM EDT): - Aerobic exercise to reduce [...] consulting health care provider Assessment & Plan (10/06/2024 12:27 PM EDT): [...] obstructive lung disease 12/15/2017 Assessment & Plan (04/19/2025 1:57 PM EDT): - Pulmonary status is stable. - Continue current management. Assessment & Plan (01/13/2025 3:14 PM EDT): Continue to follow-up with pulmonology Assessment & Plan (10/06/2024 12:26 PM EDT): [...] 1:41 PM EDT): Albuterol inhaler refilled today Maintainer Operator to avoid triggers C/w rest of medications F/u with pulmonology Encounters Date Type Department Care Team Description 04/19/2025 10:30 AM EDT Office Visit [facility] [address] [place] [phone] Katya Titus MD Essential hypertension (Primary Dx); Chronic obstructive pulmonary disease, unspecified COPD type (CMS/HCC) (HCC); Osteoporosis, unspecified osteoporosis type, unspecified pathological fracture presence; Autoimmune hepatitis (CMS/HCC) (HCC); Right groin hernia; Encounter for immunization 04/19/2025 Travel 04/18/2025 Telephone [facility] [address] [place] [phone] Katya Titus MD Chart Prep 04/11/2025 Patient Outreach [address] [address] Katya Titus MD Pre-visit Planning (SDOH screening completed on 07/19/2024) 04/06/[address] [address] Katya Titus MD 02/09/[address] [address] Katya Titus MD OCT RECALL from Last 3 Months Immunizations Immunization Administration Dates Next Due Influenza High-dose Quadrivalent Preservative Fr ee 07/19/2020 Influenza injectable quadriv alent IIV4 with preservative 05/15/2015 Influenza injectable quadrivalent preservative f ree 08/07/2023,07/14/2018 Influenza, High Dose Seasonal, Preservative Free 04/19/2025,06/22/2019 Influenza, IIV3, injectable 05/22/2011 Influenza, Split (incl. purified surface antigen ) 04/14/2013,07/20/2012 Pneumococcal Conjugate PCV 13 06/22/2019 Pneumococcal Conjugate PCV 20 02/11/2023 Pneumococcal Polysaccharide PPSV23 07/29/2005 RSV Bivalent 09/14/2024 TD (adult), 2 Lf tetanus tox oid, preservative free, adsorbed 05/06/2003 Tdap 04/19/2025,07/15/2013 Family History Medical History Relation Name Comments [...] Date Recorded Patient Health Questionnaire-9 Score 0 01/13/2025 Patient Health Questionnaire-9 Score 0 01/13/2025 Last PHQ-9: Questionnaire Data Not on file 0 01/13/2025 Housing Stability Answer Date Recorded What is [...] Date Recorded Patient Health Questionnaire-2 Score 0 01/13/2025 Internet Access Answer Date Recorded Internet Access [...] Sign Reading Time Taken Comments Blood Pressure 124/72 04/19/2025 10:35 AM EDT Pulse 89 04/19/2025 10:35 AM EDT Temperature 36.1 C (97 F) 04/19/2025 10:35 AM EDT Respiratory Rate 17 04/19/2025 10:35 AM EDT Oxygen Saturation 98% 04/19/2025 10:35 AM EDT Inhaled Oxygen Concentration - - Weight 52.2 kg (115 lb) 04/19/2025 10:35 AM EDT Height 154.9 cm (5' 1 ) 04/19/2025 10:35 AM EDT Body Mass Index 21.73 04/19/2025 10:35 AM EDT Plan of Treatment Upcoming Encounters Date Type Department Care Team (Late st Contact Info) Description 05/08/2025 11:00 AM EST Office Visit [facility] [address] [place] [address] Marquis, Claudia, OD [address] [place] [address] Health Maintenance Due Date Last Done Comments CT Colonography 1955 FIT DNA/Cologuard 1955 FIT 1955 FOBT 1955 Sigmoidoscopy 1955 Hepatitis A Vaccines (1 of 2 - Risk 2-dose series) 1973 Zoster Vaccines (1 of 2) 1973 Hepatitis B Vaccines (1 of 3 - Risk 3-dose series) 2014 COVID-19 Vaccine (3 - Moderna risk series) 11/06/2020 10/09/2020, 09/11/2020 Alcohol/Substance Use Screening 05/02/2025 05/02/2024 SDOH Screening 07/19/2025 07/19/2024 Mammogram 10/10/2025 10/10/2024, 0308/2023, 09/19/2022, Additional history exists Depression Screening 01/13/2026 01/13/2025, 01/14/20 25 Colonoscopy 01/25/2026 01/25/2025, 12/07/2018 Colorectal Cancer Screening 01/25/2026 Tobacco Screening 04/19/2026 04/19/2025 Lipid Panel 10/23/2026 10/23/2021 DTaP/Tdap/Td Vaccines (3 - Td or Tdap) 04/19/2035 04/19/2025, 07/15/2013, 05/06/2003 Pneumococcal Vaccine: 50+ Years Completed 02/11/2023, 06/22/2019, 07/29/2005 Hepatitis C Screening Completed 08/07/2023 RSV Patients and Patients Aged 60 years or older Completed 09/14/2024 Influenza Vaccine Completed 04/19/2025, , 07/19/2020, Additional history exists HIB Vaccines Aged Out No longer eligi [...] Priority Date/Time Associated Diagnosis Comments COLONOSCOPY Routine 01/25/2025 BI MAMMOGRAM SCREENING TOMOSYNTHESIS BILATERAL Routine 10/10/2024 1:35 PM EDT Encounter for screening mammogram for malignant neoplasm of breast HEPATITIS PANEL, GENERAL Routine 08/07/2023 10:41 AM EST Hemochromatosis, unspecified hemochromatosis type Autoimmune hepatitis (CMS/HCC) LIPID PANEL, STANDARD Routine 10/23/2021 8:53 AM EDT from Last 3 Months or Most Recently Relevant to Health Maintenance Results * Hm Colonoscopy (01/25/2025) Colonoscopy Normal Normal Narrative Elise Brandon - 01/25/2025 Recommended 1 year. See see external hospital admission note on 01/25/25.Repeat Colonoscopy in 1 year or earlier if clinically indicated Historical Provider MD HEALTH MAINTENANCE Final Result * BI Mammogram Screening Tomosynthesis Bilateral (10/10/2024 1:35 PM EDT) Anatomical Region Laterality Modality Breast Bilateral Mammography 10/10/2024 1:35 PM EDT Narrative 10/16/2024 8:01 PM EDT [address] [place] [address] Mammography Report Signed Patient: Vandana Hull MR#: [id number] : 1955 Acct:[id number] Age/Sex: 69 / F ADM Date: 10/10/24 Loc: HO.MAMMO Attending Dr: Katya Burton MD Ordering Physician: Katya Titus MD Results: 1Negative Date of Service: 10/10/24 Follow Up: 1 Year From Orig inal Mammogram Procedure(s): MM tomosynthesis screening BI Accession Number(s): [id number] cc: Katya Titus MD EXAMINATION: MM SCREENING [...] OV> 10/16/241957 DD/ 1335 TD/TT: 10/10/24 1345 Cold Rolling Machine Setter: Procedure Note Donotuseinterpreter, Image - 10/16/[address] [place] [address] Mammography Report Signed Patient: Doni Hull#: [id number] : 1955cct:[id number] Age/Sex: 69 / FADM Date: 10/10/24 Loc: HO.MAMMO Attending Dr: Katya Burton MD Ordering Physician: Katya Titus MDResults: 1Negative Date of Service: 10/10/24Follow Up: 1 Year From Orig inal Mammogram Procedure(s): MM tomosynthesis screening BI Accession Number(s): [id number] cc: Katya Titus MD EXAMINATION: MM SCREENING [...] OV> 10/16/241957 DD/ 1335 TD/TT: 10/10/24 1345 Cold Rolling Machine Setter: Katya Burton MD IMG BI PROCEDURES Alvarez laura Result - Final * Hepatitis A,B,C Profile (08/07/2023 10:41 AM EST) Hepatitis A IgM Nonreactive Nonreactive [facility] Comment:IgM antibodies to YO V not detected; does not exclude earlyacute or recovered HAV infection. ~Hepatitis B Surface Antibody NONREACTIVE Nonreactive [facility] Comment:Nonreactive: < 8.00 mIU/mL Hepatitis B Core Antibody Nonreactive Nonreactive [facility] Hepatitis C Antibody Nonreactive Nonreactive [facility] Comment:Antibodies to HCV no t detected; does not exclude early acuteHCV infection. Hepatitis B Surface Ag Negative Negative [facility] Blood Venous blood specimen / Unknown 08/07/2023 10:41 AM EST 08/07/2023 11:38 AM EST Katya Burton MD LAB BLOOD ORDERABLES Final Result [facility] [address] [place] [phone] * (ABNORMAL) LIPID PANEL, STANDARD (10/23/2021 8:53 AM EDT) Chol/HDLC Ratio 3.4 <5.0 (calc) [facility] Cholesterol, Total 199 <200 mg/dL [facility] HDL Cholesterol 58 > OR = 50 mg/dL [facility] LDL Cholesterol 115(H) mg/dL (calc) [facility] Comment: Reference range: <100 Desirable range <100 mg/dL for primary prevention; <70 mg/dL for patients with CHD or diabetic patients with > or = 2 CHD risk factors. LDL-C is now calculated using the Nhan-Griselda calculation, which is a validated novel method providing better accuracy than the Friedewald equation in the estimation of LDL-C. Nhan ADAM et al. BIANCA. 2013;310(19): 1954-6848 (http://education.Zerply.com/faq/EWV184) Non-HDL Cholesterol 141(H) <130 mg/dL (calc) [facility] Comment: For patients with diabetes plus 1 major ASCVD risk factor, treating to a non-HDL-C goal of <100 mg/dL (LDL-C of <70 mg/dL) is considered a therapeutic option. Triglycerides 150(H) <150 mg/dL [facility] 10/23/2021 8:53 AM EDT Katya Burton MD LAB BLOOD ORDERABLES Final Result [facility] [address] [place] [address], from Last 3 Months or Most Recently Relevant to Health Maintenance Insurance [employer] OPTIONS (O D-SNP) NAYA GONSALES [id number] Care Teams Gas Meter Mechanic Relationship Specialty Start Date End Date Katya Titus MD [address] [place] [phone] PCP - General Family Medicine 03/17/18
--- OUTSIDE RECORDS SUMMARY | 2025-05-01 17:27 | XMS_ITS | Encounter Summary ---
Author Organization [employer] Address [address] [place] [address] Care Team Providers Care Policy Change Clerk Name Role Phone Katya Titus MD Primary Care Provide r Encounter Details Date Type Department Care Team ([facility] st Contact Info) Description 07/17/2023 Orders Only [facility] [address] [place], [place] [phone] Jennifer Ryan LPN Social History Tobacco Use Types Packs/Day Years Used Date Smoking Tobacco: Every Day Cigarettes Passive Smoke Exposure: Current Smokeless Tobacco: Never Depression Answer Date Recorded Patient Health Questionnaire-9 Score 0 11/19/2022 Housing Stability Answer Date Recorded What is your housing situation today? I have kristianenoch waterman 04/29/[address] you [...] Description 05/08/2025 11:00 AM EST Office Visit [facility] [address] [place] [address] Claudia Cho, OD [address] [place] [address] documented as of this encounter Visit Diagnoses Not on filedocumented in this encounter Additional Health Concerns Assessment Noted Time PHQ-9 Depression Total Score: 0 11/20/19 23 10:59 AM EDT documented as of this encounter Care Teams Policy Change Clerk Relationship Specialty Start Date End Date Katya Titus MD [address] [place] [address] PCP - General Family Medicine 03/17/18 documented as of this encounter
--- OUTSIDE RECORDS SUMMARY | 2025-05-01 17:27 | XMS_ITS | Encounter Summary ---
Author Organization [employer] Address [address] [facility] [address] [place] [address] Care Team Providers Care Interpretive Naturalist Name Role Phone Katya Titus MD Primary Care Provide r Encounter Details Date Type Department Care Team ([facility] Contact Info) Description 03/25/2023 Orders Only [facility] [address] [place] [address] Provider, Vladimir, Social History Tobacco Use Types [...] Encounters Date Type Department Care Team (Late Contact Info) Description 05/08/2025 11:00 AM EST Office Visit [facility] OPTOMETRY [address] [place] [address] Marquis, Claudia, OD [address] [place] [address] documented as of this encounter Procedures Procedure Name Priority Date/Time Associated Diagnosis Comments HM COLONOSCOPY Routine 12/07/2018 documented in this encounter Results * Hm Colonoscopy (12/07/2018) Historical Provider HEALTH MAINTENANCE Final Result documented in this encounter Visit Diagnoses Not on filedocumented in this encounter Additional Health Concerns Assessment Noted Time PHQ-9 Depression Total Score: 0 11/20/19 23 10:59 AM EDT documented as of this encounter Care Teams Interpretive Naturalist Relationship Specialty Start Date End Date Katya Titus MD [address] [place] [address] PCP - General Family Medicine 03/17/18 documented as of this encounter
== END 2025-05-01 14:26 | disposition home or self-care (01) ==
LOC: HO.HGI 13:47
PROVIDERS: PCP Internal Medicine; Visit Provider Internal Medicine Gastroenterology
DX: K75.4 Autoimmune hepatitis (principal)
CPT/HCPCS: 99214

== ENCOUNTER → 2025-05-01 13:46 | Outpatient (BNVA) | payer OTHER, SELFPAY | PROVIDERS: PCP Internal Medicine; Visit Provider Internal Medicine Gastroenterology | DX: K75.4 Autoimmune hepatitis (principal); K75.81 Nonalcoholic steatohepatitis (NASH) | CPT/HCPCS: 99212 ==

== ENCOUNTER 2025-05-17 08:26 | Outpatient (REF) | payer OTHER, SELFPAY ==
[2025-05-17 08:37] LABS: MANUAL DIFF FLAG NO
--- OUTSIDE RECORDS SUMMARY | 2025-05-17 08:39 | XMS_ITS | Patient Health Record ---
Author Organization [employer] Address [address] [place] [address] Care Team Providers Care Building And Construction Manager Name Role Phone Twila Thao Primary Care Provider Joao Kaiser [phone] Reason For Referral No Information Plan Of Treatment No Information Insurance Providers Payer Name Payer Address Payer Phone Subscriber Number Group Number Insured Name Patient Relationship to Insured Coverage Start Date Coverage End Date MEDICAID OF [facility] [address] [place] [address] [phone] [id number] ROGELIO TOLENTINO Self - patient is the insured
--- OUTSIDE RECORDS SUMMARY | 2025-05-17 08:39 | XMS_ITS | Encounter Summary ---
Author Organization [employer] Address [address] [facility] 7[address] [place] [address] Care Team Providers Care Telecasting Engineer Name Role Phone Katya Titus MD Primary Care Provide r Reason for Visit * Reason Comments Med Refill Encounter Details Date Type Department Care Team ([facility] st Contact Info) Description 12/22/2024 Refill [facility] [address] [place], [place] [phone] Katya Titus MD [address] [place], [place] [phone] Social History Tobacco Use Types Packs/Day Years [...] Care Team (Late st Contact Info) Description 07/14/2025 11:30 AM EST Office Visit [facility] [address] [place] [address] Katya Titus MD [address] [place] [address] 11/06/2025 11:00 AM EDT Office Visit [facility] OPTOMETRY [address] [place] [address] Marquis, Claudia, OD [address] [place] [address] documented as of this encounter Visit Diagnoses Not on filedocumented in this encounter Additional Health Concerns Assessment Noted Time PHQ-9 Depression Total Score: 0 11/20/19 23 10:59 AM EDT documented as of this encounter Care Teams Telecasting Engineer Relationship Specialty Start Date End Date Katya Titus MD [address] [place] [address] PCP - General Family Medicine 03/17/18 documented as of this encounter
--- OUTSIDE RECORDS SUMMARY | 2025-05-17 08:39 | XMS_ITS | Encounter Summary ---
Author Organization [employer] Address [address] [facility] [address] [place] [address] Care Team Providers Care Staff Psychologist Name Role Phone Katya Titus MD Primary Care Provide r Encounter Details Date Type Department Care Team (Late Contact Info) Description 03/25/2023 Orders Only [facility] [address] [place] [address] ProviderVladimir MD Social History Tobacco Use Types [...] Department Care Team (Late Contact Info) Description 07/14/2025 11:30 AM EST Office Visit [facility] [address] [place] [address] Katya Titus MD [address] [place] [address] 11/06/2025 11:00 AM EDT Office Visit [facility] [address] [place] [address] Claudia Cho, OD [address] [place] [address] documented as of this encounter Procedures Procedure Name Priority Date/Time Associated Diagnosis Comments COLONOSCOPY Routine 12/07/2018 documented in this encounter Results * Colonoscopy (12/07/2018) us Historical Provider HEALTH MAINTENANCE Final Result documented in this encounter Visit Diagnoses Not on filedocumented in this encounter Additional Health Concerns Assessment Noted Time PHQ-9 Depression Total Score: 0 11/20/19 23 10:59 AM EDT documented as of this encounter Care Teams Staff Psychologist Relationship Specialty Start Date End Date Katya Titus MD [address] [place] [address] PCP - General Family Medicine 03/17/18 documented as of this encounter
--- OUTSIDE RECORDS SUMMARY | 2025-05-17 08:39 | XMS_ITS | Encounter Summary ---
Author Organization [employer] Address [address] [facility] [address] [place] [address] Care Team Providers Care Conditioner Tumbler Operator Name Role Phone Katya Titus MD Primary Care Provide r Encounter Details Date Type Department Care Team ([facility] st Contact Info) Description 07/17/2023 Orders Only [facility] [address] [place], [place] [phone] Jennifer Ryan LPN Social History Tobacco Use [...] Description 07/14/2025 11:30 AM EST Office Visit [facility] [address] [place] [address] Katya Titus MD [address] [place] [address] 11/06/2025 11:00 AM EDT Office Visit [facility] OPT[facility] [address] [place] [address] Marquis, Claudia, OD [address] [place] [address] documented as of this encounter Visit Diagnoses Not on filedocumented in this encounter Additional Health Concerns Assessment Noted Time PHQ-9 Depression Total Score: 0 11/20/19 23 10:59 AM EDT documented as of this encounter Care Teams Conditioner Tumbler Operator Relationship Specialty Start Date End Date Katya Titus MD [address] [place] [address] PCP - General Family Medicine 03/17/18 documented as of this encounter
--- OUTSIDE RECORDS SUMMARY | 2025-05-17 08:39 | XMS_ITS | Clinical Summary ---
Author Organization [employer] Address [address] [facility] 7t [place] [address] Care Team Providers Care Simplex Operator Name Role Phone Katya Titus MD [...] Active beta carotene (vitamin A) 3 MG (29839 UT) capsule Take by mouth in the [...] (Zithromax) 250 MG tabletIndications :COPD exacerbation (CMS/HCC) ([facility]) Take 2 tabs PO daily x 1d then 1 tab PO daily on D2 to D5 6 tablet 3 Active ipratropium (Atrovent HFA) 17 MCG/ACT inhalerIndication s:COPD exacerbation (CMS/HCC) ([facility]) inhale 2 puff by inhalation route 4 times every day 12.9 g 3 3 Active albuterol (2.5 MG/3ML) 0.083% nebulizer solutionIndicatio ns:COPD exacerbation (CMS/HCC) ([facility]) USE 1 VIAL VIA NEBULIZER EVERY 4 HOURS NEEDED FOR WHEEZING 75 mL 3 4 Active loratadine (Claritin) 10 MG tabletIndications :Allergic rhinitis, unspecified seasonality, unspecified trigger Take 1 tablet (10 mg) by mouth Once per day. 30 tablet 11 4 Active montelukast (Singulair) 10 MG tablet TAKE [...] 1:41 PM EDT): Albuterol inhaler refilled today Butane Compressor Operator to avoid triggers C/w rest of medications F/u with pulmonology Encounters Date Type Department Care Team Description 05/08/2025 11:00 AM EST Office Visit [facility] [address] [place] [address] Marquis, Claudia, OD Intermediate stage nonexudative age-related macular degeneration of both eyes (Primary Dx); Combined forms of age-related cataract of both eyes; Presbyopia 05/08/2025 Travel 04/19/2025 10:30 AM EDT Office Visit [facility] [address] [place] [address] Katya Titus MD Essential hypertension (Primary Dx); Chronic obstructive pulmonary disease, unspecified COPD type (CMS/HCC) (HCC); Osteoporosis, unspecified osteoporosis type, unspecified pathological fracture presence; Autoimmune hepatitis (CMS/HCC) (HCC); Right groin hernia; Encounter for immunization 04/19/2025 Travel 04/18/2025 Telephone [facility] [address] [place] [address] Katya Titus MD Chart Prep 04/11/2025 Patient Outreach [facility] [address] [place] [address] Katya Titus MD Pre-visit Planning (SDOH screening completed on 07/19/2024) 04/06/2025 Telephone [facility] [address] [place] [address] Katya Titus MD from Last 3 Months Immunizations Immunization Administration [...] your housing situation today? I have kristian columba 05/02/[address] you li [...] Description 07/14/2025 11:30 AM EST Office Visit [facility] [address] [place] [address] Katya Titus MD [address] [place] [address] 11/06/2025 11:00 AM EDT Office Visit [facility] [address] [place] [address] Marquis, Claudia, OD [address] [place] [address] Health Maintenance Due Date Last Done Comments CT Colonography 1955 FIT DNA/Cologuard 1955 FIT 1955 FOBT 1955 Sigmoidoscopy 1955 Alcohol/Substance Use Screening 1966 Hepatitis A Vaccines (1 of 2 - Risk 2-dose series) 1973 Zoster Vaccines (1 of 2) 1973 Hepatitis B Vaccines (1 of 3 - Risk 3-dose series) 2014 COVID-19 Vaccine (3 - Moderna risk series) 11/06/2020 10/09/2020, 09/11/2020 SDOH Screening 07/19/2025 07/19/2024 Mammogram 10/10/2025 10/10/2024, 09/04, 09/19/2022, Additional history exists Depression Screening 01/13/2026 01/13/2025, 01/14/20 25 Colonoscopy 01/25/2026 01/25/2025, 12/07/2018 Colorectal Cancer Screening 01/25/2026 Tobacco Screening 05/08/2026 05/08/2025 Lipid Panel 10/23/2026 10/23/2021 DTaP/Tdap/Td Vaccines (3 [...] Recently Relevant to Health Maintenance Results * Colonoscopy (01/25/2025) Colonoscopy Normal Normal Narrative Elise Brandon - 01/25/2025 Recommended 1 year. See see external hospital admission note on 01/25/25.Repeat Colonoscopy in 1 year or earlier if clinically indicated us Historical Provider [facility] Final Result * BI Mammogram Screening Tomosynthesis Bilateral (10/10/2024 1:35 PM EDT) Anatomical Region Laterality Modality Breast Bilateral Mammography 10/10/2024 1:35 PM EDT Narrative 10/16/2024 8:01 PM EDT [facility] [address] [place] [address] Mammography Report Signed Patient: Vandana Hull MR#: [id number] : 1955 Acct:[id number] Age/Sex: 69 / F ADM Date: 10/10/24 Loc: HO.MAMMO Attending Dr: Katya Burton MD Ordering Physician: Katya Titus MD Results: 1Negative Date of Service: 10/10/24 Follow Up: 1 Year From Orig ina Mammogram Procedure(s): MM tomosynthesis screening BI Accession Number(s): [id number] cc: Katya Titus MD EXAMINATION: MM SCREENING [...] Georgina Rivera DO in OV> 10/16/241957 DD/ 133 TD/TT: 10/10/24 1345 Regional Production Manager: Procedure Note Francisco, Image - 10/16/2024 [facility] [address] [place] [address] Mammography Report Signed Patient: Doni Hull#: [id number] : 1955cct:[id number] Age/Sex: 69 / FADM Date: 10/10/24 Loc: HO.MAMMO Attending Dr: Katya Burton MD Ordering Physician: Katya Titus MDResults: 1Negative Date of Service: 10/10/24Follow Up: 1 Year From Orig inal Mammogram Procedure(s): MM tomosynthesis screening BI Accession Number(s): [id number] cc: Katya Titus MD EXAMINATION: MM SCREENING [...] OV> 10/16/241957 DD/ 1335 TD/TT: 10/10/24 1345 Regional Production Manager: Katya Burton MD IMG BI PROCEDURES Alvarez laura Result - Final * Hepatitis A,B,C Profile (08/07/2023 10:41 AM EST) Hepatitis A IgM Nonreactive Nonreactive [facility] Comment:IgM antibodies to YO V not detected; does not exclude earlyacute or recovered HAV infection. ~Hepatitis B Surface Antibody NONREACTIVE Nonreactive [facility] Comment:Nonreactive: < 8.00 mIU/mL Hepatitis B Core Antibody Nonreactive Nonreactive [facility] Hepatitis C Antibody Nonreactive Nonreactive [facility] Comment:Antibodies to HCV no t detected; does not exclude early acuteHCV infection. Hepatitis B Surface Ag Negative Negative [facility] Blood Venous blood specimen / Unknown 08/07/2023 10:41 AM EST 08/07/2023 11:38 AM EST Katya Burton MD LAB BLOOD ORDERABLES Final Result [facility] [address] [place] [phone] * (ABNORMAL) LIPID PANEL, STANDARD (10/23/2021 [...] factors. LDL-C is now calculated using the Catherine calculation, which is a validated novel method providing better accuracy than the Friedewald equation in the estimation of LDL-C. Nhan ADAM et al. BIANCA. 2013;310(19): 3942-0867 (http://education.Grapeword.uShip/faq/GES500) Non-HDL Cholesterol 141(H) <130 mg/dL (calc) [facility] [...] [facility] [address] from Last 3 Months or Most Recently Relevant to Health Maintenance Insurance [facility] SKILLED NURSING OPTIONS (O D-SNP) [place]AYA GONSALES [id number] Care Teams Simplex Operator Relationship Specialty Start Date End Date Katya Titus MD [address] [place] [address] PCP - General Family Medicine 03/17/18
[2025-05-17 09:18] LABS: INTERNATIONAL NORM RATIO 1.0 (0.9-1.1); Prothrombin Time 11.9 SEC (11.2-13.5)
[2025-05-17 09:21] LABS: Hematocrit 39.9 % (37.0-47.0); Hemoglobin 13.3 g/dl (12.0-16.0); Imm Gran Abs Auto 0.01 X10*3/uL (0.00-0.03); Imm Gran Pct Auto 0.2 % (0.0-0.4); Lymphocytes Absolute Auto 1.3 X10*3/uL (1.2-4.9); Mean Corpuscular HGB Conc 33.3 g/dl (31.0-35.0); Mean Corpuscular Hemoglobin 31.9 pg (27.0-33.0); Mean Corpuscular Volume 95.7 fL (80.0-98.0); NRBC Abs Auto 0.000 X10*3/uL (0.0-0.012); NRBC Pct Auto 0.0 /100WBC (0.0-0.2); Platelet Count 208 X10*3/uL (160-400); Red Blood Count 4.17 X10*6/uL (4.20-5.50); White Blood Count 4.0 X10*3/uL (4.8-10.8)
[2025-05-17 10:05] LABS: Alanine Aminotransferase 24 U/L (0-31); Albumin Level 4.4 g/dL (3.5-5.0); Alkaline Phosphatase 83 U/L (39-117); Anion Gap 13 (12-20); Aspartate Amino Transferase 29 U/L (5-31); Blood Urea Nitrogen 17 mg/dL (9-16); Calcium 9.6 mg/dL (8.4-10.2); Carbon Dioxide 29 mmol/L (22-29); Chloride 107 mmol/L (96-108); Estimated Glomerular Filt Rate > 60; Potassium 4.1 mmol/L (3.3-5.1); Sodium 145 mmol/L (135-145); Total Protein 7.1 g/dL (6.5-8.0)
[2025-05-22 21:29] LABS: NTXCreaRU 106 mg/dL (20-275)
== END 2025-05-17 08:27 | disposition home or self-care (01) ==
LOC: HO.LAB 08:26
PROVIDERS: Absent Provider Internal Medicine Endocrinology, Diabetes & Metabolism; PCP Internal Medicine; Visit Provider Internal Medicine Gastroenterology
DX: M81.0 Age-related osteoporosis without current pathological fracture (principal); K75.4 Autoimmune hepatitis; K75.81 Nonalcoholic steatohepatitis (NASH)
CPT/HCPCS: 36415; 80053; 82523; 85025; 85610

== ENCOUNTER 2025-05-24 14:20 | Outpatient (AMB) | payer OTHER, SELFPAY ==
[2025-05-24 14:23] VITALS: BP 114/72; PULSE 82; O2SAT 96; BMI 21.8
--- NOTE | 2025-05-24 14:23 | A.OFFVIS_ITS ---
Vital Signs 05/24/25 14:23 Height 5 ft 1 in Weight 115 lb 4.828 oz BMI 21.8 BP 114/72 Blood Pressure Location Rt brachial Position Sitting Pulse 82 Pulse Source Pulse Oximeter Pulse Oximetry (%) 96 Oxygen Delivery Method Room Air Intake Visit Reasons: Osteporosis Intake Note: Patient present today for Osteoporosis follow up. Taxicab Driver Required: No Accompanied by: Self / Same As Patient Allergies No Known Allergies Allergy (Verified 05/24/25 14:26) Medication List - Last Reconciled 05/24/25 by Joao Guillermo MD albuterol sulfate 5 mg inhalation Q4H PRN albuterol sulfate 90 mcg/actuation 2 puffs inhalation Q4-6H PRN 30 days amlodipine 10 mg PO DAILY calcium citrate 250 mg PO BID capsaicin 0.1% 1 appl topical BID cholecalciferol (vitamin D3) 50 mcg PO DAILY fluticasone propion-salmeterol 250-50 mcg/dose 1 ea PO BID fluticasone propionate 50 mcg/actuation (Flonase Allergy Relief) 2 sprays intranasal DAILY PRN ipratropium-albuterol 0.5 mg-3 mg(2.5 mg base)/3 mL 3 mL inhalation Q6-8H PRN loratadine 10 mg PO DAILY PRN mercaptopurine 50 mg PO DAILY montelukast 10 mg PO BEDTIME multivitamin with folic acid 400 mcg (Daily-Glynn (with folic acid)) 1 tab PO DAILY nicotine 1 patch topical DAILY omeprazole 40 mg PO BID tramadol 50 mg PO Q6H PRN HPI Comments Details: 70 YO Female with PMHx COPD and Osteoporosis is seen in F/U for Osteoporosis. Of note, Patient is a very poor historian. She is not aware of much of her health history. First diagnosed with Osteoporosis in Aug 2019 with her first DEXA. She has never been treated in the past. After her initial visit we completed a full biochemical assessment for secondary causes of Osteoporosis. This revealed a possible M spike on her SPEP, and she was referred to Heme-Onc for this and per their records there was no concern for multiple myeloma. This also revealed low Vitamin D, elevated Calcium of 10.4, with an inappropriately normal PTH of 51. She repeated her labs which confirmed hypovitaminosis D, and Calcium WNL. Labs repeated again and were again WNL. She was started on high dose Vitamin D, now with Vitamin D is now WNL. 24 hour urine calcium reveals very low calcium levels. She was started on Prolia and has received 2 doses thus far 10/24/2021 and 04/28/2022. She has tolerated these well. Has 0 servings of dietary calcium per day. Takes Calcium Citrate 250 mg PO BID. Did take Vitamin D 50,000 IU once a week for a few months, but this was stopped for unknown reasons. She has long standing hypovitaminosis D. She was evaluated for celiac disease in the past and this was negative. She remains on Vitamin D 2000 IU daily, and did complete a course of high dose supplementation. Uses Omeprazole daily. She does have COPD and uses short Prednisone courses approximately 2-5 times per year. Denies ever using antiepileptic or anticoagulant medication. Does no exercise. Fracture history: Denies Height loss: Denies. 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 Menses were regular. . She did not breastfeed. Menopause was age 44. She did not use HRT. Denies history of Kidney stones: Mother with a history of Osteoporosis. UTD on dental cleanings and sees dentist every 6 months. No planned upcoming dental work or extractions. DXA: 09/24/2021 FINDINGS: AP SPINE L1-L4: Current: BMD 1.078 g/cm2, Z-score 1.2, T-score -0.9, normal, 3.1% decrease from previous, 8.8% decrease from baseline (<5% change is not significant). Prior: BMD 1.112 g/cm2. Baseline: BMD 1.182 g/cm2. LEFT FEMUR, NECK: Current: BMD 0.606 g/cm2, Z-score -1.2, T-score -3.1, osteoporosis. Prior: BMD 0.666 g/cm2. Baseline: BMD 0.832 g/cm2. LEFT FEMUR, TOTAL: Current: BMD 0.670 g/cm2, Z-score -1.0, T-score -2.7, osteoporosis, 11.7% decrease from previous, 26.9% decrease from baseline (<5% change is not significant). Prior: BMD 0.759 g/cm2. Baseline: BMD 0.917 g/cm2. Labs: Laboratory Tests 10/23/22 10/23/22 11:22 11:22 Sodium 143 Potassium 3.7 Creatinine 0.85 Estimated GFR > 60 25-OH Vitamin D Total 35.1 PTH Intact 28 Calcium (PTH Intact) 9.4 received last Prolia dose in November 2023. No back pain or hip pain since last vi sit . Was taking alendronate 70 mg Q weekly since 05/2024. Then received Reclast in 09/2024 Urine NTX is suppressed. No fx since last visit PFSH Medical History Lipoma of left forearm Pulmonary nodule 1 cm or greater in diameter Autoimmune hepatitis Transaminitis Abnormal LFTs Smoker Allergic rhinitis COPD (chronic obstructive pulmonary disease) Hyperparathyroidism Abnormal SPEP Vitamin D deficiency Osteoporosis Arthritis Low calcium levels HTN (hypertension) Asthma Surgical History Status post excision of lipoma (~11/03/23) History of esophagogastroduodenoscopy (EGD) History of liver biopsy History of ERCP H/O colonoscopy Hx laparoscopic cholecystectomy Hx of tubal ligation Hx of tonsillectomy Family History Father Diabetes Heart disease Hypertension Mother Diabetes Arthritis Heart disease Paternal Uncle Cancer Sister Lung cancer Social History Household Members: Family Housing: Apartment Do you presently have visiting nurse or other home services: No Alcohol intake: never Patient Tobacco Use Status: Current everyday Tobacco user Tobacco use type: Cigarette Cigarette Packs Per Day: 0 Cigarettes Per Day: 5 Years Smoked: 47 Second Hand Smoke Exposure: Yes Advance Directives Date on File: 10/24/20 service: No Current occupational status: unemployed Physical Exam Vital Signs: Last Vital Signs Pulse 82 05/24/25 14:23 BP 114/72 05/24/25 14:23 Pulse Ox 96 05/24/25 14:23 Oxygen Delivery Method Room Air 05/24/25 14:23 BMI result Body Mass Index 21.8 Assessment & Plan Assessment & Plan (1) Osteoporosis: Code(s): M81.0 - Age-related osteoporosis without current pathological fracture Category: Medical Qualifiers: Osteoporosis type: unspecified Presence of current pathological fracture: unspecified Qualified Code(s): M81.0 - Age-related osteoporosis without current pathological fracture Plan: This is a 68-year-old female with a history of osteoporosis with negative secondary workup was currently receiving Prolia 4th dose received May 2023. Last DEXA showed improvements in the hip and spine into the osteopenic range. Transition to oral alendronate in 05/2024. Urine NTX is suppressed Plan is to continue calcium and vitamin-D supplementation. We will recheck DEXA bone density 10/2025. The patient returned for follow up visit in 6 months. We will determine with the pharmacologic therapy needs to be initiated at that point would continue the drug holiday Orders: Orders XR DEXA axial skeleton 5 Months M81.0 - Age-related osteoporosis without current pathological fracture Coding Level of Care Code Est Pt Level 3 (26563) Diagnoses Osteoporosis, unspecified osteoporosis type, unspecified pathological fracture presence M81.0 Osteoporosis type: unspecified Presence of current pathological fracture: unspecified
--- OUTSIDE RECORDS SUMMARY | 2025-05-25 02:48 | XMS_ITS | Patient Health Record ---
Author Organization [employer] Address [address] [place] [address] Care Team Providers Care Yarn Man Name Role Phone Twila Thao Primary Care Provider Joao Kaiser [phone] Reason For Referral No Information Plan Of Treatment No Information Insurance Providers Payer Name Payer Address Payer Phone Subscriber Number Group Number Insured Name Patient Relationship to Insured Coverage Start Date Coverage End Date MEDICAID OF [facility] [address] [place] [phone] [id number] ROGELIO TOLENTINO Self - patient is the insured
--- OUTSIDE RECORDS SUMMARY | 2025-05-25 02:48 | XMS_ITS | Encounter Summary ---
Author Organization [employer] Address [address] [facility] [address]t [place] [address] Care Team Providers Care Kettle Operator Name Role Phone Katya Titus MD Primary Care Provide r Reason for Visit * Reason Comments Med Refill Encounter Details Date Type Department Care Team ([facility] st Contact Info) Description 05/23/2025 Refill [facility] [address] [place], [place] [phone] Katya Titus MD [address] [place], [place] [phone] Allergic rhinitis, unspecified seasonality, unspecified trigger Social History Tobacco Use Types Packs/Day Years [...] Description 07/14/2025 11:30 AM EST Office Visit [facility] [address] [place] [address] Katya Titus MD [address] [place] [address] 11/06/2025 11:00 AM EDT Office Visit [facility] [address] [place] [address] Marquis, Claudia, OD [address] [place] [address] documented as of this encounter Visit Diagnoses Diagnosis Allergic rhinitis, unspecified seasonality, unspecified trigger documented in this encounter Additional Health Concerns Assessment Noted Time PHQ-9 Depression Total Score: 0 01/14/20 25 9:31 AM EDT documented as of this encounter Care Teams Kettle Operator Relationship Specialty Start Date End Date Katya Titus MD [address] [place] [phone] PCP - General Family Medicine 03/17/18 documented as of this encounter
--- OUTSIDE RECORDS SUMMARY | 2025-05-25 02:48 | XMS_ITS | Encounter Summary ---
Author Organization [employer] Address 75 [facility] [address]t [place] [address] Care Team Providers Care Post Office Manager Name Role Phone Katya Titus MD Primary Care Provide r Reason for Visit * Reason Comments Med Refill Encounter Details Date Type Department Care Team ([facility] st Contact Info) Description 12/22/[address] [facility] [address] [place], [place] [phone] Katya Titus MD [address] [place], [place] [phone] Social History Tobacco Use Types Packs/Day Years [...] Description 07/14/2025 11:30 AM EST Office Visit [facility] [address] [place] [address] Katya Titus MD [address] [place] [address] 11/06/2025 11:00 AM EDT Office Visit [facility] [address] [place] [address] Marquis, Claudia, OD [address] [place] [address] documented as of this encounter Visit Diagnoses Not on filedocumented in this encounter Additional Health Concerns Assessment Noted Time PHQ-9 Depression Total Score: 0 11/20/19 23 10:59 AM EDT documented as of this encounter Care Teams Post Office Manager Relationship Specialty Start Date End Date Katya Titus MD [address] [place] [address] PCP - General Family Medicine 03/17/18 documented as of this encounter
--- OUTSIDE RECORDS SUMMARY | 2025-05-25 02:48 | XMS_ITS | Encounter Summary ---
Author Organization [employer] Address 75 [facility] [address]t [place] [address] Care Team Providers Care Communications Program Manager Name Role Phone Katya Titus MD Primary Care Provide r Reason for Visit * Reason Comments Med Refill Encounter Details Date Type Department Care Team ([facility] st Contact Info) Description 05/24/[address] [facility] [address] [place], [place] [phone] Katya Titus MD [address] [place], [place] [phone] Allergic rhinitis, unspecified seasonality, unspecified trigger Social [...] Description 07/14/2025 11:30 AM EST Office Visit [facility] [address] [place] [address] Katya Titus MD [address] [place] [address] 11/06/2025 11:00 AM EDT Office Visit [facility]RY [address] [place] [address] Marquis, Claudia, OD [address] [place] [address] documented as of this encounter Visit Diagnoses Diagnosis Allergic rhinitis, unspecified seasonality, unspecified trigger documented in this encounter Additional Health Concerns Assessment Noted Time PHQ-9 Depression Total Score: 0 01/14/20 25 9:31 AM EDT documented as of this encounter Care Teams Communications Program Manager Relationship Specialty Start Date End Date Katya Titus MD [address] [place] [phone] PCP - General Family Medicine 03/17/18 documented as of this encounter
--- OUTSIDE RECORDS SUMMARY | 2025-05-25 02:49 | XMS_ITS | Clinical Summary ---
Author Organization [employer] Address [address] [facility] [address] [place] [address] Care Team Providers Care Auto Claims Adjuster Name Role Phone Katya Titus MD Primary [...] Active beta carotene (vitamin A) 3 MG (38889 UT) capsule Take by mouth in the morning. 10/18/19 23 Active albuterol 108 (90 Base) MCG/ACT inhaler Inhale 2 puffs every 4 (four) hours if needed for wheezing or shortness of breath. 8.5 g 1 01/24/20 23 Active albuterol 108 (90 Base) MCG/ACT inhalerIndicati ons:Chronic obstructive pulmonary disease, unspecified COPD type (CMS/HCC) (HCC) Inhale 2 puffs every 6 (six) hours if needed for wheezing. 18 g 2 02/12/20 23 Active Wixela Inhub 250-50 MCG/ACT aerosol powderIndicatio ns:Wheezing INHALE 1 PUFF 2 TIMES DAILY; TAKE 1 PUFF BY MOUTH EVERY 12 HOURS 60 each 11 03/31/20 23 Active azithromycin (Zithromax) 250 MG tabletIndicatio ns:COPD exacerbation (CMS/HCC) ([facility]) Take 2 tabs PO daily x 1d then 1 tab PO daily on D2 to D5 6 tablet 05/08/20 23 Active ipratropium (Atrovent HFA) 17 MCG/ACT inhalerIndicati ons:COPD exacerbation (CMS/HCC) ([facility]) inhale 2 puff by inhalation route 4 times every day 12.9 g 3 05/08/20 23 Active albuterol (2.5 MG/3ML) 0.083% nebulizer solutionIndicat ions:COPD exacerbation (CMS/HCC) ([facility]) USE 1 VIAL VIA NEBULIZER EVERY 4 HOURS NEEDED FOR WHEEZING 75 mL 3 08/26/19 24 Active amLODIPine (Norvasc) 10 MG tabletIndicatio ns:Essential hypertension Take 1 tablet (10 mg) by mouth Once per day. 90 tablet 1 10/07/19 25 026 Active nicotine (Nicoderm CQ) 21 MG/24HR patchIndication s:Smoker Place 1 patch on the skin 1 (one) time each day at the same time. 30 patch 1 01/14/20 25 Active fluticasone (Flonase) 50 MCG/ACT nasal sprayIndication s:Allergic rhinitis, unspecified seasonality, unspecified trigger Administer 1-2 sprays into each nostril Once per day. Shake gently. Before first use, prime pump. After use, clean tip and replace cap. 16 g 2 01/14/20 25 026 Active Neomycin-Polymy matias-HC 1 % solutionIndicat ions:Acute otitis externa of both ears, unspecified type Administer 3 drops into affected ear(s) 4 times daily. 10 mL 01/14/20 25 Active montelukast (Singulair) 10 MG tablet TAKE 1 TABLET BY MOUTH EVERY NIGHT DIRECTED 90 tablet 1 05/24/20 25 Active loratadine (Claritin) 10 MG tabletIndicatio ns:Allergic rhinitis, unspecified seasonality, unspecified trigger Take 1 tablet (10 mg) by mouth Once per day. 30 tablet 11 05/24/20 25 026 Active loratadine (Claritin) 10 MG tabletIndicatio ns:Allergic rhinitis, unspecified seasonality, unspecified trigger Take 1 tablet (10 mg) by mouth Once per day. 30 tablet 11 05/02/20 24 025 Discontinued(R eorder (will not trigger notification to Pharmacy)) montelukast (Singulair) 10 MG tablet TAKE 1 TABLET BY MOUTH EVERY NIGHT DIRECTED 90 tablet 1 07/19/19 25 025 Discontinued Active Problems Problem Noted Date [...] EDT): Continue to follow with GI, Dr. 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 C/w rest of medications F/u with pulmonology Encounters Date Type Department Care Team Description 05/24/2025 Refill [facility] [address] [place] [phone] Katya Titus MD Allergic rhinitis, unspecified seasonality, unspecified trigger 05/23/2025 Refill [facility] [address] [place] [address] Katya Titus MD Allergic rhinitis, unspecified seasonality, unspecified trigger 05/17/2025 Orders Only GENERIC EXTERNAL DATA DEPARTMENT Provider, Generic External Data 05/08/2025 11:00 AM EST Office Visit [facility] [address] [place] [address] Marquis, Claudia, OD Intermediate stage nonexudative age-related macular degeneration of both eyes (Primary Dx); Combined forms of age-related cataract of both eyes; Presbyopia 05/08/2025 Travel 04/19/2025 10:30 AM EDT Office Visit [address] [address] Katya Titus MD Essential hypertension (Primary Dx); Chronic obstructive pulmonary disease, unspecified COPD type (CMS/HCC) (HCC); Osteoporosis, unspecified osteoporosis type, unspecified pathological fracture presence; Autoimmune hepatitis (CMS/HCC) (HCC); Right groin hernia; Encounter for immunization 04/19/2025 Travel 04/18/2025 Telephone [facility] [address] [place] [address] Katya Titus MD Chart Prep 04/11/2025 Patient Outreach [facility] [address] [place] [phone] Katya Titus MD Pre-visit Planning ([facility] screening completed on 07/19/2024) 04/06/2025 Telephone [facility] [address] [place] [phone] Katya Titus MD from Last 3 Months [...] housing situation today? I have kristianenoch waterman 05/02/[address] you [...] Description 07/14/2025 11:30 AM EST Office Visit [facility] [address] [place] [address] Katya Titus MD [address] [place], [place] [phone] 11/06/2025 11:00 AM EDT Office Visit [facility] [address] [place] [address] Claudia Cho, OD [address] [place] [address] Health Maintenance Due Date Last Done Comments [...] Procedure Name Priority Date/Time Associated Diagnosis Comments COLLAGEN CROSS-LINKED N-TELOPEPTIDE (NTX), U Routine 05/17/2025 8:41 AM EST COMPREHENSIVE METABOLIC PANEL Routine 05/17/2025 8:35 AM EST CBC WITH AUTO DIFFERENTIAL Routine 05/17/2025 8:35 AM EST PROTHROMBIN TIME-INR Routine 05/17/2025 8:35 AM EST HM COLONOSCOPY Routine 01/25/2025 BI MAMMOGRAM SCREENING TOMOSYNTHESIS BILATERAL Routine 10/10/2024 1:35 PM EDT Encounter for screening mammogram for malignant neoplasm of breast HEPATITIS PANEL, GENERAL Routine 08/07/2023 10:41 AM EST Hemochromatosis, unspecified hemochromatosis type Autoimmune hepatitis (CMS/HCC) LIPID PANEL, STANDARD Routine 10/23/2021 8:53 AM EDT from Last 3 Months or Most Recently Relevant to Health Maintenance Results * Collagen Cross-Linked N-Telopeptide (NTx), U (05/17/2025 8:41 AM EST) N Telopetide (NTx) 35 see note [facility] Comment:Result Units: nM BCE /mM creatPremenopausal Females: 4 - 64 nM BCE/mM creatResults are primarily used for monitoring theresponse to therapy. A value within thepremenopausal range does not rule out osteoporosisnor the need for therapyUnits of Measure: nM BCE/mM creat CREATININE, RANDOM URINE 106 20 - 275 mg/dL [facility] Comment:THIS TEST WAS PERFOR MED AT:[facility] [id number] [place] [id number] W. MASON,MD,PHD 05/17/2025 8:41 AM EST 05/17/2025 8:59 AM EST us Generic External Data Provider LAB URINE ORDERAB LES Final Result [facility] [address] [place], [place] [phone] * (ABNORMAL) CBC auto differential (05/17/2025 8:35 AM EST) White Blood Count 4.0(L) 4.8 - 10.8 X10*3/uL [facility] Red Blood Count 4.17(L) 4.20 - 5.50 X10*6/uL [facility] Hemoglobin 13.3 12.0 - 16.0 g/dl [facility] Hematocrit 39.9 37.0 - 47.0 % [facility] Mean Corpuscular Volume 95.7 80.0 - 98.0 fL [facility] Mean Corpuscular Hemoglobin 31.9 27.0 - 33.0 pg [facility] Mean Corpuscular HGB Conc 33.3 31.0 - 35.0 g/dl [facility] Red Cell Distribution Width 13.2 11.0 - 16.0 % [facility] Platelet Count 208 160 - 400 X10*3/uL [facility] Mean Platelet Volume 10.1 9.4 - 12.3 fL [facility] Neutrophils Percent Auto 53.3 45 - 73 % [facility] Imm Gran Pct Auto 0.2 0.0 - 0.4 % [facility] Lymphocytes Percent Auto 33.3 20 - 40 % [facility] Monocytes Percent Auto 10.2 2 - 11 % [facility] Eosinophils Percent Auto 2.5 0 - 4 % [facility] Basophils Percent Auto 0.5 0 - 2 % [facility] NRBC Pct Auto 0.0 0.0 - 0.2 /100WBC [facility] Neutrophils Absolute Auto 2.1 2.0 - 8.3 x10*3/uL [facility] Imm Gran Abs Auto 0.01 0.00 - 0.03 X10*3/uL [facility] Lymphocytes Absolute Auto 1.3 1.2 - 4.9 X10*3/uL [facility] Monocytes Absolute Auto 0.4 0.1 - 1.2 X10*3/uL [facility] Eosinophils Absolute Auto 0.1 0.0 - 0.4 X10*3/uL [facility] Basophils Absolute Auto 0.0 0.0 - 0.2 X10*3/uL [facility] NRBC Abs Auto 0.000 0.0 - 0.012 X10*3/uL [facility] 05/17/2025 8:35 AM EST 05/17/2025 8:35 AM EST us Generic External Data Provider LAB BLOOD ORDERAB LES Final Result Performing Organization Address [facility] de Phone Number [facility] [address] [place] [phone] * Prothrombin Time-INR (05/17/2025 8:35 AM EST) Prothrombin Time 11.9 11.2 - 13.5 SEC [facility] INTERNATIONAL NORM RATIO 1.0 0.9 - 1.1 [facility] Comment:INTERNATIONAL NORMAL IZED RATIO (INR) REFERENCE RANGES Reference RangeFor patients not on anticoagulant therapy: 0.9 - 1.1INR ranges for oral anticoagulanttherapy:For prevention and treatment of venous thrombosis and pulmonary embolism: 2.0 - 3.0For acute myocardial infarction with aspirin therapy: 2.0 - 3.0For acute myocardial infarction without aspirin therapy: 3.0 - 4.0For patients with mechanical prosthetic heart valves: 2.5 - 3.5 05/17/2025 8:35 AM EST 05/17/2025 8:35 AM EST us Generic External Data Provider LAB BLOOD ORDERAB LES Final Result Performing Organization Address [facility] Co de Phone Number [facility] [address] [place] [address] [phone] * (ABNORMAL) Comprehensive Metabolic Panel (05/17/2025 8:35 AM EST) Sodium 145 135 - 145 mmol/L [facility] Potassium 4.1 3.3 - 5.1 mmol/L [facility] Chloride 107 96 - 108 mmol/L [facility] Carbon Dioxide 29 22 - 29 mmol/L [facility] Anion Gap 13 12 - 20 [facility] Urea Nitrogen (BUN) 17(H) 9 - 16 mg/dL [facility] Creatinine, Serum 0.80 0.5 - 1.4 mg/dL [facility] Estimated Glomerular Filt Rate >60 [facility] Comment:Chronic Kidney Disea se: Estimated GFR < 60 mL/min/1.84l2Iipjtc Kidney Disease: Estimated GFR < 15 mL/min/1.73m2 Glucose 86 60 - 115 mg/dL [facility] Calcium 9.6 8.4 - 10.2 mg/dL [facility] Bilirubin, Total 0.5 0.0 - 1.0 mg/dL [facility] Aspartate Amino Transferase 29 5 - 31 U/L [facility] Alanine Aminotransferase 24 0 - 31 U/L [facility] Total Protein 7.1 6.5 - 8.0 g/dL [facility] Albumin Level 4.4 3.5 - 5.0 g/dL [facility] Alkaline Phosphatase 83 39 - 117 U/L [facility] 05/17/2025 8:35 AM EST 05/17/2025 8:35 AM EST us Generic External Data Provider LAB BLOOD ORDERAB LES Final Result [facility] [address] [place] [phone] * Hm Colonoscopy (01/25/2025) Colonoscopy Normal Normal Narrative Elise Brandon - 01/25/2025 Recommended 1 year. See see external hospital admission note on 01/25/25.Repeat Colonoscopy in 1 year or earlier if clinically indicated Historical Provider [facility] Final Result * BI Mammogram Screening Tomosynthesis Bilateral (10/10/2024 1:35 PM EDT) Anatomical Region Laterality Modality Breast Bilateral Mammography 10/10/2024 1:35 PM EDT Narrative 10/16/2024 8:01 PM EDT David [facility] [address] [place] [address] Mammography Report Signed Patient: Vandana Hull MR#: [id number] : 1955 Acct:[id number] Age/Sex: 69 / F ADM Date: 10/10/24 Loc: HO.MAMMO Attending Dr: Katya Burton MD Ordering Physician: Katya Titus MD Results: 1Negative Date of Service: 10/10/24 Follow Up: 1 Year From [facility] Mammogram Procedure(s): MM tomosynthesis screening BI Accession Number(s): [id number] cc: Katya Titus MD EXAMINATION: MM SCREENING [...] Georgina Rivera DO 10/16/2024 07:58 PM EDT RP Dictated By: Georgina Rivera DO Signed By: <Electronically signed by Georgina Rivera DO in OV> 10/16/241957 DD/ 1335 TD/TT: 10/10/24 1345 Quantitative Developer: Procedure Note Donotuseinterpreter, Image - 10/16/[facility] [address] [place], [place] [address] Mammography Report Signed Patient: Doni Hull#: [id number] : 1955cct:[id number] Age/Sex: 69 / FADM Date: 10/10/24 Loc: HO.MAMMO Attending Dr: Katya Burton MD Ordering Physician: Katya Titus MDResults: 1Negative Date of Service: 10/10/24Follow Up: 1 Year From [facility] Mammogram Procedure(s): MM tomosynthesis screening BI Accession Number(s): [id number] cc: Katya Titus MD EXAMINATION: MM SCREENING [...] Georgina Rivera DO 10/16/2024 07:58 PM EDT RP Dictated By: Tyminski,Georgina DO Signed By: <Electronically signed by Georgina Rivera, DO in OV> 10/16/241957 DD/ 1335 TD/TT: 10/10/24 1345 Quantitative Developer: Katya Burton MD IMG BI PROCEDURES Alvarez laura Result - Final * Hepatitis A,B,C Profile (08/07/2023 10:41 AM EST) Hepatitis A IgM Nonreactive Nonreactive [facility] Comment:IgM antibodies to YO V not detected; does not exclude earlyacute or recovered HAV infection. ~Hepatitis B Surface Antibody NONREACTIVE Nonreactive [facility] Comment:Nonreactive: < 8.00 mIU/mL Hepatitis B Core Antibody Nonreactive Nonreactive [facility] Hepatitis C Antibody Nonreactive Nonreactive [facility] Comment:Antibodies to HCV no t detected; does not exclude early acuteHCV infection. Hepatitis B Surface Ag Negative Negative [facility] Blood Venous blood specimen / Unknown 08/07/2023 10:41 AM EST 08/07/2023 11:38 AM EST Katya Burton MD LAB BLOOD ORDERABLES Final Result Performing Organization Address City/State/[facility] Co de Phone Number [facility] [address] [place] [phone] * (ABNORMAL) LIPID PANEL, STANDARD (10/23/2021 [...] LDL-C. Nhan ADAM et al. BIANCA. 2013;310(19): 8381-3793 (http://education.[employer].com/faq/TJM584) Non-HDL Cholesterol 141(H) <130 mg/dL (calc) [facility] Comment: For patients with diabetes plus 1 major ASCVD risk factor, treating to a non-HDL-C goal of <100 mg/dL (LDL-C of <70 mg/dL) is considered a therapeutic option. Triglycerides 150(H) <150 mg/dL [facility] 10/23/2021 8:53 AM EDT us Katya Burton MD LAB BLOOD ORDERABLES Final Result [facility] [address] from Last 3 Months or Most Recently Relevant to Health Maintenance Insurance [facility] OPTIONS (O D-SNP) NAYA GONSALES [id number] Care Teams Auto Claims Adjuster Relationship Specialty Start Date End Date Katya Titus MD [address] [place] [address] PCP - General Family Medicine 03/17/18
--- OUTSIDE RECORDS SUMMARY | 2025-05-25 02:49 | XMS_ITS | Encounter Summary ---
Author Organization [employer] Address [address] [place] [address] Care Team Providers Care Intelligence Research Specialist Name Role Phone Katya Titus MD Primary Care Provide r Encounter Details Date Type Department Care Team ([facility] st Contact Info) Description 07/17/2023 Orders Only [facility] [address] [place], [place] [phone] Jennifer Ryan LPN Social History Tobacco Use [...] Description 07/14/2025 11:30 AM EST Office Visit [facility] [address] [place] [address] Katya Titus MD [address] [place] [address] 11/06/2025 11:00 AM EDT Office Visit [facility] [address] [place] [address] Marquis, Claudia, OD [address] [place] [address] documented as of this encounter Visit Diagnoses Not on filedocumented in this encounter Additional Health Concerns Assessment Noted Time PHQ-9 Depression Total Score: 0 11/20/19 23 10:59 AM EDT documented as of this encounter Care Teams Intelligence Research Specialist Relationship Specialty Start Date End Date Katya Titus MD [address] [place] [address] PCP - General Family Medicine 03/17/18 documented as of this encounter
--- OUTSIDE RECORDS SUMMARY | 2025-05-25 02:49 | XMS_ITS | Encounter Summary ---
Author Organization [employer] Address [address] [facility] [address] [place] [address] Care Team Providers Care Guide Name Role Phone Katya Titus MD Primary Care Provide r Encounter Details Date Type Department Care Team (Late Contact Info) Description 03/25/2023 Orders Only [facility] [address] [place] [address] ProviderVladimir MD Social History Tobacco Use Types [...] Description 07/14/2025 11:30 AM EST Office Visit [facility] [address] [place] [address] Katya Titus MD [address] [place] [address] 11/06/2025 11:00 AM EDT Office Visit [facility] [address] [place] [address] Claudia Cho, OD [address] [place] [address] documented as of this encounter Procedures Procedure [...] documented as of this encounter Care Teams Guide Relationship Specialty Start Date End Date Katya Titus MD [address] [place] [address] PCP - General Family Medicine 03/17/18 documented as of this encounter
== END 2025-05-24 14:36 | disposition home or self-care (01) ==
LOC: HO.ENCR 14:20
PROVIDERS: PCP Internal Medicine; Visit Provider Internal Medicine Endocrinology, Diabetes & Metabolism
DX: M81.0 Age-related osteoporosis without current pathological fracture (principal)
CPT/HCPCS: 99213

== ENCOUNTER → 2025-05-24 14:20 | Outpatient (BNVA) | payer OTHER, SELFPAY | PROVIDERS: PCP Internal Medicine; Visit Provider Internal Medicine Endocrinology, Diabetes & Metabolism | DX: M81.0 Age-related osteoporosis without current pathological fracture (principal) | CPT/HCPCS: 99212 ==

== ENCOUNTER 2025-05-27 14:53 | Emergency (ER) | payer OTHER, SELFPAY ==
--- NOTE | ~2025-05-27 | XR_ITS ---
CLINICAL HISTORY: cough 2 view chest x-ray Comparison: CR - XR CHEST 2V - 12/25/24 21:37 EDT Findings: Heart size is normal. 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 No consolidation, pleural effusion or pneumothorax. Mild interstitial changes. No acute fracture. IMPRESSION: 1. No acute findings. This document has been electronically signed by: Julee Spears MD on 05/27/2025 17:34:59
[2025-05-27 15:20] VITALS: BP 125/80; PULSE 111; RESP 20; TEMP 37.5; O2SAT 95; BMI 21.7
--- NOTE | 2025-05-27 15:21 | ED_ITS ---
HPI - General Adult General Chief complaint: Upper Respiratory Symptoms Stated complaint: asthma Time Seen by Provider: 05/27/25 16:08 History of Present Illness HPI narrative: 70-year-old female with medical history of IBS, GERD, COPD, asthma, allergic rhinitis, osteoporosis, arthritis, HTN, hyperthyroidism, presents to ED due to 4 days of COPD exacerbation. Patient states shes had 4 days of increased cough with sputum producton that started today, mild frontal headache, and L ear pain. She reports using inhalers at home and Sudafed without relief. Patient states she has a sick family member at home with bronchitits. Denies chest pain, SOB, abdominal pain, nausea, vomiting, vision changes, urinary symptoms MD complaint: COPD exacerbation, L ear pain Related Data Home Medications ?Medication ?Instructions ?Recorded ?Confirmed loratadine 10 mg tablet 10 mg PO DAILY PRN Allergic 07/19/20 05/24/25 Symptoms montelukast 10 mg tablet 10 mg PO BEDTIME 07/19/20 multivitamin with folic acid 400 1 tab PO DAILY 05/24/25 mcg tablet (Daily-Glynn (with folic acid)) amlodipine 10 mg tablet 10 mg PO DAILY 02/23/2305/06 fluticasone propionate 50 2 spray intranasal DAILY PRN 06/25/23 05/24/25 mcg/actuation nasal Allergy Symptoms spray,suspension (Flonase Allergy Relief) omeprazole 40 mg capsule,delayed 40 mg PO BID 01/25/25 05/24/25 release nicotine 21 mg/24 hr daily 1 patch topical DAILY 05/0105/24/25 transdermal patch Previous Rx's ?Medication ?Instructions ?Recorded albuterol sulfate 2.5 mg/0.5 mL 5 mg inhalation Q4H MT N shortness 05/20/23 solution for nebulization of breath or wheezing #30 ea capsaicin 0.1 % topical cream 1 appl topical BID #60 g víctor 06/15/23 tramadol 50 mg tablet 50 mg PO Q6H PRN pain #6 tab s 11/03/23 ipratropium 0.5 mg-albuterol 3 mg 3 ml inhalation Q6-8 H PRN 01/04/25 (2.5 mg base)/3 mL nebulization shortness of breath or wheezing soln #90 mL albuterol sulfate 90 mcg/actuation 2 puff inhalation Q 4-6H PRN 02/27/25 aerosol inhaler shortness of breath or wheez ing 30 days #8.5 grams cholecalciferol (vitamin D3) 50 50 mcg PO DAILY #30 ca ps 03/07/25 mcg (2,000 unit) capsule mercaptopurine 50 mg tablet 50 mg PO DAILY #90 tabs fluticasone 250 mcg-salmeterol 50 1 ea PO BID #180 ea 05/02/25 mcg/dose blistr powdr for inhalation calcium citrate 250 mg PO BID #60 tabs 05/03 amoxicillin 875 mg-potassium 1 tab PO BID 5 days #10 t abs 05/27/25 clavulanate 125 mg tablet prednisone 20 mg tablet 20 mg PO BID 5 days #10 tabs 05/27/25 Allergies Allergy/AdvReac Type Severity Reaction Status Date / Time No Known Allergies Allergy Verified 05/27/25 15:24 Review of Systems 2 Review of Systems: Yes all other systems are reviewed and are negative [facility] Past Medical History Attestation statement: The following information was validated with the patient. Source: old records reviewed and nursing notes reviewed Medical History Lipoma of left forearm Pulmonary nodule 1 cm or greater in diameter Autoimmune hepatitis Transaminitis Abnormal LFTs Smoker Allergic rhinitis COPD (chronic obstructive pulmonary disease) Hyperparathyroidism Abnormal SPEP Vitamin D deficiency Osteoporosis Arthritis Low calcium levels HTN (hypertension) Asthma Surgical History Status post excision of lipoma (~11/03/23) History of esophagogastroduodenoscopy (EGD) History of liver biopsy History of ERCP H/O colonoscopy Hx laparoscopic cholecystectomy Hx of tubal ligation Hx of tonsillectomy Family History Family History Father Diabetes Heart disease Hypertension Mother Diabetes Arthritis Heart disease Paternal Uncle Cancer Sister Lung cancer Social History Social History Household Members: Family Housing: Apartment Do you presently have visiting nurse or other home services: No Alcohol intake: never Patient Tobacco Use Status: Current everyday Tobacco user Tobacco use type: Cigarette Cigarette Packs Per Day: 0 Cigarettes Per Day: 5 Years Smoked: 47 Second Hand Smoke Exposure: Yes Advance Directives Date on File: 10/24/20 service: No Current occupational status: unemployed Physical Exam ED Vital Signs: Vital Signs - 24 hr 05/27/25 15:20 05/27/25 16:29 05/27/25 17:15 Temperature 99.5 F Pulse Rate 111 H 107 H 102 H Respiratory Rate 20 18 22 H Blood Pressure 125/80 121/69 Pulse Oximetry 95 94 Oxygen Delivery Method Room Air Room Air 05/27/25 17:18 05/27/25 18:39 Temperature Pulse Rate 93 Respiratory Rate 18 Blood Pressure 104/52 L Pulse Oximetry 94 91 L Oxygen Delivery Method Room Air Room Air BMI result Body Mass Index 21.7 GENERAL APPEARANCE: ?AxOx4, generally well-appearing, no acute distress. HEENT: ?NC, AT. MMM. EOMI, clear conjunctiva, oropharynx clear. NECK: ?Supple without lymphadenopathy.? No stiffness or restricted ROM. HEART:? Normal rate and regular rhythm, normal S1/S1, no m/r/g LUNGS:? mild ronchi and expiratory wheeze, no increased work of breathing, no accessory muscle use, no pursed lip breathing ABDOMEN: ?Soft, nontender, nondistended with good bowel sounds heard. BACK: No CVAT, no obvious deformity. EXTREMITIES: ?Without cyanosis, clubbing or edema. NEUROLOGICAL: ?Grossly nonfocal. Alert and oriented, moving all 4 extremities. Observed to ambulate with normal gait. Skin: ?Warm and dry without any rash. Course Course Course Narrative: RME, this is a rapid medical exam performed by Anthony Suazo please refer to primary provider for complete H&P- 70-year-old female presents for evaluation back pain. His symptoms started a few days ago. Denies any fevers or chills. She has a history of asthma and reports no improvement with her inhalers. Plan for labs, EKG, chest x-ray, viral swabs Medications Administered Discontinued Medications Generic Name Dose Route Start Last Admin Trade Name Freq PRN Reason Stop Dose Admin Acetaminophen 975 mg 05/27/25 17:47 05/27/25 17:52 Acetaminophen 325 Mg Tablet PO 05/27/25 17:48 975 mg ONCE ONE Administration Albuterol Sulfate 2.5 mg/ 0 mg 05/27/25 17:11 05/27/25 17:15 Albuterol/Ipratropium 3 ml INHALE 05/27/25 17:12 1 dose ONCE ONE Administration Magnesium Sulfate 2 gm in 50 mls @ 150 mls/hr 05/27/25 16:54 05/27/25 17:41 Magnesium Sulfate/H2o IV 05/27/25 17:13 Infused ONCE ONE Infusion Methylprednisolone Sodium Succinate 60 mg 05/27/25 16:54 05/27/25 17:18 Methylprednisolone Sod Succ 125 Mg/2 Ml Vial IVPUSH 05/27/25 16:55 60 mg ONCE ONE Administration Medical Decision Making Medical Decision Making [facility] Narrative: 70-year-old female with medical history of IBS, GERD, COPD, asthma, allergic rhinitis, osteoporosis, arthritis, HTN, hyperthyroidism, presents to ED due to 4 days of productive cough, nasal congestion, L ear pain, and mild headache. Family member at home with bronchitis. Using albuterol inhaler at home, and Sudafed without relief. Physical exam reveals a mildly erythematous L tympanic membrane without evidence of bulging or fluid, no otorrhea, no tragal tenderness. Lungs with mild expiratory wheeze and rhonchi. Labs without leukocytosis/leukopenia with a left shift of 81.1, no evidence of anemia, no electrolyte abnormalities, total bilirubin slightly elevated at 1.2 however patient without abdominal pain, pro BNP WNL. Viral serology negative CXR WNL Patient presents for 4 days of productive cough, nasal congestion, L ear pain, mild headache. Patient was medicated with 2.5 mg albuterol sulfate, 3 mL DuoNeb, 2 g IV magnesium, 60 mg IV Solu-Medrol with good effect of her symptoms. Patient being discharged home with 7 day course of Augmentin for otitis media that will also cover for possible COPD exacerbation due to productive cough, and rhonchi auscultated, and 4 day course of 40 mg prednisone as she received her 1st dose of steroids in the department. Patient states she has albuterol and DuoNeb at home. Differential Diagnosis Differential Diagnoses: The differential diagnosis associated with the presentation includes COPD exacerbation Viral illness Flu COVID RSV Otitis media Otitis externa Admission/Observation Consideration of admission/observation: Escalation of care including admission/observation considered Lab Data [facility] Lab Attestation statement: I reviewed the patient's lab results. 05/27/25 15:33 05/27/25 15:33 Labs: Lab Results 05/27/25 05/27/25 Range/Units 15:33 17:25 WBC 6.0 (4.8-10.8) X10*3/uL RBC 4.31 (4.20-5.50) X10*6/uL Hgb 13.7 (12.0-16.0) g/dl Hct 40.3 (37.0-47.0) % MCV 93.5 (80.0-98.0) fL MCH 31.8 (27.0-33.0) pg MCHC 34.0 (31.0-35.0) g/dl RDW 13.2 (11.0-16.0) % Plt Count 178 (160-400) X10*3/uL MPV 9.7 (9.4-12.3) fL Immature Gran % (Auto) 0.3 (0.0-0.4) % Neut % (Auto) 81.1 H (45-73) % Lymph % (Auto) 9.7 L (20-40) % Parmer % (Auto) 8.2 (2-11) % Eos % (Auto) 0.2 (0-4) % Baso % (Auto) 0.5 (0-2) % Lymph # (Auto) 0.6 L (1.2-4.9) X10*3/uL Parmer # (Auto) 0.5 (0.1-1.2) X10*3/uL Eos # (Auto) 0.0 (0.0-0.4) X10*3/uL Baso # (Auto) 0.0 (0.0-0.2) X10*3/uL Abs Immat Gran (auto) 0.02 (0.00-0.03) X10*3/uL Absolute Neuts (auto) 4.8 (2.0-8.3) x10*3/uL Absolute Nucleated RBC 0.000 (0.0-0.012) X10*3/uL Nucleated RBC % (auto) 0.0 (0.0-0.2) /100WBC VBG pH 7.41 (7.32-7.43) VBG pCO2 37 mmHg VBG pO2 55 mmHg VBG HCO3 23 (22-26) mmol/L VBG O2 Saturation 85.0 % VBG Base Excess -0.3 mmol/L Sodium 138 (135-145) mmol/L Potassium 4.7 (3.3-5.1) mmol/L Chloride 104 (96-108) mmol/L Carbon Dioxide 23 (22-29) mmol/L Anion Gap 16 (12-20) BUN 11 (9-16) mg/dL Creatinine 0.89 (0.5-1.4) mg/dL Estim Creat Clear Calc 43.7 Estimated GFR > 60 Random Glucose 110 (60-115) mg/dL Calcium 9.5 (8.4-10.2) mg/dL Total Bilirubin 1.2 H (0.0-1.0) mg/dL AST 29 (5-31) U/L ALT 22 (0-31) U/L Alkaline Phosphatase 91 (39-117) U/L Troponin I High Sens 2.9 (<3.5-17.0) ng/L NT-Pro-B Natriuret Pep 178.8 (<300) pg/mL Total Protein 7.9 (6.5-8.0) g/dL Albumin 4.8 (3.5-5.0) g/dL Influenza Type A (PCR) NEGATIVE (Negative) Influenza Type B (PCR) NEGATIVE (Negative) RSV RNA Qual (PCR) NEGATIVE (Negative) SARS-CoV-2 RNA (RT-PCR) NEGATIVE (Negative) Independent Interpretation I performed an independent interpretation of an: Plain X-Ray Interpretation: I personally interpreted the CXR which was negative for infiltrates, consolidations, pneumothorax, pulmonary edema, pleural effusion, I agree with the radiologist's interpretation Radiology Impression Discussion of test interpretation with radiology: I have reviewed the radiologist's reading. Radiologist Impression: CXR Findings: Heart size is normal. 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 No consolidation, pleural effusion or pneumothorax. Mild interstitial changes. No acute fracture. IMPRESSION: 1. No acute findings. This document has been electronically signed by: Julee Spears MD on 05/27/2025 17:34:59 Dictated By: Julee Spears MD Signed By: <Electronically signed by Julee Spears MD in OV> 05/27/25 5131 External Record Review External record reviewed: Inpatient record, Office record, Outpatient record and Prior outpatient labs Chronic Conditions Patient?s care impacted by: Other (COPD) Social Determinants Patient?s care significantly limited by Social Determinants of Health including: Other Social Determinant of Health Discharge Plan Discharge Clinical Impression: COPD exacerbation Patient Disposition: Home, Self-Care Additional Instructions: You were evaluated in the emergency department today for shortness of breath, cough and headache. You are being discharged home with a course of Augmentin, and 5 days of prednisone. You stated that you have albuterol inhaler and DUONEB pump at home, use that as needed for wheezing. For headache you can take 500 mg of tylenol and 400mg of ibuprofen every 6 hours. Please follow up with your primary care doctor to ensure resolution of your symptoms Please return to the emergency department if you experience fevers over 100.4?, worsening short of breath, worsening headache, difficulty breathing, chest pain, nausea, vomiting or any new/worsening/concerning symptoms Prescriptions: New amoxicillin-pot clavulanate 875-125 mg tablet 1 tab PO BID 5 Days Qty: 10 0RF prednisone 20 mg tablet 20 mg PO BID 5 Days Qty: 10 0RF No Action capsaicin 0.1 % cream 1 appl topical BID Qty: 60 1RF Rx Instructions: do not wash area for at least 30 min after application albuterol sulfate 90 mcg/actuation HFA aerosol inhaler 2 puff inhalation Q4-6H PRN (Reason: shortness of breath or wheezing) 30 Days Qty: 8.5 5RF cholecalciferol (vitamin D3) 50 mcg (2,000 unit) capsule 50 mcg PO DAILY Qty: 30 2RF mercaptopurine 50 mg tablet 50 mg PO DAILY Qty: 90 0RF fluticasone propion-salmeterol 250-50 mcg/dose blister with device 1 ea PO BID Qty: 180 0RF calcium citrate 250 mg calcium tablet 250 mg PO BID Qty: 60 0RF tramadol 50 mg tablet 50 mg PO Q6H PRN (Reason: pain) Qty: 6 0RF omeprazole 40 mg capsule,delayed release(DR/EC) 40 mg PO BID albuterol sulfate 2.5 mg/0.5 mL solution for nebulization 5 mg inhalation Q4H PRN (Reason: shortness of breath or wheezing) Qty: 30 0RF ipratropium-albuterol 0.5 mg-3 mg(2.5 mg base)/3 mL solution for nebulization 3 ml inhalation Q6-8H PRN (Reason: shortness of breath or wheezing) Qty: 90 0RF montelukast 10 mg tablet 10 mg PO BEDTIME loratadine 10 mg tablet 10 mg PO DAILY PRN (Reason: Allergic Symptoms) multivitamin with folic acid [Daily-Glynn (with folic acid)] 400 mcg tablet 1 tab PO DAILY amlodipine 10 mg tablet 10 mg PO DAILY fluticasone propionate [Flonase Allergy Relief] 50 mcg/actuation spray,suspension 2 spray intranasal DAILY PRN (Reason: Allergy Symptoms) Rx Instructions: administer into each nostril nicotine 21 mg/24 hr patch 24 hour 1 patch topical DAILY Interventions: ED Discharge Assessment Last Done: 05/27/25 19:09 Discharge Date/Time: 05/27/25 19:10 Print Language: [place] Citizen
[2025-05-27 15:39] LABS: MANUAL DIFF FLAG NO
[2025-05-27 15:40] LABS: Hematocrit 40.3 % (37.0-47.0); Hemoglobin 13.7 g/dl (12.0-16.0); Imm Gran Abs Auto 0.02 X10*3/uL (0.00-0.03); Imm Gran Pct Auto 0.3 % (0.0-0.4); Lymphocytes Absolute Auto 0.6 X10*3/uL (1.2-4.9); Mean Corpuscular HGB Conc 34.0 g/dl (31.0-35.0); Mean Corpuscular Hemoglobin 31.8 pg (27.0-33.0); Mean Corpuscular Volume 93.5 fL (80.0-98.0); NRBC Abs Auto 0.000 X10*3/uL (0.0-0.012); NRBC Pct Auto 0.0 /100WBC (0.0-0.2); Platelet Count 178 X10*3/uL (160-400); Red Blood Count 4.31 X10*6/uL (4.20-5.50); White Blood Count 6.0 X10*3/uL (4.8-10.8)
--- OUTSIDE RECORDS SUMMARY | 2025-05-27 15:49 | XMS_ITS | Encounter Summary ---
Author Organization [employer] Address [address] [facility] [address] [place] [address] Care Team Providers Care Plastic Parts Fabricator Name Role Phone Katya Titus MD Primary Care Provide r Reason for Visit * Reason Comments Med Refill Encounter Details Date Type Department Care Team ([facility] st Contact Info) Description 05/23/2025 Refill [facility] [address] [place], [place] [phone] Katya Titus MD [address] [place], [place] [phone] Allergic rhinitis, unspecified seasonality, unspecified trigger Social [...] Description 07/14/2025 11:30 AM EST Office Visit [facility] [address] [place] [address] Katya Titus MD [address] [place] [address] 11/06/2025 11:00 AM EDT Office Visit [facility] [address] [place] [address] Marquis, Claudia, OD [address] [place] [address] documented as of this encounter Visit Diagnoses Diagnosis Allergic rhinitis, unspecified seasonality, unspecified trigger documented in this encounter Additional Health Concerns Assessment Noted Time PHQ-9 Depression Total Score: 0 01/14/20 25 9:31 AM EDT documented as of this encounter Care Teams Plastic Parts Fabricator Relationship Specialty Start Date End Date Katya Titus MD [address] [place] [id number] PCP - General Family Medicine 03/17/18 documented as of this encounter
--- OUTSIDE RECORDS SUMMARY | 2025-05-27 15:49 | XMS_ITS | Patient Health Record ---
Author Organization [employer] Address [address] [place] [address] Care Team Providers Care Real Estate Transaction Coordinator Name Role Phone Twila Thao Primary Care Provider Joao Kaiser [phone] Reason For Referral No Information Plan Of Treatment No Information Insurance Providers Payer Name Payer Address Payer Phone Subscriber Number Group Number Insured Name Patient Relationship to Insured Coverage Start Date Coverage End Date MEDICAID OF [facility] [address] [place] [phone] [id number] ROGELIO TOLENTINO Self - patient is the insured
--- OUTSIDE RECORDS SUMMARY | 2025-05-27 15:50 | XMS_ITS | Encounter Summary ---
Author Organization [employer] Address [address] [facility] [address] [place] [address] Care Team Providers Care Diamond Powder Mixer Name Role Phone Katya Titus MD Primary Care Provide r Reason for Visit * Reason Comments Med Refill Encounter Details Date Type Department Care Team ([facility] st Contact Info) Description 05/24/2025 Refill [facility] [address] [place], [place] [phone] Katya Titus MD [address] [place], [place] [phone] Allergic rhinitis, unspecified seasonality, unspecified trigger Social [...] Description 07/14/2025 11:30 AM EST Office Visit [facility] [address] [place] [address] Katya Titus MD [address] [place] [address] 11/06/2025 11:00 AM EDT Office Visit [facility] OPTOMET[facility] [address] [place] [address] Marquis, Claudia, OD [address] [place] [address] documented as of this encounter Visit Diagnoses Diagnosis Allergic rhinitis, unspecified seasonality, unspecified trigger documented in this encounter Additional Health Concerns Assessment Noted Time PHQ-9 Depression Total Score: 0 01/14/20 25 9:31 AM EDT documented as of this encounter Care Teams Diamond Powder Mixer Relationship Specialty Start Date End Date Katya Titus MD [address] [place] [id number] PCP - General Family Medicine 03/17/18 documented as of this encounter
--- OUTSIDE RECORDS SUMMARY | 2025-05-27 15:50 | XMS_ITS | Encounter Summary ---
Author Organization [employer] Address [address] [facility] [place] [address] Care Team Providers Care Glass Beveler Name Role Phone Katya Titus MD Primary Care Provide r Encounter Details Date Type Department Care Team ([facility] st Contact Info) Description 07/17/2023 Orders Only [facility] [address] [place], [place] [phone] Jennifer Ryan LPN Social History Tobacco Use [...] Description 07/14/2025 11:30 AM EST Office Visit [facility] [address] [place] [address] Katya Titus MD [address] [place] [address] 11/06/2025 11:00 AM EDT Office Visit [facility] OPTOMETRY [address] [place] [address] Marquis, Claudia, OD [address] [place] [address] documented as of this encounter Visit Diagnoses Not on filedocumented in this encounter Additional Health Concerns Assessment Noted Time PHQ-9 Depression Total Score: 0 11/20/19 23 10:59 AM EDT documented as of this encounter Care Teams Glass Beveler Relationship Specialty Start Date End Date Katya Titus MD [address] [place] [address] PCP - General Family Medicine 03/17/18 documented as of this encounter
--- OUTSIDE RECORDS SUMMARY | 2025-05-27 15:50 | XMS_ITS | Clinical Summary ---
Author Organization [employer] Address [address] [facility] 7t [place] [address] Care Team Providers Care Truck Mechanic Name Role Phone Katya Titus MD Primary Care Provide r Allergies No known active allergies Medications cholecalciferol (Vitamin D-3) 50 MCG (1999 UT) capsule Take by mouth in the morning. 08/19/19 23 Active albuterol 108 (90 Base) MCG/ACT inhaler Inhale 2 puffs every 4 (four) hours if needed for wheezing or shortness of breath. 8.5 g 1 01/24/20 23 Active amLODIPine (Norvasc) 10 MG tabletIndicatio ns:Essential [...] 16 g 2 01/14/20 25 026 Active montelukast (Singulair) 10 MG tablet TAKE 1 TABLET BY MOUTH EVERY NIGHT DIRECTED 90 tablet 1 05/24/20 25 Active loratadine (Claritin) 10 MG tabletIndicatio ns:Allergic rhinitis, unspecified seasonality, unspecified trigger Take 1 tablet (10 mg) by mouth Once per day. 30 tablet 11 05/24/20 25 11/19/2 026 Active calcium citrate 250 MG tablet Take 1 tablet by mouth 2 times daily. Active ipratropium-alb uterol (Duo-Neb) 0.5-2.5 mg/3 mL nebulizer solution Inhale 3 mL. 01/05/20 Active Prolia 60 MG/ML solution prefilled syringe 10/18/19 025 Discontinued(T herapy completed) mercaptopurine (Purinethol) 50 MG tablet Take 50 mg by mouth in the morning. 09/12/19 025 Discontinued(T herapy completed) pyridoxine (Vitamin B-6) 100 MG tablet Take 100 mg by mouth 2 times daily. 10/30/19 025 Discontinued(T herapy completed) spironolactone (Aldactone) 50 MG tablet Take 100 mg by mouth in the morning. 09/12/19 025 Discontinued(T herapy completed) beta carotene (vitamin A) 3 MG (82232 UT) capsule Take by mouth in the morning. 10/18/19 025 Discontinued(T herapy completed) albuterol 108 (90 Base) MCG/ACT inhalerIndicati ons:Chronic obstructive pulmonary disease, unspecified COPD type (CMS/HCC) ([facility]) Inhale 2 puffs every 6 (six) hours if needed for wheezing. 18 g 2 02/12/20 025 Discontinued(T herapy completed) Wixela Inhub 250-50 MCG/ACT aerosol powderIndicatio ns:Wheezing INHALE 1 PUFF 2 TIMES DAILY; TAKE 1 PUFF BY MOUTH EVERY 12 HOURS 60 each 03/31/20 025 Discontinued(T herapy completed) azithromycin (Zithromax) 250 MG tabletIndicatio ns:COPD exacerbation (CMS/HCC) ([facility]) Take 2 tabs PO daily x 1d then 1 tab PO daily on D2 to D5 6 tablet 05/08/20 025 Discontinued(T herapy completed) ipratropium (Atrovent HFA) 17 MCG/ACT inhalerIndicati ons:COPD exacerbation (CMS/HCC) ([facility]) inhale 2 puff by inhalation route 4 times every day 12.9 g 3 05/08/20 23 025 Discontinued(T herapy completed) albuterol (2.5 MG/3ML) 0.083% nebulizer solutionIndicat ions:COPD exacerbation (CMS/HCC) (HCC) USE 1 VIAL VIA NEBULIZER EVERY 4 HOURS NEEDED FOR WHEEZING 75 mL 3 08/26/19 24 025 Discontinued(T herapy completed) loratadine (Claritin) 10 MG tabletIndicatio ns:Allergic rhinitis, unspecified seasonality, unspecified trigger Take 1 tablet (10 mg) by mouth Once per day. 30 tablet 11 05/02/20 24 025 Discontinued(R eorder (will not trigger notification to Pharmacy)) montelukast (Singulair) 10 MG tablet TAKE 1 TABLET BY MOUTH EVERY NIGHT DIRECTED 90 tablet 1 07/19/19 25 025 Discontinued Neomycin-Polymy matias-HC 1 % solutionIndicat ions:Acute otitis externa of both ears, unspecified type Administer 3 drops into affected ear(s) 4 times daily. 10 mL 01/14/20 25 025 Discontinued(T herapy completed) Active Problems Problem Noted Date Diagnosed Date [...] 1:41 PM EDT): Albuterol inhaler refilled today Income Auditor to avoid triggers C/w rest of medications F/u with pulmonology Encounters Date Type Department Care Team Description 05/27/2025 Orders Only GENERIC EXTERNAL DATA DEPARTMENT Provider, Generic External Data 05/24/2025 Refill [facility] [address] [place] [address] Katya Titus MD Allergic rhinitis, unspecified seasonality, unspecified trigger 05/23/2025 Refill [facility] [address] [place] [address] Katya Titus MD Allergic rhinitis, unspecified seasonality, unspecified trigger 05/17/2025 Orders Only GENERIC EXTERNAL DATA DEPARTMENT Provider, Generic External Data 05/08/2025 11:00 AM EST Office Visit [facility] [address] [place] [address] Marquis, Claudia, OD Intermediate stage nonexudative age-related macular degeneration of both eyes (Primary Dx); Combined forms of age-related cataract of both eyes; Presbyopia 05/08/2025 Travel 04/19/2025 10:30 AM EDT Office Visit [facility] [address] [place] [phone] Katya Titus MD Essential hypertension (Primary Dx); Chronic obstructive pulmonary disease, unspecified COPD type (CMS/HCC) (HCC); Osteoporosis, unspecified osteoporosis type, unspecified pathological fracture presence; Autoimmune hepatitis (CMS/HCC) (HCC); Right groin hernia; Encounter for immunization 04/19/2025 Travel 04/18/2025 Telephone [facility] [address] [place] [address] [phone] Katya Titus MD Chart Prep 04/11/2025 Patient Outreach [facility] [address] [place] [address] [phone] Katya Titus MD Pre-visit Planning (SDOH screening completed on 07/19/2024) 04/06/2025 Telephone [facility] [address] [place] [address] [phone] Katya Titus MD from Last 3 Months [...] Office Visit [facility] [address] [place] [address] Katya Titus MD [address] [place] [address] 11/06/2025 11:00 AM EDT Office Visit [facility] [address] [place] [address] Marquis, Claudia, OD [address] [place] [address] Health Maintenance Due Date Last Done Comments CT Colonography 1955 FIT DNA/Cologuard 1955 FIT 1955 FOBT 1955 Sigmoidoscopy 1955 Alcohol/Substance Use Screening 1966 Hepatitis A Vaccines (1 of 2 - Risk 2-dose series) 1973 Zoster Vaccines (1 of 2) 2004 Hepatitis B Vaccines (1 of 3 - Risk 3-dose series) 2014 COVID-19 Vaccine ( season) 2025 10/09/2020, 09/11/2020 SDOH Screening 07/19/2025 07/19/2024 Mammogram 10/10/2025 10/10/2024, 0308/2023, 09/19/2022, Additional history exists Depression Screening 01/13/2026 01/13/2025, 01/14/20 25 Colonoscopy 01/25/2026 01/25/2025, 12/07/2018 Colorectal Cancer Screening 01/25/2026 Tobacco Screening 05/26/2026 05/26/2025 Lipid Panel 10/23/2026 10/23/2021 DTaP/Tdap/Td Vaccines (3 [...] Procedure Name Priority Date/Time Associated Diagnosis Comments CBC WITH AUTO DIFFERENTIAL Routine 05/27/2025 3:33 PM EST COLLAGEN CROSS-LINKED N-TELOPEPTIDE (NTX), U Routine 05/17/2025 8:41 AM EST COMPREHENSIVE METABOLIC PANEL Routine 05/17/2025 8:35 AM EST CBC WITH AUTO DIFFERENTIAL Routine 05/17/2025 8:35 AM EST PROTHROMBIN TIME-INR Routine 05/17/2025 8:35 AM EST OCT, RETINA - OU - BOTH EYES Routine 05/08/2025 11:00 AM EST Intermediate stage nonexudative age-related macular degeneration of both eyes HM COLONOSCOPY Routine 01/25/2025 BI MAMMOGRAM SCREENING TOMOSYNTHESIS BILATERAL Routine 10/10/2024 1:35 PM EDT Encounter for screening mammogram for malignant neoplasm of breast HEPATITIS PANEL, GENERAL Routine 08/07/2023 10:41 AM EST Hemochromatosis, unspecified hemochromatosis type Autoimmune hepatitis (CMS/HCC) LIPID PANEL, STANDARD Routine 10/23/2021 8:53 AM EDT from Last 3 Months or Most Recently Relevant to Health Maintenance Results * (ABNORMAL) CBC auto differential (05/27/2025 3:33 PM EST) Only the most recent of2 resultswithin the time period is included. White Blood Count 6.0 4.8 - 10.8 X10*3/uL [facility] Red Blood Count 4.31 4.20 - 5.50 X10*6/uL [facility] Hemoglobin 13.7 12.0 - 16.0 g/dl [facility] Hematocrit 40.3 37.0 - 47.0 % [facility] Mean Corpuscular Volume 93.5 80.0 - 98.0 fL [facility] Mean Corpuscular Hemoglobin 31.8 27.0 - 33.0 pg [facility] Mean Corpuscular HGB Conc 34.0 31.0 - 35.0 g/dl [facility] Red Cell Distribution Width 13.2 11.0 - 16.0 % [facility] Platelet Count 178 160 - 400 X10*3/uL [facility] Mean Platelet Volume 9.7 9.4 - 12.3 fL [facility] Neutrophils Percent Auto 81.1(H) 45 - 73 % [facility] Imm Gran Pct Auto 0.3 0.0 - 0.4 % [facility] Lymphocytes Percent Auto 9.7(L) 20 - 40 % [facility] Monocytes Percent Auto 8.2 2 - 11 % [facility] Eosinophils Percent Auto 0.2 0 - 4 % [facility] Basophils Percent Auto 0.5 0 - 2 % [facility] NRBC Pct Auto 0.0 0.0 - 0.2 /100WBC [facility] Neutrophils Absolute Auto 4.8 2.0 - 8.3 x10*3/uL [facility] Imm Gran Abs Auto 0.02 0.00 - 0.03 X10*3/uL [facility] Lymphocytes Absolute Auto 0.6(L) 1.2 - 4.9 X10*3/uL [facility] Monocytes Absolute Auto 0.5 0.1 - 1.2 X10*3/uL [facility] Eosinophils Absolute Auto 0.0 0.0 - 0.4 X10*3/uL [facility] Basophils Absolute Auto 0.0 0.0 - 0.2 X10*3/uL [facility] NRBC Abs Auto 0.000 0.0 - 0.012 X10*3/uL [facility] 05/27/2025 3:33 PM EST 05/27/2025 3:36 PM EST us Generic External Data Provider LAB BLOOD ORDERAB LES Final Result [facility] [address] [place] [phone] * Collagen Cross-Linked N-Telopeptide (NTx), U (05/17/2025 8:41 AM EST) N Telopetide (NTx) 35 see note [facility] Comment:Result Units: nM BCE /mM creatPremenopausal Females: 4 - 64 nM BCE/mM creatResults are primarily used for monitoring theresponse to therapy. A value within thepremenopausal range does not rule out osteoporosisnor the need for therapyUnits of Measure: nM BCE/mM creat CREATININE, RANDOM URINE 106 20 - 275 mg/dL [facility] Comment:THIS TEST WAS PERFOR MED AT:[employer]/[id number] [place] [address]VVAMEPLSONYA OROPEZA MD,PHD 05/17/2025 8:41 AM EST 05/17/2025 8:59 AM EST Generic External Data Provider LAB URINE ORDERAB LES Final Result Performing Organization Address [facility] Co de Phone Number [facility] [address] [place] [phone] * Prothrombin Time-INR (05/17/2025 8:35 AM EST) Prothrombin Time 11.9 11.2 - 13.5 SEC [facility] INTERNATIONAL NORM RATIO 1.0 0.9 - 1.1 [facility] Comment:INTERNATIONAL NORMAL IZED RATIO (INR) REFERENCE [...] 8:35 AM EST 05/17/2025 8:35 AM EST Generic External Data Provider LAB BLOOD ORDERAB LES Final Result Performing Organization Address [facility] de Phone Number [facility] [address] [place] [address] [phone] * (ABNORMAL) Comprehensive Metabolic Panel (05/17/2025 8:35 AM EST) Sodium 145 135 - 145 mmol/L [facility] Potassium 4.1 3.3 - 5.1 mmol/L [facility] Chloride 107 96 - 108 mmol/L [facility] Carbon Dioxide 29 22 - 29 mmol/L [facility] Anion Gap 13 12 - 20 [facility] Urea Nitrogen (BUN) 17(H) 9 - 16 mg/dL [facility] Creatinine, Serum 0.80 0.5 - 1.4 mg/dL [facility] Estimated Glomerular Filt Rate >60 [facility] Comment:Chronic Kidney Disea se: Estimated GFR < 60 mL/min/1.02f9Nbmosl Kidney Disease: Estimated GFR < 15 mL/min/1.73m2 Glucose 86 60 - 115 mg/dL [facility] Calcium 9.6 8.4 - 10.2 mg/dL [facility] Bilirubin, Total 0.5 0.0 - 1.0 mg/dL [facility] Aspartate Amino Transferase 29 5 - 31 U/L [facility] Alanine Aminotransferase 24 0 - 31 U/L [facility] Total Protein 7.1 6.5 - 8.0 g/dL [facility] Albumin Level 4.4 3.5 - 5.0 g/dL [facility] Alkaline Phosphatase 83 39 - 117 U/L [facility] 05/17/2025 8:35 AM EST 05/17/2025 8:35 AM EST us Generic External Data Provider LAB BLOOD ORDERAB LES Final Result Performing Organization Address City/State/[facility] Co de Phone Number [facility] [address] [place] [phone] * OCT, Retina - OU - Both Eyes (05/08/2025 11:00 AM EST) Claudia Santacruz, OD - 05/26/2025 9:45 AM EST Images from the original result were not included. OCT [facility] Optical Coherence Tomography Interpretation Report Measurements: OD OS Macula Thickness 183 microns 194 microns Test findings: OD: normal foveal contour, no cystoid macular edema, small hard drusen throughout the macula, no subretinal fluid OS: normal foveal contour, no cystoid macular edema, small hard drusen throughout the macula, no subretinal fluid Impression and Plan: Intermediate dry macular degeneration in both eyes. The condition is relatively stable to previous exam findings. Will monitor here in 6 months. Claudiasusana Cho OD OPHTH TOMOGRAPHY Final Result * Hm Colonoscopy (01/25/2025) Colonoscopy Normal Normal Narrative Elise Brandon - 01/25/2025 Recommended 1 year. See see external hospital admission note on 01/25/25.Repeat Colonoscopy in 1 year or earlier if clinically indicated us Historical Provider [facility] Final Result * BI Mammogram Screening Tomosynthesis Bilateral (10/10/2024 1:35 PM EDT) Anatomical Region Laterality Modality Breast Bilateral Mammography 10/10/2024 1:35 PM EDT Narrative 10/16/2024 8:01 PM EDT [facility] [place] [address] Mammography Report Signed Patient: Vandana Hull MR#: [id number] : 1955 Acct:[id number] Age/Sex: 69 / F ADM Date: 10/10/24 Loc: HO.MAMMO Attending Dr: Katya Burton MD Ordering Physician: Katya Titus MD Results: 1Negative Date of Service: 10/10/24 Follow Up: 1 Year From Orig inal Mammogram Procedure(s): MM tomosynthesis screening BI Accession Number(s): [id number] cc: Katya Titus MD EXAMINATION: MM SCREENING [...] Georgina Rivera DO in OV> 10/16/241957 DD/ 34 TD/TT: 10/10/24 134 Childcare Attendant: Procedure Note Donotuseinterpreter, Image - 10/16/2024 [facility] [address] [place] [address] Mammography Report Signed Patient: Doni Hull#: [id number] : 1955cct:[id number] Age/Sex: 69 / FADM Date: 10/10/24 Loc: HO.MAMMO Attending Dr: Katya Burton MD Ordering Physician: Katya Titus MDResults: 1Negative Date of Service: 10/10/24Follow Up: 1 Year From Orig inal Mammogram Procedure(s): MM tomosynthesis screening BI Accession Number(s): [id number] cc: Katya Titus MD EXAMINATION: MM SCREENING [...] their next mammogram. Electronically signed by: Georgina Rievra DO 10/16/2024 07:58 PM EDT Dictated By: Georgina Rivera DO Signed By: <Electronically signed by Georgina Rivera DO in OV> 10/16/241957 DD/ 34 TD/TT: 10/10/24 134 Childcare Attendant: Katya Burton MD IMG BI PROCEDURES Alvarez laura Result - Final * Hepatitis A,B,C Profile (08/07/2023 10:41 AM EST) Pathologist [facility] Hepatitis A IgM Nonreactive Nonreactive [facility] Comment:IgM antibodies to YO V not detected; does not exclude earlyacute or recovered HAV infection. ~Hepatitis B Surface Antibody NONREACTIVE Nonreactive [facility] Comment:Nonreactive: < 8.00 mIU/mL Hepatitis B Core Antibody Nonreactive Nonreactive [facility] Hepatitis C Antibody Nonreactive Nonreactive [facility] Comment:Antibodies to HCV no t detected; does not exclude early acuteHCV infection. Hepatitis B Surface Ag Negative Negative [facility] Blood Venous blood specimen / Unknown 08/07/2023 10:41 AM EST 08/07/2023 11:38 AM EST Katya Burton MD LAB BLOOD ORDERABLES Final Result [facility] [address] [place] [phone] * (ABNORMAL) LIPID PANEL, STANDARD (10/23/2021 8:53 AM EDT) [facility] Chol/HDLC Ratio 3.4 <5.0 (calc) [facility] Cholesterol, Total 199 <200 mg/dL [...] LDL-C. Nhan ADAM et al. BIANCA. 2013;310(19): 6414-5989 (http://education.[employer]/faq/ETM284) Non-HDL Cholesterol 141(H) <130 mg/dL (calc) [facility] Comment: For patients with diabetes plus 1 major ASCVD risk factor, treating to a non-HDL-C goal of <100 mg/dL (LDL-C of <70 mg/dL) is considered a therapeutic option. Triglycerides 150(H) <150 mg/dL [facility] 10/23/2021 8:53 AM EDT Katya Burton MD LAB BLOOD ORDERABLES Final Result [facility] [address] from Last 3 Months or Most Recently Relevant to Health Maintenance [place] [address] [place] [address] [employer] OPTIONS (O D-SNP) Care Teams Truck Mechanic Relationship Specialty Start Date End Date Katya Titus MD [address] [place] [address] PCP - General Family Medicine 03/17/18
--- OUTSIDE RECORDS SUMMARY | 2025-05-27 15:50 | XMS_ITS | Encounter Summary ---
Author Organization [employer] Address [address] [facility] 7t [place] [address] Care Team Providers Care Supervisor Multifocal Lens Name Role Phone Katya Titus MD Primary Care Provide r Encounter Details Date Type Department Care Team ([facility] Contact Info) Description 05/27/2025 Orders Only GENERIC EXTERNAL DATA DEPARTMENT Provider, Generic External Data Social History Tobacco Use Types Packs/Day Years [...] Description 07/14/2025 11:30 AM EST Office Visit [facility] [address] [place] [address] Katya Titus MD [address] [place] [phone] 11/06/2025 11:00 AM EDT Office Visit [facility] [address] [place] [address] Marquis, Claudia, OD [address] [place] [address] documented as of this encounter Procedures Procedure Name Priority Date/Time Associated Diagnosis Comments CBC WITH AUTO DIFFERENTIAL Routine 05/27/2025 3:33 PM EST documented in this encounter Results * (ABNORMAL) CBC auto differential (05/27/2025 3:33 PM EST) White Blood Count 6.0 4.8 - 10.8 X10*3/uL [facility] Red Blood Count 4.31 4.20 - 5.50 X10*6/uL [facility] Hemoglobin 13.7 12.0 - 16.0 g/dl [facility] Hematocrit 40.3 37.0 - 47.0 % [facility] Mean Corpuscular Volume 93.5 80.0 - 98.0 fL [facility] Mean Corpuscular Hemoglobin 31.8 27.0 - 33.0 pg [facility] Mean Corpuscular HGB Conc 34.0 31.0 - 35.0 g/dl [facility] Red Cell Distribution Width 13.2 11.0 - 16.0 % [facility] Platelet Count 178 160 - 400 X10*3/uL [facility] Mean Platelet Volume 9.7 9.4 - 12.3 fL [facility] Neutrophils Percent Auto 81.1(H) 45 - 73 % [facility] Imm Gran Pct Auto 0.3 0.0 - 0.4 % [facility] Lymphocytes Percent Auto 9.7(L) 20 - 40 % [facility] Monocytes Percent Auto 8.2 2 - 11 % [facility] Eosinophils Percent Auto 0.2 0 - 4 % [facility] Basophils Percent Auto 0.5 0 - 2 % [facility] NRBC Pct Auto 0.0 0.0 - 0.2 /100WBC [facility] Neutrophils Absolute Auto 4.8 2.0 - 8.3 x10*3/uL [facility] Imm Gran Abs Auto 0.02 0.00 - 0.03 X10*3/uL [facility] Lymphocytes Absolute Auto 0.6(L) 1.2 - 4.9 X10*3/uL [facility] Monocytes Absolute Auto 0.5 0.1 - 1.2 X10*3/uL [facility] Eosinophils Absolute Auto 0.0 0.0 - 0.4 X10*3/uL [facility] Basophils Absolute Auto 0.0 0.0 - 0.2 X10*3/uL [facility] NRBC Abs Auto 0.000 0.0 - 0.012 X10*3/uL [facility] 05/27/2025 3:33 PM EST 05/27/2025 3:36 PM EST us Generic External Data Provider LAB BLOOD ORDERAB LES Final Result [facility] [address] [place], [place] [phone] documented in this encounter Visit Diagnoses Not on filedocumented in this encounter Additional Health Concerns Assessment Noted Time PHQ-9 Depression Total Score: 0 01/14/20 25 9:31 AM EDT documented as of this encounter Care Teams Supervisor Multifocal Lens Relationship Specialty Start Date End Date Katya Titus MD [address] [place] [address] PCP - General Family Medicine 03/17/18 documented as of this encounter
--- OUTSIDE RECORDS SUMMARY | 2025-05-27 15:50 | XMS_ITS | Encounter Summary ---
Author Organization [employer] Address [address] [facility] 7t [place] [address] Care Team Providers Care Rubber Stamp Dies Inspector Name Role Phone Katya Titus MD Primary Care Provide r Reason for Visit * Reason Comments Med Refill Encounter Details Date Type Department Care Team ([facility] st Contact Info) Description 12/22/2024 Refill [facility] [address] [place], [place] [phone] Katya Titus MD [address] [place], [place] [phone] Social History Tobacco Use Types Packs/Day Years [...] Description 07/14/2025 11:30 AM EST Office Visit [facility] [address] [place] [address] Katya Titus MD [address] [place] [address] 11/06/2025 11:00 AM EDT Office Visit [facility] [address] [place] [address] Marquis, Claudia, OD [address] [place] [address] documented as of this encounter Visit Diagnoses Not on filedocumented in this encounter Additional Health Concerns Assessment Noted Time PHQ-9 Depression Total Score: 0 11/20/19 23 10:59 AM EDT documented as of this encounter Care Teams Rubber Stamp Dies Inspector Relationship Specialty Start Date End Date Katya Titus MD [address] [place] [address] PCP - General Family Medicine 03/17/18 documented as of this encounter
--- OUTSIDE RECORDS SUMMARY | 2025-05-27 15:50 | XMS_ITS | Encounter Summary ---
Author Organization [employer] Address 75 [facility] 7t [place] [address] Care Team Providers Care Ambulatory Care Name Role Phone Katya Titus MD Primary Care Provide r Encounter Details Date Type Department Care Team (Late Contact Info) Description 03/25/2023 Orders Only [facility] [address] [place] [address] ProviderVladimir MD Social History Tobacco Use Types [...] Description 07/14/2025 11:30 AM EST Office Visit [facility] [address] [place] [address] Katya Titus MD [address] [place] [address] 11/06/2025 11:00 AM EDT Office Visit [facility] [address] [place] [address] Claudia Cho, OD [address] [place] [address] documented as of this encounter Procedures Procedure [...] documented as of this encounter Care Teams Ambulatory Care Relationship Specialty Start Date End Date Katya Titus MD [address] [place] [address] PCP - General Family Medicine 03/17/18 documented as of this encounter
[2025-05-27 16:00] LABS: NT Pro B Type Natriuretic Pept 178.8 pg/mL (<300)
[2025-05-27 16:02] LABS: Troponin-I High Sensitivity 2.9 ng/L (<3.5-17.0)
[2025-05-27 16:07] LABS: Alanine Aminotransferase 22 U/L (0-31); Albumin Level 4.8 g/dL (3.5-5.0); Alkaline Phosphatase 91 U/L (39-117); Anion Gap 16 (12-20); Aspartate Amino Transferase 29 U/L (5-31); Blood Urea Nitrogen 11 mg/dL (9-16); Calcium 9.5 mg/dL (8.4-10.2); Carbon Dioxide 23 mmol/L (22-29); Chloride 104 mmol/L (96-108); Creatinine Clr Calc Pharmacy 43.7; Estimated Glomerular Filt Rate > 60; Potassium 4.7 mmol/L (3.3-5.1); Sodium 138 mmol/L (135-145); Total Protein 7.9 g/dL (6.5-8.0)
[2025-05-27 16:21] LABS: Resp Syncy Virus RNA Qual PCR NEGATIVE (Negative); SARS COV2 PCR INHOUSE NEGATIVE (Negative)
[2025-05-27 16:29] VITALS: BP 121/69; PULSE 107; RESP 18; O2SAT 94
[2025-05-27 17:15] VITALS: PULSE 102; RESP 22; O2SAT 95
[2025-05-27] MEDS: Albuterol Sulfate 2.5 MG, Albuterol/Iprat 2.5/0.5MG 3 ML 3 ML INHALE (17:15)
[2025-05-27 17:18] VITALS: PULSE 101; O2SAT 94
[2025-05-27] MEDS: Magnesium Sulfate/H2O 2 GM/50 ML PIGGYBACK IV (17:21)
--- NOTE | 2025-05-27 17:23 | HO.NURTONUR ---
Pt here w/ c/o 4 days of increasing sob unresolved w/ use of inhaler. Pt denies f/c/n, but endorses cough x today. Pt able to speak in complete sentences but does appear sob during interview
[2025-05-27 17:42] LABS: VBG HCO3 23 mmol/L (22-26); VBG O2 % Saturation 85.0 %
[2025-05-27 17:50] LABS: Venous Blood Gas Refer to POC result
[2025-05-27 18:39] VITALS: BP 104/52; PULSE 93; RESP 18; O2SAT 91
--- NOTE | 2025-05-27 19:00 | PC.NURSE ---
Ambulatory sat performed, 95% on RA, pt states she feels better and will tolerate going home
[2025-05-27 19:09] VITALS: BP 104/52; PULSE 93; RESP 18; TEMP 37.1; O2SAT 92
== END 2025-05-27 19:10 | disposition home or self-care (01) ==
PROVIDERS: Physician Assistant; Emergency Provider Emergency Medicine Emergency Medical Services; PCP Internal Medicine
DX: J44.1 Chronic obstructive pulmonary disease with (acute) exacerbation (principal); K21.9 Gastro-esophageal reflux disease without esophagitis; I10 Essential (primary) hypertension; M81.0 Age-related osteoporosis without current pathological fracture; Z79.899 Other long term (current) drug therapy; Z72.0 Tobacco use
CPT/HCPCS: 36415; 71046; 80053; 82803; 83880; 84484; 85025; 87637; 94640; 96365; 96375; 99285; J2919; J3475

== ENCOUNTER → 2025-05-27 15:21 | Outpatient (BNV) | payer OTHER, SELFPAY | PROVIDERS: Emergency Provider Emergency Medicine Emergency Medical Services; PCP Internal Medicine; Visit Provider Specialist | DX: R05.9 Cough, unspecified (principal) | CPT/HCPCS: 71046 ==